=== PATIENT | female | born 1975 ===

== ENCOUNTER 2021-08-14 12:42 | Outpatient (REF) | payer MEDICAID, SELFPAY ==
--- NOTE | ~2021-08-14 | MM_ITS ---
EXAMINATION: MM SCREENING DIGITAL BREAST TOMOSYNTHESIS, BILATERAL CLINICAL INFORMATION: Screening. Asymptomatic. Age 46. No prior breast imaging. No known family history breast cancer. The lifetime risk of breast cancer based on the Tyrer-Cuzick Model is 7%. COMPARISON: None (current study represents initial baseline exam). TECHNIQUE: Digital breast tomosynthesis is performed in both the craniocaudal and mediolateral oblique views along with computer-aided detection (CAD). Synthesized 2D images are generated from the tomosynthesis. FINDINGS: There are scattered areas of fibroglandular density (ACR BI-RADS breast composition Category b). There are no significant masses, abnormal calcifications, or other abnormalities. The axilla and skin contours are unremarkable. MM/MM tomosynthesis screening BI IMPRESSION: No mammographic evidence of malignancy. ASSESSMENT: BI-RADS 1: Negative RECOMMENDATION: Routine annual mammography screening. This patient's information was entered into a reminder system with a target due date for their next mammogram.
== END 2021-08-14 12:43 | disposition home or self-care (01) ==
LOC: HO.MAMMO 12:42
PROVIDERS: PCP Internal Medicine; Visit Provider Advanced Practice Midwife
DX: Z12.31 Encounter for screening mammogram for malignant neoplasm of breast (principal)
CPT/HCPCS: 77063; 77067

== ENCOUNTER → 2022-04-25 15:41 | Outpatient (BNVA) | payer MEDICAID, SELFPAY | PROVIDERS: PCP Internal Medicine; Visit Provider Nurse Practitioner Family | DX: Z12.11 Encounter for screening for malignant neoplasm of colon (principal); E11.9 Type 2 diabetes mellitus without complications; Z79.4 Long term (current) use of insulin | CPT/HCPCS: 99202 ==

== ENCOUNTER → 2022-07-10 13:44 | Outpatient (BNVA) | payer MEDICAID, SELFPAY | PROVIDERS: PCP Internal Medicine; Visit Provider Internal Medicine Endocrinology, Diabetes & Metabolism | DX: E11.65 Type 2 diabetes mellitus with hyperglycemia (principal); E78.5 Hyperlipidemia, unspecified; Z79.4 Long term (current) use of insulin | CPT/HCPCS: 82947; 99212 ==

== ENCOUNTER → 2022-11-13 13:54 | Outpatient (BNVA) | payer MEDICAID, SELFPAY | PROVIDERS: PCP Internal Medicine; Visit Provider Dietitian, Registered | DX: E11.65 Type 2 diabetes mellitus with hyperglycemia (principal) | CPT/HCPCS: 97802 ==

== ENCOUNTER 2022-12-18 15:11 | Outpatient (REF) | payer MEDICAID, SELFPAY ==
[2022-12-18 18:17] LABS: MANUAL DIFF FLAG NO
[2022-12-18 18:27] LABS: Basophils Percent Auto 0.5 % (0-2); Eosinophils Absolute Auto 0.2 X10*3/uL (0.0-0.4); Hematocrit 44.3 % (37.0-47.0); Hemoglobin 15.1 g/dl (12.0-16.0); Imm Gran Abs Auto 0.02 X10*3/uL (0.00-0.03); Imm Gran Pct Auto 0.2 % (0.0-0.4); Lymphocytes Absolute Auto 3.1 X10*3/uL (1.2-4.9); Lymphocytes Percent Auto 37.7 % (20-40); Mean Corpuscular HGB Conc 34.1 g/dl (31.0-35.0); Mean Corpuscular Hemoglobin 29.1 pg (27.0-33.0); Mean Corpuscular Volume 85.4 fL (80.0-98.0); Mean Platelet Volume 9.6 fL (9.4-12.3); Monocytes Absolute Auto 0.5 X10*3/uL (0.1-1.2); Monocytes Percent Auto 6.3 % (2-11); Neutrophils Absolute Auto 4.4 x10*3/uL (2.0-8.3); Neutrophils Percent Auto 53.3 % (45-73); Platelet Count 320 X10*3/uL (160-400); Red Blood Count 5.19 X10*6/uL (4.20-5.50); Red Cell Distribution Width 14.4 % (11.0-16.0); White Blood Count 8.3 X10*3/uL (4.8-10.8)
[2022-12-18 19:11] LABS: Alanine Aminotransferase 35 U/L (0-31); Albumin Level 4.1 g/dL (3.5-5.0); Alkaline Phosphatase 112 U/L (39-117); Anion Gap 10 (12-20); Aspartate Amino Transferase 25 U/L (5-31); Bilirubin Total 0.5 mg/dL (0.0-1.0); Blood Urea Nitrogen 5 mg/dL (9-16); Calcium 9.5 mg/dL (8.4-10.2); Carbon Dioxide 23 mmol/L (22-29); Chloride 109 mmol/L (96-108); Estimated Glomerular Filt Rate > 60; Glucose Random 177 mg/dL (60-115); Magnesium 2.1 mg/dL (1.6-2.6); Potassium 3.9 mmol/L (3.3-5.1); Sodium 138 mmol/L (135-145); Total Protein 7.1 g/dL (6.5-8.0)
[2022-12-18 19:26] LABS: Vitamin D 25-OH Total 14.4 ng/mL (>30)
[2022-12-18 19:33] LABS: Vitamin B12 316 pg/mL (200-900)
== END 2022-12-18 15:12 | disposition home or self-care (01) ==
LOC: HO.CHCLDS 15:11
PROVIDERS: Visit Provider Internal Medicine
DX: R53.83 Other fatigue (principal)
CPT/HCPCS: 36415; 80053; 82306; 82607; 83735; 85025

== ENCOUNTER → 2023-01-07 14:44 | Outpatient (BNVA) | payer MEDICAID, SELFPAY | PROVIDERS: PCP Internal Medicine; Visit Provider Dietitian, Registered | DX: E11.65 Type 2 diabetes mellitus with hyperglycemia (principal) | CPT/HCPCS: 97803 ==

== ENCOUNTER 2023-01-07 14:51 | Outpatient (AMB) | payer MEDICAID, SELFPAY ==
[2023-01-07 14:45] VITALS: BMI 28.1
--- NOTE | 2023-01-07 14:45 | A.OFFVIS_ITS ---
Intake VS Expanded 01/07/23 14:45 Height 5 ft 5 in Weight 168 lb 10.458 oz BMI 28.1 Intake Visit Reasons: DM Allergies acetaminophen [From TYLENOL-CODEINE] Allergy (Intermediate, Verified 07/10/22 13:52) VOMITING, ITCHING From TYLENOL-CODEINE Allergy (Intermediate, Uncoded 07/10/22 13:52) VOMITING, ITCHING Codeine Phosphate Allergy (Unknown, Uncoded 07/10/22 13:52) hives, itchy HPI Nutrition Presentation Details Pt presents for MNT follow up for T2DM. Pt reports working on reducing sugars (soda/chocolates) Reports having 3 meals per day and taking her meds as rx by the doctor but not counting carbohydrates. Pt reports her blood glucose range from 123 to 200s Reports not understanding relationship of high fat and BG level (Pt presented 45 min late to this appt today) Most Recent Diabetes Results: Microalb/Creat Ratio 33.6 ug/mg cr 05/19/19 Cholesterol 248 MG/DL 05/19/19 HDL Cholesterol 36 MG/DL 05/19/19 Triglycerides 321 MG/DL 05/19/19 Creatinine 0.66 mg/dL (0.5-1.4) 12/18/22 Blood Urea Nitrogen 5 mg/dL (9-16) L 12/18/22 Sodium 138 mmol/L (135-145) 12/18/22 Potassium 3.9 mmol/L (3.3-5.1) 12/18/22 Chloride 109 mmol/L (96-108) H 12/18/22 Carbon Dioxide 23 mmol/L (22-29) 12/18/22 Calcium 9.5 mg/dL (8.4-10.2) 12/18/22 AST 25 U/L (5-31) 12/18/22 ALT 35 U/L (0-31) H 12/18/22 Total Protein 7.1 g/dL (6.5-8.0) 12/18/22 Albumin 4.1 g/dL (3.5-5.0) 12/18/22 [facility] Medical History (Updated 07/10/22 @ 14:06 by Tomas Lewis MD) Uncontrolled type 2 diabetes mellitus with hyperglycemia Surgical History (Updated 07/10/22 @ 13:55 by ANÍBAL Cohen) Hx of section Hx of cholecystectomy Hx of elbow surgery Hx of hand surgery Family History Mother Diabetes Maternal Uncle Diabetes Maternal Aunt Diabetes Social History (Updated 07/10/22 @ 13:55 by ANÍBAL Cohen) Household Members: Other Alcohol intake: current Alcohol intake frequency: does not drink Patient Tobacco Use Status: Current everyday Tobacco user Cigarettes Per Day: 4 Assessment & Plan Assessment & Plan (1) Uncontrolled type 2 diabetes mellitus with hyperglycemia: Code(s): E11.65 - Type 2 diabetes mellitus with hyperglycemia Plan: Wt: 75 kg Est kcal needs as per MSJ: 1913 (40% carb, 30% protein/fat) Est fluid needs as per 25-30 ml/d: 1875- 2250 Est prot per day as per 1 g/kg bw: 75 Recommend fiber intake : 8-10 g per day and gradually increase to 25-28 g per day for women or as tolerated Recommend sodium intake per day : less than 2000 mg Educated patient on: ( R = reviewed V = verbalizes understanding N/R = needs review N/A = not applicable * Food sources of carbohydrate, adequate serving sizes and its role in various health conditions: R * Differences between complex carbohydrates a simple carbohydrates, role of fiber in diet: R * Differences between types of fats and role in diet (mono on saturated fat fatty acids, saturated fatty acids, trans fats): R (relationship of high fat and BG levels discussed 01/07/23) * Food sources of sodium in salt and healthy modifications for heart health in kidney health: NR * Vitamins and minerals: NR * Healthy plate method concept: R * Physical activity: Benefits a precaution: NR * Hypoglycemia protocol (rule of 15): R * Dietary prevention of Hyperglycemia: NR Patient Instructions: Wokr on counting grams of carbohydrate at breakfast. Become familiar with portion and total grams of carbohydrates- goal 30-45-g of carbs at breakfast. Include food sources of vitamin D (milk, yogurt , vit d supplement ) Reduce on frequency of high fat foods (fries/breaded fried foods ) Coding Level of Care Code Nutr Indiv Subseq (47551) Diagnoses Uncontrolled type 2 diabetes mellitus with hyperglycemia E11.65 Time Spent (min) 16
== END 2023-01-07 15:03 | disposition home or self-care (01) ==
PROVIDERS: PCP Internal Medicine; Visit Provider Dietitian, Registered
DX: E11.65 Type 2 diabetes mellitus with hyperglycemia (principal)

== ENCOUNTER 2023-02-05 14:57 | Outpatient (AMB) | payer MEDICAID, SELFPAY ==
--- NOTE | 2023-02-05 14:59 | MHC.OFFVIS ---
Intake Vital Signs 02/05/23 15:00 Height 5 ft 5 in Weight 154 lb 15.759 oz BMI 25.8 BP 118/76 Blood Pressure Location Rt brachial Position Sitting Pulse 90 Pulse Source Pulse Oximeter Intake Visit Reasons: dm Intake Note: Patient presents today to follow up on Type 2 Diabetes Mellitus. Patient receives DME supplies through: Last Diabetic Eye exam: Over 1 year ago Last Podiatry Visit: 11/2022 Random Glucose: 243mg/dl HgA1C:9.0% Containers Sales Representative Required: No Accompanied by: Self / Same As Patient Allergies acetaminophen [From TYLENOL-CODEINE] Allergy (Intermediate, Verified 02/05/23 15:04) VOMITING, ITCHING From TYLENOL-CODEINE Allergy (Intermediate, Uncoded 07/10/22 13:52) VOMITING, ITCHING Codeine Phosphate Allergy (Unknown, Uncoded 07/10/22 13:52) hives, itchy Medication List - Last Reconciled 02/05/23 by Tomas Lewis MD dulaglutide (Trulicity) 1.5 mg (0.5 mL) subcut QWEEK insulin glargine (Lantus Solostar U-100 Insulin) 70 units subcut QPM insulin lispro (Humalog Clark KwikPen (U-100)) 1 sliding scale dose subcut USEASDIRECTD HPI HPI Comments History of Present Illness Details 47 YO F who is seen in consultation for T2DM at the request of PCP. Initially diagnosed with T2DM in 2013 . Saw June Wright NP in 2018 Was initially started on treatment with insulin and metformin Presented on blood testing . Current regimen Lantus 70 units . Humalog 26 units with meals Trulicity 1.5 mg Qwkly Per the CGM Parris CGMS is active 43 % of time . Avg glucose is 212 . Variability of 24.0 The patient's blood sugars were in target 24% of the time, above target 76% of the time, and below target 0% of the time Reports low sugars infrequently .1-2 X/wk Treats lows with glucose tabs . Checks sugar after to ensure it is rising. Checks 2 hr after correction Family history of T2DM in mother Type 2 DM and aunts and uncle . Has eyes checked yearly, last eye exam 1 yr ago needs to make appt , denies retinopathy. Denies neuropathy, , sees podiatry 2 wks ago . Denies nephropathy, Not on ALEX/ARB. Has HLD,Not on statin. Denies CAD. Had diabetes education when first diagnosed . [facility] Medical History (Updated 07/10/22 @ 14:06 by Tomas Lewis MD) Uncontrolled type 2 diabetes mellitus with hyperglycemia Surgical History (Updated 07/10/22 @ 13:55 by ANÍBAL Cohen) Hx of section Hx of cholecystectomy Hx of elbow surgery Hx of hand surgery Family History Mother Diabetes Maternal Uncle Diabetes Maternal Aunt Diabetes Social History (Updated 07/10/22 @ 13:55 by ANÍBAL Cohen) Household Members: Other Alcohol intake: current Alcohol intake frequency: does not drink Patient Tobacco Use Status: Current everyday Tobacco user Cigarettes Per Day: 4 Physical Exam Vital Signs: Last Vital Signs Pulse 90 02/05/23 15:00 BP 118/76 02/05/23 15:00 BMI result Body Mass Index 25.8 Absence of Cushingoid features. Absence of acromegalic features. Neck exam reveals nl size thyroid about 15 gms. No thyroid nodules palpable. No carotid bruits present. Lungs CTA. Heart S1 S2, Reg R/R. No M/R/ G. Skin exam reveals absence of vitiligo or acanthosis nigricans. Abdominal exam reveals Soft NT/ND with NA BS. No organomegaly present. Neck Other: . Extrem Other: Visual exam of foot performed. No ulcerations or open lesions. No onchomycosis, no callouses.Pulses 2 + distally Sensation intact to monofilament exam. Vibratory sensation sensed is intact with 128 Hz tuning fork Results AMB Hemoglobin A1c AMB Hemoglobin A1c 9.0 % Last Edit by Carmela Knott on 02/05/23 15:19 Assessment & Plan Assessment & Plan (1) Uncontrolled type 2 diabetes mellitus with hyperglycemia: Code(s): E11.65 - Type 2 diabetes mellitus with hyperglycemia Plan: This is a 47-year-old female with history of diabetes being treated with basal-bolus insulin with poor glycemic control and no known microvascular or macrovascular complications Plan is to have the patient scan more frequently with the Parris. Will increase Trulicity to 3 mg Q weekly and add Jardiance 10 mg q.d.. Went over side effects Jardiance including but not limited to dehydration, DKA and Chad's gangrene . Will check basic metabolic panel 10 days after starting Jardiance . Will have patient see consumer educator. Could consider switching Trulicity to Mounjaro if do not achieve glycemic goals in the future future Will talk to patient about starting a statin namely atorvastatin 10 mg q.d. and recheck lipid profile in 8 weeks Orders: Orders Basic Metabolic Panel 2 Weeks E11.65 - Type 2 diabetes mellitus with hyperglycemia Lipid Panel 8 Weeks E11.65 - Type 2 diabetes mellitus with hyperglycemia AMB Hemoglobin A1c Today E11.65 - Type 2 diabetes mellitus with hyperglycemia Medications: New dulaglutide (Trulicity) 3 mg (0.5 mL) subcut QWEEK 2 mL 5RF empagliflozin (Jardiance) 10 mg PO DAILY 30 tabs 5RF glucagon 3 mg/actuation (Baqsimi) 3 mg intranasal ONCE 2 ea 4RF atorvastatin 10 mg PO DAILY 30 tabs 4RF Discontinued dulaglutide (Trulicity) Discontinued Reason: Doctor's Order 1.5 mg (0.5 mL) subcut QWEEK 2 mL 5RF Coding Level of Care Code Est Pt Level 4 (26166) Diagnoses Uncontrolled type 2 diabetes mellitus with hyperglycemia E11.65
[2023-02-05 15:00] VITALS: BP 118/76; PULSE 90; BMI 25.8
[2023-02-05 15:15] LABS: Glucose, Whole Blood 243 mg/dL (60-115)
== END 2023-02-05 15:36 | disposition home or self-care (01) ==
PROVIDERS: PCP Internal Medicine; Visit Provider Internal Medicine Endocrinology, Diabetes & Metabolism
DX: E11.65 Type 2 diabetes mellitus with hyperglycemia (principal)
CPT/HCPCS: 99214

== ENCOUNTER → 2023-02-05 14:57 | Outpatient (BNVA) | payer MEDICAID, SELFPAY | PROVIDERS: PCP Internal Medicine; Visit Provider Internal Medicine Endocrinology, Diabetes & Metabolism | DX: E11.65 Type 2 diabetes mellitus with hyperglycemia (principal); Z79.4 Long term (current) use of insulin | CPT/HCPCS: 82947; 83036; 99212 ==

== ENCOUNTER 2023-02-20 14:00 | Outpatient (AMB) | payer MEDICAID, SELFPAY ==
--- NOTE | 2023-02-20 14:46 | A.OFFVIS_ITS ---
Intake Intake Visit Reasons: DM Catalyst Impregnator Required: No Accompanied by: Self / Same As Patient Allergies acetaminophen [From TYLENOL-CODEINE] Allergy (Intermediate, Verified 02/05/23 15:04) VOMITING, ITCHING From TYLENOL-CODEINE Allergy (Intermediate, Uncoded 07/10/22 13:52) VOMITING, ITCHING Codeine Phosphate Allergy (Unknown, Uncoded 07/10/22 13:52) hives, itchy HPI Comprehensive Diabetes Asmnt Most Recent Diabetes Results: Creatinine 0.66 mg/dL (0.5-1.4) 12/18/22 Blood Urea Nitrogen 5 mg/dL (9-16) L 12/18/22 Sodium 138 mmol/L (135-145) 12/18/22 Potassium 3.9 mmol/L (3.3-5.1) 12/18/22 Chloride 109 mmol/L (96-108) H 12/18/22 Carbon Dioxide 23 mmol/L (22-29) 12/18/22 Calcium 9.5 mg/dL (8.4-10.2) 12/18/22 AST 25 U/L (5-31) 12/18/22 ALT 35 U/L (0-31) H 12/18/22 Total Protein 7.1 g/dL (6.5-8.0) 12/18/22 Albumin 4.1 g/dL (3.5-5.0) 12/18/22 [facility] Medical History (Updated 07/10/22 @ 14:06 by Tomas Lewis MD) Uncontrolled type 2 diabetes mellitus with hyperglycemia Surgical History Hx of section Hx of cholecystectomy Hx of elbow surgery Hx of hand surgery Family History Mother Diabetes Maternal Uncle Diabetes Maternal Aunt Diabetes Social History Household Members: Other Alcohol intake: current Alcohol intake frequency: does not drink Patient Tobacco Use Status: Current everyday Tobacco user Cigarettes Per Day: 4 Assessment & Plan Assessment & Plan (1) Uncontrolled type 2 diabetes mellitus with hyperglycemia: Code(s): E11.65 - Type 2 diabetes mellitus with hyperglycemia Plan: Pump Assessment: Type of DM: Type 2 Dx at age: 38 Previous DKA: No Current Insulin Rx: MDI Patient takes insulin as prescribed: Yes Patient? checks BG freestyle Parris 2 sensor Downloaded meter today? Yes Patient? reports glycemic control as: Poor Most recent Hgb A1C: 9%, January 2023 Frequency of low BG: Rarely Low BG treatment: Candy Frequency of high BG: Daily Does patient check Ketones? Not at this time Has pt been on a pump in the past? No Reviewed insulin pump basics today with Patient. Explained pros and cons of insulin pumps. Showed pt various pumps, infusion sets, and cgms currently available. Reviewed need to wear pump 24/ and need to change infusion set every 3 days. Also stressed importance of frequent BG checks, 4x daily minimum or use pump that is integrated with CGM.? Explained to patient she will need to transition from Parris 2 sensors to Dexcom G6 in order to use integrated insulin pump device Patient reports she has limited dexterity in both of her hands due to nerve damage, and neuropathy. She finds it difficult to administer insulin through insulin pens. Requested prescription for Toujeo to replace Lantus Patient demonstrated motivation for continued insulin pump education and understands the need to complete education prior to starting insulin pump for best outcome. Is interested in the iLet insulin pump, explained to patient that it may only be approved for people with type 1 diabetes. Patient asked if we could submit order regardless Coding Level of Care Code Est Pt Level 1 (90646) Diagnoses Uncontrolled type 2 diabetes mellitus with hyperglycemia E11.65
== END 2023-02-20 14:51 | disposition home or self-care (01) ==
PROVIDERS: PCP Internal Medicine; Visit Provider Registered Nurse Diabetes Educator
DX: E11.65 Type 2 diabetes mellitus with hyperglycemia (principal)

== ENCOUNTER → 2023-02-20 14:00 | Outpatient (BNVA) | payer MEDICAID, SELFPAY | PROVIDERS: PCP Internal Medicine; Visit Provider Registered Nurse Diabetes Educator | DX: E11.65 Type 2 diabetes mellitus with hyperglycemia (principal) | CPT/HCPCS: 99211 ==

== ENCOUNTER 2023-04-02 14:48 | Outpatient (REF) | payer MEDICAID, SELFPAY ==
--- NOTE | ~2023-04-02 | XR_ITS ---
EXAMINATION: XR WRIST, RIGHT XR WRIST, LEFT CLINICAL INFORMATION: Bilateral wrist and hand pain. COMPARISON: None available. TECHNIQUE: Navicular, lateral, oblique and PA views were obtained of the bilateral wrists. RIGHT WRIST: Moderate degenerative changes 1st carpometacarpal joint with joint space narrowing and hypertrophic change. Mild degenerative changes 1st metatarsophalangeal joint with hypertrophic change. No displaced fracture. LEFT WRIST: Moderate degenerative changes 1st carpometacarpal joint with joint space narrowing and hypertrophic change. Mild degenerative changes 1st metatarsophalangeal joint with hypertrophic change. No displaced fracture. Mild degenerative changes 1st metatarsophalangeal joint. XR/XR wrist LT min 3V IMPRESSION: 1. [id number] degenerative changes as detailed above. 2. No displaced fracture. Recommend followup imaging in 10-14 days if fracture is suspected.
--- NOTE | ~2023-04-02 | XR_ITS ---
EXAMINATION: XR WRIST, RIGHT XR WRIST, LEFT CLINICAL INFORMATION: Bilateral wrist and hand pain. COMPARISON: None available. TECHNIQUE: Navicular, lateral, oblique and PA views were obtained of the bilateral wrists. RIGHT WRIST: Moderate degenerative changes 1st carpometacarpal joint with joint space narrowing and hypertrophic change. Mild degenerative changes 1st metatarsophalangeal joint with hypertrophic change. No displaced fracture. LEFT WRIST: Moderate degenerative changes 1st carpometacarpal joint with joint space narrowing and hypertrophic change. Mild degenerative changes 1st metatarsophalangeal joint with hypertrophic change. No displaced fracture. Mild degenerative changes 1st metatarsophalangeal joint. XR/XR wrist RT min 3V IMPRESSION: 1. [id number]-[id number] degenerative changes as detailed above. 2. No displaced fracture. Recommend followup imaging in 10-14 days if fracture is suspected.
[2023-04-02 15:04] LABS: MANUAL DIFF FLAG NO
[2023-04-02 15:28] LABS: Basophils Absolute Auto 0.1 X10*3/uL (0.0-0.2); Basophils Percent Auto 0.6 % (0-2); Eosinophils Absolute Auto 0.2 X10*3/uL (0.0-0.4); Eosinophils Percent Auto 2.2 % (0-4); Hematocrit 42.4 % (37.0-47.0); Hemoglobin 14.5 g/dl (12.0-16.0); Imm Gran Abs Auto 0.03 X10*3/uL (0.00-0.03); Imm Gran Pct Auto 0.3 % (0.0-0.4); Lymphocytes Absolute Auto 3.5 X10*3/uL (1.2-4.9); Lymphocytes Percent Auto 38.1 % (20-40); Mean Corpuscular HGB Conc 34.2 g/dl (31.0-35.0); Mean Corpuscular Hemoglobin 29.4 pg (27.0-33.0); Mean Corpuscular Volume 85.8 fL (80.0-98.0); Monocytes Absolute Auto 0.7 X10*3/uL (0.1-1.2); Monocytes Percent Auto 7.3 % (2-11); Neutrophils Absolute Auto 4.8 x10*3/uL (2.0-8.3); Neutrophils Percent Auto 51.5 % (45-73); Platelet Count 311 X10*3/uL (160-400); Red Blood Count 4.94 X10*6/uL (4.20-5.50); Red Cell Distribution Width 13.7 % (11.0-16.0); White Blood Count 9.3 X10*3/uL (4.8-10.8)
[2023-04-02 15:51] LABS: C Reactive Protein 0.57 mg/dL (< or = 0.50)
[2023-04-03 15:04] LABS: Cyclic Citrullinated Peptide <16 UNITS
== END 2023-04-02 14:49 | disposition home or self-care (01) ==
LOC: HO.LAB 14:48
PROVIDERS: Absent Provider Internal Medicine; PCP Internal Medicine; Visit Provider Internal Medicine Endocrinology, Diabetes & Metabolism
DX: G56.03 Carpal tunnel syndrome, bilateral upper limbs (principal); M25.531 Pain in right wrist; M25.532 Pain in left wrist
CPT/HCPCS: 36415; 73110; 85025; 86140; 86200

== ENCOUNTER 2023-04-29 13:09 | Outpatient (AMB) | payer MEDICAID, SELFPAY ==
--- NOTE | 2023-04-29 14:49 | A.OFFVIS_ITS ---
Intake Intake Visit Reasons: Pump set up-LVM Manager Simulation Required: No Accompanied by: Self / Same As Patient Allergies acetaminophen [From TYLENOL-CODEINE] Allergy (Intermediate, Verified 02/05/23 15:04) VOMITING, ITCHING From TYLENOL-CODEINE Allergy (Intermediate, Uncoded 07/10/22 13:52) VOMITING, ITCHING Codeine Phosphate Allergy (Unknown, Uncoded 07/10/22 13:52) hives, itchy HPI Comprehensive Diabetes Asmnt Most Recent Diabetes Results: Creatinine 0.66 mg/dL (0.5-1.4) 12/18/22 Blood Urea Nitrogen 5 mg/dL (9-16) L 12/18/22 Sodium 138 mmol/L (135-145) 12/18/22 Potassium 3.9 mmol/L (3.3-5.1) 12/18/22 Chloride 109 mmol/L (96-108) H 12/18/22 Carbon Dioxide 23 mmol/L (22-29) 12/18/22 Calcium 9.5 mg/dL (8.4-10.2) 12/18/22 AST 25 U/L (5-31) 12/18/22 ALT 35 U/L (0-31) H 12/18/22 Total Protein 7.1 g/dL (6.5-8.0) 12/18/22 Albumin 4.1 g/dL (3.5-5.0) 12/18/22 [facility] Medical History (Updated 07/10/22 @ 14:06 by Tomas Lewis MD) Uncontrolled type 2 diabetes mellitus with hyperglycemia Surgical History Hx of section Hx of cholecystectomy Hx of elbow surgery Hx of hand surgery Family History Mother Diabetes Maternal Uncle Diabetes Maternal Aunt Diabetes Household Members: Other Alcohol intake: current Alcohol intake frequency: does not drink Patient Tobacco Use Status: Current everyday Tobacco user Cigarettes Per Day: 4 Assessment & Plan Assessment & Plan (1) Uncontrolled type 2 diabetes mellitus with hyperglycemia: Code(s): E11.65 - Type 2 diabetes mellitus with hyperglycemia Plan: Patient presents for pump training for iLet pump and CGM training today. The following topics were reviewed today: -Pump therapy basic concepts: Basal/bolus -Device settings: Bluetooth/mobile connection (if applicable), correct date and time, sound volume -CGM settings(if integrated system): CGM graft views and trend arrows, alerts and alarms, Start new sensor Insulin delivery settings Instructed patient to only use room temperature insulin, how to load cartridge or fill pod, with insulin. Fill tubing and cannula (if applicable) Inserting infusion set or starting pod Troubleshooting after starting new pod or inserting new insulin set: Occlusion, adhesive tape sensitivity, redness Check BG 2 hours after site change Safety information: Importance of a backup plan, for manual injections, proper prescriptions and emergency supplies ketone strips, and rules for testing for ketones Patient was able to insert insulin set today without difficulty. Patient understands the basic concepts of pump therapy, how to give insulin for meals and snacks, how to troubleshoot for hyper and hypoglycemia. Patient will follow up with CDE as instructed Patient will contact CDE with questions or concerns, patient given IT number to support in any technical issues related to insulin pump Patient Instructions: Pt will follow up with diabetes education nurse in 1 week Coding Level of Care Code Est Pt Level 1 (69417) Diagnoses Uncontrolled type 2 diabetes mellitus with hyperglycemia E11.65
== END 2023-04-29 14:58 | disposition home or self-care (01) ==
PROVIDERS: PCP Internal Medicine; Visit Provider Registered Nurse Diabetes Educator
DX: E11.65 Type 2 diabetes mellitus with hyperglycemia (principal)

== ENCOUNTER → 2023-04-29 13:09 | Outpatient (BNVA) | payer MEDICAID, SELFPAY | PROVIDERS: PCP Internal Medicine; Visit Provider Registered Nurse Diabetes Educator | DX: E11.65 Type 2 diabetes mellitus with hyperglycemia (principal); Z96.41 Presence of insulin pump (external) (internal); Z46.81 Encounter for fitting and adjustment of insulin pump | CPT/HCPCS: 99211 ==

== ENCOUNTER 2023-05-20 14:01 | Outpatient (AMB) | payer MEDICAID, SELFPAY ==
--- NOTE | 2023-05-20 14:02 | A.OFFVIS_ITS ---
Intake Vital Signs 05/20/23 14:03 Height 5 ft 5 in Weight 158 lb 1.143 oz BMI 26.3 BP 128/80 Blood Pressure Location Lt brachial Position Sitting Pulse 91 Pulse Source Pulse Oximeter Intake Visit Reasons: f/u Type 2 DM-LVM Intake Note: Patient presents today to follow up on DMT2. Last Diabetic Eye exam: 2021 Last Podiatry Visit: 03/2023 Random Glucose: 107 mg/dl HgA1C:8.2% Upscale Security Officer Required: No Accompanied by: Self / Same As Patient Allergies acetaminophen [From TYLENOL-CODEINE] Allergy (Intermediate, Verified 05/20/23 14:08) VOMITING, ITCHING From TYLENOL-CODEINE Allergy (Intermediate, Uncoded 07/10/22 13:52) VOMITING, ITCHING Codeine Phosphate Allergy (Unknown, Uncoded 07/10/22 13:52) hives, itchy HPI HPI Comments History of Present Illness Details 48 YO F who is seen in consultation for T2DM at the request of PCP. Initially diagnosed with T2DM in 2013 . Was initially started on treatment with insulin and metformin Presented on blood testing . Current regimen Jardiance 10 mg Trulicity 1.5 mg Qwkly Currently on and ilet pump Total daily dose of insulin 76.5 units. Glucose summary shows average glucose to be 190.2 with standard deviation of 44.7 and coefficient of variation 23.5 total daily basal dose of insulin is 33.6 with total daily dose 76.5. Per the CGM Dexcom shows 46.1% range with 43.4% high 10% very high and no hypoglycemia Reports low sugars infrequently .1-2 X/wk Treats lows with glucose tabs . Checks sugar after to ensure it is rising. Checks 2 hr after correction Family history of T2DM in mother Type 2 DM and aunts and uncle . Has eyes checked yearly, last eye exam. Needs to make an appt , denies retinopathy. Denies neuropathy, , sees podiatry 2 wks ago . Denies nephropathy, Not on ALEX/ARB. Has HLD,Not on statin. Denies CAD. Had diabetes education when first diagnosed . [facility] Medical History (Updated 07/10/22 @ 14:06 by Tomas Lewis MD) Uncontrolled type 2 diabetes mellitus with hyperglycemia Surgical History Hx of cholecystectomy Hx of section Hx of hand surgery Hx of elbow surgery Family History Mother Diabetes Maternal Uncle Diabetes Maternal Aunt Diabetes Social History Household Members: Other Alcohol intake: current Alcohol intake frequency: does not drink Patient Tobacco Use Status: Current everyday Tobacco user Cigarettes Per Day: 4 Physical Exam Vital Signs: Last Vital Signs Pulse 91 05/20/23 14:03 BP 128/80 05/20/23 14:03 BMI result Body Mass Index 26.3 Absence of Cushingoid features. Absence of acromegalic features. Neck exam reveals nl size thyroid about 15 gms. No thyroid nodules palpable. No carotid bruits present. Lungs CTA. Heart S1 S2, Reg R/R. No M/R/ G. Skin exam reveals absence of vitiligo or acanthosis nigricans. Abdominal exam reveals Soft NT/ND with NA BS. No organomegaly present. Neck Other: . Extrem Other: Visual exam of foot performed. No ulcerations or open lesions. No onchomycosis, no callouses.Pulses 2 + distally Sensation intact to monofilament exam. Vibratory sensation sensed is intact with 128 Hz tuning fork Results Reviewed Results Reviewed: Laboratory Last Values Glucose (Clinic) 107 mg/dL (60-115) 05/20/23 14:11 Assessment & Plan Assessment & Plan (1) Uncontrolled type 2 diabetes mellitus with hyperglycemia: Code(s): E11.65 - Type 2 diabetes mellitus with hyperglycemia Plan: This is a 48-year-old female with history of diabetes being treated with iLet insulin pump and Trulicity and Jardiance with poor glycemic control and no known microvascular or macrovascular complications Plan is to change the Trulicity to Ozempic 0.25 mg q. weekly and titrate as tolerated. If patient cannot tolerate Ozempic, with then try Mounjaro . Went over side effects of Ozempic and Mounjaro including but not limited to nausea, vomiting rare risk pancreatitis . If we do not obtain optimal glycemic control, the target on the pump can be lowered this can be reviewed at the diabetic Education appointment Mounjaro 2.5 mg samples given the patient lot number [id number] C expiration date 10/12 24 Medications: New semaglutide (Ozempic) for 4 weeks 0.25 mg (0.368 mL) subcut QWEEK 3 mL 3RF Discontinued dulaglutide (Trulicity) Discontinued Reason: Doctor's Order 3 mg (0.5 mL) subcut QWEEK 2 mL 5RF Coding Level of Care Code Est Pt Level 4 (01734) Diagnoses Uncontrolled type 2 diabetes mellitus with hyperglycemia E11.65
[2023-05-20 14:03] VITALS: BP 128/80; PULSE 91; BMI 26.3
[2023-05-20 14:15] LABS: Glucose, Whole Blood 107 mg/dL (60-115)
== END 2023-05-20 14:41 | disposition home or self-care (01) ==
PROVIDERS: PCP Internal Medicine; Visit Provider Internal Medicine Endocrinology, Diabetes & Metabolism
DX: E11.65 Type 2 diabetes mellitus with hyperglycemia (principal)
CPT/HCPCS: 99214

== ENCOUNTER → 2023-05-20 14:01 | Outpatient (BNVA) | payer MEDICAID, SELFPAY | PROVIDERS: PCP Internal Medicine; Visit Provider Internal Medicine Endocrinology, Diabetes & Metabolism | DX: E11.65 Type 2 diabetes mellitus with hyperglycemia (principal) | CPT/HCPCS: 82947; 83036; 99212 ==

== ENCOUNTER 2023-08-12 09:12 | Emergency (ER) | payer MEDICAID, SELFPAY ==
[2023-08-12 09:18] VITALS: BP 144/72; PULSE 109; RESP 24; TEMP 37.1; O2SAT 96; BMI 27.1
--- NOTE | 2023-08-12 09:42 | PC.NURSE ---
PT OUTSIDE SMOKING
--- NOTE | 2023-08-12 10:13 | PC.NURSE ---
PT SEEN BY SECURITY GETTING INTO A CAR AND LEAVING
--- NOTE | 2023-08-12 10:28 | MHC.EDTECH ---
this pct calls for patient in the waiting room. no answer. per security patient is outside of ed waiting room smoking. this pct finds patient there and patient is agreeable to come in for ekg and labs. when this pct began process for ekg, patient stated she alread had one done by [facility] , and then [facility] refused the ekg, and then refused all lab work, and then respectfully stated that she wants to leave. patient brought to registration to sign out of ed.
== END 2023-08-12 10:40 | disposition left against medical advice (07) ==
PROVIDERS: Emergency Provider Emergency Medicine
DX: R06.02 Shortness of breath (principal)
CPT/HCPCS: 99281

== ENCOUNTER 2023-10-05 14:50 | Outpatient (AMB) | payer MEDICAID, SELFPAY ==
[2023-10-05 14:52] VITALS: BP 130/74; PULSE 87; BMI 27.1
--- NOTE | 2023-10-05 14:52 | MHC.OFFVIS ---
Vital Signs 10/05/23 14:52 Height 5 ft 4 in Weight 157 lb 10.088 oz BMI 27.1 BP 130/74 Blood Pressure Location Lt brachial Position Sitting Pulse 87 Pulse Source Pulse Oximeter Intake Visit Reasons: DM Intake Note: Patient present today to follow up on Type 2 Diabetes Mellitus. Patient receives DME supplies through: [employer] Last Diabetic Eye exam: 09/2022 Last Podiatry Visit: 06/2023 Random Glucose: 164 mg/dl HgA1C: 8.6% Helpdesk Administrator Required: No Accompanied by: Self / Same As Patient Allergies acetaminophen [From TYLENOL-CODEINE] Allergy (Intermediate, Verified 10/05/23 14:58) VOMITING, ITCHING From TYLENOL-CODEINE Allergy (Intermediate, Uncoded 10/05/23 14:58) VOMITING, ITCHING Codeine Phosphate Allergy (Unknown, Uncoded 10/05/23 14:58) hives, itchy Medication List - Last Reconciled 10/05/23 by Tomas Lewis MD atorvastatin 10 mg PO DAILY empagliflozin (Jardiance) 10 mg PO DAILY glucagon 3 mg/actuation (Baqsimi) 3 mg intranasal ONCE insulin glargine U-300 conc (Toujeo Max U-300 SoloStar) 70 units (0.2333 mL) subcut DAILY insulin lispro (Humalog Clark KwikPen (U-100)) 1 sliding scale dose subcut USEASDIRECTD insulin lispro (Humalog U-100 Insulin) Up to 100 units via insulin pump subcutaneously 3 times a day; tirzepatide (Mounjaro) 5 mg (0.5 mL) subcut QWEEK HPI Comments Details: 48 YO F who is seen in consultation for T2DM at the request of PCP. Initially diagnosed with T2DM in 2013 . Was initially started on treatment with insulin and metformin Presented on blood testing . Current regimen Jardiance 10 mg not taking Mounjaro 5 mg Qwkly not taking Currently on and ilet pump. Unfortunately, could not download the pump for sensor at today's appointment Reports low sugars none Treats lows with glucose tabs . Checks sugar after to ensure it is rising. Checks 2 hr after correction Family history of T2DM in mother Type 2 DM and aunts and uncle . Has eyes checked yearly, last eye exam. Needs to make an appt , denies retinopathy. Denies neuropathy, , sees podiatry 2 wks ago . Denies nephropathy, Not on ALEX/ARB. Has HLD,Not on statin. Denies CAD. Had diabetes education when first diagnosed . [facility] Medical History (Updated 08/13/23 @ 00:01 by Tawanna Rodriguez) Uncontrolled type 2 diabetes mellitus with hyperglycemia Surgical History Hx of cholecystectomy Hx of section Hx of hand surgery Hx of elbow surgery Family History Mother Diabetes Maternal Uncle Diabetes Maternal Aunt Diabetes Social History Household Members: Other Alcohol intake: current Alcohol intake frequency: does not drink Patient Tobacco Use Status: Current everyday Tobacco user Cigarettes Per Day: 4 Physical Exam Absence of Cushingoid features. Absence of acromegalic features. Neck exam reveals nl size thyroid about 15 gms. No thyroid nodules palpable. No carotid bruits present. Lungs CTA. Heart S1 S2, Reg R/R. No M/R/ G. Skin exam reveals absence of vitiligo or acanthosis nigricans. Abdominal exam reveals Soft NT/ND with NA BS. No organomegaly present. Neck Other: . Extrem Other: Visual exam of foot performed. No ulcerations or open lesions. No onchomycosis, no callouses.Pulses 2 + distally Sensation intact to monofilament exam. Vibratory sensation sensed is intact with 128 Hz tuning fork Results AMB Hemoglobin A1c AMB Hemoglobin A1c 8.6 % Last Edit by ANÍBAL Swanson on 10/05/23 15:12 Assessment & Plan Assessment & Plan (1) Uncontrolled type 2 diabetes mellitus with hyperglycemia: Code(s): E11.65 - Type 2 diabetes mellitus with hyperglycemia Category: Medical Plan: This is a 48-year-old female with history of diabetes being treated with iLet insulin pump and Mounjaro and Jardiance with poor glycemic control and no known microvascular or macrovascular complications Plan is to have the patient follow up with the manager ethics to view iLet download . Can not adjust insulin pump settings due to lack of data today. We will stop Mounjaro at patient's request Orders: Orders AMB Hemoglobin A1c Today E11.65 - Type 2 diabetes mellitus with hyperglycemia, Z13.9 - Encounter for screening, unspecified Medications: Discontinued tirzepatide (Mounjaro) Discontinued Reason: Doctor's Order 5 mg (0.5 mL) subcut QWEEK 2 mL 4RF Coding Level of Care Code Est Pt Level 4 (32268) Diagnoses Uncontrolled type 2 diabetes mellitus with hyperglycemia E11.65
[2023-10-05 15:07] LABS: Glucose, Whole Blood 164 mg/dL (60-115)
== END 2023-10-05 15:41 | disposition home or self-care (01) ==
PROVIDERS: PCP Internal Medicine; Referring Provider Internal Medicine; Visit Provider Internal Medicine Endocrinology, Diabetes & Metabolism
DX: Z13.9 Encounter for screening, unspecified (principal); E11.65 Type 2 diabetes mellitus with hyperglycemia
CPT/HCPCS: 99214

== ENCOUNTER → 2023-10-05 14:50 | Outpatient (BNVA) | payer MEDICAID, SELFPAY | PROVIDERS: PCP Internal Medicine; Visit Provider Internal Medicine Endocrinology, Diabetes & Metabolism | DX: E11.65 Type 2 diabetes mellitus with hyperglycemia (principal) | CPT/HCPCS: 82947; 83036; 99212 ==

== ENCOUNTER 2023-11-03 16:19 | Outpatient (AMB) | payer MEDICAID, SELFPAY ==
--- NOTE | 2023-11-03 16:43 | MHC.AMDMED ---
Intake Intake Visit Reasons: DM Insurance Attorney Required: No Accompanied by: Self / Same As Patient Allergies acetaminophen [From TYLENOL-CODEINE] Allergy (Intermediate, Verified 10/05/23 14:58) VOMITING, ITCHING From TYLENOL-CODEINE Allergy (Intermediate, Uncoded 10/05/23 14:58) VOMITING, ITCHING Codeine Phosphate Allergy (Unknown, Uncoded 10/05/23 14:58) hives, itchy HPI Comprehensive Diabetes Asmnt Most Recent Diabetes Results: No Data to Display [facility] Medical History (Updated 08/13/23 @ 00:01 by Tawanna Rodriguez) Uncontrolled type 2 diabetes mellitus with hyperglycemia Surgical History Hx of cholecystectomy Hx of section Hx of hand surgery Hx of elbow surgery Family History Mother Diabetes Maternal Uncle Diabetes Maternal Aunt Diabetes Social History Household Members: Other Alcohol intake: current Alcohol intake frequency: does not drink Patient Tobacco Use Status: Current everyday Tobacco user Cigarettes Per Day: 4 Assessment & Plan Assessment & Plan (1) Uncontrolled type 2 diabetes mellitus with hyperglycemia: Code(s): E11.65 - Type 2 diabetes mellitus with hyperglycemia Plan: Patient presents for pump training for iLet pump and CGM training today. The following topics were reviewed today: -Pump therapy basic concepts: Basal/bolus -Always dose 15 minutes prior to meals - Off pump backup insulin plan ??? High Alert: off ??? Low Alert: 70 mg/dl CGM Patient above target 69.7% At target 29.8% Below target 0.3% Average glucose for the past 14 days 222 mg/dL TDD: 104.3 units Basal: 38 units Patient has approximately 5 days, where she was experiencing hyperglycemia all day. Patient reports she is had recurring yeast infection. Discussed with patient how hyperglycemia can cause yeast infections, and how yeast infection and stress can cause glucose levels to be above target. Patient reports she will contact PCP for prescription for treatment for yeast infection Instructed patient to only use room temperature insulin, how to load cartridge or fill pod, with insulin. Fill tubing and cannula (if applicable) Troubleshooting after starting new pod or inserting new insulin set: Occlusion, adhesive tape sensitivity, redness Check BG 2 hours after site change Reviewed Safety information: Importance of a backup plan, for manual injections, proper prescriptions and emergency supplies ketone strips, and rules for testing for ketones Patient understands the basic concepts of pump therapy, how to give insulin for meals and snacks, how to troubleshoot for hyper and hypoglycemia. Patient will follow up with [facility] as instructed Patient will contact [facility] with questions or concerns, patient given IT number to support in any technical issues related to insulin pump Portions of this note were created using voice recognition software, please excuse any words or phrases that may have been misinterpreted. Coding Level of Care Code Est Pt Level 1 (96685) Diagnoses Uncontrolled type 2 diabetes mellitus with hyperglycemia E11.65
== END 2023-11-03 16:44 | disposition home or self-care (01) ==
PROVIDERS: PCP Internal Medicine; Visit Provider Registered Nurse Diabetes Educator
DX: E11.65 Type 2 diabetes mellitus with hyperglycemia (principal)

== ENCOUNTER → 2023-11-03 16:19 | Outpatient (BNVA) | payer MEDICAID, SELFPAY | PROVIDERS: PCP Internal Medicine; Visit Provider Registered Nurse Diabetes Educator | DX: E11.65 Type 2 diabetes mellitus with hyperglycemia (principal); Z96.41 Presence of insulin pump (external) (internal); Z46.81 Encounter for fitting and adjustment of insulin pump; Z79.4 Long term (current) use of insulin | CPT/HCPCS: 99211 ==

== ENCOUNTER → 2024-02-09 14:52 | Outpatient (BNVA) | payer MEDICAID, SELFPAY | PROVIDERS: PCP Internal Medicine; Visit Provider Nurse Practitioner Adult Health ==

== ENCOUNTER 2024-02-16 11:56 | Outpatient (AMB) | payer MEDICAID, SELFPAY ==
--- NOTE | 2024-02-16 12:18 | MHC.OFFVIS ---
Vital Signs 02/16/24 12:19 Height 5 ft 4 in Weight 153 lb 10.595 oz BMI 26.4 BP 130/90 H Blood Pressure Location Lt brachial Position Sitting Pulse 86 Pulse Source Pulse Oximeter Intake Visit Reasons: Type 2 dm/LVM Intake Note: Patient presents today for a follow-up on Type 2 Diabetes Mellitus. Last Diabetic eye exam was over one year ago. Last Podiatry exam was on: Does not see a Manager Country Most recent HbA1c: 8.6% Random Glucose- 460 mg/dL @ 12:29 pm, 450mg/dL @ 1:10pm 394mg/dL @ 2:00pm Toy Mechanic Required: No Accompanied by: Self / Same As Patient Allergies acetaminophen [From TYLENOL-CODEINE] Allergy (Intermediate, Verified 02/16/24 12:26) VOMITING, ITCHING From TYLENOL-CODEINE Allergy (Intermediate, Uncoded 02/16/24 12:26) VOMITING, ITCHING Codeine Phosphate Allergy (Unknown, Uncoded 02/16/24 12:26) hives, itchy HPI Comments Details: 48 YO F who is seen in f/u for T2DM. She is on an islet insulin pump. She was last seen by Dr. Lewis 10/29 and by Keysha MARSH 10/29. She presents today with a glucose of 460, ketone negative urine having last announced a meal through her pump at breakfast time. On presentation to the clinic we are unable to download her pump. She was treated wit 12 units of Humalog insulin sc which lowered her glucose to 323 Initially diagnosed with T2DM in 2013 . Was initially started on treatment with insulin and metformin Has been under alot of stress since stroke 12/18/23 Has PT at home, OT at the clinic Current regimen Jardiance 10 mg Mounjaro 5 mg Qwkly Currently on and ilet pump Dexcom average glucose: [202] 14 day continuous glucose monitor report reviewed TIme in ranges: 23.5 33 % very high (above 250) 33.1 % high ?(181-250) 43 % in range ?(70-180] 0.3 % low (69-55) [ 0] % ?very low (below 54) Glucose overall is running 40-50 points above target. Target glucose range was set to the lower feature Reports low sugars occasional Had one 48 Treats lows with 3 glucose tabs, Checks sugar after to ensure it is rising Used nasal spray once Family history of T2DM in mother Type 2 DM and aunts and uncle . Has eyes checked yearly, last eye exam. Needs to make an appt denies retinopathy. Denies neuropathy, needs to find a new podiatry provider. Denies nephropathy, Not on ALEX/ARB Due for urine microalbumin Has HLD,On low dose statin Due for lipid profile Denies CAD. Had diabetes education when first diagnosed and was last seen by CDE 11/03/23 and today in the office. [facility] Medical History (Updated 08/13/23 @ 00:01 by Tawanna Rodriguez) Uncontrolled type 2 diabetes mellitus with hyperglycemia Surgical History Hx of cholecystectomy Hx of section Hx of hand surgery Hx of elbow surgery Family History Mother Diabetes Maternal Uncle Diabetes Maternal Aunt Diabetes Social History Household Members: Other Alcohol intake: current Alcohol intake frequency: does not drink Patient Tobacco Use Status: Current everyday Tobacco user Cigarettes Per Day: 4 Physical Exam Vital Signs: Last Vital Signs Pulse 86 02/16/24 12:19 BP 130/90 H 02/16/24 12:19 BMI result Body Mass Index 26.4 Const Other: Absence of Cushingoid features. Absence of acromegalic features. Neck exam reveals nl size thyroid about 15 gms. No thyroid nodules palpable. No carotid bruits present. Lungs CTA. Heart S1 S2, Reg R/R. No M/R G. Skin exam reveals absence of vitiligo or acanthosis nigricans. Extrem Other: Visual exam of foot performed. No ulcerations or open lesions. No inter digit maceration or fissuring. No onychomycosis, + callouses. No redness or purulence expressed from great toe which was trimmed several weeks ago. Sensation intact to monofilament exam. Vibratory sensation is normal with 128 Hz tuning fork. Office Meds Humalog U-100 Insulin 100 unit/mL subcutaneous solution Performing Provider: Vilma Matos NP Performing Location: [facility] [place] Administered by: Sona De La Torre RN on 02/16/24 12:56 Dose Route Admin Location Dispensed Lot Number Expiration Date [facility] [place]NOTE 2] Aerial Photographer 12 unit subcut right upper arm 0.12 mL [id number] 06/01/25 3226-8582-77 [employer] Comments: Verified dose with Vilma Matos prior to administration Results AMB Hemoglobin A1c AMB Hemoglobin A1c 8.6 % Last Edit by ANÍBAL Swanson on 02/16/24 12:40 UR Ketone Dip UR Ketone Dip Negative Last Edit by ANÍBAL Swanson on 02/16/24 13:13 Results Reviewed Results Reviewed: Laboratory Last Values Glucose (Clinic) 450 mg/dL (60-115) H* 02/16/24 13:09 Hgb A1c (Clinic) 8.6 % (4.0-6.0) H 02/16/24 12:39 Ur Ketones (Stick) Negative 02/16/24 13:12 Laboratory Tests 12/18/22 04/02/23 05/20/23 15:15 15:03 14:27 Plt Count 311 Estimated GFR > 60 Hgb A1c (Clinic) 8.2 H 25-OH Vitamin D Total 14.4 10/05/23 02/16/24 15:12 12:39 Plt Count Estimated GFR Hgb A1c (Clinic) 8.6 H 8.6 H 25-OH Vitamin D Total Assessment & Plan Assessment & Plan (1) Uncontrolled type 2 diabetes mellitus with hyperglycemia: Code(s): E11.65 - Type 2 diabetes mellitus with hyperglycemia Category: Medical Plan: 49 year old type 2 diabetic presents with hyperglycemia and was treated with 12 units of humalog insulin. Her islet pump settings were changed today for lower glucose target. She is going home now and change her set to ensure that is working. She will return to clinic in 2 weeks with the simulation educator in 4 weeks with myself. She is to continue Jardiance and Mounjaro. VINNIE ordered and patient given a list of chief steward/stewardess to call. She is high-risk for ulcerative duration due to large calluses 1st toe bilaterally. She was given a prescription for Calmoseptine to apply to the great toe and advised to check her feet daily should this area become reddened or develop drainage she should be seen in the emergency room. Orders: Orders AMB Hemoglobin A1c Today E11.65 - Type 2 diabetes mellitus with hyperglycemia, Z13.9 - Encounter for screening, unspecified AMB Ketone Urine Dipstick Today E11.65 - Type 2 diabetes mellitus with hyperglycemia, Z13.9 - Encounter for screening, unspecified AMB Insulin Lispro Injection Practice Supplied Today E11.65 - Type 2 diabetes mellitus with hyperglycemia US VINNIE complete Today E11.65 - Type 2 diabetes mellitus with hyperglycemia Medications: New menthol-zinc oxide 0.44-20.6 % (Calmoseptine) 1 appl topical DAILY 113 grams 0RF 28 days Mounjaro (tirzepatide) 5 mg (0.5 mL) subcut QWEEK 2 mL 11RF 28 days NS E11.65 - Type 2 diabetes mellitus with hyperglycemia Refilled glucagon 3 mg/actuation (Baqsimi) 3 mg intranasal ONCE 2 ea 4RF Discontinued tirzepatide (Mounjaro) Discontinued Reason: Doctor's Order 2.5 mg (0.5 mL) subcut QWEEK 4 weeks 2 mL 3RF Coding Level of Care Code Est Pt Level 5 (07343) Complex EM visit Add On G2211 Diagnoses Uncontrolled type 2 diabetes mellitus with hyperglycemia E11.65 Time Spent (min) 45 Comment Reviewing labs/provider notes, glucose sensor/pump reports, face to face, chart doc
[2024-02-16 12:19] VITALS: BP 130/90; PULSE 86; BMI 26.4
[2024-02-16 12:33] LABS: Glucose, Whole Blood 460 mg/dL (60-115)
[2024-02-16 13:13] LABS: Glucose, Whole Blood 450 mg/dL (60-115)
[2024-02-16 14:19] LABS: Glucose, Whole Blood 394 mg/dL (60-115)
== END 2024-02-16 14:03 | disposition home or self-care (01) ==
PROVIDERS: PCP Internal Medicine; Visit Provider Nurse Practitioner Adult Health
DX: Z13.9 Encounter for screening, unspecified (principal); E11.65 Type 2 diabetes mellitus with hyperglycemia
CPT/HCPCS: 99215

== ENCOUNTER → 2024-02-16 11:56 | Outpatient (BNVA) | payer MEDICAID, SELFPAY | PROVIDERS: PCP Internal Medicine; Visit Provider Nurse Practitioner Adult Health | DX: E11.65 Type 2 diabetes mellitus with hyperglycemia (principal); Z46.81 Encounter for fitting and adjustment of insulin pump; Z96.41 Presence of insulin pump (external) (internal) | CPT/HCPCS: 81002; 82947; 83036; 96372; 99211; 99212; J1815 ==

== ENCOUNTER 2024-02-16 14:13 | Outpatient (AMB) | payer MEDICAID, SELFPAY ==
--- NOTE | 2024-02-16 14:15 | A.OFFVIS_ITS ---
Intake Intake Visit Reasons: 30 Min-lvm Glove Boarder Required: No Accompanied by: Self / Same As Patient Allergies acetaminophen [From TYLENOL-CODEINE] Allergy (Intermediate, Verified 02/16/24 12:26) VOMITING, ITCHING From TYLENOL-CODEINE Allergy (Intermediate, Uncoded 02/16/24 12:26) VOMITING, ITCHING Codeine Phosphate Allergy (Unknown, Uncoded 02/16/24 12:26) hives, itchy HPI Comprehensive Diabetes Asmnt Most Recent Diabetes Results: Microalb/Creat Ratio 33.6 ug/mg cr 05/19/19 Cholesterol 248 MG/DL 05/19/19 HDL Cholesterol 36 MG/DL 05/19/19 Triglycerides 321 MG/DL 05/19/19 Creatinine 0.66 mg/dL (0.5-1.4) 12/18/22 Blood Urea Nitrogen 5 mg/dL (9-16) L 12/18/22 Sodium 138 mmol/L (135-145) 12/18/22 Potassium 3.9 mmol/L (3.3-5.1) 12/18/22 Chloride 109 mmol/L (96-108) H 12/18/22 Carbon Dioxide 23 mmol/L (22-29) 12/18/22 Calcium 9.5 mg/dL (8.4-10.2) 12/18/22 AST 25 U/L (5-31) 12/18/22 ALT 35 U/L (0-31) H 12/18/22 Total Protein 7.1 g/dL (6.5-8.0) 12/18/22 Albumin 4.1 g/dL (3.5-5.0) 12/18/22 [facility] Medical History (Updated 08/13/23 @ 00:01 by Tawanna Rodriguez) Uncontrolled type 2 diabetes mellitus with hyperglycemia Surgical History Hx of cholecystectomy Hx of section Hx of hand surgery Hx of elbow surgery Family History Mother Diabetes Maternal Uncle Diabetes Maternal Aunt Diabetes Social History Household Members: Other Alcohol intake: current Alcohol intake frequency: does not drink Patient Tobacco Use Status: Current everyday Tobacco user Cigarettes Per Day: 4 Assessment & Plan Assessment & Plan (1) Uncontrolled type 2 diabetes mellitus with hyperglycemia: Code(s): E11.65 - Type 2 diabetes mellitus with hyperglycemia Plan: Patient presents for pump training for iLet pump and CGM training today. The following topics were reviewed today: -Pump therapy basic concepts: Basal/bolus -Always dose 15 minutes prior to meals - Off pump backup insulin plan iLet Alerts: ??? High Alert: 300 mg/dl ??? Low Alert: 75 mg/dl Patient pump became on paired with [employer] phone jena. it has been over 2 weeks since we received any pump data. We reconnected at today's visit, but it appears that no data has been uploading to the cloud due to phone losing connection with jena. Patient saw LINECASTING MACHINE KEYBOARD OPERATOR today, patient's A1c. 8.6 % on 02/16/2024. Patient reports she had CVA in December 2023. At today's visit we had a discussion regarding insulin pump therapy. Patient reported that she does not want to go back to [facility]. That she prefers to stay on insulin pump. Discussed with patient the importance of adhering to best practice in order for optimal glucose control with insulin pump. Unable to discuss pump info at today's visit, due to lack of data. At LINECASTING MACHINE KEYBOARD OPERATOR visit patient's glucose 460 mg/dL, patient urine negative for ketones patient was given Humalog 12 units Glucose retested proximally in 1 hour later glucose was 394 mg/dL TDD: Basal:45.6 units Patient agreed to follow-up with gold frame assembler in 2 weeks, to discuss how to improve glucose levels if she is going to continue using insulin pump Patient will follow up with [facility] as instructed Patient will contact [facility] with questions or concerns, patient given IT number to support in any technical issues related to insulin pump Portions of this note were created using voice recognition software, please excuse any words or phrases that may have been misinterpreted. Coding Level of Care Code Est Pt Level 1 (53019) Diagnoses Uncontrolled type 2 diabetes mellitus with hyperglycemia E11.65 Results AMB Hemoglobin A1c AMB Hemoglobin A1c 8.6 % Last Edit by ANÍBAL Swanson on 02/16/24 12:40 UR Ketone Dip UR Ketone Dip Negative Last Edit by ANÍBAL Swanson on 02/16/24 13:13
== END 2024-02-16 14:15 | disposition home or self-care (01) ==
PROVIDERS: PCP Internal Medicine; Visit Provider Registered Nurse Diabetes Educator
DX: E11.65 Type 2 diabetes mellitus with hyperglycemia (principal)

== ENCOUNTER 2024-03-10 12:56 | Outpatient (AMB) | payer MEDICAID, SELFPAY ==
--- NOTE | 2024-03-10 13:12 | A.OFFVIS_ITS ---
Intake Intake Visit Reasons: [id number] Broommaker Required: No Accompanied by: Self / Same As Patient Allergies acetaminophen [From TYLENOL-CODEINE] Allergy (Intermediate, Verified 02/16/24 12:26) VOMITING, ITCHING From TYLENOL-CODEINE Allergy (Intermediate, Uncoded 02/16/24 12:26) VOMITING, ITCHING Codeine Phosphate Allergy (Unknown, Uncoded 02/16/24 12:26) hives, itchy HPI Comprehensive Diabetes Asmnt Most Recent Diabetes Results: Microalb/Creat Ratio 33.6 ug/mg cr 05/19/19 Cholesterol 248 MG/DL 05/19/19 HDL Cholesterol 36 MG/DL 05/19/19 Triglycerides 321 MG/DL 05/19/19 Creatinine 0.66 mg/dL (0.5-1.4) 12/18/22 Blood Urea Nitrogen 5 mg/dL (9-16) L 12/18/22 Sodium 138 mmol/L (135-145) 12/18/22 Potassium 3.9 mmol/L (3.3-5.1) 12/18/22 Chloride 109 mmol/L (96-108) H 12/18/22 Carbon Dioxide 23 mmol/L (22-29) 12/18/22 Calcium 9.5 mg/dL (8.4-10.2) 12/18/22 AST 25 U/L (5-31) 12/18/22 ALT 35 U/L (0-31) H 12/18/22 Total Protein 7.1 g/dL (6.5-8.0) 12/18/22 Albumin 4.1 g/dL (3.5-5.0) 12/18/22 [facility] Medical History (Updated 08/13/23 @ 00:01 by Tawanna Rodriguez) Uncontrolled type 2 diabetes mellitus with hyperglycemia Surgical History Hx of cholecystectomy Hx of section Hx of hand surgery Hx of elbow surgery Family History Mother Diabetes Maternal Uncle Diabetes Maternal Aunt Diabetes Social History Household Members: Other Alcohol intake: current Alcohol intake frequency: does not drink Patient Tobacco Use Status: Current everyday Tobacco user Cigarettes Per Day: 4 Assessment & Plan Assessment & Plan (1) Uncontrolled type 2 diabetes mellitus with hyperglycemia: Code(s): E11.65 - Type 2 diabetes mellitus with hyperglycemia Plan: Patient presents for pump training for iLet pump and CGM training today. The following topics were reviewed today: -Pump therapy basic concepts: Basal/bolus -Always dose 15 minutes prior to meals iLet Alerts: ??? High Alert: 300 mg/dl ??? Low Alert: 75 mg/dl CGM: Above target:44% At target:56% Below target:0.1% Patient's average glucose for the past 14 days 184 mg/dL TDD:103.5 units Basal:39.6 units On 03/02/2024 through 03/03/2024 patient's blood glucose were significantly elevated. Patient reports in that 24 hour period time she changed infusion set 3 times. Finally after 3rd set change glucose levels stabilized and returned to normal levels Encourage patient to always bolus for meals, after review of patient's CGM info it appears that patient is missing some meal time announcements. Reviewed with patient when to use usual meals, less than usual meal, more than usual meals. And if snacks are above 15-20 g of carbohydrate patient should be using meal announcements Never use meal announcements if not eating to correct hyperglycemia, this can lead to less effective mealtime announcements in the future Instructed patient to only use room temperature insulin, how to load cartridge or fill pod, with insulin. Fill tubing and cannula (if applicable) Troubleshooting after starting new pod or inserting new insulin set: Occlusion, adhesive tape sensitivity, redness Check BG 2 hours after site change Reviewed Safety information: Importance of a backup plan, for manual injections, proper prescriptions and emergency supplies ketone strips, and rules for testing for ketones Patient understands the basic concepts of pump therapy, how to give insulin for meals and snacks, how to troubleshoot for hyper and hypoglycemia. Patient will follow up with [facility] as instructed Patient will contact [facility] with questions or concerns, patient given IT number to support in any technical issues related to insulin pump Portions of this note were created using voice recognition software, please excuse any words or phrases that may have been misinterpreted. Patient Instructions: Patient has follow-up appointment with nurse practitioner on 03/16/2024 Patient will follow-up with breastfeeding educator in 4 months Coding Level of Care Code Est Pt Level 1 (02630) Diagnoses Uncontrolled type 2 diabetes mellitus with hyperglycemia E11.65
== END 2024-03-10 13:15 | disposition home or self-care (01) ==
PROVIDERS: PCP Internal Medicine; Visit Provider Registered Nurse Diabetes Educator
DX: E11.65 Type 2 diabetes mellitus with hyperglycemia (principal)

== ENCOUNTER → 2024-03-10 12:56 | Outpatient (BNVA) | payer MEDICAID, SELFPAY | PROVIDERS: PCP Internal Medicine; Visit Provider Registered Nurse Diabetes Educator | DX: E11.65 Type 2 diabetes mellitus with hyperglycemia (principal) | CPT/HCPCS: 99211 ==

== ENCOUNTER 2024-03-23 12:29 | Outpatient (REF) | payer MEDICAID, SELFPAY ==
--- NOTE | ~2024-03-23 | US_ITS ---
EXAMINATION: NONINVASIVE ASSESSMENT OF THE ARTERIES OF BOTH LOWER EXTREMITIES INCLUDING PVR EXAM CLINICAL INFORMATION: Screening to rule out peripheral vascular disease. Previous 1 pack per day smoker. Now 6 segments per day. COMPARISON: None TECHNIQUE: Ankle pulse volume recordings, ankle pressure measurements and ankle brachial indices were obtained of the lower extremity arterial system bilaterally. The study was performed only at rest. FINDINGS: RIGHT LEG 1. Right Ankle-Brachial Index: 0.92 (higher of the DP/PT) >0.97-1.25 = normal - no significant arterial disease 0.75-0.96 = mild peripheral arterial disease 0.5-0.74 = moderate peripheral arterial disease <0.50 = severe peripheral arterial disease <0.30 = critical arterial disease 2. Segmental Pressures (mmHg): Brachial: 143 Ankle: PT 131, DP 124 3. PVR Waveforms: Ankle: Unremarkable LEFT LE. Left Ankle-Brachial Index: 1.1 (higher of the DP/PT) >0.97-1.25 = normal - no significant arterial disease 0.75-0.96 = mild peripheral arterial disease 0.5-0.74 = moderate peripheral arterial disease <0.50 = severe peripheral arterial disease <0.30 = critical arterial disease 2. Segmental Pressures: Brachial: 140 Ankle: PT 158, DP 138 3. PVR Waveforms: Ankle: Irregular, not grossly abnormal. US/US VINNIE complete IMPRESSION: The VINNIE 0.92 on the right and 1.1 on the left. No gross abnormality is seen on pulse volume recordings. Electronically signed by: Gerald Craig MD 03/31/2024 02:45 PM EDT
== END 2024-03-23 12:30 | disposition home or self-care (01) ==
LOC: HO.US 12:29
PROVIDERS: PCP Internal Medicine; Visit Provider Nurse Practitioner Adult Health
DX: E11.65 Type 2 diabetes mellitus with hyperglycemia (principal)
CPT/HCPCS: 93923

== ENCOUNTER 2024-04-05 15:32 | Outpatient (AMB) | payer MEDICAID, SELFPAY ==
--- NOTE | 2024-04-05 09:08 | MHC.OFFVIS ---
Vital Signs 04/05/24 15:34 Height 5 ft 4 in Weight 159 lb 13.362 oz BMI 27.4 BP 110/70 Blood Pressure Location Lt brachial Position Sitting Intake Visit Reasons: DM/CONFIRMED Intake Note: Patient presents today for D2MT follow up visit. Last Diabetic Eye exam: Has upcoming appt next week. Last Podiatry Visit: 02/2024 Random Glucose: 345 mg/dl HgA1c: 8.3% Landscape Photographer Required: No Accompanied by: Self / Same As Patient Allergies acetaminophen [From TYLENOL-CODEINE] Allergy (Intermediate, Verified 04/05/24 15:41) VOMITING, ITCHING From TYLENOL-CODEINE Allergy (Intermediate, Uncoded 04/05/24 15:41) VOMITING, ITCHING Codeine Phosphate Allergy (Unknown, Uncoded 04/05/24 15:41) hives, itchy Medication List - Last Reconciled 04/08/24 by Vilma Matos NP acetone (urine) test (Ketone Urine Test strips) prn tid glucose over 250, illness, nausea or vomiting atorvastatin 10 mg PO DAILY blood sugar diagnostic (FreeStyle Lite Strips) every 4 hours prn sensor failure, or to confirm glucose blood-glucose meter (FreeStyle Pound Lite kit) As directed dispense as Freestyle lite meter empagliflozin (Jardiance) 10 mg PO DAILY glucagon 3 mg/actuation (Baqsimi) 3 mg intranasal ONCE insulin glargine U-300 conc (Toujeo Max U-300 SoloStar) 50 units subcut DAILY PRN insulin lispro (Humalog U-100 Insulin) 1 sliding scale dose subcut USEASDIRECTD 30 days insulin lispro-[facility] Inject Up to 32 units per day subcutaneously daily; insulin syringe-needle U-100 (BD Insulin Syringe Ultra-Fine) tid prn insulin pump failure lancets (FreeStyle Lancets) every 4hours prn sensor failure or to confirm glucose dispense as 31 gauge if avail menthol-zinc oxide 0.44-20.6 % (Calmoseptine) 1 appl topical DAILY 28 days Mounjaro (tirzepatide) 5 mg (0.5 mL) subcut QWEEK 28 days NS HPI Comments Details: 49 YO F who is seen in f/u for T2DM. She is on an islet insulin pump. She was last seen by myself earlier this month at which time her blood sugar was 460 without ketones and by Keysha Mcrae CDE 03/10/24. Initially diagnosed with T2DM in 2013 . Was initially started on treatment with insulin and metformin Has been under alot of stress since stroke 12/18/23 Has PT at home, OT at the clinic Current regimene Jardiance 10 mg Mounjaro 5 mg Qwkly ilet pump Dexcom average glucose: 187 14 day continuous glucose monitor report reviewed Time in ranges: 9.9 % very high (above 250) 39.7 % high ?(181-250) 50.3 % in range ?(70-180] 0 % low (69-55) 0 % ?very low (below 54) 30% Standard Deviation Total daily dose of insulin Interpretation [patient is only announcing meals half of the time leading to some hyperglycemia] Total daily dose of insulin 89.8 Basal 41.4 Bolus 48.4 Usual breakfast 14 usual lunch 12 usual supper 10 Backup insulin plan Toujeo 50 units Short-acting mealtime 14 units breakfast 12 units lunch 10 units supper Treats lows with 3 glucose tabs, Checks sugar after to ensure it is rising Used nasal spray once in the past Family history of T2DM in mother Type 2 DM and aunts and uncle . Has eyes checked yearly, last eye exam. Has appt at [facility] 05/01 denies retinopathy. Denies neuropathy, needs to find a new podiatry provider. Denies nephropathy, Not on ALEX/ARB Due for urine microalbumin Has HLD,On low dose statin Due for lipid profile Denies CAD. Had diabetes education when first diagnosed and has recently [facility]DE [facility] Medical History (Updated 08/13/23 @ 00:01 by Tawanna Rodriguez) Uncontrolled type 2 diabetes mellitus with hyperglycemia Surgical History Hx of cholecystectomy Hx of section Hx of hand surgery Hx of elbow surgery Family History Mother Diabetes Maternal Uncle Diabetes Maternal Aunt Diabetes Social History Household Members: Other Alcohol intake: current Alcohol intake frequency: does not drink Patient Tobacco Use Status: Current everyday Tobacco user Cigarettes Per Day: 4 Physical Exam Vital Signs: Last Vital Signs BP 110/70 04/05/24 15:34 BMI result Body Mass Index 27.4 Const Other: Absence of Cushingoid features. Absence of acromegalic features. Neck exam reveals nl size thyroid about 15 gms. No thyroid nodules palpable. No carotid bruits present. Lungs CTA. Heart S1 S2, Reg R/R. No M/R G. Skin exam reveals absence of vitiligo or acanthosis nigricans. No edema Visual exam of foot performed. No ulcerations or open lesions. No inter digit maceration or fissuring. Large callous first toe Sensation intact to monofilament exam. Vibratory sensation is normal with 128 Hz tuning fork. Office Procedures Glucose Monitoring Details Details: See [facility] [address] - Glucose monitoring, continuous-physician I&R Procedure code (CPT) selection complete Results AMB Hemoglobin A1c AMB Hemoglobin A1c 8.3 % Last Edit by ANÍBAL Swanson on 04/05/24 15:58 Results Reviewed Results Reviewed: Laboratory Last Values Glucose (Clinic) 345 mg/dL (60-115) H 04/05/24 15:43 Hgb A1c (Clinic) 8.3 % (4.0-6.0) H 04/05/24 15:48 Assessment & Plan Assessment & Plan (1) Uncontrolled type 2 diabetes mellitus with hyperglycemia: Code(s): E11.65 - Type 2 diabetes mellitus with hyperglycemia Category: Medical Plan: 49-year-old type 2 diabetic with A1c of 8.3% which is a slight improvement for this patient. She is on an islet insulin pump, Mounjaro and Jardiance. She is only announcing about half of her meals. She was asked to be consistent with this and this should lower her A1c. She has a large callus on her great toe in his at risk for ulceration. She will be referred to Podiatry. She has an upcoming appointment scheduled with Ophthalmology. She is aware that if her pump is not pair to her sensor that an order for the pump to continue to give insulin she must do a fingerstick glucose every 4 hours. Test strips lancets and glucometer were sent to pharmacy The patient had an opportunity to ask questions regarding treatment plan. The patient expressed understanding and agreement with the above treatment plan. The patient is aware they should contact our office by phone for worsening glucose readings or for any low blood sugars which may warrant a change in diabetes medication. Compliance is encouraged with medications and any followup testing/consults which may have been ordered. Orders: Orders Electrolytes Today E11.65 - Type 2 diabetes mellitus with hyperglycemia AMB Glucose Monitoring Today E11.65 - Type 2 diabetes mellitus with hyperglycemia AMB Hemoglobin A1c 04/05/24 E11.65 - Type 2 diabetes mellitus with hyperglycemia, Z13.9 - Encounter for screening, unspecified Microalbumin, Random (w Creat) 04/05/24 E11.65 - Type 2 diabetes mellitus with hyperglycemia Lipid Panel 04/05/24 E11.65 - Type 2 diabetes mellitus with hyperglycemia Creatinine Urine 04/05/24 E11.65 - Type 2 diabetes mellitus with hyperglycemia Creatinine Today E11.65 - Type 2 diabetes mellitus with hyperglycemia Referrals Podiatry Referral E11.65 - Type 2 diabetes mellitus with hyperglycemia Medications: New blood sugar diagnostic (FreeStyle Lite Strips) every 4 hours prn sensor failure, or to confirm glucose 100 ea 1RF lancets (FreeStyle Lancets) every 4hours prn sensor failure or to confirm glucose dispense as 31 gauge if avail 100 ea 1RF blood-glucose meter (FreeStyle Pound Lite kit) As directed dispense as Freestyle lite meter 1 ea 1RF insulin syringe-needle U-100 (BD Insulin Syringe Ultra-Fine) tid prn insulin pump failure 100 ea 2RF acetone (urine) test (Ketone Urine Test strips) prn tid glucose over 250, illness, nausea or vomiting 25 ea 1RF Changed From insulin glargine U-300 conc (Toujeo Max U-300 SoloStar) 70 units (0.2333 mL) subcut DAILY 6 mL 4RF To insulin glargine U-300 conc (Toujeo Max U-300 SoloStar) 50 units subcut DAILY PRN Patient Instructions: Symptoms of DKA (diabetic ketoacidosis): early: frequent urination, dry mouth, fatigue, feeling ill, severe symptoms: ketones in the urine, abdominal pain, nausea, vomiting and weakness. It is important to hydrate with sugar free liquids every 15-30 minutes and bring the sugars down to normal levels. If you are moderate or severe with ketones or unable to bring glucose to less than 200, go to the emergency room. Troubleshooting after starting new pod or inserting new insulin set: Occlusion, adhesive tape sensitivity, redness Check BG 2 hours after site change Safety information: Importance of a backup plan, for manual injections, proper prescriptions and emergency supplies ketone strips, and rules for testing for ketones Wear closed toe shoes, never walk barefooted and inspect the feet daily. For any signs of infection or open wound patient you should notify your PCP or go to urgent care/ER. The patient was counseled to achieve a target A1C of 7% (154 avg). Fasting blood sugars should be 90-130 in the morning and less than 180 two hours after meals. Reviewed the relationship between poor diabetic control and the development of complications. Coding Level of Care Code Est Pt Level 4 (06234) Diagnoses Uncontrolled type 2 diabetes mellitus with hyperglycemia E11.65 CPT Codes Details - CPT: 95731 - Glucose monitoring, continuous-physician I&R ([id number]) Time Spent (min) 45 Comment Reviewing labs/provider notes, glucose sensor/pump reports, face to face, chart doc
[2024-04-05 15:34] VITALS: BP 110/70; BMI 27.4
[2024-04-05 15:48] LABS: Glucose, Whole Blood 345 mg/dL (60-115)
== END 2024-04-05 16:10 | disposition home or self-care (01) ==
LOC: HO.ENCR 15:32
PROVIDERS: PCP Internal Medicine; Visit Provider Nurse Practitioner Adult Health
DX: E11.65 Type 2 diabetes mellitus with hyperglycemia (principal)
CPT/HCPCS: 95251; 99214

== ENCOUNTER → 2024-04-05 15:32 | Outpatient (BNVA) | payer MEDICAID, SELFPAY | PROVIDERS: PCP Internal Medicine; Visit Provider Nurse Practitioner Adult Health | DX: E11.65 Type 2 diabetes mellitus with hyperglycemia (principal); Z79.4 Long term (current) use of insulin; Z96.41 Presence of insulin pump (external) (internal) | CPT/HCPCS: 82947; 83036; 99212 ==

== ENCOUNTER 2024-07-04 15:55 | Outpatient (REF) | payer MEDICAID, SELFPAY ==
[2024-07-04 18:12] LABS: Cholesterol 142 mg/dL (<200); HDL Cholesterol 36 mg/dL (>40); LDL Cholesterol Calculated 68 mg/dL (<100); Triglycerides 191 mg/dL (<150)
--- OUTSIDE RECORDS SUMMARY | 2024-07-04 19:41 | XMS_ITS | Clinical Summary ---
Author Organization [address] [facility] Address [address] [place] [address] Phone Care Team Providers Care Speaker Mounter Name Role Phone West Gallegos MD Primary Care Provider [phone] Allergies No known active allergies Medications Medication Sig Dispensed Refills Start Date End Date Status CONCENTRATED insulin regular (HumuLIN R) 500 UNIT/ML patient supplied pump 1 EA by continuous sub-Q infusn (via wearable injector) route continuously. Active Encounters Date Type Department Care Team Description 06/23/2024 12:27 PM EST Anesthesia Event [facility] Main OR [address] [place] [phone] Cl Dickson MD 06/23/2024 10:00 AM EST - 06/23/2024 11:15 AM EST Surgery [facility] OR [address] [place] [phone] Mel Bennett MD LEFT INDEX FINGER TRIGGER FINGER RELEASE [38620 (CPT??)] 06/23/2024 8:05 AM EST - 06/23/2024 2:13 PM EST Hospital Encounter [facility] OR [address] [place] [phone] Mel Bennett MD Discharge Disposition: Home or Self Care 06/15/2024 3:00 PM EST Office Visit Orthopedic Surgery [facility] [address] [phone] Gabino Ritchie DPM 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); Arthritis of both feet; Pain in toes of both feet; Hammertoes of both feet; Dermatophytosis, nail from Last 3 Months Surgical History Surgery Date Site/Laterality Comments [facility] Medical History Medical History Date Comments Diabetes mellitus ([facility] Stroke ([facility]) 2023 Social History Tobacco Use Types Packs/Day Years Used Date Smoking Tobacco: Every Day Cigarettes Smokeless Tobacco: Never Tobacco Cessation:Ready to Q uit: Not Asked; Counseling Given: Not Answered Sex and Gender Information Value Date Recorded Sex Assigned at Female 06/23/2024 8:01 AM EST Gender Identity Female 06/23/2024 8:01 AM EST Sexual Orientation Straight 06/23/2024 8: 01 AM EST Job Start Date Occupation Industry Not on file Not on file Not on file Obstetrics History Last Filed Vital Signs Vital Sign Reading Time Taken Comments Blood Pressure 145/83 06/23/2024 1:36 PM EST Pulse 76 06/23/2024 1:36 PM EST Temperature 36.5 ??C (97.7 ??F) 06/23/2024 1:18 PM ES T Respiratory Rate 16 06/23/2024 1:18 PM EST Oxygen Saturation 99% 06/23/2024 1:36 PM EST Inhaled Oxygen Concentration - - Weight 73.9 kg (163 lb) 06/15/2024 3:00 PM EST Height 162.6 cm (5' 4 ) 06/15/2024 3:00 PM EST Body Mass Index 27.98 06/15/2024 3:00 PM EST Plan of Treatment Upcoming Encounters Date Type Department Care Team (Late st Contact Info) Description 08/18/2024 3:00 PM EDT Office Visit Orthopedic Surgery - [place] [phone] [phone] Gabino Ritchie DPM [address] [address] Health Maintenance Due Date Last Done Comments Breast Cancer Screening 1976 Diabetes: Annual GFR (Glomerular Filtration Rate) 1976 Diabetes: Annual Foot Exam 02/12/1986 Diabetes: Annual Retina Eye Exam 02/12/1986 Hepatitis B Vaccines (1 of 3 - 19+ 3-dose series) 02/12/1995 Cervical Cancer Screening: Pap Smear 02/12/1997 Hepatitis C Screening 05/11/2022 Social Influencers of Health Screening 05/11/2022 COVID-19 Vaccine ( season) 2024 06/26/2021, 10/17/2020, 09/19/2020 Influenza Vaccine (#1) 2024 , 04/01/2022, 03/19/2021, Additional history exists DTaP,Tdap,and Td Vaccines (2 - Td or Tdap) 04/28/2024 04/28/2014 Diabetes: Annual Urine Albumin-Creatinine Ratio (uACR) 06/15/2024 Hypertension/CHF/CAD Annual BMP Blood Test 06/16/2024 Diabetes: Blood Sugar Control Test (HGBA1C) 12/15/2024 06/17/2024, 11/04/2023 Depression Screening 02/09/2025 02/10/2024 Colorectal Cancer Screening: FIT-DNA (Cologuard) 04/15/2027 04/15/2024 Cholesterol Screening (Lipid Panel) 05/07/2027 05/07/2022 HIV Screening Completed 06/03/2021 Pneumococcal Vaccine: Pediatrics (0 to 5 Years) and At-Risk Patients (6 to 64 Years) Completed 02/10/2024, 01/22/2015 HIB Vaccines Aged Out No longer eligi ble based on patient's age to complete this topic HPV Vaccines Aged Out No longer eligi ble based on patient's age to complete this topic Hepatitis A Vaccines Aged Out No long er eligible based on patient's age to complete this topic IPV Vaccines Aged Out No longer eligi ble based on patient's age to complete this topic MMR Vaccines Aged Out No longer eligi ble based on patient's age to complete this topic Meningococcal ACWY Vaccine Aged Out N o longer eligible based on patient's age to complete this topic RSV Immunization Patients Under 20 months Aged Out No longer eligible based on patient's age to complete this topic Varicella Vaccines Aged Out No longer eligible based on patient's age to complete this topic Procedures Procedure Name Priority Date/Time Associated Diagnosis Comments DC INCISION TENDON SHEATH 06/23/2024 12:27 PM EST Trigger finger, right index finger POC , URINE DIAGNOSTIC STAT 06/23/2024 9:23 AM EST POCT GLUCOSE BLOOD Routine 06/23/2024 8: 20 AM EST from Last 3 Months Results * POC , urine manually resulted (06/23/2024 9:23 AM EST) HCG, Ur POC Negative Negative POC hCG Int QC Pass? Yes Yes Urine Urine specimen obtained by clean catch procedure / Unknown 06/23/2024 9:23 AM EST Mel Bennett MD POINT OF CARE TEST E NTER/EDIT ORDERABLES * (ABNORMAL) POCT Glucose, blood (06/23/2024 8:20 AM EST) Glucose POCT 112(H) 70 - 100 mg/dL 06/23/2024 8:21 AM EST [facility] Blood Capillary blood specimen / Unknown 06/23/2024 8:20 AM EST 06/23/2024 8:22 AM EST Mel Bennett MD LAB POINT OF CARE TE ST DOCKED DEVICE UNSOLICITED RESULTS [facility] [address] [place] [address], from Last 3 Months Advance Directives Documents on File Type Date Recorded Patient Supervisor Travel Trailer Expl anation Health Care Decision (hx) 12/28/2023 HE [facility]TH CARE PROXY Care Teams Speaker Mounter Relationship Specialty Start Date End Date West Gallegos MD [address] [place] [address] PCP - General 04/01/23
--- OUTSIDE RECORDS SUMMARY | 2024-07-04 19:41 | XMS_ITS | Encounter Summary ---
Author Organization [facility] Address [address] [place] [address] Care Team Providers Care Addiction Counselor Name Role Phone West Gallegos MD Primary Care Provider [phone] Reason for Visit * Reason Comments DM Foot Care * Orthopedic (Routine) - Closed Specialty Diagnoses / Procedures Referred By Daniel nascimento Referred To Contact Podiatry / Orthopaedic Surgery Diagnoses Diabetic foot (CMS/HCC) Procedures AMB Referral to Podiatry West Gallegos MD [address] [place] [address] Gabino Ritchie DPM [address] [address] Referral ID Status Reason Start Date Expiration Date V isits Requested Visits Authorized [id number] Closed Consult and Treat 06/16/2024 05/18/2025 6 6 Encounter Details Date Type Department Care Team (Late st Contact Info) Description 06/15/2024 3:00 PM EST Office Visit Orthopedic Surgery - [place] [phone] [phone] Gabino Ritchie DPM [address] [address] 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); Arthritis of both feet; Pain in toes of both feet; Hammertoes of both feet; Dermatophytosis, nail Social History Tobacco Use Types Packs/Day Years Used Date Smoking Tobacco: Never Assessed Sex and Gender Information Value Date Recorded Sex Assigned at Female 06/23/2024 8:01 AM EST Gender Identity Female 06/23/2024 8:01 AM EST Sexual Orientation Straight 06/23/2024 8: 01 AM EST Job Start Date Occupation Industry Not on file Not on file Not on file documented as of this encounter Last Filed Vital Signs Vital Sign Reading Time Taken Comments Blood Pressure - - Pulse - - Temperature - - Respiratory Rate - - Oxygen Saturation - - Inhaled Oxygen Concentration - - Weight 73.9 kg (163 lb) 06/15/2024 3:00 PM EST Height 162.6 cm (5' 4 ) 06/15/2024 3:00 PM EST Body Mass Index 27.98 06/15/2024 3:00 PM EST documented in this encounter Progress Notes * Gabino Ritchie DPM - 06/15/2024 3:00 PM EST Referring MD: West Gallegos MD Last PCP visit: [phone] IDENTIFIER: @TITLE@ Acosta is a 49 y.o. year old female who presents for consultation. CC: HPI: Patient returns office for multiple forefoot deformities Patient states that they have been diabetic for the past few years and tingling and numbness to thefeet bilaterally Patient notes that she has not had any open wounds to the bottoms of the feet. Patient notes her nails continue be thickened misshapened to the feet bilaterally Patient is wearing good supportive shoes at this time. Patient reports mild calluses that are becoming bothersome. Patient with minimal other pedal complaints at this time. Patient's FBS this AM was 120 Recent A1C is %. 6.8 ROS: GENERAL: Pt denies nausea, fever, vomiting, chills, or shortness of breath. Pt in NAD. CARDIOLOGY: pt denies chest pain, palpitations LUNGS: pt denies shortness of breath MUSCULOSKELETAL: See HPI, otherwise no joint pain or swelling, back pain, or muscle pain. SKIN: see HPI, otherwise no lesions, rash or itching NEURO: No persistent headache, weakness or numbness The remainder of the review of systems is noncontributory PAST MEDICAL HISTORY: There is no problem list on file for this patient. SOCIAL HISTORY: Social History Tobacco Use Smoking status: Not on file Smokeless tobacco: Not on file Substance Use Topics Alcohol use: Not on file ACTIVE MEDICATIONS: No outpatient medications have been marked as taking for the 06/15/24 encounter (Office Visit) with Gabino Ritchie DPM. ALLERGIES: @ALL@ PHYSICAL EXAM: Height 1.626 m (64 ), weight 73.9 kg (163 lb). PODIATRIC EXAMINATION: GENERAL: Patient appears well nourished, with NAD. VASCULAR: Dorsalis pedis pulses are 2/4 bilaterally and Posterior tibial pulses are 2/4 bilaterally. Capillary filling time within normal limits the digits. No pallor on elevation or rubor on dependency. Positive hair growth. No varicosities. Denies rest pain or claudication pain. NEUROLOGICAL: Sharp/dull sensation intact, protective sensation diminished on [place]. Multiple peripheral neuropathies bilaterally ORTHOPEDIC: Good muscle strength 5/5 of all flexors and extensors. Dorsi flexion of ankle ,10 degrees, plantar flexion WNL. No muscle atrophy. Arthritic changes to the midfoot. Reducibly contracted digits 2 through 5. Flexible flatfoot deformity bilaterally with greater than 5 degrees eversion of the hindfoot her last calcaneal stance position. DERMATOLOGICAL: Normal skin temperature, normal skin turgor. Nails are elongated dystrophic discolored x 10 with subungual debris BIOMECHANICS: STJ ROM wnl, MTJ ROM wnl, 1st MPJ ROM wnl. IMPRESSION: 1. Controlled type 2 diabetes with neuropathy (CMS/HCC) 2. Arthritis of both feet 3. Pain in toes of both feet 4. Hammertoes of both feet 5. Dermatophytosis, nail PLAN: Pt was seen and examined, history reviewed. Patient commended on decreasing sugar level. Patient encouraged to continue with tight glucose control in order to limit infection and or amputation in the future Patient continues today with arthritic changes to the midfoot bilaterally. Patient encouraged to use a supportive shoe as often as possible to limit breakdown of midtarsal joint Patient dealing with contracted digits to bilateral feet. Patient encouraged to use offloading padsin order to limit pressure points to the distal jessee which can cause hematomas and ulceration Nail debridement performed to nails 1-5 bilateral as nails were described to be causing pain and difficulty for walking while in shoegear at their previous length. They were debrided in thickness andlength, with no incident. Clinical evidence of mycosis is documented which required active treatment. Patient expressed immediate relief. Patient is to RTC in 9 weeks Gabino Ritchie DPM documented in this encounter Plan of Treatment Upcoming Encounters Date Type Department Care Team (Late st Contact Info) Description 08/18/2024 3:00 PM EDT Office Visit Orthopedic Surgery - [place] [phone] [phone] Gabino Ritchie DPM [address] [address] documented as of this encounter Visit Diagnoses Diagnosis Controlled type 2 diabetes with neuropathy (CMS/HCC)- Primary Type II or unspecified type diabetes mellitus with neurological manifestations, not stated as uncontrolled Arthritis of both feet Pain in toes of both feet Hammertoes of both feet Dermatophytosis, nail Dermatophytosis of nail documented in this encounter Care Teams Addiction Counselor Relationship Specialty Start Date End Date West Gallegos MD [address] [place] [address] PCP - General 04/01/23 documented as of this encounter
--- OUTSIDE RECORDS SUMMARY | 2024-07-04 19:41 | XMS_ITS | Encounter Summary ---
Author Organization [facility] Address [address] [place] [address] Care Team Providers Care Associate Software Engineer Name Role Phone West Gallegos MD Primary Care Provider [phone] Reason for Visit * Auth/Cert (Routine) Specialty Diagnoses / Procedures Referred By Contac t Referred To Contact Diagnoses Trigger finger, left index finger ACQUIRED TRIGGER FINGER LEFT INDEX Procedures ID INCISION TENDON SHEATH LEFT INDEX FINGER TRIGGER FINGER RELEASE Mel Bennett MD [address] [place] [address] [facility] Main Or [address] [place] [phone] Referral ID Status Reason Start Date Expiration Date Visits Re quested Visits Authorized [id number] 1 1 Encounter Details Date Type Department Care Team (Latest Contact Info) Description 06/23/2024 8:05 AM EST - 06/23/2024 2:13 PM EST Hospital Encounter [facility] Main OR [address] [place] [phone] Mle Bennett MD [address] [place] [address] Discharge Disposition: Home or Self Care Social History Tobacco Use Types Packs/Day Years [...] EST Inhaled Oxygen Concentration - - Weight - - Height - - Body Mass Index - - documented in this encounter Discharge Instructions * Discharge Instructions* Mel Bennett MD - 06/23/2024 12:22 PM EST Mel Bennett MD Orthopedic Hand and Upper Extremity Surgery [phone] ext. [phone] (Shawna) Trigger Finger Release Discharge Instructions Thank you for allowing me to participate in your care. Should you have any questions about your post-operative care feel free to call my office at [phone] ext. [phone] to reach Shawna or myself. General Post op Instructions Please allow your body time to heal. No sports, heavy lifting, or vigorous physical activity until you return for follow-up. Return to your normal diet as soon as you are able. It is normal to have some swelling and bruising of the hand and fingers post operatively. This can be uncomfortable. Prevent excessive swelling by performing the following: Elevate your hand above the level of your heart as much as possible during the first 24-48 hours post op. Move your fingers as much as possible, curling them gently into making a fist and extending them all the way out. Do this as often as you are able (this will not be possible while your nerve block isin effect). You can apply ice packs over your dressings. You may resume all your home medications. Driving: You may not return to driving while you are taking narcotic pain medication. We strongly advise against returning to driving if your procedure was performed on your right side and your car has a manual transmission (???stick shift?? ). Incision Care and Bathing You may remove outer dressing in [address] a bandaid over the incision. Your incision may get wet in the shower or when washing your hands. Pat the incision dry and use a band-aid or light wrap as desired to cover this area. Do not submerge in water (i.e. bath tub, hot tub or pool) for 2 weeks from the date of surgery. Exercise your hand by making a complete fist 10 times an hour. This is important to prevent stiffness and scar tissue around your tendons. Elevate your hand and wrist for comfort. You should be trying to use your hand for normal activities and gentle range of motion within 1-2 days after surgery. Pain Control You may be given a prescription for pain medications. If so, this will be sent to your pharmacy upon discharge. Take them as directed. Pain medication (narcotics) can make you constipated. Take an over the counter stool softener whileyou are taking narcotic pain medication. In addition to or instead of narcotic medication you may take over the counter medications, such asacetaminophen (Tylenol) and/or Ibuprofen (Advil, Motrin) or other anti-inflammatory medications (Aleve, Aspirin, Naprosyn). Do not take more than 4000 mg acetaminophen (Tylenol) within 24 hours Do not take more than 2400 mg Ibuprofen (Advil, Motrin) within 24 hours Be sure to take all medication with food. You may have had a nerve block performed. This will last 8-24 hours. As the sensation in your hand returns you will begin to experience pain. Please take your pain medication prior to the return of full sensation to help control the pain in your arm. Please wean the amount of pain medication you take daily. Ideally by 7-10 days post-op you will notrequire anything stronger than Advil or Tylenol. Follow-up A follow-up appointment has been made for you for 10-14 days post op. If you are unable to be seen at this time, please call [phone] to reschedule. Emergencies/When to Call Please call the office if you have any questions or concerns regarding your post-operative care. Please make sure you call the office immediately if you are having any of the following problems: Fever greater than 101.5 Increasing pain or numbness not controlled on pain medications Increasing bloody staining on the dressing Chest pain, difficulty breathing, nausea or vomiting Cold fingers that are not normal color (pink) * Attachments The following attachments cannot be sent through Care Everywhere. * General Anesthesia (Canadian) documented in this encounter Medications at Time of Discharge Medication Sig Dispensed Refills Start Date End Date CONCENTRATED insulin regular (HumuLIN R) 500 UNIT/ML patient supplied pump 1 EA by continuous sub-Q infusn (via wearable injector) route continuously. documented as of this encounter Discharge Disposition Disposition Code Departure Means Destination Comment s Home or Self Care Wheelchair Home documented in this encounter H&P Notes * Mel Bennett MD - 06/23/2024 12:20 PM EST I have seen and examined the patient today. I agree with the written history and physical exam which was performed within 30 days of the this procedure. There are no changes to the written H&P. I agree to proceed with procedure as scheduled. Mel Bennett MD documented in this encounter Procedure Notes * Angela Brock RN - 06/23/2024 1:24 PM EST Right hand elevated on pillow ice applied fingers pink warm and dry +cmst * Angela Brock RN - 06/23/2024 1:21 PM EST at bedside speaking with patient Discharge instructions reviewed with stated understanding * Mel Bennett MD - 06/23/2024 12:50 PM EST Trigger Finger Release PREOPERATIVE DIAGNOSIS: right index finger trigger finger POSTOPERATIVE DIAGNOSIS: Same PROCEDURE: right index finger A1 luis miguel release CPT: 00642 SURGEON: Mel Bennett MD MODE OF ANESTHESIA: Local and MAC ESTIMATED BLOOD LOSS: Minimal. TOURNIQUET TIME: 10 minutes SPECIMENS: None. DRAINS: None. CULTURES: None. COMPLICATIONS: None. DISPOSITION: Stable. OPERATIVE REPORT: The patient was seen and marked in the preoperative holding area and brought intothe operating room on the stretcher. Bony prominences were padded. The hand table was brought to the operative side. The arm was sterilely prepped and draped in standard fashion. A WHO timeout was performed correctly identifying the patient, side, operative finger and procedure. A field block was performed at the level of the volar A1 luis miguel using a mixture of 1% plain lidocaine and 0.25% plain marcaine. An esmarch tourniquet was used to exsanguinate the arm and the tourniquet was inflated to 250 mmhg. A longitudinal incision over the volar A1 luis miguel was made. The soft tissue was then bluntly dividedto the level of the A1 luis miguel. The luis miguel was identified and the neurovascular bundles were protected with ragnell retractors. The A1 luis miguel was divided longitudinally with a 15 blade and Littler scissors. The incision was closed with interrupted 4-0 nylon sutures. It was covered with a sterile dressing ensuring the patient can fully flex and extend their finger. The tourniquet was released at this point. The patient was transferred in stable condition to the PACU. All counts were correct at the end of the case. There were no intra-operative complications. Post operative plan: Maintain surgical dressing until POD3, then they can remove dressing at home and cover with a bandaid It is ok to shower on POD3 but they should not submerge the hand OK for finger ROM and re-incorporation of the hand into activities of daily living Follow up in 10-14 days for wound check * Little Montes RN - 06/23/2024 9:01 AM EST Conchita cespedes [phone], contact/ride home documented in this encounter Plan of Treatment Upcoming Encounters Date Type Department Care Team (Late st Contact Info) Description 08/18/2024 3:00 PM EDT Office Visit Orthopedic Surgery - [address] [address] Gabino Ritchie, DPM 175 [facility] [address] [place] [address] documented as of this encounter Procedures Procedure Name Priority Date/Time Associated Diagnosis Comments ID INCISION TENDON SHEATH 06/23/2024 12:27 PM EST Trigger finger, right index finger POC , URINE DIAGNOSTIC STAT 06/23/2024 9:23 AM EST POCT GLUCOSE BLOOD Routine 06/23/2024 8: 20 AM EST documented in this encounter Results * POC , urine manually resulted [...] - 100 mg/dL 06/23/2024 8:21 AM EST [facility] Blood Capillary blood specimen / Unknown 06/23/2024 8:20 AM EST 06/23/2024 8:22 AM EST Mel Bennett MD LAB POINT OF CARE TE ST DOCKED DEVICE UNSOLICITED RESULTS [facility] [address] [place] [address], documented in this encounter Visit Diagnoses Not on filedocumented in this encounter Administered Medications Inactive Administered Medications - up to 3 most recent administrations Medication Order MAR Action Action Date Dose Rate Site acetaminophen (TYLENOL) tablet 1,000 mg 1,000 mg, oral, Once as needed, mild pain, Starting on Deidre 06/23/24 at 1405, For 1 dose, Phase II/On Unit Given 06/23/2024 2:11 PM EST 1,000 mg diphenhydrAMINE (BENADRYL) injection 12.5 mg 12.5 mg, intravenous, Once as needed, nausea and vomitting, Starting on Deidre 06/23/24 at 1405, For 1 dose, Phase II/On Unit, Give as THIRD antiemetic in order set haloperidol lactate (HALDOL) injection 1 mg 1 mg, intravenous, Once as needed, nausea and vomitting, Starting on Deidre 06/23/24 at 1405, For 1 dose, Phase II/On Unit, Give as SECOND antiemetic in order set May be ordered via either intramuscular or intravenous route. If ordered IV, maximum of 5 mg/minute. lactated Ringer's infusion 100 mL/hr, intravenous, Continuous, Starting on Deidre 06/23/24 at 0915, Preprocedure Continued by Anesthesia 06/23/2024 12:27 PM EST 100 mL/hr New Bag 06/23/2024 8:58 AM EST 100 mL/hr 100 mL/hr ondansetron (PF) (ZOFRAN) injection 4 mg 4 mg, intravenous, Once as needed, nausea, vomiting, Starting on Deidre 06/23/24 at 1405, For 1 dose, Phase II/On Unit, Give as FIRST antiemetic in order set Infuse over 2 minutes. oxyCODONE (ROXICODONE) immediate release tablet 5 mg 5 mg, oral, Once as needed, moderate pain, Starting on Deidre 06/23/24 at 1405, For 1 dose, Phase II/On Unit Given 06/23/2024 2:11 PM EST 5 mg documented in this encounter Historical Medications * This list may reflect changes made after this encounter. Medication Sig Dispensed Refills Start Date End Date CONCENTRATED insulin regular (HumuLIN R) 500 UNIT/ML patient supplied pump 1 EA by continuous sub-Q infusn (via wearable injector) route continuously. added in this encounter Active and Recently Administered Medications Times are shown in EST. Scheduled Medication Order 06/21/2024 06/22/2024 06/23/2024 ceFAZolin (ANCEF) 2 g in sterile water 20 mL IV syringe 2 g, intravenous, Administer over 3 Minutes, Once, On Deidre 06/23/24 at 0915, For 1 dose, Preprocedure, To be administered in the OR <60 minutes before incision Weight based dosin gram Ancef: less than 70kg 2 gram Ancef: 70-120kg 3 gram Ancef: greater than 120kg, Indication: Prophylaxis-Surgical 0915 (Canceled Entry - Provider: Automatic Discharge Provider - Comment: Automatically canceled at discontinue of medication order) Continuous Medication Order 06/21/2024 06/22/2024 06/23/2024 lactated Ringer's infusion 100 mL/hr, intravenous, Continuous, Starting on Deidre 06/23/24 at 0915, Preprocedure 0858 (New Bag - Prov ider: Little Montes RN)1227 (Continued by Anesthesia - Provider: Mariela Ruiz CRNA)1304 (Stopped - Provider: Mariela Ruiz CRNA) PRN Medication Order 06/21/2024 06/22/2024 06/23/2024 acetaminophen (TYLENOL) tablet 1,000 mg (COMPLETED) 1,000 mg, oral, Once as needed, mild pain, Starting on Deidre 06/23/24 at 1405, For 1 dose, Phase II/On Unit 1411 (Given - Provid er: Angela Brock RN) bupivacaine (PF) (MARCAINE) 0.25 % injection (CANCELED) As needed, Starting on Deidre 06/23/24 at 1250, Intraprocedure 1250 (Given - Provid er: Mel Bennett MD) diphenhydrAMINE (BENADRYL) injection 12.5 mg 12.5 mg, intravenous, Once as needed, nausea and vomitting, Starting on Deidre 06/23/24 at 1405, For 1 dose, Phase II/On Unit, Give as THIRD antiemetic in order set haloperidol lactate (HALDOL) injection 1 mg 1 mg, intravenous, Once as needed, nausea and vomitting, Starting on Deidre 06/23/24 at 1405, For 1 dose, Phase II/On Unit, Give as SECOND antiemetic in order set May be ordered via either intramuscular or intravenous route. If ordered IV, maximum of 5 mg/minute. lidocaine (XYLOCAINE) 1 % injection (CANCELED) As needed, Starting on Deidre 06/23/24 at 1250, Intraprocedure 1250 (Given - Provid er: Mel Bennett MD) ondansetron (PF) (ZOFRAN) injection 4 mg 4 mg, intravenous, Once as needed, nausea, vomiting, Starting on Deidre 06/23/24 at 1405, For 1 dose, Phase II/On Unit, Give as FIRST antiemetic in order set Infuse over 2 minutes. oxyCODONE (ROXICODONE) immediate release tablet 5 mg (COMPLETED) 5 mg, oral, Once as needed, moderate pain, Starting on Deidre 06/23/24 at 1405, For 1 dose, Phase II/On Unit 1411 (Given - Provid er: Angela Brock RN) documented in this encounter Orders Medications Ordered That Amor ht Not Have Been Administered Count Last Ordered Date First Ordered Date bupivacaine (PF) (MARCAINE) 0.25 % injection 1 06/23/2024 ceFAZolin (ANCEF) 2 g in marivel rile water 20 mL IV syringe 1 06/23/2024 diphenhydrAMINE (BENADRYL) i njection 12.5 mg 1 06/23/2024 haloperidol lactate (HALDOL) injection 1 mg 1 06/23/2024 lidocaine (XYLOCAINE) 1 % injection 1 06/23 ondansetron (PF) (ZOFRAN) injection 4 mg 1 06/23/2024 Nursing Count Last Ordered Date First Orde red Date PLACE IN OUTPATIENT/HOSPITAL AMBULATORY SURGERY 1 06/23/2024 Discharge Count Last Ordered Date First Orde red Date DISCHARGE PATIENT 1 06/23/2024 documented in this encounter Care Teams Associate Software Engineer Relationship Specialty Start Date End Date West Gallegos MD [address] [place] [address] PCP - General 04/01/23 documented as of this encounter
--- OUTSIDE RECORDS SUMMARY | 2024-07-04 19:41 | XMS_ITS | Encounter Summary ---
Author Organization [facility] Address [address] [place] [address] Care Team Providers Care Senior Engineering Specialist Name Role Phone West Gallegos MD Primary Care Provider [phone] Reason for Visit * Auth/Cert (Routine) Specialty Diagnoses / Procedures Referred By Contac t Referred To Contact Diagnoses Trigger finger, left index finger ACQUIRED TRIGGER FINGER LEFT INDEX Procedures MD INCISION TENDON SHEATH LEFT INDEX FINGER TRIGGER FINGER RELEASE [place] [address] [facility] Main Or [address] [place] [address] Referral ID Status Reason Start Date Expiration Date Visits Re quested Visits Authorized [id number] 1 1 Encounter Details Date Type Department Care Team (Late st Contact Info) Description 06/23/2024 12:27 PM EST Anesthesia Event [facility] Main OR [address] [place] [address] Cl Dickson MD [address] [place] [address] Anesthesia Record Procedure Summary Procedure Name Responsible Anesthesiologist Anesthesia Start Time Anesthesia Stop Time LEFT INDEX FINGER TRIGGER FINGER RELEASE (Right: Fingers) Cl Dickson MD 06/23/24 1227 06/23/24 1318 Events Date Time Event Comment 06/23/2024 1227 An Start 1227 In Room 1239 An Start Data The patient wa s reevaluated immediately before moderate or deep sedation use and before anesthesia induction. 1245 Anesthesia Ready 1250 Proc Start 1309 Proc Fin 1311 an stop data 1312 Out of Room 1317 Handoff to RN I completed my handoff to the receiving nurse during which we: 1. Identified the patient 2. Identified the responsible provider 3. Reviewed the pertinent medical history 4. Discussed the surgical course 5. Reviewed intra-op anesthesia management and issues during anesthesia 6. Set expectations for post-procedure period 7. Allowed opportunity for questions and acknowledgement of understanding. 1318 An Stop Meds Name Total propofol (DIPRIVAN) injection 10 mg/mL 5 0 mg propofol (DIPRIVAN) infusion 10 mg/mL 12 7.5 mg lidocaine PF (XYLOCAINE-MPF) local injec tion 2% 80 mg ceFAZolin (ANCEF) IV syringe 2 g/20 mL 2 g ceFAZolin (ANCEF) 2 g in sterile water 2 0 mL IV syringe 0 g lactated Ringer's infusion 410 mL * Agents Name O2 N2O Air Sevoflurane Inspired Sevoflurane * Blood No blood administrations on file. Lines, Drains, and Airways Type Details Placement Removal Wound Incision; 06/23/24; Finger D2, Index; Posterior, Right 06/23/24 0000 by Makenna Dumont RN Peripheral IV Placement Date: 06/08 11/30; Placement Time: 0858; Catheter Size: 20 G; Orientation: Left, Posterior; Location: Hand; Site Prep: Chlorhexidine; Insertion Attempts: 1; Removal Date: 06/23/24; Removal Time: 1341 06/23/24 0858 by Little Montes RN 06/23/24 1341 by Angela Brock RN documented in this encounter Social History Tobacco Use Types Packs/Day Years Used Date Smoking Tobacco: Every Day Cigarettes Smokeless Tobacco: Never Sex and Gender Information Value Date Recorded Sex Assigned at Female 06/23/2024 8:01 AM EST Gender Identity Female 06/23/2024 8:01 AM EST Sexual Orientation Straight 06/23/2024 8: 01 AM EST Job Start Date Occupation Industry Not on file Not on file Not on file documented as of this encounter Progress Notes * Mariela Ruiz CRNA - 06/23/2024 1:18 PM EST Patient: Aliza Shane Procedure Summary Date: 06/23/24 Room / Location: [facility] OR Anesthesia Start: 1227 Anesthesia Stop: 1318 Procedure: LEFT INDEX FINGER TRIGGER FINGER RELEASE (Right: Fingers) Diagnosis: Trigger finger, right index finger (ACQUIRED TRIGGER FINGER LEFT INDEX) Surgeons: Mel Bennett MD Responsible Provider: Cl Dickson MD Anesthesia Type: general ASA Status: 2 Anesthesia Plan: general Last Vitals: Vitals Value Taken Time BP 131/80 06/23/24 1318 Temp 97.7 06/23/24 1318 Pulse 76 06/23/24 1318 Resp 18 06/23/24 1318 SpO2 99 06/23/24 1318 No data recorded Anesthesia Post Evaluation Patient location during evaluation: PACU Patient participation: complete - patient participated Level of consciousness: awake Pain score: 3 Pain management: adequate Airway patency: patent Anesthetic complications: no Cardiovascular status: hemodynamically stable and acceptable Respiratory status: acceptable, nonlabored ventilation and room air Hydration status: acceptable Nausea: No Vomiting: No There were no known notable events for this encounter. * Cl Dickson MD - 06/23/2024 8:47 AM EST 49 y.o. female scheduled for Trigger finger, left index finger [LEFT INDEX FINGER TRIGGER FINGER RELEASE (Left: Fingers)] Ht Readings from Last 1 Encounters: 06/15/24 1.626 m (64 ) Wt Readings from Last 1 Encounters: 06/15/24 73.9 kg (163 lb) There is no height or weight on file to calculate BMI. Past Medical History: Diagnosis Date Diabetes mellitus ([facility]) Stroke ([facility]) 2023 Past Surgical History: Procedure Laterality Date [facility] Anesthesia complications Denies No Known Allergies Prior to Admission medications Medication Sig Start Date End Date Taking? Authorizing Provider CONCENTRATED insulin regular (HumuLIN R) 500 UNIT/ML patient supplied pump 1 EA by continuous sub-Qinfusn (via wearable injector) route continuously. Yes Historical Provider, I have personally reviewed all the patient's medications with them prior to anesthesia. Current In-hospital Medications ceFAZolin, 2 g, intravenous, Once lactated Ringer's, 100 mL/hr Is the patient a current smoker (e.g. cigarette, cigar, pip, e-cigarette, or mariajuana)? Yes [] No[] Patient previously instructed to abstain from smoking on the day of procedure? Yes [] No[] Patient smoked on the day of procedure? Yes [] No[] ASPIRE smoking VBR: [] Not interested in quitting [] Interested in quitting- referred to treatment [] Interested in quitting - treatment provided Visit Vitals BP 133/75 Pulse 87 Temp 36.5 ??C (97.7 ??F) Resp 16 SpO2 100% LABS: No results found for: WBC , HGB , HCT , MCV , PLT Lab Results Component Value Date GLUCOSE 112 (H) 06/23/2024 No results found for: INR , PROTIME No results found for: PTT Relevant Problems No relevant active problems Clinical information reviewed: Allergies Meds Anesthesia Plan ASA 2 Anesthesia Plan: general General Anesthesia Considerations: LMA Anesthesia Considerations general ETT Anesthesia Risks Discussed dental injury, nausea, pain, sore throat, corneal abrasion, allergic reaction and serious complications Induction method: intravenous Postoperative administration of opioids is intended. Anesthetic plan and risks discussed with patient. Use of blood products discussed with patient who. Anesthesia Plan discussed with ACCESS LIAISON. Anesthesia Evaluation Airway Mallampati: II Thyromental distance: >3 FB Neck ROM: fullnot intubatedno noted risk Dental Pulmonary breath sounds clear to auscultation Cardiovascular Rhythm: regular Rate: normal Neuro/Psych Mental Status: alert and oriented GI/Hepatic/Renal Endo/Other (+) diabetes mellitus Abdominal Abdomen: soft. Bowel sounds: normal. PONV RISK SCORE: 1 Vitals: 06/23/24 0818 BP: 133/75 Pulse: 87 Resp: 16 Temp: 36.5 ??C (97.7 ??F) SpO2: 100% SpO2 Readings from Last 1 Encounters: 06/23/24 100% No results found for: WBC , RBC , HGB , HCT , PLT , MCV No Known Allergies STOP BANG: No data recorded NPO Status: Time of Last Solid: 0010 documented in this encounter Plan of Treatment Upcoming Encounters Date Type Department Care Team (Late st Contact Info) Description 08/18/2024 3:00 PM EDT Office Visit Orthopedic Surgery - [address] [address] Gabino Ritchie, DPM [address] [address] documented as of this encounter Visit Diagnoses Not on filedocumented in this encounter Administered Medications Inactive Administered Medications - up to 3 most recent administrations Medication Order MAR Action Action Date Dose Rate Site ceFAZolin (ANCEF) 2 gram/20 mL IV syringe intravenous, Administer over 3 Minutes, As needed, Starting on Deidre 06/23/24 at 1252, Anesthesia Intraprocedure Given 06/23/2024 12:41 PM EST 2 g lactated Ringer's infusion 100 mL/hr, intravenous, Continuous, Starting on Deidre 06/23/24 at 0915, Preprocedure Continued by Anesthesia 06/23/2024 12:27 PM EST 100 mL/hr New Bag 06/23/2024 8:58 AM EST 100 mL/hr 100 mL/hr lidocaine (PF) (XYLOCAINE-MPF) 2 % injection injection, As needed, Starting on Deidre 06/23/24 at 1244, Anesthesia Intraprocedure Given 06/23/2024 12:44 PM EST 80 mg propofoL (DIPRIVAN) infusion 10 mg/mL intravenous, Continuous PRN, Starting on Deidre 06/23/24 at 1245, Anesthesia Intraprocedure New Bag 06/23/2024 12:45 PM EST 100 mcg/kg/min 45 mL/hr propofoL (DIPRIVAN) injection intravenous, As needed, Starting on Deidre 06/23/24 at 1244, Anesthesia Intraprocedure Given 06/23/2024 12:44 PM EST 50 mg documented in this encounter Care Teams Senior Engineering Specialist Relationship Specialty Start Date End Date West Gallegos MD [address] [place], [place] PCP - General 04/01/23 documented as of this encounter
--- OUTSIDE RECORDS SUMMARY | 2024-07-04 19:41 | XMS_ITS | Data Portability ---
Author Organization [place] [facility] Maria R Morales AONE Ryan Address [address] [place] [id number] Assessment Encounter Date Assessment Date Assessment LastModified by Organization Details LastModified Time 04/23/2023 04/23/2023 The above findin gs were discussed in detail today with the patient. She does have evidence of a right index finger trigger finger as well as bilateral, right worse than left median nerve irritation. Her electrodiagnostic studies do not support a recurrent carpal tunnel syndrome with compression at the carpal tunnel. She does have a positive Tinel over the carpal tunnel and symptoms that point to median neuropathy. Treatment options were discussed today for the trigger finger include a steroid injection and sometimes this requires surgical trigger finger release. She like to proceed with an injection today. For the median neuritis, I would suggest a carpal tunnel injection on her more symptomatic side, this will help us to elucidate if her symptoms get better with an injection then she may possibly get better with a revision carpal tunnel release. I did discuss with her revision carpal tunnel release is associated with a higher risk to injury to the median nerve than primary carpal tunnel release and I would not like to do this if I do not think that she has a chance of improving her symptoms. I also let her know that she could still have a radiculopathy which is causing some of her symptoms and which is why she did not complete release from her carpal tunnel release. She should be evaluated by a spine surgeon. I will place a referral for her today. We will do a carpal tunnel injection on the right side, she will monitor her symptoms and see if she gets improvement with the steroid injection. She does get significant improvement then we may consider revision carpal tunnel release, she does not get significant improvement and I would not recommend a carpal tunnel release at this time. I will see her back for follow-up in 6 weeks time. All of her questions were answered, she is in agreement with the plan. Not available 04/23/2023 18:41:14 06/10/2023 06/10/2023 She is doing vladimir y well status post right index finger trigger finger injection and right carpal tunnel injection, her symptoms have completely resolved at this point. She does have evidence of early trigger fingers of the left index and middle fingers. I did offer her a steroid injection for either or both of these but she would like to wait on this as it is not very symptomatic for her. She will continue to watch it. I did let her know that the trigger finger on the right side may not return however her carpal tunnel symptoms she was having previously injection may return as typically carpal tunnel injections are temporary. I did let her know that this resolution of her symptoms does help us with diagnosis as it tells us she would have a good result from revision carpal tunnel release if her symptoms do return. For now we can continue to monitor and if she does have return of her symptoms we can discuss a revision carpal tunnel release for the right side. I did let her know that this would have to be 3 months after her injection to reduce the risk for infection. She understands this. She will call to make an appointment to come in if her symptoms return or if her left hand trigger fingers are bothering her more. All of her questions were answered, she is agree with plan. Not available 06/10/2023 16:51:29 06/09/2024 06/09/2024 The above findin gs were discussed in detail today with the patient. She has evidence of right trigger finger with recurrent symptoms after cortisone injection over a year ago. Pathology and expected prognosis were discussed. Treatment options at this point include a second cortisone injection or consideration for trigger finger release. She would like to proceed with trigger finger release. Risks of surgery were discussed with the patient which include but are not limited to bleeding, infection, injury to nerves, tendons, vessels, pain, stiffness, non-relief of symptoms, recurrence, needing more surgery in the future as well as risks of anesthesia. All questions were answered to the patient's satisfaction. They understood these risks and agreed to proceed, consent was obtained today. I let her know the importance of glycemic control and cutting back on smoking for wound healing after surgery, this could lead to wound healing issues or infection. She will need to obtain clearance from her primary care physician prior to surgery as she is at increased risk for complications given her medical comorbidities. If her A1c is above 8, we will need to postpone surgery until she has better glycemic control, she understands this. At that point we can give her cortisone injection if she prefers. I did discuss anesthesia with her, we can do this under local only anesthesia versus sedation with local anesthesia, she would like to undergo sedation with local anesthesia. We will schedule surgery at her convenience after she obtains medical clearance. All of her questions were answered, she is in agreement the plan. The previous note was written as a follow-up for a left index finger trigger finger, upon review, I realized this was a mistake, the visit was for a right index finger trigger finger and right index finger trigger finger release surgery was performed. Not available 06/24/2024 13:37:39 Plan of Treatment Reminders Order Date Submit Date Provider Last Modified By Organization Details Last Modified Time Details Appointments POST-OP 2024 03:30P M Mel lao MD Not available Not available Not available Lab None recorde d. Referral orthope dic spine surgeon referra l - evaluat e for bilater al cervica l radicul opathy, s/p carpal tunnel release with return of symptom s 2022 023 [email or web address] Not available 05/22/2023 09:05:50 Procedures None recorde d. Surgeries trigger finger release (SURG) 2024 025 RENATO Not available 06/24/2024 10:24:37 Imaging None recorde d. Medication Orders lidocai ne (PF) 10 mg/mL (1 %) injecti on solutio n 2022 023 [facility]-2 0180, [address] [facility], [facility], [place], [place], [phone], 04/23/2023 20:50:01 Kenalog 10 mg/mL suspens ion for injecti on 2022 023 [place] [address], [address], [address], [place], [place], [phone], 04/23/2023 20:50:01 lidocai ne (PF) 10 mg/mL (1 %) injecti on solutio n 2022 023 [place] [address], [address], [address], [place], [place], [phone], 04/23/2023 20:50:01 Kenalog 10 mg/mL suspens ion for injecti on 2022 023 [place] [address], [address], [address], [place], [place], [phone], 04/23/2023 20:50:01 Patient TargetsNo targets recorded. Patient Instructions Encounter Date Encounter Id Patient Instructions Last Modified By Organization Details Last Modified Time 04/23/2023 [id number] An electrodiagno stic study from 07/16/2021 done at [facility] was available for review, this demonstrates a right median distal motor latency of 5.5 to and a left distal motor latency of 5.73. There was slowing of the right ulnar nerve across the elbow from 58.9-37.5 and at the left 57.3-40.8. The sensory latencies for the right median nerve was 2.92 and for the left was non-recordable, for the ulnar nerve it was 1.2 over the right and to the left was 1.46. 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 Mild bilateral ulnar neuropathy across the elbow. And chronic bilateral mid cervical radiculopathy. An electrodiagnostic study from 02/23/2023 done at [facility] was available for review, this demonstrates right median distal motor latency of 3.44 and left median distal latency of 3.39. The right ulnar latency was 1.93 and the left ulnar latency was 2.24. The sensory studies demonstrated a right median latency of 1.72 and a left median latency of 1.88 and ulnar was right 1.30 and the left 1.56. They EMG did not show any muscle changes in the tested right side. The impression was normal motor and sensory nerve conduction study of the upper extremities that is significantly improved compared to the study of 07/16/2021. Normal EMG of the right C5-T1 innervated muscles. Not available 04/23/2023 18:37:47 Reason for Referral Orthopedic Spine Surgeon Ref erral for Carpal tunnel syndrome of left wrist evaluate for bilateral cervical radiculopathy, s/p carpal tunnel release with return of symptoms Referring Physician: Mel Bennett, Orthopedic Surgery, Encounter Date: 04/23/2023 Problems Name Problem SNOMED Code Status Onset Date Resolution Date Notes Provider Name and Address Organization Details Recorded Time Carpal tunnel syndrome of right wrist 9789833747375 08 Active 2022 Mel lao MD [address], [place], [address], [place] [facility] 3 18:41:21 Carpal tunnel syndrome of left wrist 7856163721663 02 Active 2022 Mel lao MD [address], [place], [address], [place] [facility] [place] [facility] 3 18:41:24 Acquired trigger finger of left index finger 6321504969076 04 Active 2023 Mel lao MD [address], [place], [address], [place] [facility] 4 16:51:27 Triggering of digit 398620916 Active 2024 Mel lao MD [address], [place], [address], [place] [facility] [place] [facility] 5 12:25:26 Problem Notes None recorded. Procedures Surgical History Date Name Laterality Status Provider Name and Address Organization Details Recorded Time 5 TRIGGER FINGER RELEASE (SURG) completed Adriane Arias [facility] [place] 06/24/2024 10:24:43 3 LES carpal tunnel injection completed Mel Bennett MD [address] [facility] [address], [place], [address], [place] [facility] [place] [facility] 04/23/2023 18:34:11 3 LES trigger finger/De Quervain's injection completed Mel Bennett MD [address] [facility] [address], [place], [address], [place] [facility] 04/23/2023 18:33:58 Imaging Results None recorded. Procedure Notes None recorded. Medical Equipment None Reported. Allergies No known drug allergies Medications Name Sig Start Date Stop Date Status Note LastModified by Organization Details LastModified Time trazodone 50 mg tablet TAKE TWO TABLETS AT BEDTIME WITH FOOD 04/23 completed Not Available Not Available Not Available azithromyci n 250 mg tablet TAKE 2 TABLETS BY MOUTH ON DAY 1, THEN TAKE 1 TABLET DAILY ON DAYS 2-5 04/23 completed Not Available Not Available Not Available ibuprofen 800 mg tablet TAKE 1 TABLET BY MOUTH THREE TIMES A DAY NEEDED 04/23 completed Not Available Not Available Not Available fluconazole 150 mg tablet TAKE ONE TABLET ONCE A WEEK active Not Available Not Available No t Available ketotifen 0.025 % (0.035 %) eye drops USE ONE DROP TO EYES TWICE A DAY NEEDED FOR ALLERGIES active Not Available Not Available No t Available famotidine 40 mg tablet TAKE ONE TABLET TWICE DAILY 04/23 completed Not Available Not Available Not Available hydroxyzine pamoate 50 mg capsule TAKE ONE CAPSULE EVERY 6 HOURS NEEDED FOR ITCHING active Not Available Not Available No t Available penicillin V potassium 500 mg tablet TAKE TWO TABLETS BY MOUTH FIRST TIME ONLY THEN TAKE 1 TABLET EVERY SIX HOURS TILL GONE active Not Available Not Available No t Available dextrometho rphan-guaif enesin 10 mg-100 mg/5 mL oral syrup TAKE FIVE ML BY MOUTH EVERY FOUR HOURS NEEDED FOR COUGH 04/23 completed Not Available Not Available Not Available amlodipine 5 mg tablet TAKE ONE TABLET ONCE DAILY active Not Available Not Available No t Available tramadol 50 mg tablet TAKE ONE TABLET EVERY 6 HOURS NEEDED FOR SEVERE PAIN 04/23 completed Not Available Not Available Not Available acetaminoph en 500 mg tablet TAKE 1 TABLET BY MOUTH EVERY 6-8 HOURS NEEDED FOR PAIN 04/23 completed Not Available Not Available Not Available Kenalog 10 mg/mL suspension for injection Take 1 mL by injection route. 2022 active Not Available Not Available Not Lucas labbrandan amitriptyli ne 10 mg tablet TAKE 1 TO 2 TABLETS AT BEDTIME 04/23 completed Not Available Not Available Not Available Betasept Surgical Scrub 4 % topical liquid Apply topically if needed each day for wound care. 04/23 completed Not Available Not Available Not Available mirtazapine 15 mg tablet TAKE ONE TABLET BY MOUTH AT BEDTIME 04/23 completed Not Available Not Available Not Available fluticasone propionate 50 mcg/actuati on nasal spray,suspe nsion ADMINISTE R 1-2 SPRAYS INTO EACH NOSTRIL IN THE MORNING. EVERY DAY NEEDED active Not Available Not Available No t Available medroxyprog esterone 150 mg/mL intramuscul ar suspension inject 1 millilite r by intramusc ular route every 3 months. Bring to office for injection active Not Available Not Available No t Available dicyclomine 10 mg capsule TAKE ONE CAPSULE FOUR TIMES DAILY 04/23 completed Not Available Not Available Not Available amoxicillin 875 mg-potassiu m clavulanate 125 mg tablet TAKE 1 TABLET BY MOUTH TWICE A DAY FOR 5 DAYS active Not Available Not Available No t Available oxycodone 5 mg tablet Take 1 tablet every 4-6 hours by oral route. 2024 active Not Available Not Available Not Lucas tomlin GlucaGen HypoKit 1 mg Injection Inject 1 mL (1 mg) under the skin 1 (one) time if needed for low blood sugar for up to 1 dose. Once in thigh, upper arm or buttocks active Not Available Not Available No t Available lidocaine (PF) 10 mg/mL (1 %) injection solution Take 1 mL by injection route. 2022 active Not Available Not Available Not Lucas tomlin Paxlovid 300 mg (150 mg x 2)-100 mg tablets in a dose pack TAKE 3 TABLETS BY MOUTH TWICE A DAY FOR 5 DAYS 04/23 completed Not Available Not Available Not Available Vitals Date Recorded Body height Body mass index (BMI) Body weight Provider Name and Address Organization Details Last Updated DateTime 04/23/2023 165.1 cm 25.5 kg/m2 [address]8911.[address] [place] [facility] 04/23/2023 13:55:27 Social History Question Answer Notes LastModified by Organizat ion Details LastModified Time Tobacco Smoking Status Current Every Day Smoker Shawna Quijano null, [place] [facility] 04/23/2023 14:16:08 What Is Your Level Of Alcohol Consumption? None Information not available 04/23/2023 How Much Tobacco Do You Smoke? 1 PPW 5-6 Cigs/ Day Information not available 04/23/2023 Do You Use Any Illicit Or Recreational Drugs? No Information not available 04/23/2023 Do You Or Have You Ever Used Any Other Forms Of Tobacco Or Nicotine? No Information not available 04/23/2023 Sex: Unknown Functional Status None recorded. Mental Status None recorded. Family History Relationship Description Onset Age of this Age Resolved Age Notes LastModified by Organization Details LastModified Time Mother Diabetes mellitus Not available 04/08 14:01:10 Medical History Condition Response Coronary Artery Disease N Gout N Hyperthyroidism N MRSA N Blood Transfusion N Emphysema N Hypothyroidism N Depression N COPD N Pacemaker N Vascular Disease N Gastrointestinal Disease N Anxiety Disorder N Autoimmune disease N Arthritis N Cancer N Stroke N High Cholesterol N Neurologic Disorder N Liver Disease N Organ Transplant N Rheumatoid Arthritis N Arrhythmia N Fibromyalgia N Kidney Disease N Allergies/Hayfever N Adverse Reaction to Anesthesia N Thyroid Problems N Anemia N Brain Injury N Heart Attack ([place]) N Osteopenia N Diabetes Y Bleeding Disorder N Seizures/Epilepsy N AIDS/HIV N Congestive Heart Failure (CHF) N Asthma N Amputation N Reflux/GERD N Sleep Apnea N Hepatitis N Aneurysm N Heart Disease N Pulmonary Embolism N Hypertension N Osteoporosis N Gynecological HistoryNo gynecological history recorded. Obstetrics History GPAL:G 0 P 0 0 0 0 Past Encounters Encounter ID Performer Location Encounter Start Date Encounter Closed Date Diagnosis/Indication Diagnosis SNOMED-CT Code Diagnosis ICD10 Code Diagnosis Note [id number] MD SANJEEV Knapp [address] [facility] [address] [place] [address] 04/23/2023 13:45:40 04/23/2023 15:06:40 Acquired trigger finger of right index finger 6139181797 36476 M65.321 Pain of right wrist 3169 185456 37115 M25.531 Carpal wilberto rebecca syndrome of right wrist 2721498551 85892 G56.01 Carpal wilberto rebecca syndrome of left wrist 2830107358 72338 G56.02 [id number] [facility] [address] [facility] [address] [place] [address] 06/10/2023 15:23:26 06/10/2023 16:43:05 Carpal tunnel syndrome of left wrist 0638122057 10163 G56.02 Carpal wilberto rebecca syndrome of right wrist 1821861578 79146 G56.01 Acquired t manager of corporate communications finger of left index finger 8785772938 01292 M65.322 [id number] MD SANJEEV Knapp [facility] [address] [facility] [address] [place] [address] 06/09/2024 15:05:04 06/09/2024 15:39:01 Acquired trigger finger of left index finger 0112099144 20851 M65.322 Carpal wilberto rebecca syndrome of right wrist 1474006075 58816 G56.01 Carpal wilberto rebecca syndrome of left wrist 9431328553 91554 G56.02 Health Concerns Section Related Observation LastModified by Organization Detai ls LastModified Time None Recorded Concern Status LastModified by Organization Details LastModified Time None Recorded Advance Directives Directive None Recorded Payers Encounter Date Sequence Insurance Name Policy Number Policy Jiménez Covered Member ID Jiménez Member ID Guarantor Name 04/23/2023 1 [place] [facility] Miladys Shane [id number] Aliza Shane 06/10/2023 1 [place] [facility] Miladys Shane [id number] Aliza Shane 06/09/2024 1 [place] [facility] Milayds Shane [id number] Aliza Shane Notes Date Note Type Note Provider Name and Address Organization Details Recorded Time 04/23/2023 text/html This is a 48-yea r-old fcjgi-fzxo-rproolhy female who is presenting with bilateral, right worse than left hand pain, and numbness and tingling. She does have a prior history of having bilateral carpal and cubital tunnel releases on the left side in September 2021 and on the right side in January 2022 with an outside provider. She said that her symptoms improved however 3 to 4 months after she started experiencing pain and numbness in her hands that was mainly located at her thumb and index fingers. She does have symptoms that wake her up at night. She had an electrodiagnostic study prior to her carpal and cubital tunnel releases and then one more recently in 2022 which was ordered by the outside provider, this did show improvement in her electromyographic studies for the median and ulnar nerve. Of note the electrodiagnostic study that she had prior to her surgeries did show possibility of a chronic bilateral mid cervical radiculopathy. She has not seen a spine surgeon for this issue. Today she complains mostly of right index finger pain over the A1 luis miguel as well as intermittent triggering of the index finger, she also describes numbness and tingling in the thumb index and long finger. Mel Bennett MD [address] [address], [place], [address], [place] [facility] 04/23/2023 18:45:28 06/10/2023 text/html She returns to [facility] for right hand numbness and tingling status post carpal tunnel injection and right index finger trigger finger status post trigger finger injection about 6 weeks ago. Today she feels much improved. Her right index finger trigger finger has completely resolved, she has not had any pain or triggering in the finger. Her numbness and tingling as well as pain in the right hand has also completely resolved. She feels that the injection helped to 100% of her symptoms and she still feeling relief from it now 6 weeks later. She said it helped starting on about day 3 after the injection. She is starting to have some symptoms of early trigger finger in the left index and middle fingers, she does have some intermittent triggering especially of the index finger however this is not consistent or very painful and does not bother her much. Mel Bennett MD [address] [facility] [address], [place], [address], [place] [facility] [place] [facility] 06/10/2023 16:51:39 06/09/2024 text/html She presents for follow-up of her right index finger trigger finger status post a cortisone injection on 04/23/2023. She said this lasted for about a year and then symptoms have started to return. She notes pain over the index finger A1 luis miguel and triggering with finger flexion extension especially in the morning. This has been getting worse. She also had a cortisone injection into the right carpal tunnel on 04/23/2023, she has not noticed recurrence of symptoms at this time.She has medical history significant for type 2 diabetes, she thinks her last A1c was in the eights. She does see an educational technology coordinator for this. She also tells me she had a stroke in December of this year which affected the left side which she is undergoing therapy and recovering. She said this was diabetes and high blood pressure. She does not use a walker. She currently smokes cigarettes daily however has been cutting back. She denies marijuana use or illicit drug use, does not drink alcohol. Mel Bennett MD [address] [place] [address], [address], [place] [facility] 06/24/2024 13:37:41 OBGyn Episode No OBEpisode recorded.
--- OUTSIDE RECORDS SUMMARY | 2024-07-04 19:41 | XMS_ITS | Continuity of Care Document ---
Author Organization [place] [facility] Maria R Morales [place] Address [address] [facility] [address] [place] [address] Care Team Providers Care Manager Chinese Name Role Phone IVETTE LIRIANO Referring Provider Assessment Encounter Date Assessment Date Assessment LastModified by Organization Details LastModified Time 06/09/2024 06/09/2024 The above findings were discussed in detail today with the [...] available Not available Not available Lab None recorded . Referral None recorded . Procedures None recorded . Surgeries trigger finger release (SURG) 2024 025 RENATO Not available 06/24/2024 10:24:37 Imaging None recorded . Medication Orders None recorded . Patient TargetsNo targets recorded. Patient InstructionsNo instructions recorded. Reason for Referral None Reported. Problems Name Problem SNOMED Code Status Onset Date Resolution Date Notes Provider Name and Address Organization Details Recorded Time Carpal tunnel syndrome of right wrist [id number] 08 Active 2022 Mel lao MD [address], [place], [address], [place] [facility] 18:41:21 Carpal tunnel syndrome of left wrist 3892950966867 02 Active 2022 Mel lao MD [address], [place], [address], [place] [facility] 18:41:24 Acquired trigger finger of left index finger 4442710907167 04 Active 2023 Mel lao MD [address], [place], [address], [place] [facility] 4 16:51:27 Triggering of digit 699712095 Active 2024 Mel lao MD [address], [place], [address], [place] [facility] 5 12:25:26 Problem Notes None recorded. Procedures Surgical History Date Name Laterality Status Provider Name and Address Organization Details Recorded Time 5 TRIGGER FINGER RELEASE (SURG) completed Adriane Arias [facility] 06/24/2024 10:24:43 3 LES carpal tunnel injection completed Mel Bennett MD [address] [facility],[address], [place], [address], [place] [facility] 04/23/2023 18:34:11 3 LES trigger finger/De Quervain's injection completed Mel Bennett MD [address] [facility],[address], [place], [address], [place] [facility] 04/23/2023 18:33:58 Imaging Results None recorded. [...] Available Not Available No t Available dextrometho ronan-adán enesin 10 mg-100 mg/5 mL oral syrup [...] Not Available Not Available Not Lucas tomlin amitriptyli ne 10 mg tablet TAKE 1 [...] Not Available Not Available Not Available Vitals None Recorded Social History Question Answer Notes LastModified by Organizat ion Details LastModified Time Tobacco Smoking Status Current Every Day Smoker Shawna tripp, [place] [facility] 04/23/2023 14:16:08 What Is Your Level [...] Artery Disease N Gout N Hyperthyroidism N Blood Transfusion N MRSA N Emphysema N Depression N COPD N Hypothyroidism N Pacemaker N Vascular Disease N Gastrointestinal Disease N Anxiety Disorder N Autoimmune disease N Arthritis N Cancer N Stroke N High Cholesterol N Neurologic Disorder N Liver Disease N Organ Transplant N Rheumatoid Arthritis N Arrhythmia N Fibromyalgia N Kidney Disease N Allergies/Hayfever N Adverse Reaction to Anesthesia N Thyroid Problems N Anemia N Brain Injury N Heart Attack (NC) N Osteopenia N Diabetes Y Bleeding Disorder [...] SNOMED-CT Code Diagnosis ICD10 Code Diagnosis Note [id number] MD SANJEEV [facility] [address] [facility] [address] [place] [phone] 06/09/2024 15:05:04 06/09/2024 15:39:01 Acquired trigger finger of left index finger [id number] 44216 M65.322 Carpal wilberto rebecca syndrome of right wrist [id number] 23561 G56.01 Carpal wilberto rebecca syndrome of left wrist [id number] 25166 G56.02 Health Concerns Section Related Observation LastModified by Organization Detai ls LastModified Time None Recorded Concern Status LastModified by Organization Details LastModified Time None Recorded Payers Encounter Date Sequence Insurance Name Policy Number Policy Jiménez Covered Member ID Jiménez Member ID Guarantor Name 06/09/2024 1 MEDICAID-[place]: [facility] Miladys Shane [id number] Aliza Shane Notes Date Note Type Note Provider Name and Address Organization Details Recorded Time 06/09/2024 text/html She presents for follow-up of [...] in the eights. She does see an international controller for this. She also tells me she [...] does not drink alcohol. Mel Bennett MD [address] [place] [address], [phone], [place] [facility] 06/24/2024 13:37:41 OBGyn Episode No OBEpisode recorded.
--- OUTSIDE RECORDS SUMMARY | 2024-07-04 19:41 | XMS_ITS ---
Author Name [facility] Organization Unknown History of Medication Use Medication Directions Dispensed Refills Start Date End Date Stat ketotifen 0.025 % (0.035 %) eye drops USE ONE DROP TO EYES TWICE A DAY NEEDED FOR ALLERGIES active hydroxyzine pamoate 50 mg capsule TAKE ONE CAPSULE EVERY 6 HOURS NEEDED FOR ITCHING active dextromethorphan-g uaifenesin 10 mg-100 mg/5 mL oral syrup TAKE FIVE ML BY MOUTH EVERY FOUR HOURS NEEDED FOR COUGH 04/23/2023 completed Betasept Surgical Scrub 4 % topical liquid Apply topically if needed each day for wound care. 04/23/2023 completed mirtazapine 15 mg tablet TAKE ONE TABLET BY MOUTH AT BEDTIME 04/23/2023 completed fluticasone propionate 50 mcg/actuation nasal spray,suspension ADMINISTER 1-2 SPRAYS INTO EACH NOSTRIL IN THE MORNING. EVERY DAY NEEDED active fluconazole 150 mg tablet TAKE ONE TABLET ONCE A WEEK active Kenalog 10 mg/mL suspension for injection Take 1 mL by injection route. 04/23/2023 active ibuprofen 800 mg tablet TAKE 1 TABLET BY MOUTH THREE TIMES A DAY NEEDED 04/23/2023 completed oxycodone 5 mg tablet Take 1 tablet every 4-6 hours by oral route. 06/24/2024 active tramadol 50 mg tablet TAKE ONE TABLET EVERY 6 HOURS NEEDED FOR SEVERE PAIN 04/23/2023 completed Problems Problem Status Onset Date Problem Type Date of Resoluti on Source Carpal tunnel syndrome of left wrist active 2023-04-23 ProblemAct [facility] Triggering of digit active 2024-06-24 ProblemAct [facility] Carpal tunnel syndrome of right wrist active 2023-04-23 ProblemAct [facility] Acquired trigger finger of left index finger active 2023-06-10 ProblemAct [facility] ECT
--- OUTSIDE RECORDS SUMMARY | 2024-07-04 19:41 | XMS_ITS | Encounter Summary ---
Author Organization [facility] Address [address] [place] [address] Care Team Providers Care Superintendent Transmission Name Role Phone West Gallegos MD Primary Care Provider [phone] Reason for Visit * Auth/Cert (Routine) Specialty Diagnoses / Procedures Referred By Contac t Referred To Contact Diagnoses Trigger finger, left index finger ACQUIRED TRIGGER FINGER LEFT INDEX Procedures [place] INCISION TENDON SHEATH LEFT INDEX FINGER TRIGGER FINGER RELEASE Mel Bennett MD [address] [place] [address] [facility] Or [address] [place] [phone] Referral ID Status Reason Start Date Expiration Date Visits Re quested Visits Authorized [id number] 1 1 Encounter Details Date Type Department Care Team (Late st Contact Info) Description 06/23/2024 10:00 AM EST - 06/23/2024 11:15 AM EST Surgery [facility] Main OR [address] [place] [phone] Mel Bennett MD [address] [place] [address] LEFT INDEX FINGER TRIGGER FINGER RELEASE [17314 (CPT??)] Surgery Details Date/Time Status Location OR Service Patient Class Case Cl ass Case Type Trauma Case? 06/23/2024 10:00 AM Posted [facility] OR OR Orthopedics [facility] Outpatient Surgery F - Elective Panel 1 Procedure LRB Anes Op Region Wound Class Comments LEFT INDEX FINGER TRIGGER FINGER RELEASE Right Moderate Sedation Fingers Class I/ Clean Surgeon Surgeon Role Service Panel Mel Bennett MD Primary Orthopedics 1 documented in this encounter Social History Tobacco [...] Sign Reading Time Taken Comments Blood Pressure 133/75 06/23/2024 8:18 AM EST Pulse 87 06/23/2024 8:18 AM EST Temperature 36.5 ??C (97.7 ??F) 06/23/2024 8:18 AM ES T Respiratory Rate 16 06/23/2024 8:18 AM EST Oxygen Saturation 100% 06/23/2024 8:18 AM EST Inhaled Oxygen Concentration - - Weight - - Height - - Body Mass Index - - documented in this encounter Discharge Instructions * Discharge Instructions* Mel Bennett MD - 06/23/2024 12:22 PM EST Mel Bennett MD Orthopedic Hand and Upper Extremity Surgery [phone] ext. [phone] (Shawna) Trigger Finger Release Discharge Instructions Thank you for allowing me to participate in your care. Should you have any questions about your post-operative care feel free to call my office at [phone] ext. [phone] to reach Shawna or myself. [...] be seen at this time, please call [phone] to reschedule. Emergencies/When to Call Please call [...] sent through Care Everywhere. * General Anesthesia (Barbadian) documented in this encounter Medications at Time [...] Brock RN - 06/23/2024 1:21 PM EST Md at bedside speaking with patient Discharge instructions reviewed with stated understanding * Mel Bennett MD - 06/23/2024 12:50 PM EST Trigger Finger Release PREOPERATIVE DIAGNOSIS: right index finger trigger finger POSTOPERATIVE DIAGNOSIS: Same PROCEDURE: right index finger A1 luis miguel release CPT: 68962 SURGEON: Mel Bennett MD MODE OF ANESTHESIA: [...] RN - 06/23/2024 9:01 AM EST Conchita friend [phone], contact/ride home documented in this encounter Plan of Treatment Upcoming Encounters Date Type Department Care Team (Late st Contact Info) Description 08/18/2024 3:00 PM EDT Office Visit Orthopedic Surgery - [place] [address] [place] [address] Gabion Ritchie, ROBYN [address] [place] [address] documented as of this encounter Procedures Procedure Name Priority Date/Time Associated Diagnosis Comments [place] INCISION TENDON SHEATH 06/23/2024 12:27 PM EST [...] - 100 mg/dL 06/23/2024 8:21 AM EST [facility] Blood Capillary blood specimen / Unknown 06/23/2024 8:20 AM EST 06/23/2024 8:22 AM EST Mel Bennett MD LAB POINT OF CARE TE ST DOCKED DEVICE UNSOLICITED RESULTS [facility] [address] [place] [address], documented in this encounter Visit Diagnoses Diagnosis Trigger finger, right index finger documented in this encounter Administered Medications Inactive Administered Medications - up to 3 most recent administrations Medication Order MAR Action Action Date Dose Rate Site acetaminophen (TYLENOL) tablet 1,000 mg 1,000 mg, oral, Once as needed, mild pain, Starting on Deidre 06/23/24 at 1405, For 1 dose, Phase II/On Unit Given 06/23/2024 2:11 PM EST 1,000 mg bupivacaine (PF) (MARCAINE) 0.25 % injection As needed, Starting on Deidre 06/23/24 at 1250, Intraprocedure Given 06/23/2024 12:50 PM EST 5 mL Right Hand diphenhydrAMINE (BENADRYL) injection 12.5 mg 12.5 mg, [...] AM EST 100 mL/hr 100 mL/hr lidocaine (XYLOCAINE) 1 % injection As needed, Starting on Deidre 06/23/24 at 1250, Intraprocedure Given 06/23/2024 12:50 PM EST 5 mL Right Hand ondansetron (PF) (ZOFRAN) injection 4 mg 4 [...] Count Last Ordered Date First Ordered Date ceFAZolin (ANCEF) 2 g in marivel rile water 20 mL IV syringe 06/23/2024 diphenhydrAMINE (BENADRYL) i njection 12.5 mg 1 06/23/2024 haloperidol lactate (HALDOL) injection 1 mg 1 06/23/2024 ondansetron (PF) (ZOFRAN) injection 4 mg 1 06/23/2024 Nursing Count Last Ordered Date First Orde red Date PLACE IN OUTPATIENT/HOSPITAL AMBULATORY SURGERY 1 06/23/2024 Discharge Count Last Ordered Date First Orde red Date DISCHARGE PATIENT 1 06/23/2024 documented in this encounter Care Teams Superintendent Transmission Relationship Specialty Start Date End Date West Gallegos MD [address] [place] [address] PCP - General 04/01/23 documented as of this encounter
[2024-07-05 08:18] LABS: HIV AB/AG Nonreactive (Nonreactive); HIV Num 1 0.05 S/CO (0.00-0.99); ~HepC Num1 0.28 S/CO (0.00-0.79); ~Hepatitis C Antibody Nonreactive (Nonreactive)
[2024-07-05 08:19] LABS: Syphilis Screen Nonreactive (Nonreactive)
[2024-07-05 12:21] LABS: CT PCR NOT DETECTED (Not Detect.); NG PCR NOT DETECTED (Not Detect.)
== END 2024-07-04 15:56 | disposition home or self-care (01) ==
LOC: HO.CHCLDS 15:55
PROVIDERS: Visit Provider Internal Medicine
DX: Z11.3 Encounter for screening for infections with a predominantly sexual mode of transmission (principal); E78.5 Hyperlipidemia, unspecified
CPT/HCPCS: 36415; 80061; 86780; 86803; 87389; 87491; 87591

== ENCOUNTER 2024-07-28 15:15 | Outpatient (AMB) | payer MEDICAID, SELFPAY ==
--- NOTE | 2024-07-28 15:31 | MHC.AMDMED ---
Intake Intake Visit Reasons: 30 min Surgical Supervisor Required: No Accompanied by: Self / Same As Patient Allergies acetaminophen [From TYLENOL-CODEINE] Allergy (Intermediate, Verified 07/28/24 15:42) VOMITING, ITCHING From TYLENOL-CODEINE Allergy (Intermediate, Uncoded 07/28/24 15:42) VOMITING, ITCHING Codeine Phosphate Allergy (Unknown, Uncoded 07/28/24 15:42) hives, itchy HPI Comprehensive Diabetes Asmnt Most Recent Diabetes Results: Microalb/Creat Ratio 33.6 ug/mg cr 05/19/19 Cholesterol 142 mg/dL (<200) 07/04/24 HDL Cholesterol 36 mg/dL (>40) L 07/04/24 Triglycerides 191 mg/dL (<150) H 07/04/24 Creatinine 0.66 mg/dL (0.5-1.4) 12/18/22 Blood Urea Nitrogen 5 mg/dL (9-16) L 12/18/22 Sodium 138 mmol/L (135-145) 12/18/22 Potassium 3.9 mmol/L (3.3-5.1) 12/18/22 Chloride 109 mmol/L (96-108) H 12/18/22 Carbon Dioxide 23 mmol/L (22-29) 12/18/22 Calcium 9.5 mg/dL (8.4-10.2) 12/18/22 AST 25 U/L (5-31) 12/18/22 ALT 35 U/L (0-31) H 12/18/22 Total Protein 7.1 g/dL (6.5-8.0) 12/18/22 Albumin 4.1 g/dL (3.5-5.0) 12/18/22 [facility] Medical History (Updated 08/13/23 @ 00:01 by Tawanna Rodriguez) Uncontrolled type 2 diabetes mellitus with hyperglycemia Surgical History Hx of cholecystectomy Hx of section Hx of hand surgery Hx of elbow surgery Family History Mother Diabetes Maternal Uncle Diabetes Maternal Aunt Diabetes Social History Household Members: Other Alcohol intake: current Alcohol intake frequency: does not drink Patient Tobacco Use Status: Current everyday Tobacco user Cigarettes Per Day: 4 Assessment & Plan Assessment & Plan (1) Uncontrolled type 2 diabetes mellitus with hyperglycemia: Code(s): E11.65 - Type 2 diabetes mellitus with hyperglycemia Plan: Patient presents for pump training for iLet pump and CGM training today. The following topics were reviewed today: -Announce meals only when eating -For most effective glucose control bolus prior to meals iLet Alerts: ??? High Alert: 300 mg/dl ??? Low Alert: 75 mg/dl CGM: Above target: 44.6% At target: 38.8% Below target: 0.3% Patient's average glucose for the past 14 days 196 mg/dL TDD:118 units Basal:41 Units Patient reports she recently had hand surgery which has caused an increase in her pain, she believes this is why her glucose levels have been above target. She believes she had an A1c done approximately a month ago which was 8.2% There is a crack in her pump by where the cartridge sits in the pump, this has caused her insulin cartridge not to lock in correctly. This has led to some overnight hyperglycemia because the cartridge has slipped out of the pump interrupting insulin infusion. Instructed patient to call [employer] for replacement pump Patient has also been announcing meals when glucose levels are high, but she is not eating. Explained to patient that this is counterproductive. This can lead to hypoglycemic events, then the next time she announces that meal the pump will give her less insulin leading to hyperglycemia. Patient agreed to stop announcing when she is not eating. 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 Fill tubing and cannula (if applicable) Troubleshooting after starting new pod or inserting new insulin set: Occlusion, adhesive tape sensitivity, redness Check BG 2 hours after site change Patient understands the basic concepts of pump therapy, how to give insulin for meals and snacks, how to troubleshoot for hyper and hypoglycemia. Patient will follow up with [facility] as instructed Patient will contact [facility] with questions or concerns, patient given IT number to support in any technical issues related to insulin pump Portions of this note were created using voice recognition software, please excuse any words or phrases that may have been misinterpreted. Patient Instructions: Call [facility] [employer] for replacement pump When you receive replacement pump contact clinic to set up Education appointment with new pump Coding Level of Care Code Est Pt Level 1 (71281) Diagnoses Uncontrolled type 2 diabetes mellitus with hyperglycemia E11.65
== END 2024-07-28 15:44 | disposition home or self-care (01) ==
PROVIDERS: PCP Internal Medicine; Visit Provider Registered Nurse Diabetes Educator
DX: E11.65 Type 2 diabetes mellitus with hyperglycemia (principal)

== ENCOUNTER → 2024-07-28 15:15 | Outpatient (BNVA) | payer MEDICAID, SELFPAY | PROVIDERS: PCP Internal Medicine; Visit Provider Nurse Practitioner Adult Health | DX: Z46.81 Encounter for fitting and adjustment of insulin pump (principal); E11.65 Type 2 diabetes mellitus with hyperglycemia; Z79.4 Long term (current) use of insulin | CPT/HCPCS: 82947; 83036; 99211; 99212 ==

== ENCOUNTER → 2024-07-28 15:15 | Outpatient (AMB) | payer MEDICAID, SELFPAY ==
--- NOTE | 2024-07-28 08:49 | A.OFFVIS_ITS ---
Vital Signs 07/28/24 15:41 Height 5 ft 4 in Weight 160 lb 14.999 oz BMI 27.6 BP 120/70 Blood Pressure Location Rt brachial Position Sitting Pulse 97 Pulse Source Pulse Oximeter Pulse Oximetry (%) 97 Oxygen Delivery Method Room Air Intake Visit Reasons: DM Intake Note: Patient presents today for a follow-up on Type 2 Diabetes Mellitus: Last Diabetic eye exam was on: 03/2024 Last Podiatry exam was on: Patient does not see a Ticketing Agent Most recent HbA1c: 8.0%, 07/28/2024 Random Glucose- 176 mg/dL, Today Retail Furniture Sales Required: No Accompanied by: Self / Same As Patient Allergies acetaminophen [From TYLENOL-CODEINE] Allergy (Intermediate, Verified 07/28/24 15:42) VOMITING, ITCHING From TYLENOL-CODEINE Allergy (Intermediate, Uncoded 07/28/24 15:42) VOMITING, ITCHING Codeine Phosphate Allergy (Unknown, Uncoded 07/28/24 15:42) hives, itchy HPI Comments Details: 49 YO F who is seen in f/u for T2DM. She is on an islet insulin pump. Her last visit was in March. She was last seen by myself earlier this month at which time her blood sugar was 460 without ketones and by Keysha Mcrae CDE 03/10/24. Initially diagnosed with T2DM in 2013 . Was initially started on treatment with insulin and metformin Has been under alot of stress since stroke 12/18/23 Has PT at home, OT at the clinic Current regimene Jardiance 10 mg Mounjaro 5 mg Qwkly ilet pump Dexcom average glucose: 172 14 day continuous glucose monitor report reviewed Time in ranges: 7.5 % very high (above 250) 28.8 % high ?(181-250) 63 % in range ?(70-180] 0.1 % low (69-55) 0 % ?very low (below 54) 30% Standard Deviation Total daily dose of insulin Interpretation [patient is only announcing meals half of the time leading to some hyperglycemia] Total daily dose of insulin 103 Basal 38.4 Usual breakfast 9 usual lunch 15 usual supper 10 Backup insulin plan Gato 41 units Short-acting mealtime 14 units breakfast 12 units lunch 10 units supper Dexcom average glucose: 196 14 day continuous glucose monitor report reviewed Glucose Managment indicator 8 % Days with CGM data 95 % TIme in ranges: 16 % very high (above 250) 44 % high ?(181-250) 33.8 % in range ?(70-180] 0.4 % low (69-55) 0.3 % ?very low (below 54) 54 Standard Deviation Interpretation patient is having postprandial glucose particularly after garret akfast and lunch due to not announcing her meals Treats lows with 3 glucose tabs, Checks sugar after to ensure it is rising Used nasal spray once in the past Family history of T2DM in mother Type 2 DM and aunts and uncle . Has eyes checked yearly, last eye exam. Has appt at [facility] 05/01 denies retinopathy. Denies neuropathy, [facility] Denies nephropathy, Not on ALEX/ARB Due for urine microalbumin Has HLD,On low dose statin Due for lipid profile Denies CAD. Had diabetes education when first diagnosed and has recently CDE [facility] Medical History Uncontrolled type 2 diabetes mellitus with hyperglycemia Surgical History Hx of cholecystectomy Hx of section Hx of hand surgery Hx of elbow surgery Family History Mother Diabetes Maternal Uncle Diabetes Maternal Aunt Diabetes Social History Household Members: Other Alcohol intake: current Alcohol intake frequency: does not drink Patient Tobacco Use Status: Current everyday Tobacco user Cigarettes Per Day: 4 Physical Exam Vital Signs: Last Vital Signs Pulse 97 07/28/24 15:41 BP 120/70 07/28/24 15:41 Pulse Ox 97 07/28/24 15:41 Oxygen Delivery Method Room Air 07/28/24 15:41 BMI result Body Mass Index 27.6 Const Other: Absence of Cushingoid features. Absence of acromegalic features. Neck exam reveals nl size thyroid about 15 gms. No thyroid nodules palpable. Heart S1 S2, Reg R/R. No M/R G. Skin exam reveals absence of vitiligo or acanthosis nigricans. Foot exam deferred Office Procedures Glucose Monitoring Details Details: see hpi 73954 - Glucose monitoring, continuous-physician I&R Procedure code (CPT) selection complete Results AMB Hemoglobin A1c AMB Hemoglobin A1c 8.0 % Last Edit by ANÍBAL Moore on 07/28/24 16:36 Results Reviewed Results Reviewed: Laboratory Last Values Glucose (Clinic) 176 mg/dL (60-115) H 07/28/24 15:47 Hgb A1c (Clinic) 8.0 % (4.0-6.0) H 07/28/24 16:35 Assessment & Plan Assessment & Plan (1) Uncontrolled type 2 diabetes mellitus with hyperglycemia: Code(s): E11.65 - Type 2 diabetes mellitus with hyperglycemia Category: Medical Plan: 49-year-old type 2 diabetic, on an islet insulin pump, Mounjaro and Jardiance. A1c 8%. She was advised that she needs to make sure she announces all her meals so that she gets pre meal insulin and that she should do so 15 minutes before the meal whenever possible. The patient had an opportunity to ask questions regarding treatment plan. The patient expressed understanding and agreement with the above treatment plan. The patient is aware they should contact our office by phone for worsening glucose readings or for any low blood sugars which may warrant a change in diabetes medication. Compliance is encouraged with medications and any followup testing/consults which may have been ordered. Orders: Orders AMB Hemoglobin A1c 07/28/24 E11.65 - Type 2 diabetes mellitus with hyperglycemia AMB Glucose Monitoring 07/28/24 E11.65 - Type 2 diabetes mellitus with hyperglycemia Medications: Refilled Mounjaro (tirzepatide) 5 mg (0.5 mL) subcut QWEEK 28 days 2 mL 11RF NS E11.65 - Type 2 diabetes mellitus with hyperglycemia Patient Instructions: Check your feet daily looking for any signs of infection, drainage, redness, ulceration and seek medical attention if this occurs. Break in shoes gradually and do not wear open-toed shoes or walk stocking footed or barefooted. Take 15 carb carbohydrate grams to treat a low sugar (3-4 glucose tablets, half a glass of juice or 15 carbohydrate grams of soft candy such as gummie snacks). Recheck your sugar in 15 minutes and re-treat again with 15 carbohydrate grams if low or still with symptoms. Do not drive a car or operate machinery if you do not know what your blood sugar is, if it is low or in excess of 300. Symptoms of DKA (diabetic ketoacidosis): early: frequent urination, dry mouth, fatigue, feeling ill, severe symptoms: ketones in the urine, abdominal pain, nausea, vomiting and weakness. It is important to hydrate with sugar free liquids every 15-30 minutes and bring the sugars down to normal levels. If you are moderate or severe with ketones or unable to bring glucose to less than 200, go to the emergency room. Written DKA sheet given Troubleshooting after starting new pod or inserting new insulin set: Occlusion, adhesive tape sensitivity, redness Check BG 2 hours after site change Safety information: Importance of a backup plan, for manual injections, proper prescriptions and emergency supplies ketone strips, and rules for testing for ketones Sick day management Coding Level of Care Code Est Pt Level 5 (13568) Complex EM visit Add On G2211 Diagnoses Uncontrolled type 2 diabetes mellitus with hyperglycemia E11.65 CPT Codes Details - CPT: 33443 - Glucose monitoring, continuous-physician I&R ([id number]) Time Spent (min) 45 Comment Reviewing labs/provider notes, glucose sensor/pump reports, face to face, chart doc
[2024-07-28 15:41] VITALS: BP 120/70; PULSE 97; O2SAT 97; BMI 27.6
[2024-07-28 15:52] LABS: Glucose, Whole Blood 176 mg/dL (60-115)
--- OUTSIDE RECORDS SUMMARY | 2024-07-28 16:16 | XMS_ITS | Encounter Summary ---
Author Organization [employer] Address [address] [place] [address] 7t [place] [address] Care Team Providers Care Demurrage Man Name Role Phone West Gallegos MD Primary Care Provider [phone] Encounter Details Date Type Department Care Team ([facility] st Contact Info) Description 09/25/2022 Orders Only [facility] CHC MED & PEDS [address] [place], [place] [phone] West Gallegos MD [address] [place] [address] Bilateral carpal tunnel syndrome (Primary Dx) Social History Tobacco Use Types Packs/Day Years Used Date Smoking Tobacco: Every Day Cigarettes Smokeless Tobacco: Never Alcohol Answer Date Recorded How often do you have a drink containing alcohol ? 1 05/23/2022 How many drinks containing a lcohol do you have on a typical day when you are drinking? 1 05/23/2022 How often do you have six or more drinks on one occasion? 1 05/23/2022 Depression Answer Date Recorded Patient Health Questionnaire-9 Score 3 05/23/2022 Depression Answer Date Recorded Patient Health Questionnaire-2 Score 0 05/23/2022 Comments No Sex and Gender Information Value Date Recorded Sex Assigned at Female 04/07/2022 10:15 AM EDT Legal Sex Female 10:15 AM EDT Gender Identity Female 04/07/2022 10:15 AM EDT Sexual Orientation Straight 04/07/2022 10 :15 AM EDT COVID-19 Exposure Response Date Recorded In the last 10 days, have yo u been in contact with someone who was confirmed or suspected to have Coronavirus/COVID-19? No / Unsure 09/16/2022 1:42 PM EDT documented as of this encounter Plan of Treatment Upcoming Encounters Date Type Department Care Team (Late st Contact Info) Description 09/16/2024 2:30 PM EDT Office Visit [facility] MED & PEDS [address] [place] [address] West Gallegos MD [address] [place] [address] documented as of this encounter Visit Diagnoses Diagnosis Bilateral carpal tunnel syndrome- Primary Carpal tunnel syndrome documented in this encounter Additional Health Concerns Assessment Noted Time PHQ-9 Depression Total Score: 3 05/23/20 22 1:43 PM EST documented as of this encounter Care Teams Demurrage Man Relationship Specialty Start Date End Date West Gallegos MD [address] [place] [address] PCP - General Internal Medicine 01/26/18 documented as of this encounter
--- OUTSIDE RECORDS SUMMARY | 2024-07-28 16:16 | XMS_ITS | Clinical Summary ---
Author Organization [facility] Address [address] [place] [address] Phone Care Team Providers Care Fund Manager Name Role Phone West Gallegos MD Primary Care Provider [phone] Allergies No known active allergies Medications CONCENTRATED insulin regular (HumuLIN R) 500 UNIT/ML patient supplied pump 1 EA by continuous sub-Q infusn (via wearable injector) route continuously. Active Encounters Date Type Department Care Team Description 06/23/2024 12:27 PM EST Anesthesia Event [facility] Main OR [address] [place] [phone] Cl Dickson MD 06/23/2024 10:00 AM EST - 06/23/2024 11:15 AM EST Surgery [facility] OR [address] [place] [phone] Mel Bennett MD LEFT INDEX FINGER TRIGGER FINGER RELEASE [[id number] (CPT??)] 06/23/2024 8:05 AM EST - 06/23/2024 2:13 PM EST Hospital Encounter [facility] OR [address] [place] [phone] Mel Bennett MD Discharge Disposition: Home or Self Care 06/15/2024 3:00 PM EST Office Visit Orthopedic [facility] [address] [phone] Gabino Ritchie DPM 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); Arthritis of both feet; Pain in toes of both feet; Hammertoes of both feet; Dermatophytosis, nail from Last 3 Months Surgical History Surgery Date Site/Laterality Comments [facility] Medical History Medical History Date Comments Diabetes mellitus ([facility] Stroke ([facility]) 2023 Social History Tobacco Use Types Packs/Day Years Used Date Smoking Tobacco: Every Day Cigarettes Smokeless Tobacco: Never Tobacco Cessation:Ready to Q uit: Not Asked; Counseling Given: Not Answered Comments No Sex and Gender Information Value Date Recorded Sex Assigned at Female 06/23/2024 8:01 AM EST Legal Sex Female 11:35 PM EST Gender Identity Female 06/23/2024 8:01 AM EST Sexual Orientation Straight 06/23/2024 8: 01 AM EST Obstetrics History Last Filed Vital Signs Vital [...] PM EDT Office Visit Orthopedic Surgery - [facility] [address] [phone] Gabino Ritchie, ROBYN [address] [address] Health Maintenance Due Date Last Done Comments [...] patient's age to complete this topic Meningococcal B Vacine Aged Out No lo nger eligible based on patient's age to complete this topic RSV Immunization Patients Under 20 months Aged Out No longer eligible based on patient's age to complete this topic Varicella Vaccines Aged Out No longer eligible based on patient's age to complete this topic Procedures Procedure Name Priority Date/Time Associated Diagnosis Comments WI INCISION TENDON SHEATH 06/23/2024 12:27 PM EST [...] Mel Bennett MD POINT OF CARE TEST ENTER/EDIT ORDERABLES Final Result * (ABNORMAL) POCT Glucose, blood (06/23/2024 8:20 AM EST) Glucose POCT 112(H) 70 - 100 mg/dL 06/23/2024 8:21 AM EST [facility] Blood Capillary blood specimen / Unknown 06/23/2024 8:20 AM EST 06/23/2024 8:22 AM EST Mel Bennett MD LAB POINT OF CARE TE ST DOCKED DEVICE UNSOLICITED RESULTS Final Result [facility] [address] [place] [address], from Last 3 Months Insurance [place]ICA[place] - [place] Advance Directives Documents on File Type Date Recorded Patient Plan Examiner Expl anation Health Care Decision (hx) 12/28/2023 HE ALTH CARE PROXY Care Teams Fund Manager Relationship Specialty Start Date End Date West Gallegos MD [address] [place] [address] PCP - General 04/01/23
--- OUTSIDE RECORDS SUMMARY | 2024-07-28 16:16 | XMS_ITS | Encounter Summary ---
Author Organization [employer] Address [address] [place] [address] 7 [place] [address] Care Team Providers Care Manager Strategy Name Role Phone West Gallegos MD Primary Care Provider [phone] Encounter Details Date Type Department Care Team ([facility] Contact Info) Description 04/03/2023 Orders Only [facility] CHC MED & PEDS [address] [place], [place] [phone] West Gallegos MD [address] [place] [address] Type 2 diabetes mellitus with other neurologic complication, with long-term current use of insulin ([facility]) (Primary Dx) Social History Tobacco Use Types [...] Orientation Straight 04/07/2022 10 :15 AM EDT documented as of this encounter Plan of Treatment Upcoming Encounters Date Type Department Care Team ([facility] Contact Info) Description 09/16/2024 2:30 PM EDT Office Visit [facility] CHC MED & PEDS 505 [facility] [place] [address] West Gallegos MD 505 [facility] [place] [address] documented as of this encounter Procedures Procedure Name Priority Date/Time Associated Diagnosis Comments XR WRIST 3+ VIEWS RIGHT Routine 04/02/2023 3:20 PM EDT XR WRIST 3+ VIEWS LEFT Routine 04/02/2023 3:20 PM EDT documented in this encounter Results * XR Wrist 3+ Views Left (04/02/2023 3:20 PM EDT) Anatomical Region Laterality Modality Upper Extremities, Wrist Left Radiogr aphic Imaging 04/02/2023 3:20 PM EDT Narrative 04/07/2023 7:11 AM EDT ? [facility] ?[address] ?[place] [address] ?XRay Report ? Signed ? Patient: Aliza Shane ?MR#: [id number] ?? [id number] ? : 1975 ?Acct:[id number] ? Age/Sex: 48 / F ?ADM Date: 04/02/23 ? Loc: HO.LAB ? Attending Dr: Tomas Lewis MD ? Ordering Physician: Tomas Lewis MD ?? Date of Service: 04/02/23 ?? Procedure(s): XR wrist LT min 3V ?? Accession Number(s): [id number] ? cc: West Gallegos MD; Tomas Lewis MD ? EXAMINATION: ?? XR WRIST, RIGHT ?? XR WRIST, LEFT ? CLINICAL INFORMATION: ?? Bilateral wrist and hand pain. ? COMPARISON: ?? None available. ? TECHNIQUE: ?? Navicular, lateral, oblique and PA views were obtained of the bilateral ?? wrists. ? RIGHT WRIST: Moderate degenerative changes 1st carpometacarpal joint ?? with joint space narrowing and hypertrophic change. Mild degenerative ?? changes 1st metatarsophalangeal joint with hypertrophic change. No ?? displaced fracture. ? LEFT WRIST: Moderate degenerative changes 1st carpometacarpal joint ?? with joint space narrowing and hypertrophic change. Mild degenerative ?? changes 1st metatarsophalangeal joint with hypertrophic change. No ?? displaced fracture. Mild degenerative changes 1st metatarsophalangeal ?? joint. ? XR/XR wrist LT min 3V ?? IMPRESSION: ?? 1. Qaif-io-ergkakbc degenerative changes as detailed above. ? 2. No displaced fracture. ? Recommend followup imaging in 10-14 days if fracture is suspected. ? Dictated By: ?Leticia Bo MD ? Signed By: ?<Electronically signed by Leticia Bo MD in OV> ? 10/31/23 0708 ? DD/ 1520 ? TD/TT: ? Data Security Analyst: ? Procedure Note Nathan, Image - 04/07/2023 [place] [address] XRay Report Signed Patient: Lakeshia Shane#: [id number] : 1975Acct:[id number] Age/Sex: 48 / FADM Date: 04/02/23 Loc: HO.LAB Attending Dr: Tomas Lewis MD Ordering Physician: Tomas Lewis MD Date of Service: 04/02/23 Procedure(s): XR wrist LT min 3V Accession Number(s): [id number] cc: West Gallegos MD; Tomas Lewis MD EXAMINATION: XR WRIST, RIGHT XR WRIST, LEFT CLINICAL INFORMATION: Bilateral wrist and hand pain. COMPARISON: None available. TECHNIQUE: Navicular, lateral, oblique and PA views were obtained of the bilateral wrists. RIGHT WRIST: Moderate degenerative changes 1st carpometacarpal joint with joint space narrowing and hypertrophic change. Mild degenerative changes 1st metatarsophalangeal joint with hypertrophic change. No displaced fracture. LEFT WRIST: Moderate degenerative changes 1st carpometacarpal joint with joint space narrowing and hypertrophic change. Mild degenerative changes 1st metatarsophalangeal joint with hypertrophic change. No displaced fracture. Mild degenerative changes 1st metatarsophalangeal joint. XR/XR wrist LT min 3V IMPRESSION: 1. Uknb-ri-vkvldjhu degenerative changes as detailed above. 2. No displaced fracture. Recommend followup imaging in 10-14 days if fracture is suspected. Dictated By: Leticia Bo MD Signed By: <Electronically signed by Leticia Bo MD in OV> 04/07/23 0708 DD/ 1520 TD/TT: Data Security Analyst: us [facility] External Provider IMG XR PROCEDURES Final Result * XR Wrist 3+ Views Right (04/02/2023 3:20 PM EDT) Anatomical Region Laterality Modality Upper Extremities, Wrist Right Radiogr aphic Imaging 04/02/2023 3:20 PM EDT Narrative 04/07/2023 7:11 AM EDT ? [facility] ?[address] ?[place] [address] ?XRay Report ? Signed ? Patient: Aliza Shane ?MR#: [id number] ?? [id number] ? : 1975 ?Acct:[id number] ? Age/Sex: 48 / F ?ADM Date: 04/02/23 ? Loc: HO.LAB ? Attending Dr: Tomas Lewis MD ? Ordering Physician: Tomas Lewis MD ?? Date of Service: 04/02/23 ?? Procedure(s): XR wrist RT min 3V ?? Accession Number(s): [id number] ? cc: West Gallegos MD; Tomas Lewis MD ? EXAMINATION: ?? XR WRIST, RIGHT ?? XR WRIST, LEFT ? CLINICAL INFORMATION: ?? Bilateral wrist and hand pain. ? COMPARISON: ?? None available. ? TECHNIQUE: ?? Navicular, lateral, oblique and PA views were obtained of the bilateral ?? wrists. ? RIGHT WRIST: Moderate degenerative changes 1st carpometacarpal joint ?? with joint space narrowing and hypertrophic change. Mild degenerative ?? changes 1st metatarsophalangeal joint with hypertrophic change. No ?? displaced fracture. ? LEFT WRIST: Moderate degenerative changes 1st carpometacarpal joint ?? with joint space narrowing and hypertrophic change. Mild degenerative ?? changes 1st metatarsophalangeal joint with hypertrophic change. No ?? displaced fracture. Mild degenerative changes 1st metatarsophalangeal ?? joint. ? XR/XR wrist RT min 3V ?? IMPRESSION: ?? 1. Hysn-xz-pkgqkppf degenerative changes as detailed above. ? 2. No displaced fracture. ? Recommend followup imaging in 10-14 days if fracture is suspected. ? Dictated By: ?Leticia Bo MD ? Signed By: ?<Electronically signed by Leticia Bo MD in OV> ? 04/07/23 0708 ? DD/ 1520 ? TD/TT: ? Data Security Analyst: ? Procedure Note Nathan, Image - 04/07/[address] [address] XRay Report Signed Patient: Lakeshia Shane#: [id number] : 1975Acct:[id number] Age/Sex: 48 / FADM Date: 04/02/23 Loc: HO.LAB Attending Dr: Tomas Lewis MD Ordering Physician: Tomas Lewis MD Date of Service: 04/02/23 Procedure(s): XR wrist RT min 3V Accession Number(s): [id number] cc: West Gallegos MD; Tomas Lewis MD EXAMINATION: XR WRIST, RIGHT XR WRIST, LEFT CLINICAL INFORMATION: Bilateral wrist and hand pain. COMPARISON: None available. TECHNIQUE: Navicular, lateral, oblique and PA views were obtained of the bilateral wrists. RIGHT WRIST: Moderate degenerative changes 1st carpometacarpal joint with joint space narrowing and hypertrophic change. Mild degenerative changes 1st metatarsophalangeal joint with hypertrophic change. No displaced fracture. LEFT WRIST: Moderate degenerative changes 1st carpometacarpal joint with joint space narrowing and hypertrophic change. Mild degenerative changes 1st metatarsophalangeal joint with hypertrophic change. No displaced fracture. Mild degenerative changes 1st metatarsophalangeal joint. XR/XR wrist RT min 3V IMPRESSION: 1. Eotd-fk-wgbfbjvr degenerative changes as detailed above. 2. No displaced fracture. Recommend followup imaging in 10-14 days if fracture is suspected. Dictated By: Leticia Bo MD Signed By: <Electronically signed by Leticia Bo MD in OV> 04/07/23 0708 DD/ 1520 TD/TT: Data Security Analyst: [facility] External Provider IMG XR PROCEDURES Final Result documented in this encounter Visit Diagnoses Diagnosis Type 2 diabetes mellitus with other neurologic complication, with long-term current use of insulin ([facility])- Primary documented in this encounter Additional Health Concerns Assessment Noted Time PHQ-9 Depression Total Score: 3 05/23/20 22 1:43 PM EST documented as of this encounter Care Teams Manager Strategy Relationship Specialty Start Date End Date West Gallegos MD [address] [place] [address] PCP - General Internal Medicine 01/26/18 documented as of this encounter
--- OUTSIDE RECORDS SUMMARY | 2024-07-28 16:16 | XMS_ITS | Encounter Summary ---
Author Organization [employer] Address [address] [place] [address] 7 [place] [address] Care Team Providers Care Portfolio Specialist Name Role Phone West Gallegos MD Primary Care Provider [phone] Reason for Visit * Reason Onset Date Comments PA 11/20/2022 Encounter Details Date Type Department Care Team ([facility] Contact Info) Description 11/20/2022 Telephone [facility] CHC MED & PEDS [address] [place], [place] [phone] West Gallegos MD [address] [place] [address] PA Social History Tobacco Use Types Packs/Day Years [...] suspected to have Coronavirus/COVID-19? No / Unsure 11/18/2022 10:45 AM EDT documented as of this encounter Miscellaneous Notes * Telephone Encounter - Galo Buitrago - 11/20/2022 1:28 PM EDT Tc from pt stating that medication Salicylic Acid 10 % cream is requiring a PA from Providing and more information for Insurance. Please contact pt at [phone] documented in this encounter Plan of Treatment Upcoming Encounters Date Type Department Care Team (Late st Contact Info) Description 09/16/2024 2:30 PM EDT Office Visit [facility] CHC MED & PEDS [address] [place] [address] West Gallegos MD [address] [place] [address] documented as of this encounter Visit Diagnoses Not on filedocumented in this encounter Additional Health Concerns Assessment Noted Time PHQ-9 Depression Total Score: 3 05/23/20 22 1:43 PM EST documented as of this encounter Care Teams Portfolio Specialist Relationship Specialty Start Date End Date West Gallegos MD [address] [place] [address] PCP - General Internal Medicine 01/26/18 documented as of this encounter
--- OUTSIDE RECORDS SUMMARY | 2024-07-28 16:16 | XMS_ITS | Encounter Summary ---
Author Organization [employer] Address [address] [facility] 7t [place] [address] Care Team Providers Care Lard Mixer Name Role Phone West Gallegos MD Primary Care Provider [phone] Encounter Details Date Type Department Care Team (Latest Contact Info) Description 07/04/2024 Travel Social History Tobacco Use Types Packs/Day Years Used Date Smoking Tobacco: Every Day Cigarettes Passive Smoke Exposure: Current Smokeless Tobacco: Never Alcohol Use Standard Drinks/Week Comments Never 0 (1 standard drink = 0.6 oz pur e alcohol) Alcohol Answer Date Recorded How often do you have a drink containing alcohol ? 1 05/23/2022 How many drinks containing a lcohol do you have on a typical day when you are drinking? 1 05/23/2022 How often do you have six or more drinks on one occasion? 1 05/23/2022 Depression Answer Date Recorded Patient Health Questionnaire-9 Score 21 02/10/2024 Patient Health Questionnaire-9 Score 21 02/10/2024 Last PHQ-9: Questionnaire Data Not on file 0 02/10/2024 Housing Stability Answer Date Recorded What is your housing situation today? I have robin altamirano 12/22/[address] you li ve. Do you have problems with any of the following? None of the above 12/22/2023 Food Insecurity Answer Date Recorded Within the past 12 months, y ou worried that your food would run out before you got money to buy more: Never True 12/22/2023 Within the past 12 months,th e food you bought just didn't last and you didn't have enough money to get more: Never True Transportation Answer Date Recorded In the past 12 months, has l ack of transportation kept you from medical appts, meetings, work or from getting things needed for daily living? No 12/22/2023 Utilities Answer Date Recorded In the past 12 months, has t he electric, gas, oil or water company threatened to shut off services in your home? No 12/22/2023 Depression Answer Date Recorded Patient Health Questionnaire-2 Score 3 02/10/2024 Internet Access Answer Date Recorded Internet Access Q1 Yes 02/08/2024 Internet Access Q2 Not on file 02/08/2024 Comments No Sex and Gender Information Value [...] Description 09/16/2024 2:30 PM EDT Office Visit [facility] MED & PEDS [address] [place] [address] West Gallegos MD [address] [place] [address] documented as of this encounter Visit Diagnoses Not on filedocumented in this encounter Additional Health Concerns Assessment Noted Time PHQ-9 Depression Total Score: 21 024 10:02 AM EDT documented as of this encounter Care Teams Lard Mixer Relationship Specialty Start Date End Date West Gallegos MD [address] [place] [address] PCP - General Internal Medicine 01/26/18 documented as of this encounter
--- OUTSIDE RECORDS SUMMARY | 2024-07-28 16:16 | XMS_ITS | Encounter Summary ---
Author Organization [facility] Address [address] [facility] 7 [place] [address] Care Team Providers Care Research Electrician Name Role Phone West Gallegos MD Primary Care Provider [phone] Reason for Visit * Reason Comments Diabetes Encounter Details Date Type Department Care Team (Latest Contact Info) Description 07/04/2024 3:15 PM EST Office Visit [facility] [address] [place], [place] [phone] West Gallegos MD [address] [place] [address] Type 2 diabetes mellitus with other neurologic complication, with long-term current use of insulin (CMS/HCC) (Primary Dx); Dyslipidemia; Hemiparesis of left dominant side as late effect of other cerebrovascular disease (CMS/HCC); Screen for STD (sexually transmitted disease); Dry skin Social History Tobacco Use Types Packs/Day Years [...] AM EDT documented as of this encounter Last Filed Vital Signs Vital Sign Reading Time Taken Comments Blood Pressure 132/84 07/04/2024 3:45 PM EST Pulse 82 07/04/2024 3:45 PM EST Temperature 36.7 ??C (98.1 ??F) 07/04/2024 3:29 PM ES T Respiratory Rate 18 07/04/2024 3:29 PM EST Oxygen Saturation 97% 07/04/2024 3:29 PM EST Inhaled Oxygen Concentration - - Weight 73.5 kg (162 lb) 07/04/2024 3:29 PM EST Height 165.1 cm (5' 5 ) 07/04/2024 3:29 PM EST Body Mass Index 26.96 07/04/2024 3:29 PM EST documented in this encounter Progress Notes * West Gallegos MD - 07/04/2024 3:15 PM EST Subjective Patient ID: Aliza Shane is a 49 y.o. female who presents for Diabetes. Diabetes Pertinent negatives for hypoglycemia include no confusion, dizziness, pallor, seizures or speech difficulty. Pertinent negatives for diabetes include no chest pain. No h/o hypoglycemia since the last visit. Pt is compliant to her diet and medication. S/p Hand surgery 2 weeks ago. Hand is doing better ( for a left index finger trigger release) . Able to flex and extend the index finger. Has a scheduled follow up w/ her surgeon on jul 08. Pt is back to work since March. Has recovered almost completely from the stroke. The left knee still buckle. Still feels her balance is back to complete recovery. H/o HTN. BP is not always at goal at home. Patient Active Problem List Diagnosis Dyslipidemia Flank pain Mateo hematuria Type 2 diabetes mellitus (CMS/HCC) Diabetes mellitus (CMS/HCC) Muscle cramps Depression, unspecified Anxiety disorder, unspecified Preop examination Primary hypertension Current Outpatient Medications on File Prior to Visit Medication Sig Dispense Refill Alcohol Swabs (Alcohol Prep) pads Use as directed 200 each 11 amitriptyline (Elavil) 10 MG tablet TAKE 1 TO 2 TABLETS BY MOUTH AT BEDTIME 60 tablet 0 amLODIPine (Norvasc) 5 MG tablet Take 1 tablet (5 mg) by mouth Once per day. 90 tablet 3 aspirin 81 MG EC tablet Take 1 tablet (81 mg) by mouth Once per day. 90 tablet 3 atorvastatin (Lipitor) 80 MG tablet Take 1 tablet (80 mg) by mouth Once per day. 30 tablet 11 baclofen (Lioresal) 10 MG tablet TAKE 1 TABLET BY MOUTH THREE TIMES DAILY 90 tablet 2 Baqsimi Two Pack 3 MG/DOSE nasal powder INSERT ONE SPRAY IN NOSE NEEDED FOR LOW BLOOD SUGAR 2 each 1 betamethasone, augmented, (Diprolene) 0.05 % gel Apply topically 2 times daily. 15 g 0 Blood Glucose Monitoring Suppl (FreeStyle Lite) w/Device kit 1 Units 4 times daily. Use daily 1 kit11 busPIRone (Buspar) 5 MG tablet Take 1 tablet (5 mg) by mouth 2 times daily. 60 tablet 11 cetirizine (ZyrTEC) 10 MG tablet Take 1 tablet by mouth. Every day cholecalciferol (Vitamin D-3) 25 MCG (1000 UT) capsule take 1 Capsule by Oral route once a day Continuous Blood Gluc Electrical And Radio Mechanic (FreeStyle Parris 2 [place]) device Use daily Continuous Blood Gluc Sensor (FreeStyle Parris 2 Sensor) misc Use daily 2 each 11 famotidine (Pepcid) 40 MG tablet TAKE ONE TABLET TWICE DAILY 180 tablet 0 fluticasone (Flonase) 50 MCG/ACT nasal spray ADMINISTER 1-2 SPRAYS INTO EACH NOSTRIL IN THE MORNING. EVERY DAY NEEDED 16 mL 3 FreeStyle lancets 1 each by Other route 4 times daily. Use daily 100 each 11 glucose 4 g chewable tablet Chew 4 tablets (16 g) if needed for low blood sugar. 50 tablet 12 glucose blood (FREESTYLE LITE) test strip 1 each by Other route 4 times daily. 100 each 11 hydrOXYzine pamoate (Vistaril) 50 MG capsule Take 1 capsule (50 mg) by mouth every 6 (six) hours ifneeded for itching for up to 10 days. 30 capsule 0 insulin glargine (Lantus SoloStar) 100 UNIT/ML pen inject 65 Unit by Subcutaneous route every bedtime 3 mL 11 Insulin Lispro (HumaLOG) 100 UNIT/ML solution Inject 26 Units as directed 3 times daily. 26 units 15 minutes before meals. 10 mL 11 Insulin Pen Needle (pen needle 08/21 ) 31G x 5 mm misc Inject 1 each under the skin 4 times daily. Use 4 times daily 120 each 11 ketotifen (Zaditor) 0.025 % ophthalmic solution One drop to eyes bid prn allergies 5 mL 1 medroxyPROGESTERone (Depo-Provera) 150 MG/ML injection inject 1 milliliter by intramuscular route every 3 months. Bring to office for injection 1 mL 11 mirtazapine (Remeron) 15 MG tablet Take 1 tablet by mouth at bed time. mirtazapine (Remeron) 15 MG tablet Take 1 tablet (15 mg) by mouth at bedtime. 30 tablet 5 Misc. Devices (Wrist Brace) misc Wear daily at bedtime moisturizing mouth (Biotene Oral Dry Mouth) solution Take 1 spray by mouth if needed (for dry mouth). 44.3 mL 1 nicotine polacrilex (Nicorette) 4 MG gum Chew 1 each (4 mg) if needed for smoking cessation. 100 each 0 Nirmatrelvir&Ritonavir 300/100 (Paxlovid, 300/100,) 20 x 150 MG & 10 x 100MG tablet therapypack Take 300 mg by mouth 2 times daily. 30 each 0 Salicylic Acid 10 % cream 2 times a day after shower. 227 g 2 traMADol (Ultram) 50 MG tablet Take 1 tablet (50 mg) by mouth every 6 (six) hours if needed for severe pain. 15 tablet 0 traZODone (Desyrel) 50 MG tablet Take 2 tablets (100 mg) by mouth at bedtime. 30 tablet 5 No current facility-administered medications on file prior to visit. No Known Allergies Review of Systems Constitutional: Negative for activity change, appetite change, chills and diaphoresis. HENT: Negative for dental problem, drooling, ear discharge, ear pain and hearing loss. Eyes: Negative for pain, discharge and itching. Respiratory: Negative for cough, choking and chest tightness. Cardiovascular: Negative for chest pain and leg swelling. Gastrointestinal: Negative for blood in stool and diarrhea. Genitourinary: Negative for difficulty urinating, dyspareunia, dysuria, enuresis, flank pain, frequency and genital sores. Musculoskeletal: Negative for arthralgias, gait problem and joint swelling. Skin: Negative for pallor. Neurological: Negative for dizziness, seizures, speech difficulty, light- headedness and numbness. Psychiatric/Behavioral: Negative for behavioral problems, confusion and decreased concentration. Objective BP (!) 142/81 (BP Location: Left arm, Patient Position: Sitting, BP Cuff Size: Adult) Pulse 83 Temp 98.1 ??F (36.7 ??C) (Oral) Resp 18 Ht 5' 5 (1.651 m) Wt 162 lb (73.5 kg) SpO2 97% BMI 26.96 kg/m?? Physical Exam Constitutional: General: She is not in acute distress. Appearance: Normal appearance. She is not ill-appearing, toxic-appearing or diaphoretic. HENT: Head: Normocephalic. Right Ear: Tympanic membrane normal. There is no impacted cerumen. Left Ear: Tympanic membrane normal. There is no impacted cerumen. Nose: Nose normal. No congestion or rhinorrhea. Mouth/Throat: Mouth: Mucous membranes are moist. Eyes: General: No scleral icterus. Right eye: No discharge. Left eye: No discharge. Pupils: Pupils are equal, round, and reactive to light. Cardiovascular: Rate and Rhythm: Normal rate and regular rhythm. Heart sounds: No murmur heard. No friction rub. No gallop. Pulmonary: Effort: Pulmonary effort is normal. No respiratory distress. Breath sounds: No stridor. No wheezing, rhonchi or rales. Chest: Chest wall: No tenderness. Abdominal: General: There is no distension. Palpations: Abdomen is soft. There is no mass. Tenderness: There is no abdominal tenderness. There is no right CVA tenderness or left CVA tenderness. Musculoskeletal: General: Normal range of motion. Cervical back: Normal range of motion. Skin: Comments: Dry skin Neurological: General: No focal deficit present. Mental Status: She is alert and oriented to person, place, and time. Psychiatric: Mood and Affect: Mood normal. Assessment/Plan Diagnoses and all orders for this visit: Type 2 diabetes mellitus with other neurologic complication, with long-term current use of insulin ([facility]) Comments: Follow up w/ endo Has her next scheduled appointment in a week Low carb diet no change in meds. Orders: - POCT Glucose - ammonium lactate (Lac-Hydrin) 12 % lotion; Apply topically if needed for dry skin. Dyslipidemia Comments: Dose of atorvastatin increased to 80 mg once a day Low-cholesterol diet recommended Lipid panel ordered. Patient will be contacted with the results. Orders: - Lipid Panel, Standard; Future Hemiparesis of left dominant side as late effect of other cerebrovascular disease (CMS/HCC) Comments: Improved but still feels that the left knee buckle. Would like to get a handicap placard. Screen for STD (sexually transmitted disease) Comments: As per patient's request. Declines having a new partner She wants to get tested because she just broke up with her previous partner Orders: - Hepatitis C Antibody with Reflex to HCV, RNA, Quantitative, Real-Time PCR; Future - HIV-1/2 Antigen and Antibodies, Fourth Generation, with Reflexes; Future - Syphilis Screen; Future - Chlamydia/N. Gonorrhoeae RNA, TMA, Urogenitial Dry skin - ammonium lactate (Lac-Hydrin) 12 % lotion; Apply topically if needed for dry skin. documented in this encounter Plan of Treatment Upcoming Encounters Date Type Department Care Team (Late st Contact Info) Description 09/16/2024 2:30 PM EDT Office Visit [facility] [address] [place] [address] West Gallegos MD [address] [place] [address] documented as of this encounter Procedures Procedure Name Priority Date/Time Associated Diagnosis Comments CHLAMYDIA/N. GONORRHOEAE RNA, TMA, UROGENITAL Routine 07/04/2024 4:09 PM EST Screen for STD (sexually transmitted disease) POCT GLUCOSE Routine 07/04/2024 4:06 PM EST Type 2 diabetes mellitus with other neurologic complication, with long-term current use of insulin ([facility]) SYPHILIS SCREEN Routine 07/04/2024 3:57 PM EST Screen for STD (sexually transmitted disease) HEPATITIS C AB W/REFL TO HCV RNA, QN, PCR Routine 07/04/2024 3:57 PM EST Screen for STD (sexually transmitted disease) HIV 1/2 ANTIGEN/ANTIBODY, FOURTH GENERATION W/RFL Routine 07/04/2024 3:57 PM EST Screen for STD (sexually transmitted disease) LIPID PANEL, STANDARD Routine 07/04/2024 3:57 PM EST Dyslipidemia documented in this encounter Results * Chlamydia/N. Gonorrhoeae RNA, TMA, Urogenitial (07/04/2024 4:09 PM EST) [facility] CT PCR NOT DETECTED Not Detect. [facility] Comment:A not detected test result does not exclude the possibilityof infection because test results can be affected byimproper specimen collection, concurrent antibiotic therapy,or the number of organisms in the specimen which may bebelow the sensitivity of the test. As with many diagnostictests, results from the Xpert CT/NG assay should beinterpreted in conjunction with other laboratory andclinical data available to the clinician.Xpert CT/NG performance has not been evaluated in patientsless than 14 years of age. The assay should not be used forthe evaluationof suspected sexual abuse or for other medico-legalindications. Additional testing is recommended in anycircumstance when false positive or false negative resultscould lead to adverse medical, social or psychologicalconsequences. NG PCR NOT DETECTED Not Detect. [facility] Comment:A not detected test result does not exclude the possibilityof infection because test results can be affected byimproper specimen collection, concurrent antibiotic therapy,or the number of organisms in the specimen which may bebelow the sensitivity of the test. As with many diagnostictests, results from the Xpert CT/NG assay should beinterpreted in conjunction with other laboratory andclinical data available to the clinician.Xpert CT/NG performance has not been evaluated in patientsless than 14 years of age. The assay should not be used forthe evaluationof suspected sexual abuse or for other medico-legalindications. Additional testing is recommended in anycircumstance when false positive or false negative resultscould lead to adverse medical, social or psychologicalconsequences. Urine, Random 07/04/2024 4:0 9 PM EST 07/04/2024 5:52 PM EST Narrative [facility] - 07/05/2024 12:21 PM EST Urine us West Gallegos MD LAB MICROBIOLOGY - GENERAL ORDERABLES Final Result [facility] [address] [place] [phone] * (ABNORMAL) POCT Glucose (07/04/2024 4:06 PM EST) Glucose Blood, POC 286(A) 60 - 200 mg/dL QC Media Lot # [id number] Lot# Expiration Date [id number] Comment:random Blood Capillary blood specimen / Unknown 07/04/2024 4:06 PM EST us West Gallegos MD POINT OF CARE TEST ENTER/ED IT ORDERABLES Final Result * Syphilis Screen (07/04/2024 3:57 PM EST) Syphilis Screen Nonreactive Nonreactive [facility] Blood 07/04/2024 3:57 PM EST 07/04/2024 5:46 PM EST us West Gallegos MD LAB BLOOD ORDERABLES Final Result Performing Organization Address [facility]/ZIP Co de Phone Number [facility] [address] [place] [phone] * HIV-1/2 Antigen and Antibodies, Fourth Generation, with Reflexes (07/04/2024 3:57 PM EST) [facility] HIV AB/AG Nonreactive Nonreactive [facility] Comment:HIV-1 p24 Ag and/or HIV-1/HIV-2 Ab not detected.A test result that is nonreactive does not exclude thepossibility of exposure to or infection with HIV-1 and/orHIV-2. Nonreactive results in this assay for individualswith prior exposure to HIV-1 and/or HIV-2 may be due toantigen and antibody levels that are below the limit ofdetection of this assay.The [employer] Alinity HIV Ag/Ab Combo assay result andsupplemental assay results should be interpreted inconjunction with the patient's clinical presentation,history and other laboratory results. If the results areinconsistent with clinical evidence, additional testing issuggested to confirm the result. Blood Venous blood specimen / Unknown 07/04/2024 3:57 PM EST 07/04/2024 5:46 PM EST us West Gallegos MD LAB BLOOD ORDERABLES Final Result Performing Organization Address [facility]/ZIP Co de Phone Number [facility] [address] [place] [address] [phone] * Hepatitis C Antibody with Reflex to HCV, RNA, Quantitative, Real-Time PCR (07/04/2024 3:57 PM EST) Hepatitis C Antibody Nonreactive Nonreactive [facility] Comment:Antibodies to HCV no t detected; does not exclude early acuteHCV infection. Blood Venous blood specimen / Unknown 07/04/2024 3:57 PM EST 07/04/2024 5:46 PM EST us West Gallegos MD LAB BLOOD ORDERABLES Final Result Performing Organization Address [facility]/RUST Co de Phone Number [facility] [address] [place] [phone] * (ABNORMAL) Lipid Panel, Standard (07/04/2024 3:57 PM EST) Triglycerides 191(H) <150 mg/dL [facility] Comment:Desirable Triglyceri de: less than 150 mg/dLBorderline High Triglyceride 150-199 mg/dLHigh Triglyceride: 200-499 mg/dLVery High Triglyceride: greater than or equal to 5OO mg/dL Cholesterol 142 <200 mg/dL [facility] Comment:Desirable Cholestero l: less than 200 mg/dLBorderline High Cholesterol: 200-239 mg/dLHigh Cholesterol: greater than 239 mg/dL LDL Cholesterol Calculated 68 <100 mg/dL [facility] Comment:Desirable LDL: less than 100 mg/dLNear Optimal/Above Optimal LDL: 110- 129 mg/dLBorderline High LDL: 130-159 mg/dLHigh LDL: 160-189 mg/dLVery High LDL: greater than or equal to 190 mg/dL HDL Cholesterol 36(L) >40 mg/dL [facility] Comment:Desirable HDL: great er than 40 mg/dL Note: This HDL assay may give artificially low results in patients with liver disease. Blood Venous blood specimen / Unknown 07/04/2024 3:57 PM EST 07/04/2024 5:46 PM EST us West Gallegos MD LAB BLOOD ORDERABLES Final Result [facility] [address] [place] [phone] documented in this encounter Visit Diagnoses Diagnosis Type 2 diabetes mellitus with other neurologic complication, with long-term current use of insulin ([facility])- Primary Dyslipidemia Other and unspecified hyperlipidemia Hemiparesis of left dominant side as late effect of other cerebrovascular disease ([facility]) Screen for STD (sexually transmitted disease) Screening examination for venereal disease Dry skin Other symptoms involving skin and integumentary tissues documented in this encounter Additional Health Concerns Assessment Noted Time PHQ-9 Depression Total Score: 21 024 10:02 AM EDT documented as of this encounter Care Teams Research Electrician Relationship Specialty Start Date End Date West Gallegos MD [address] [place] [phone] PCP - General Internal Medicine 01/26/18 documented as of this encounter
--- OUTSIDE RECORDS SUMMARY | 2024-07-28 16:16 | XMS_ITS | Encounter Summary ---
Author Organization [employer] [facility] [employer] [facility] Address [address] [facility] [address] [place] [address] Care Team Providers Care Diesel Engine Assembler Name Role Phone West Gallegos MD Primary Care Provider [phone] Encounter Details Date Type Department Care Team ([facility] Contact Info) Description 07/28/2024 Orders Only GENERIC EXTERNAL DATA DEPARTMENT Provider, Generic External Data Social History Tobacco Use Types Packs/Day Years [...] Upcoming Encounters Date Type Department Care Team ([facility] st Contact Info) Description 09/16/2024 2:30 PM EDT Office Visit [facility] [address] [place] [address] West Gallegos MD [address] [place] [address] documented as of this encounter Procedures Procedure Name Priority Date/Time Associated Diagnosis Comments GLUCOSE, WHOLE BLOOD Routine 07/28/2024 3:47 PM EST documented in this encounter Results * (ABNORMAL) Glucose, Whole Blood (07/28/2024 3:47 PM EST) Glucose, Whole Blood 176(H) 60 - 115 mg/dL [facility] Comment:METER #: [id number] Testing performed in the Endocrinology Department [address] , [address], [place]. 07/28/2024 3:47 PM EST 07/28/2024 3:51 PM EST us Generic External Data Provider LAB BLOOD ORDERAB LES Final Result [facility] [address] [place] [address] [phone] documented in this encounter Visit Diagnoses Not on filedocumented in this encounter Additional Health Concerns Assessment Noted Time PHQ-9 Depression Total Score: 21 024 10:02 AM EDT documented as of this encounter Care Teams Diesel Engine Assembler Relationship Specialty Start Date End Date West Gallegos MD [address] [place] [phone] PCP - General Internal Medicine 01/26/18 documented as of this encounter
--- OUTSIDE RECORDS SUMMARY | 2024-07-28 16:16 | XMS_ITS | Encounter Summary ---
Author Organization [employer] [facility] Address [address] [facility] 7 [place] [address] Care Team Providers Care Furrier Shop Supervisor Name Role Phone West Gallegos MD Primary Care Provider [phone] Reason for Visit * Reason Onset Date Comments Referral 08/06/2023 Encounter Details Date Type Department Care Team ([facility] st Contact Info) Description 08/06/2023 Telephone [facility] [address] [place] [address] West Gallegos MD [address] [place] [phone] Referral Social History Tobacco Use Types Packs/Day Years [...] encounter Miscellaneous Notes * Telephone Encounter - Samanta Boles - 08/07/2023 9:52 AM EST New referral faxed * Telephone Encounter - J Carlos Sanchez - 08/06/2023 10:23 AM EST TC from pt requesting renewal of referral : DATE: N/A TIME: N/A Address: [address] [place] [phone] Visits: Every 2 months Facility Name: Dr. Martínez Mitchell II Type of Specialist: Quality Eng Phone #: [phone] Pt requested call back with referral number if possible. Please contact pt at [phone]. documented in this encounter Plan of Treatment Upcoming Encounters Date Type Department Care Team ([facility] st Contact Info) Description 09/16/2024 2:30 PM EDT Office Visit [facility] [address] [place] [address] West Gallegos MD [address] [place] [address] documented as of this encounter Visit Diagnoses Not on filedocumented in this encounter Additional Health Concerns Assessment Noted Time PHQ-9 Depression Total Score: 3 05/23/20 22 1:43 PM EST documented as of this encounter Care Teams Furrier Shop Supervisor Relationship Specialty Start Date End Date West Gallegos MD [address] [place] [address] PCP - General Internal Medicine 01/26/18 documented as of this encounter
--- OUTSIDE RECORDS SUMMARY | 2024-07-28 16:16 | XMS_ITS | Continuity of Care Document ---
Author Organization [facility] Maria R Morales [place]ONE [place] Address [address] [address] Care Team Providers Care Hadoop Developer Name Role Phone IVETTE LIRIANO Referring Provider Assessment Encounter Date Assessment Date Assessment LastModified by Organization Details LastModified Time 07/08/2024 07/08/2024 The above findings are discussed in detail today with the patient. They are presenting for first post op visit status post trigger finger release, doing well. They can start scar massage over their incision. They should not use oils or lotions for another week. No soaking incision until next week. They will continue with range of motion exercises and progressing activities as tolerated. They will hold off on heavy lifting until 6 weeks post op. Exercises for passive and active finger range of motion were demonstrated today. All of their questions were answered, they are in agreement with the plan. They will return in 4 weeks for repeat evaluation. [email or web address] Not available 07/10/2024 10:44:30 Plan of Treatment Reminders Order Date Submit Date Provider Last Modified By Organization Details Last Modified Time Details Appointments None record ed. Lab None record ed. Referral None record ed. Procedures None record ed. Surgeries None record ed. Imaging None record ed. Medication Orders None record ed. Patient TargetsNo targets recorded. Patient InstructionsNo instructions recorded. Reason for Referral None Reported. Problems Name Problem SNOMED Code Status Onset Date Resolution Date Notes Provider Name and Address Organization Details Recorded Time Carpal tunnel syndrome of right wrist 1495552642119 08 Active 2022 Mel lao MD [address] [facility] [address], [place], [address], [facility] Maria R Morales 3 18:41:21 Carpal tunnel syndrome of left wrist 3200451419714 02 Active 2022 Mel lao MD [address] [facility],[address], [place], [address], [place] [facility] [place], P 3 18:41:24 Acquired trigger finger of left index finger 1928039151706 04 Active 2023 Mel lao MD [address] [facility],[address], [place], [place], [address], [facility] [place] 4 16:51:27 Triggering of digit 119728245 Active 2024 Mel lao MD [address] [facility],[address], [place], [address], [facility] [place], [facility] 5 12:25:26 Problem Notes None recorded. Procedures Surgical History Date Name Laterality Status Provider Name and Address Organization Details Recorded Time 5 TRIGGER FINGER RELEASE (SURG) completed Adriane Arias [facility] [place], [facility] 06/24/2024 10:24:43 3 LES carpal tunnel injection completed Mel Bennett MD [address] [facility],[place] [address], [place], [address], [facility] [place] 04/23/2023 18:34:11 3 LES trigger finger/De Quervain's injection completed Mel Bennett MD [address] [facility],[place] [address], [place], [address], [facility] [place] 04/23/2023 18:33:58 Imaging Results None recorded. [...] tablet TAKE ONE TABLET ONCE A WEEK 07/08 completed Not Available Not Available Not Available ketotifen 0.025 % (0.035 %) eye drops USE ONE DROP TO EYES TWICE A DAY NEEDED FOR ALLERGIES 07/08 completed Not Available Not Available Not Available famotidine 40 mg tablet TAKE ONE TABLET TWICE DAILY 04/23 completed Not Available Not Available Not Available hydroxyzine pamoate 50 mg capsule TAKE ONE CAPSULE EVERY 6 HOURS NEEDED FOR ITCHING 07/08 completed Not Available Not Available Not Available penicillin V potassium 500 mg tablet TAKE TWO TABLETS BY MOUTH FIRST TIME ONLY THEN TAKE 1 TABLET EVERY SIX HOURS TILL GONE 07/08 completed Not Available Not Available Not Available dextrometho rphan-guaif enesin 10 mg-100 mg/5 [...] injection Take 1 mL by injection route. 07/08 completed Not Available Not Available Not Available amitriptyli ne 10 mg tablet TAKE 1 [...] NOSTRIL IN THE MORNING. EVERY DAY NEEDED 07/08 completed Not Available Not Available Not Available medroxyprog esterone 150 mg/mL intramuscul ar suspension inject 1 millilite r by intramusc ular route every 3 months. Bring to office for injection 07/08 completed Not Available Not Available Not Available dicyclomine 10 mg capsule TAKE ONE CAPSULE FOUR TIMES DAILY 04/23 completed Not Available Not Available Not Available amoxicillin 875 mg-potassiu m clavulanate 125 mg tablet TAKE 1 TABLET BY MOUTH TWICE A DAY FOR 5 DAYS 07/08 completed Not Available Not Available Not Available oxycodone 5 mg tablet Take 1 tablet every 4-6 hours by oral route. 07/08 completed Not Available Not Available Not Available GlucaGen HypoKit 1 mg Injection Inject 1 mL (1 mg) under the skin 1 (one) time if needed for low blood sugar for up to 1 dose. Once in thigh, upper arm or buttocks active Not Available Not Available No t Available lidocaine (PF) 10 mg/mL (1 %) injection solution Take 1 mL by injection route. 07/08 completed Not Available Not Available Not Available Paxlovid 300 mg (150 mg x 2)-100 mg tablets in a dose pack TAKE 3 TABLETS BY MOUTH TWICE A DAY FOR 5 DAYS 04/23 completed Not Available Not Available Not Available Vitals Date Recorded Body height Body mass index (BMI) Body weight Provider Name and Address Organization Details Last Updated DateTime 07/08/2024 165.1 cm 25.5 kg/m2 500[address] [facility] [place] 07/08/2024 14:53:17 Social History Question Answer Notes LastModified by Organizat ion Details LastModified Time Tobacco Smoking Status Current Every Day Smoker Shawna tripp, [place] [facility] [place], [facility] 04/23/2023 14:16:08 What Is Your Level [...] MRSA N Blood Transfusion N Emphysema N Depression N COPD N [...] Anemia N Brain Injury N Heart Attack ([place]) N Osteopenia N Diabetes Y Bleeding Disorder [...] SNOMED-CT Code Diagnosis ICD10 Code Diagnosis Note [id number] MD SANJEEV Knapp [facility] [address] [facility] [address] [place] [address] 06/09/2024 15:05:04 06/09/2024 15:39:01 Acquired trigger finger of left index finger [id number] 79453 M65.322 Carpal wilberto rebecca syndrome of right wrist [id number] 93586 G56.01 Carpal wilberto rebecca syndrome of left wrist 9140007227 86766 G56.02 [id number] MD SANJEEV [place] [address] [facility] [address] [place] [address] 07/08/2024 14:44:47 07/08/2024 15:15:11 Acquired trigger finger of left index finger [id number] 88749 M65.322 Health Concerns Section Related Observation LastModified by Organization Detai ls LastModified Time None Recorded Concern Status LastModified by Organization Details LastModified Time None Recorded Payers Encounter Date Sequence Insurance Name Policy Number Policy Jiménez Covered Member ID Jiménez Member ID Guarantor Name 07/08/2024 1 [id number] Miladys Shane [id number] Aliza Shane Notes Date Note Type Note Provider Name and Address Organization Details Recorded Time 07/08/2024 text/html She presents for postop follow-up status post right index finger trigger finger release, date of surgery 06/23/2024, she is 2 weeks postop. She is in doing well. She notes stiffness in her finger which has continued to improve. She is no longer taking pain medication. She is been working on range of motion of the digit. She denies any residual locking or clicking. Denies numbness or tingling. Mel Bennett MD [address], [place], [address], [place] [facility] [place] 07/10/2024 10:44:40 OBGyn Episode No OBEpisode recorded.
--- OUTSIDE RECORDS SUMMARY | 2024-07-28 16:16 | XMS_ITS | Encounter Summary ---
Author Organization [facility] Address [address] [place] [address] 7 [place] [address] Care Team Providers Care Manager Regional Sales Name Role Phone West Gallegos MD Primary Care Provider [phone] Encounter Details Date Type Department Care Team ([facility] Contact Info) Description 08/03/2023 Orders Only [facility]C MED & PEDS [address] [place], [place] [phone] West Gallegos MD [address] [place] [address] Bilateral carpal tunnel syndrome (Primary Dx) Social [...] Upcoming Encounters Date Type Department Care Team ([facility] Contact Info) Description 09/16/2024 2:30 PM EDT Office Visit [facility] MED & PEDS [address] [place] [address] West Gallegos MD [address] [place] [address] documented as of this encounter Visit Diagnoses Diagnosis Bilateral carpal tunnel syndrome- Primary Carpal tunnel syndrome documented in this encounter Additional Health Concerns Assessment Noted Time PHQ-9 Depression Total Score: 3 05/23/20 22 1:43 PM EST documented as of this encounter Care Teams Manager Regional Sales Relationship Specialty Start Date End Date West Gallegos MD [address] [place] [address] PCP - General Internal Medicine 01/26/18 documented as of this encounter
--- OUTSIDE RECORDS SUMMARY | 2024-07-28 16:16 | XMS_ITS | Encounter Summary ---
Author Organization [facility] Address [address] [place] [address] [place] [address] Care Team Providers Care Roll Contour Grinder Name Role Phone West Gallegos MD Primary Care Provider [phone] Reason for Visit * Reason Onset Date Comments Other 10/01/2022 Encounter Details Date Type Department Care Team ([facility] Contact Info) Description 10/01/2022 Telephone [facility] CHC MED & PEDS [address] [place], [place] [phone] West Gallegos MD [address] [place] [address] Other Social History Tobacco Use Types Packs/Day Years [...] suspected to have Coronavirus/COVID-19? No / Unsure 10/02/2022 2:43 PM EDT documented as of this encounter Miscellaneous Notes * Telephone Encounter - Blanca Izquierdo - 10/01/2022 10:26 AM EDT Tc from Laura re calling stating she is all set the order does have EMG. * Telephone Encounter - Blanca Timbo - 10/01/2022 10:16 AM EDT Tc from Laura at [facility] calling in regards to nerve conduction order for 12/22/22. Laura would like to know if PCP would like to include EMG. Patient did get the EMG last year on 07/16/21. Any further questions please call [phone] fax number [phone]. Field Recruiter was unable to see order. documented in this encounter Plan of Treatment Upcoming Encounters Date Type Department Care Team (Late st Contact Info) Description 09/16/2024 2:30 PM EDT Office Visit [facility] MED & PEDS [address] [place] [address] West Gallegos MD [address] [place] [address] documented as of this encounter Visit Diagnoses Not on filedocumented in this encounter Additional Health Concerns Assessment Noted Time PHQ-9 Depression Total Score: 3 05/23/20 22 1:43 PM EST documented as of this encounter Care Teams Roll Contour Grinder Relationship Specialty Start Date End Date West Gallegos MD [address] [place] [address] PCP - General Internal Medicine 01/26/18 documented as of this encounter
--- OUTSIDE RECORDS SUMMARY | 2024-07-28 16:16 | XMS_ITS | Encounter Summary ---
Author Organization [facility] Address [address] [facility] 7 [place] [address] Care Team Providers Care Coding And Reimbursement Specialist Name Role Phone West Gallegos MD Primary Care Provider [phone] Reason for Visit * Reason Onset Date Comments request 07/10/2023 Encounter Details Date Type Department Care Team ([facility] st Contact Info) Description 07/10/2023 Telephone [facility] MEDICINE [address] [place] [address] West Gallegos MD [address] [place] [address] request Social History Tobacco Use Types Packs/Day Years [...] encounter Miscellaneous Notes * Telephone Encounter - Otilia Hedrick - 07/10/2023 9:20 AM EST Tc from pt requesting authorization to see orthopedic, insurance writer ask pt if need a referral and pt stated again authorization, please contact pt for clarifications. documented in this encounter Plan of Treatment Upcoming Encounters Date Type Department Care Team ([facility] st Contact Info) Description 09/16/2024 2:30 PM EDT Office Visit [facility] MED & PEDS [address] [place] [address] West Gallegos MD [address] [place] [address] documented as of this encounter Visit Diagnoses Not on filedocumented in this encounter Additional Health Concerns Assessment Noted Time PHQ-9 Depression Total Score: 3 05/23/20 22 1:43 PM EST documented as of this encounter Care Teams Coding And Reimbursement Specialist Relationship Specialty Start Date End Date West Gallegos MD [address] [place] [address] PCP - General Internal Medicine 01/26/18 documented as of this encounter
--- OUTSIDE RECORDS SUMMARY | 2024-07-28 16:16 | XMS_ITS | Encounter Summary ---
Author Organization [facility] Address [address] [facility] 7 [place] [address] Care Team Providers Care Packaging Manager Name Role Phone West Gallegos MD Primary Care Provider [phone] Reason for Visit * Reason Comments Med Refill Encounter Details Date Type Department Care Team (Late Contact Info) Description 04/17/2023 Refill [facility] CHC MED & PEDS [address] [place] [address] West Gallegos MD [address] [place] [address] Cervical radiculopathy; Bilateral carpal tunnel syndrome Social History Tobacco Use Types Packs/Day Years [...] Encounters Date Type Department Care Team (Late Contact Info) Description 09/16/2024 2:30 PM EDT Office Visit [facility] MED & PEDS [address] [place] [address] West Gallegos MD [address] [place] [address] documented as of this encounter Visit Diagnoses Diagnosis Cervical radiculopathy Brachial neuritis or radiculitis nos Bilateral carpal tunnel syndrome Carpal tunnel syndrome documented in this encounter Additional Health Concerns Assessment Noted Time PHQ-9 Depression Total Score: 3 05/23/20 22 1:43 PM EST documented as of this encounter Care Teams Packaging Manager Relationship Specialty Start Date End Date West Gallegos MD [address] [place] [address] PCP - General Internal Medicine 01/26/18 documented as of this encounter
--- OUTSIDE RECORDS SUMMARY | 2024-07-28 16:16 | XMS_ITS | Encounter Summary ---
Author Organization [facility] Address [address] [facility] 7 [place] [address] Care Team Providers Care Loading And Unloading Supervisor Name Role Phone West Gallegos MD Primary Care Provider [phone] Reason for Visit * Reason Onset Date Comments r/s derm 10/23/2022 Encounter Details Date Type Department Care Team ([facility] st Contact Info) Description 10/23/2022 Telephone [facility] MEDICINE [address] [place] [address] West Gallegos MD [address] [place] [address] r/s derm Social History Tobacco Use Types Packs/Day Years [...] suspected to have Coronavirus/COVID-19? No / Unsure 11/27/2022 1:04 PM EDT documented as of this encounter Miscellaneous Notes * Telephone Encounter - Tejal Morrissey - 10/23/2022 9:55 AM EDT Tc from pt requesting to r/s derm appt scheduled for 10/28/22 @ 12pm with PCP, appt has been cancelled. Please contact at [phone] documented in this encounter Plan of Treatment Upcoming Encounters Date Type Department Care Team ([facility] st Contact Info) Description 09/16/2024 2:30 PM EDT Office Visit [facility] MED & PEDS [address] [place], [place] [phone] West Gallegos MD [address] [place], [place] [phone] documented as of this encounter Visit Diagnoses Not on filedocumented in this encounter Additional Health Concerns Assessment Noted Time PHQ-9 Depression Total Score: 3 05/23/20 22 1:43 PM EST documented as of this encounter Care Teams Loading And Unloading Supervisor Relationship Specialty Start Date End Date West Gallegos MD [address] [place] [address] PCP - General Internal Medicine 01/26/18 documented as of this encounter
--- OUTSIDE RECORDS SUMMARY | 2024-07-28 16:16 | XMS_ITS | Encounter Summary ---
Author Organization [facility] Address [address] [place] [address] 7 [place] [address] Care Team Providers Care Fermenting Cellar Dropper Name Role Phone West Gallegos MD Primary Care Provider [phone] Encounter Details Date Type Department Care Team ([facility] Contact Info) Description 10/28/2023 Orders Only [facility] CHC MED & PEDS [address] [place], [place] [phone] West Gallegos MD [address] [place] [address] Type 2 diabetes mellitus with other neurologic complication, with long-term current use of insulin ([facility]) (Primary Dx) Social History Tobacco Use [...] Upcoming Encounters Date Type Department Care Team ([facility] Contact Info) Description 09/16/2024 2:30 PM EDT Office Visit [facility] CHC MED & PEDS [address] [place] [address] West Gallegos MD [address] [place] [address] documented as of this encounter Visit Diagnoses Diagnosis Type 2 diabetes mellitus with other neurologic complication, with long-term current use of insulin ([facility])- Primary documented in this encounter Additional Health Concerns Assessment Noted Time PHQ-9 Depression Total Score: 3 05/23/20 22 1:43 PM EST documented as of this encounter Care Teams Fermenting Cellar Dropper Relationship Specialty Start Date End Date West Gallegos MD [address] [place] [address] PCP - General Internal Medicine 01/26/18 documented as of this encounter
--- OUTSIDE RECORDS SUMMARY | 2024-07-28 16:16 | XMS_ITS | Encounter Summary ---
Author Organization [facility] Address [address] [place] [address] 7 [place] [address] Care Team Providers Care Engineering Agent Name Role Phone West Gallegos MD Primary Care Provider [phone] Reason for Visit * Reason Comments Med Refill Encounter Details Date Type Department Care Team (Late Contact Info) Description 05/20/2023 Refill [facility] CHC MED & PEDS [address] [place] [address] West Gallegos MD [address] [place] [address] Cervical radiculopathy; Bilateral carpal tunnel syndrome Social [...] [facility] MED & PEDS [address] [place] [address] West Gallegos MD [address] [place] [address] documented as of this encounter Visit Diagnoses Diagnosis Cervical radiculopathy Brachial neuritis or radiculitis nos Bilateral carpal tunnel syndrome Carpal tunnel syndrome documented in this encounter Additional Health Concerns Assessment Noted Time PHQ-9 Depression Total Score: 3 05/23/20 22 1:43 PM EST documented as of this encounter Care Teams Engineering Agent Relationship Specialty Start Date End Date West Gallegos MD [address] [place] [address] PCP - General Internal Medicine 01/26/18 documented as of this encounter
--- OUTSIDE RECORDS SUMMARY | 2024-07-28 16:16 | XMS_ITS | Clinical Summary ---
Author Organization [employer] Address [address] [place] [address] Care Team Providers Care Welder Apprentice Arc Name Role Phone West Gallegos MD Primary Care Provider [phone] Allergies No known active allergies Medications * This document contains information received from the source organization and may not represent a complete record from that organization. cetirizine (ZyrTEC) 10 MG tablet Take 1 tablet by mouth. Every day 01/31/20 21 Active cholecalciferol (Vitamin D-3) 25 MCG (1000 UT) capsule take 1 Capsule by Oral route once a day 10/09/19 21 Active mirtazapine (Remeron) 15 MG tablet Take 1 tablet by mouth at bed time. 08/28/19 22 Active Continuous Blood Gluc Manager Psychology (FreeStyle [place] 2 [place]) device Use daily Act jessica Misc. Devices (Wrist Brace) misc Wear daily at bedtime Active Nirmatrelvir&Adalid navir 300/100 (Paxlovid, 300/100,) 20 x 150 MG & 10 x 100MG tablet therapy packIndications:C OVID-19 Take 300 mg by mouth 2 times daily. 30 each 06/06/20 22 Active mirtazapine (Remeron) 15 MG tabletIndications :Mood disorder (CMS/HCC) Take 1 tablet (15 mg) by mouth at bedtime. 30 tablet 5 06/06/20 22 Active medroxyPROGESTERo ne (Depo-Provera) 150 MG/ML injectionIndicati ons:Encounter for other contraceptive management inject 1 milliliter by intramuscular route every 3 months. Bring to office for injection 1 mL 11 07/15/19 23 Active insulin glargine (Lantus SoloStar) 100 UNIT/ML pen inject 65 Unit by Subcutaneous route every bedtime 3 mL 09/17/19 Active glucose 4 g chewable tablet Chew 4 tablets (16 g) if needed for low blood sugar. 50 tablet 12 09/17/19 Active Salicylic Acid 10 % creamIndications: Keratosis pilaris 2 times a day after shower. 227 g 2 11/19/19 Active traZODone (Desyrel) 50 MG tabletIndications :Primary insomnia Take 2 tablets (100 mg) by mouth at bedtime. 30 tablet 5 01/15/20 Active amitriptyline (Elavil) 10 MG tabletIndications :Other insomnia TAKE 1 TO 2 TABLETS BY MOUTH AT BEDTIME 60 tablet 01/17/20 Active famotidine (Pepcid) 40 MG tablet TAKE ONE TABLET TWICE DAILY 180 tablet 02/21/20 Active Continuous Blood Gluc Sensor (FreeStyle Parris 2 Sensor) misc Use daily 2 each 03/04/20 Active Alcohol Swabs (Alcohol Prep) padsIndications:T ype 2 diabetes mellitus with other neurologic complication, with long-term current use of insulin (CMS/HCC) Use as directed 200 each 04/03/20 Active Blood Glucose Monitoring Suppl (FreeStyle Lite) w/Device kit 1 Units 4 times daily. Use daily 1 kit 04/07/20 Active FreeStyle lancetsIndication s:Type 2 diabetes mellitus with other neurologic complication, with long-term current use of insulin (CMS/HCC) 1 each by Other route 4 times daily. Use daily 100 each 04/07/20 Active glucose blood (FREESTYLE LITE) test stripIndications: Type 2 diabetes mellitus with other neurologic complication, with long-term current use of insulin (CMS/HCC) 1 each by Other route 4 times daily. 100 each 04/07/20 Active Insulin Pen Needle (pen needle 08/21 ) 31G x 5 mm misc Inject 1 each under the skin 4 times daily. Use 4 times daily 120 each 04/07/20 Active traMADol (Ultram) 50 MG tabletIndications :Cervical radiculopathy,Owen ateral carpal tunnel syndrome Take 1 tablet (50 mg) by mouth every 6 (six) hours if needed for severe pain. 15 tablet 05/20/20 23 Active moisturizing mouth (Biotene Oral Dry Mouth) solutionIndicatio ns:Canker sores oral Take 1 spray by mouth if needed (for dry mouth). 44.3 mL 1 06/04/20 23 Active Baqsimi Two Pack 3 MG/DOSE nasal powder INSERT ONE SPRAY IN NOSE NEEDED FOR LOW BLOOD SUGAR 2 each 1 06/30/19 24 Active ketotifen (Zaditor) 0.025 % ophthalmic solution One drop to eyes bid prn allergies 5 mL 1 07/17/19 24 Active fluticasone (Flonase) 50 MCG/ACT nasal spray ADMINISTER 1-2 SPRAYS INTO EACH NOSTRIL IN THE MORNING. EVERY DAY NEEDED 16 mL 3 08/12/19 24 Active Insulin Lispro (HumaLOG) 100 UNIT/ML solutionIndicatio ns:Type 2 diabetes mellitus with other neurologic complication, with long-term current use of insulin ([facility]) Inject 26 Units as directed 3 times daily. 26 units 15 minutes before meals. 10 mL 10/28/19 24 Active amLODIPine (Norvasc) 5 MG tabletIndications :Primary hypertension Take 1 tablet (5 mg) by mouth Once per day. 90 tablet 11/04/19 24 025 Active betamethasone, augmented, (Diprolene) 0.05 % gelIndications:Ca nker sores oral Apply topically 2 times daily. 15 g 12/08/19 24 Active atorvastatin (Lipitor) 80 MG tabletIndications :Type 2 diabetes mellitus with other neurologic complication, with long-term current use of insulin ([facility]),Dyslipi demia Take 1 tablet (80 mg) by mouth Once per day. 30 tablet 12/23/19 24 025 Active aspirin 81 MG EC tabletIndications :Dyslipidemia,Cer ebrovascular accident (CVA) due to other mechanism (CMS/HCC) Take 1 tablet (81 mg) by mouth Once per day. 90 tablet 3 12/23/19 24 025 Active nicotine polacrilex (Nicorette) 4 MG gumIndications:Sm oking Chew 1 each (4 mg) if needed for smoking cessation. 100 each 12/23/19 24 Active busPIRone (Buspar) 5 MG tabletIndications :Anxiety Take 1 tablet (5 mg) by mouth 2 times daily. 60 tablet 11 12/23/19 24 025 Active hydrOXYzine pamoate (Vistaril) 50 MG capsuleIndication s:Anxiety Take 1 capsule (50 mg) by mouth every 6 (six) hours if needed for itching for up to 10 days. 30 capsule 12/23/19 24 Active baclofen (Lioresal) 10 MG tabletIndications :Muscle cramps TAKE 1 TABLET BY MOUTH THREE TIMES DAILY 90 tablet 2 06/03/20 24 Active ammonium lactate (Lac-Hydrin) 12 % lotionIndications :Type 2 diabetes mellitus with other neurologic complication, with long-term current use of insulin ([facility]),Dry skin Apply topically if needed for dry skin. 400 g 3 07/04/19 25 026 Active Active Problems Problem Noted Date Diagnosed Date Preop examination 06/17/2024 Assessment & Plan (06/17/2024 3:20 PM EST): RCRI score is 2 which means a 10.1% risk Surgery should proceed as schedule NPO after midnight for the procedure I advise to take her blood pressure medication with small sip of water the day of the surgery Insulin/diabetes preop instructions to be provide by endocrinology Primary hypertension 06/17/2024 Assessment & Plan (06/17/2024 3:16 PM EST): Patient today forgot to take her blood pressure medication I advise to take her medications every day I advise low Na diet and weight reduction I advise to f/u with PCP Depression, unspecified 02/22/2024 Anxiety disorder, unspecified 02/22/2024 Muscle cramps 12/23/2023 Diabetes mellitus 06/06/2022 Assessment & Plan (06/17/2024 3:16 PM EST): F/u with endocrinology patient is on insulin pump Flank pain 04/28/2022 Mateo hematuria 04/28/2022 Dyslipidemia 04/05/2015 Type 2 diabetes mellitus 04/05/2015 Encounters Date Type Department Care Team Description 07/28/2024 Orders Only GENERIC EXTERNAL DATA DEPARTMENT Provider, Generic External Data 07/04/2024 3:15 PM EST Office Visit [facility] [address] [place] [address] West Gallegos MD Type 2 diabetes mellitus with other neurologic complication, with long-term current use of insulin (CMS/HCC) (Primary Dx); Dyslipidemia; Hemiparesis of left dominant side as late effect of other cerebrovascular disease (CMS/HCC); Screen for STD (sexually transmitted disease); Dry skin 07/04/2024 Travel 06/17/2024 2:45 PM EST Office Visit [facility] [address] [place] [phone] Magaly Penny MD Preop examination (Primary Dx); Type 2 diabetes mellitus with other neurologic complication, with long-term current use of insulin (CMS/HCC); Primary hypertension 06/17/2024 Travel 06/10/[address] [address] West Gallegos MD pre-op 06/03/2024 Refill [facility] [address] [place] [address] West Gallegos MD Muscle cramps from Last 3 Months Immunizations Name Administration Dates Next Due Influenza injectable quadriv alent IIV4 with preservative 05/19/2019 Influenza injectable quadriv alent preservative free 03/26/2023,04/01/2022,03/19/2021 Influenza, IIV3, injectable 04/15/2016, 4 Moderna Covid-19 Vaccine 12+ 06/26/2021,10/18/19,09/19/2020 Pneumococcal Conjugate PCV 20 02/10/2024 Pneumococcal Polysaccharide PPSV23 01/22/2015 Tdap 04/28/2014 Social History Tobacco Use Types Packs/Day Years Used Date Smoking Tobacco: Every Day Cigarettes Passive Smoke Exposure: Current Smokeless Tobacco: Never Tobacco Cessation:Ready to Q uit: Not Asked; Counseling Given: Not Answered Alcohol Use Standard Drinks/Week Comments Never 0 [...] Orientation Straight 04/07/2022 10 :15 AM EDT Last Filed Vital Signs Vital Sign Reading [...] Mass Index 26.96 07/04/2024 3:29 PM EST Plan of Treatment Upcoming Encounters Date Type Department Care Team (Late st Contact Info) Description 09/16/2024 2:30 PM EDT Office Visit [facility] [address] [place] [address] West Gallegos MD [address] [place] [address] Health Maintenance Due Date Last Done Comments CT Colonography 1976 Colonoscopy 1976 FIT 1976 FOBT 1976 Sigmoidoscopy 1976 Eye Exam 02/12/1986 Alcohol/Substance Use Screening 1988 Family Planning (PISQ) 02/12/1991 Hepatitis B Vaccines (1 of 3 - 19+ 3-dose series) 02/12/1995 Diabetes: Urine Protein Screening 08/16/2021 08/16/2020, 05/19/2019 Mammogram 08/15/2023 08/14/2021 COVID-19 Vaccine ( season) 2024 06/26/2021, 10/17/2020, 09/19/2020 Influenza Vaccine (#1) 2024 3, 04/01/2022, 03/19/2021, Additional history exists DTaP/Tdap/Td Vaccines (2 - Td or Tdap) 04/28/2024 04/28/2014 Pap Smear 05/28/2024 05/28/2021, 05/28/2021 Depression Monitoring (PHQ-9) 08/09/2024 02/10/2024, 02/10/2024 Diabetes: Hemoglobin A1C 09/15/2024 025, 11/04/2023, 03/26/2023, Additional history exists SDOH Screening 12/21/2024 12/22/2023 Depression Screening 02/09/2025 02/10/2024, 02/10/20 24 Diabetes: Foot Exam 07/04/2025 07/04/2024 Lipid Panel 07/04/2025 07/04/2024, 04/10, 08/16/2020 Tobacco Screening 07/04/2025 07/04/2024 Zoster Vaccines (1 of 2) 02/12/2026 Cervical Cancer Screening 05/28/2026 HPV/Cotest 05/28/2026 05/28/2021 Colorectal Cancer Screening 04/15/2027 FIT DNA/Cologuard 04/15/2027 04/15/2024 RSV Patients and Patients Aged 60 years or older (1 - 1-dose 75+ series) 02/12/2051 Pneumococcal Vaccine: Pediatrics (0 to 5 Years) and At-Risk Patients (6 to 49) Years) Completed 02/10/2024, 01/22/2015 HIV Screening Completed 07/04/2024, 06/03/2021 Hepatitis C Screening Completed 07/04/2024, 021 HIB Vaccines Aged Out No longer eligi [...] patient's age to complete this topic Meningococcal Vaccine Aged Out No kristy abdirizak eligible based on patient's age to complete this topic RSV under 20 months Aged Out No longe r eligible based on patient's age to complete this topic Rotavirus Vaccines Aged Out No longer eligible based on patient's age to complete this topic Procedures Procedure Name Priority Date/Time Associated Diagnosis Comments GLUCOSE, WHOLE BLOOD Routine 07/28/2024 3:47 PM EST CHLAMYDIA/N. GONORRHOEAE RNA, TMA, UROGENITAL Routine 07/04/2024 4:09 PM EST Screen for STD (sexually transmitted disease) POCT GLUCOSE Routine 07/04/2024 4:06 PM EST Type 2 diabetes mellitus with other neurologic complication, with long-term current use of insulin ([facility]) SYPHILIS SCREEN Routine 07/04/2024 3:57 PM EST Screen for STD (sexually transmitted disease) HIV 1/2 ANTIGEN/ANTIBODY, FOURTH GENERATION W/RFL Routine 07/04/2024 3:57 PM EST Screen for STD (sexually transmitted disease) HEPATITIS C AB W/REFL TO HCV RNA, QN, PCR Routine 07/04/2024 3:57 PM EST Screen for STD (sexually transmitted disease) LIPID PANEL, STANDARD Routine 07/04/2024 3:57 PM EST Dyslipidemia POCT GLYCATED HEMOGLOBIN, TOTAL Routine 06/17/2024 2:24 PM EST Type 2 diabetes mellitus with other neurologic complication, with long-term current use of insulin (CMS/HCC) POCT GLUCOSE Routine 06/17/2024 2:23 PM EST Type 2 diabetes mellitus with other neurologic complication, with long-term current use of insulin (CMS/HCC) LAB COLOGUARD?? COLON CANCER SCREEN Routine 04/15/2024 10:00 AM EST Screening for colon cancer HM MAMMOGRAPHY Routine 08/14/2021 THINPREP IMAGING PAP AND HPV MRNA E6/E7, WITH CT/NG, TRICHOMONAS Routine 05/28/2021 2:52 PM EST HM PAP/HPV Routine 05/28/2021 ALBUMIN, RANDOM URINE W/CREATININE Routine 08/16/2020 2:08 PM EST from Last 3 Months or Most Recently Relevant to Health Maintenance Results * (ABNORMAL) Glucose, Whole Blood (07/28/2024 3:47 PM EST) Glucose, Whole Blood 176(H) 60 - 115 mg/dL [facility] Comment:METER #: [id number] Testing performed in the Endocrinology Department [address] , [address], [facility]. 07/28/2024 3:47 PM EST 07/28/2024 3:51 PM EST us Generic External Data Provider LAB BLOOD ORDERAB LES Final Result [facility] [address] [place] [address] [phone] * Chlamydia/N. Gonorrhoeae RNA, TMA, Urogenitial (07/04/2024 4:09 PM EST) CT PCR NOT DETECTED Not Detect. [facility] Comment:A not detected test result [...] psychologicalconsequences. NG PCR NOT DETECTED Not Detect. [facility] Comment:A not detected test result [...] PM EST 07/04/2024 5:52 PM EST Narrative [facility] - 07/05/2024 12:21 PM EST Urine West Gallegos MD LAB MICROBIOLOGY - GENERAL ORDERABLES Final Result Performing Organization Address [facility] Co de Phone Number [facility] [address] [place] [phone] * (ABNORMAL) POCT Glucose (07/04/2024 4:06 PM EST) Only the most recent of2 resultswithin the time period is included. Pathologist [facility] Glucose Blood, POC 286(A) 60 - 200 mg/dL QC Media Lot # [id number] Lot# Expiration Date [id number] Comment:random Blood Capillary blood specimen / Unknown 07/04/2024 4:06 PM EST West Gallegos MD POINT OF CARE TEST ENTER/ED IT ORDERABLES Final Result * Syphilis Screen (07/04/2024 3:57 PM EST) Pathologist [facility] Syphilis Screen Nonreactive Nonreactive [facility] Blood 07/04/2024 3:57 PM EST 07/04/2024 5:46 PM EST West Gallegos MD LAB BLOOD ORDERABLES Final Result Performing Organization Address [facility] Co de Phone Number [facility] [address] [place] [address] [phone] * Hepatitis C Antibody with Reflex to HCV, RNA, Quantitative, Real-Time PCR (07/04/2024 3:57 PM EST) Pathologist [facility] Hepatitis C Antibody Nonreactive Nonreactive [facility] Comment:Antibodies to HCV no t detected; does not exclude early acuteHCV infection. Blood Venous blood specimen / Unknown 07/04/2024 3:57 PM EST 07/04/2024 5:46 PM EST us West Gallegos MD LAB BLOOD ORDERABLES Final Result Performing Organization Address [facility] Co de Phone Number [facility] [address] [place] [phone] * HIV-1/2 Antigen and Antibodies, Fourth Generation, with Reflexes (07/04/2024 3:57 PM EST) HIV AB/AG Nonreactive Nonreactive [facility] Comment:HIV-1 p24 Ag and/or HIV-1/HIV-2 Ab not detected.A test result that is nonreactive does not exclude thepossibility of exposure to or infection with HIV-1 and/orHIV-2. Nonreactive results in this assay for individualswith prior exposure to HIV-1 and/or HIV-2 may be due toantigen and antibody levels that are below the limit ofdetection of this assay.The Tr[employer]own[employer]IC HIV Ag/Ab Combo assay result andsupplemental assay results should be interpreted inconjunction with the patient's clinical presentation,history and other laboratory results. If the results areinconsistent with clinical evidence, additional testing issuggested to confirm the result. Blood Venous blood specimen / Unknown 07/04/2024 3:57 PM EST 07/04/2024 5:46 PM EST us West Gallegos MD LAB BLOOD ORDERABLES Final Result Performing Organization Address [facility]/ZIP Co de Phone Number [facility] [address] [place] [phone] * (ABNORMAL) Lipid Panel, Standard (07/04/2024 3:57 PM EST) Triglycerides 191(H) <150 mg/dL [facility] Comment:Desirable Triglyceri de: less than 150 mg/dLBorderline High Triglyceride 150-199 mg/dLHigh Triglyceride: 200-499 mg/dLVery High Triglyceride: greater than or equal to 5OO mg/dL Cholesterol 142 <200 mg/dL [facility] Comment:Desirable Cholestero l: less than 200 mg/dLBorderline High Cholesterol: 200-239 mg/dLHigh Cholesterol: greater than 239 mg/dL LDL Cholesterol Calculated 68 <100 mg/dL [facility] Comment:Desirable LDL: less than 100 mg/dLNear Optimal/Above Optimal LDL: 110- 129 mg/dLBorderline High LDL: 130-159 mg/dLHigh LDL: 160-189 mg/dLVery High LDL: greater than or equal to 190 mg/dL HDL Cholesterol 36(L) >40 mg/dL [facility] Comment:Desirable HDL: great er than 40 mg/dL Note: This HDL assay may give artificially low results in patients with liver disease. Blood Venous blood specimen / Unknown 07/04/2024 3:57 PM EST 07/04/2024 5:46 PM EST us West Gallegos MD LAB BLOOD ORDERABLES Final Result Performing Organization Address City/State/[facility] Co de Phone Number [facility] [address] [place] [phone] * (ABNORMAL) POCT HGB A1C (06/17/2024 2:24 PM EST) [facility] Hemoglobin A1C 8.2(A) 4.0 - 6.0 % QC Media Lot # [id number] Lot# Expiration Date Blood 06/17/2024 2:24 PM EST us Magaly Roberts MD POINT OF CARE TEST EN TER/EDIT ORDERABLES Final Result * (ABNORMAL) Cologuard?? colon cancer screening (04/15/2024 10:00 AM EST) Pathologist [facility] Cologuard Result Positive( A) Negative 04/22/2024 11:16 AM EST [facility] (CLIA #:[id number]) Comment: POSITIVE TEST RESULT. A positive Cologuard result should be followed with a colonoscopy or visual examination of the colon. The normal value (reference range) for this assay is negative. TEST DESCRIPTION: Composite algorithmic analysis of stool DNA-biomarkers with hemoglobin immunoassay. ?? Quantitative values of individual biomarkers are not reportable and are not associated with individual biomarker result reference ranges. Cologuard is intended for colorectal cancer screening of adults of either sex, 45 years or older, who are at average-risk for colorectal cancer (CRC). Cologuard has been approved for use by the U.S. FDA. The performance of Cologuard was established in a cross sectional study of average-risk adults aged 50-84. Cologuard performance in patients ages 45 to 49 years was estimated by sub-group analysis of near-age groups. Colonoscopies performed for a positive result may find as the most clinically significant lesion: colorectal cancer [4.0%], advanced adenoma (including sessile serrated polyps greater than or equal to 1cm diameter) [20%] or non- advanced adenoma [31%]; or no colorectal neoplasia [45%]. These estimates are derived from a prospective cross-sectional screening study of 10,000 individuals at average risk for colorectal cancer who were screened with both Cologuard and colonoscopy. (Zeyad Pierre al, N Engl J Med 2014;370(14):8363-2604.) Cologuard may produce a false negative or false positive result (no colorectal cancer or precancerous polyp present at colonoscopy follow up). A negative Cologuard test result does not guarantee the absence of CRC or advanced adenoma (pre-cancer). The current Cologuard screening interval is every 3 years. ([employer] and U.S. Multi-Society Task Force). Cologuard performance data in a 10,000 patient pivotal study using colonoscopy as the reference method can be accessed at the following location: [email or web address]. Additional description of the Cologuard test process, warnings and precautions can be found at [email or web address]. Stool specimen (specimen) 04/15/2024 10:00 AM EST 04/16/2024 7:27 AM EST us West Gallegos MD LAB MOLECULAR DIAGNOSTICS O RDERABLES Final Result [facility] (CLIA #:[id number]) [place] [address], * Mammography (08/14/2021) Mammogram Performed Anatomical Region Laterality Modality Other Historical Provider HEALTH MAINTENANCE Final Result * THINPREP TIS PAP AND HPV mRNA E6/E7, CT/NG, TRICH (05/28/2021 2:52 PM EST) Chlamydia trachomatis RNA, TMA, Urogenital NOT DETECTED NOT DETECTED [facility] Clinical Information: None given [facility] COMMENT SEE COMMENT [facility] Comment: The analytical performance characteristics of this assay, when used to test SurePath(TM) specimens have been determined by [employer]. The modifications have not been cleared or approved by the FDA. This assay has been validated pursuant to the CLIA regulations and is used for clinical purposes. ?? For additional information, please refer to https://education.FLENS/faq/ADX496 (This link is being provided for information/ educational purposes only.) ?? COMMENT SEE COMMENT [facility] Comment: EXPLANATORY NOTE: ? The Pap is a screening test for cervical cancer. It is ?? not a diagnostic test and is subject to false negative ?? and false positive results. It is most reliable when a ?? satisfactory sample, regularly obtained, is submitted ?? with relevant clinical findings and history, and when ?? the Pap result is evaluated along with historic and ?? current clinical information. ?? COMMENT: This Pap test has been evaluated with computer assisted technology. [facility] Air Battle Manager: SEE COMMENT [facility] Comment: WAC, CT(ASCP) CT screening location: [address] ??[phone] HPV nRNA E6/E7 Not Detected Not Detected [facility] Comment: Methodology: Post Acute Care Nurse-Mediated Amplification This assay detects E6/E7 viral messenger RNA (mRNA) from 14 high-risk HPV types (16,18,31,33,35,39,45,51,52,56,58,59,66,68). ? The analytical performance characteristics of this assay have been determined by [employer]. The modifications have not been cleared or approved by the FDA. This assay has been validated pursuant to the CLIA regulations and is used for clinical purposes. ?? For additional information, please refer to http://Enplug.FLENS/faq/OPJ578q5 (This link if provided for information/ educational purposes only.) Infection Shift in vaginal nubia suggestive of bacterial vaginosis. [facility] Interpretation/Re sult: Negative for intraepithelial lesion or malignancy. [facility] LMP: NONE GIVEN [facility] Neisseria gonorrhoeae RNA, TMA, Urogenital NOT DETECTED NOT DETECTED [facility] Prev. BX: NONE GIVEN [facility] Prev. PAP: NONE GIVEN [facility] SOURCE: None given [facility] Statement Of Adequacy: SEE COMMENT [facility] Comment: Satisfactory for evaluation. Endocervical/transformation zone component absent. Age and/or menstrual status not provided Trichomonas vaginalis, QL, TMA, PAP Vial NOT DETECTED NOT DETECTED [facility] Comment: The analytical performance characteristics of this assay have been determined by [employer]. The modifications have not been cleared or approved by the FDA. This assay has been validated pursuant to the CLIA regulations and is used for clinical purposes. ?? For additional information, please refer to [email or web address].FLENS/ [email or web address]/[email or web address] (This link is being provided for information/ educational purposes only.) ?? 05/28/2021 2:52 PM EST Berta Simpson CNM LAB PATHOLOGY ORDERABLES Final Result [facility] [address] Anywhere [address] * Hm Pap Smear (05/28/2021) HM Pap smear Performed Historical Provider HEALTH MAINTENANCE Final Result * ALBUMIN, RANDOM URINE W/CREATININE (08/16/2020 2:08 PM EST) Microalbumin Urine 0.7 See Note: mg/dL [facility] Comment: Reference Range: ?? Reference Range Not established Microalb/Creat Ratio 7 <30 mcg/mg creat [facility] Comment: ?? The ADA defines abnormalities in albumin excretion as follows: ?? Category ? Result (mcg/mg creatinine) ?? Normal ?<30 Microalbuminuria ? 30-299 ?? Clinical albuminuria ?? > OR = 300 ?? The ADA recommends that at least two of three specimens collected within a 3-6 month period be abnormal before considering a patient to be within a diagnostic category. Creatinine, Urine 104 20 - 275 mg/dL [facility] 08/16/2020 2:08 PM EST us West Gallegos MD LAB URINE ORDERABLES Final Result Performing Organization Address City/State/[facility] Co de Phone Number [facility] [address] from Last 3 Months or Most Recently Relevant to Health Maintenance Insurance [employer] Care Teams Welder Apprentice Arc Relationship Specialty Start Date End Date West Gallegos MD [address] [place] [address] PCP - General Internal Medicine 01/26/18
--- OUTSIDE RECORDS SUMMARY | 2024-07-28 16:17 | XMS_ITS | Encounter Summary ---
Author Organization [employer] [facility] Address [address] 7[address] [place] [address] Care Team Providers Care Trim Mounter Name Role Phone West Gallegos MD Primary Care Provider [phone] Reason for Referral * Consultation (Routine) - Authorized Specialty Diagnoses / Procedures Referred By Daniel nascimento Referred To Contact Gastroenterology Diagnoses Positive colorectal cancer screening using Cologuard test West Gallegos MD [address] [place] [address] Phone: tel: fax: [facility] Gastroenterology [address] [place], [place] Phone: tel: fax: Referral ID Status Reason Start Date Expiration Date Visits Requested Visits Authorized [id number] Authorized Specialty Services Required 4 04/22/2025 1 1 Encounter Details Date Type Department Care Team (Late st Contact Info) Description 04/22/2024 Orders Only [facility] MED & PEDS [address] [place] [address] West Gallegos MD [address] [place] [address] Positive colorectal cancer screening using Cologuard test (Primary Dx) Social History Tobacco Use Types Packs/Day Years Used Date Smoking Tobacco: Every Day Cigarettes Passive Smoke Exposure: Current Smokeless Tobacco: Never Alcohol Answer Date Recorded [...] Upcoming Encounters Date Type Department Care Team ([facility] st Contact Info) Description 09/16/2024 2:30 PM EDT Office Visit [facility] MED & PEDS [address] [place] [address] West Gallegos MD [address] [place] [address] Scheduled Referrals Name Type Priority Associated Diagnoses Order Schedule Referral to Gastroenterology Outpatient Referral Routine Positive colorectal cancer screening using Cologuard test Expected: 04/22/2024 (Approximate), Expires: 04/22/2025 documented as of this encounter Visit Diagnoses Diagnosis Positive colorectal cancer screening using Cologuard test- Primary documented in this encounter Additional Health Concerns Assessment Noted Time PHQ-9 Depression Total Score: 21 024 10:02 AM EDT documented as of this encounter Care Teams Trim Mounter Relationship Specialty Start Date End Date West Gallegos MD [address] [place] [address] PCP - General Internal Medicine 01/26/18 documented as of this encounter
--- OUTSIDE RECORDS SUMMARY | 2024-07-28 16:17 | XMS_ITS | Data Portability ---
Author Organization [place] - Asa Matt Miazam [facility], [facility] Address [address] [place] [address] Care Team Providers Care Presentation Team Member Name Role Phone [facility] Primary Care Provider Assessment No assessment recorded. Plan of Treatment Reminders Order Date Submit Date Provider Last Modified By Organization Details Last Modified Time Details Appointments None recorded. Lab None recorded. Referral physical therapist referral - L knee instability eval & txstrengthe nick program 2024 025 [email or web address] Not available 5 16:20:47 Procedures None recorded. Surgeries None recorded. Imaging XR, knee, 4 or more view - 4v L knee. room 218 2024 025 [address] zuniga [facility] Office, [address] [place] [address] [address], [place], [address], 5 15:55:28 Medication Orders None recorded. Patient TargetsNo targets recorded. Patient InstructionsNo instructions recorded. Reason for Referral Physical Therapist Referral for Instability of joint of left knee L knee instabilityeval & txstrengthening program Referring Physician: Sourav Vazquez, Orthopedic Surgery, Encounter Date: 07/06/2024 Results Created Date Observation Date Name Description Value Unit Range Abnormal Flag Note LastModifiedBy Organization Detail LastModifiedTime 07/06/1907/06/2024 XR, knee, 4 or more view [email or web address] ?Encry pted=s hAaTro YD8dLq bEUv6g %2BXZw aYqtaq 0bqfl% 2Fg9IQ a4ajBk vP9nXo QUaueC m3YtLR FvZlgJ JJ8mAn HZtai3 [id number] AC0Kqb HyBWKa hKiQtr MwF INTERFACE [email or web address] [facility] Office [address], [place], [address], 07/06/2024 15:16:36 07/06/19 25 07/06/2024 XR, knee, 4 or more view [email or web address] ?Encry pted=s hAaTro YD8dLq bEUv6g %2BXZw aYqtaq 0bqfl% 2Fg9IQ a4ajBk vP9nXo QUaueC m3YtLR FvZlgJ JJ8mAn HZtai3 [id number] AC0Kqb HyBWKa hKiQtr MwF INTERFACE [employer] [facility] [address] [facility] [address], [address], 07/06/2024 15:16:38 Result Notes None recorded. Problems Name Problem SNOMED Code Status Onset Date Resolution Date Notes Provider Name and Address Organization Details Recorded Time No complaints 073388102 Active Status : 'A'; Not Available [facility] 09:11[facility]58 Problem Notes None recorded. Procedures Surgical History None recorded. Imaging Results Imaging Date Name Status LastModified by Organiz ation Details LastModified Time 07/06/2024 XR, knee, 4 or more view completed [employer] [address], [address], 07/06/2024 15:16:36 07/06/2024 XR, knee, 4 or more view completed [employer]FACE [employer] [address], [place], [address], 07/06/2024 15:16:38 Procedure Notes None recorded. Medical Equipment None Reported. Allergies No known drug allergies Medications Name Sig Start Date Stop Date Status Note LastModified by Organization Details LastModified Time fluconazole 150 mg tablet TAKE ONE TABLET ONCE A WEEK active Not Available Not Available No t Available ketotifen 0.025 % (0.035 %) eye drops USE ONE DROP TO EYES TWICE A DAY NEEDED FOR ALLERGIES active Not Available Not Available No t Available hydroxyzine pamoate 50 mg capsule TAKE ONE CAPSULE EVERY 6 HOURS NEEDED FOR ITCHING active Not Available Not Available No t Available amlodipine 5 mg tablet TAKE ONE TABLET ONCE DAILY active Not Available Not Available No t Available fluticasone propionate 50 mcg/actuati on nasal spray,suspe nsion ADMINISTE R 1-2 SPRAYS INTO EACH NOSTRIL IN THE MORNING. EVERY DAY NEEDED active Not Available Not Available No t Available amoxicillin 875 mg-potassiu m clavulanate 125 mg tablet TAKE 1 TABLET BY MOUTH TWICE A DAY FOR 5 DAYS 07/06 completed Not Available Not Available Not Available Humalog KwikPen Insulin active Not Available Not Available Not Available oxycodone HCl-oxycodo ne-ASA 1 every 4 - 6 hours as needed 07/06 completed Statu s: 'Curr ent'; Not Available Not Available Not Available Vitals Date Recorded Body weight Body mass index (BMI) Body height Provider Name and Address Organization Details Last Updated DateTime 07/06/2024 11227.96 g 30.1 kg/m2 156.21 cm Monserrat Chaudhari [place] - [facility] 07/06/2024 15:06:25 Social History None recorded. Functional Status None recorded. Mental Status None recorded. Family History Nothing Reported. Medical History Condition Response Allergies/Hayfever N Coronary Artery Disease N Breathing or lung disorders N Anxiety/Depression N Emphysema N Nerve Disorders N Thyroid Problems N COPD N Pacemaker N Anemia N Kidney/Bladder Problems N Vascular Disease N Heart Trouble N Heart Attack ([place]) N Gastrointestinal Disease N Cholesterol N Diabetes Y Autoimmune disease N Bleeding Disorder N Inflammatory Joint disease N Orthotics N Arthritis N Seizures/Epilepsy N Blood Clot N AIDS/HIV N Congestive Heart Failure (CHF) N Acid Reflux (GERD) N Cancer N Stroke Y Asthma N Circulation Problems N Peripheral Vascular Disease N Sleep Apnea N Hepatitis N Heart Disease N Rheumatoid Arthritis N Arrhythmia N Pulmonary Embolism N Headaches N Fibromyalgia N Hypertension Y Osteoporosis N Gynecological HistoryNo gynecological history recorded. Obstetrics History GPAL:G 0 P 0 0 0 0 Past Encounters Encounter ID Performer Location Encounter Start Date Encounter Closed Date Diagnosis/Indication Diagnosis SNOMED-CT Code Diagnosis ICD10 Code Diagnosis Note [id number] JEN[address]LE M[facility]dez [address] [place] [address] 07/06/2024 14:36:51 07/15/2024 15:37:39 Pain of left knee joint 6904336616 36368 M25.562 Instabilit y of joint of left knee 0248572892 566860 M25.362 Health Concerns Section Related Observation LastModified by Organization Detai ls LastModified Time None Recorded Concern Status LastModified by Organization Details LastModified Time None Recorded Advance Directives Directive None Recorded Payers None recorded. Notes Date Note Type Note Provider Name and Address Organization Details Recorded Time 07/06/2024 text/html I am seeing the patient today under the supervision of {{Kenneth Jacobo}} who was available but who did not see the patient. Ms. 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 Since then, she reyes reported feelings of weakness and instability to the left knee with occasional discomfort with walking. They have been complaining of knee pain now for several months. Symptoms began {{tramatically atra matically*}}. They describe {{sharp achey*}} pain that is primarily related to the knee. They have attempted activity modification, taking NSAIDS, ice, Braces without significant improvement. {{Yes No*}} mechanical symptoms reported. Past medical, social, surgical history reviewed the patient and updated on the intake form that is scanned into the medical record Physical exam: Today on presentation awake, alert, oriented, X 3. {{Non-anatalgic* an talgic}} gait to the {{Right left*}} knee. {{+* -}} assistive devices. {{RIght left*}} knee: ROM is full, stability intact both anterior, posterior, and varus/valgus stress at both 0 and 30 degrees of flexion. No meniscal tenderness. Negative Sherif's maneuver. No crepitus,no effusion, 5/5 strength. {{Right* left}} knee: ROM is full, stability intact both anterior, posterior, and varus/valgus stress at both 0 and 30 degrees of flexion. No meniscal tenderness. Negative Sherif's maneuver. No crepitus,no effusion, 5/5 strength. X-rays were obtained today at [facility] and independently reviewed with the patient. 4 views left knee demonstrate mild medial joint space narrowing but no significant arthritis, fracture dislocation or pathology noted. Assessement and plan. reviewed and discussed at length or feelings of instability or most likely secondary to overall weakness of the musculature following her stroke. Recommended physical therapy for strengthening of the left lower extremity. Also discussed the use of a knee brace. She will follow up with us as needed. The patient is ambulatory, but has weakness and/or instability of their extremity which requires stabilization from this semi-rigid/rigid orthosis to improve their function.Verbal and written instructions for the use and application of this item were given. Patient was instructed that should the brace result in increased pain, decreased sensation, increased swelling or an overall worsening of their medical condition, to pelase contact our office immediately. Sourav Vazquez PA-C [address] [facility] [address], [place], [address], [facility] - [facility] 07/06/2024 15:54:43 OBGyn Episode No OBEpisode recorded.
--- OUTSIDE RECORDS SUMMARY | 2024-07-28 16:17 | XMS_ITS | Encounter Summary ---
Author Organization [employer] Address [address] [place] [address] 7 [place] [address] Care Team Providers Care Pole Lift Operator Name Role Phone West Gallegos MD Primary Care Provider [phone] Encounter Details Date Type Department Care Team ([facility] st Contact Info) Description 05/13/2022 Telephone [facility] MED & PEDS [address] [place], [place] [id number] West Gallegos MD [address] [place] [address] Social History Tobacco Use Types Packs/Day Years Used Date Smoking Tobacco: Never Assessed Comments Unknown Sex and Gender Information Value Date Recorded Sex Assigned at Female 04/07/2022 10:15 AM EDT Legal Sex Female 10:15 AM EDT Gender Identity Female 04/07/2022 10:15 AM EDT Sexual Orientation Straight 04/07/2022 10 :15 AM EDT documented as of this encounter Miscellaneous Notes * Telephone Encounter - Miah Persaud - 05/15/2022 9:34 AM EST Referral Authorization # [id number] given to Rehan from [facility]. * Telephone Encounter - Kimberli Evans - 05/13/2022 2:05 PM EST TC from [facility] with [facility] requesting a updated referral for : [address] [facility] [address] Tel: [phone] Fax: [phone] Referral was done on 08/27/21 but endocrinology office stated they never received referral. Pcp dr. Gallegos documented in this encounter Plan of Treatment Upcoming Encounters Date Type Department Care Team ([facility] st Contact Info) Description 09/16/2024 2:30 PM EDT Office Visit [facility] MED & PEDS [address] [place] [address] West Gallegos MD [address] [place] [address] documented as of this encounter Visit Diagnoses Not on filedocumented in this encounter Care Teams Pole Lift Operator Relationship Specialty Start Date End Date West Gallegos MD [address] [place] [address] PCP - General Internal Medicine 01/26/18 documented as of this encounter
--- OUTSIDE RECORDS SUMMARY | 2024-07-28 16:17 | XMS_ITS | Continuity of Care Document ---
Author Organization [place] - [facility] Surgeons [facility], [facility] 2[address] floor Address [address] [place] [address] Care Team Providers Care Car Parker Name Role Phone [facility] Primary Care Provider Assessment No assessment recorded. Plan of Treatment Reminders Order Date Submit Date Provider Last Modified By Organization Details Last Modified Time Details Appointments None recorded. Lab None recorded. Referral physical therapist referral - L knee instability eval & txstrengthe nick program 2024 025 [email or web address] Not available 5 16:20:47 Procedures None recorded. Surgeries None recorded. Imaging XR, knee, 4 or more view - 4v L knee. room 218 2024 025 [address] [facility] Office, [address], [facility] [address], [place], [address], 5 15:55:28 Medication Orders None recorded. Patient TargetsNo targets recorded. Patient InstructionsNo instructions recorded. Reason for Referral Physical Therapist Referral for Instability of joint of left knee L knee instabilityeval & txstrengthening program Referring Physician: Sourav Vazquez, Orthopedic Surgery, Encounter Date: 07/06/2024 Results Created Date Observation Date Name Description Value Unit Range Abnormal Flag Note LastModifiedBy Organization Detail LastModifiedTime 07/06/19 25 07/06/2024 XR, knee, 4 or more view [email or web address] ?Encry pted=s hAaTro YD8dLq bEUv6g %2BXZw aYqtaq 0bqfl% 2Fg9IQ a4ajBk vP9nXo QUaueC m3YtLR FvZlgJ JJ8mAn HZtai3 [id number] AC0Kqb HyBWKa hKiQtr MwF INTERFACE [facility] Office [address] [facility] [address], [place], [address], 07/06/2024 15:16:36 07/06/1907/06/2024 XR, knee, 4 or more view [email or web address] ?Encry pted=s hAaTro YD8dLq bEUv6g %2BXZw aYqtaq 0bqfl% 2Fg9IQ a4ajBk vP9nXo QUaueC m3YtLR FvZlgJ JJ8mAn HZtai3 [id number] AC0Kqb HyBWKa hKiQtr MwF INTERFACE [facility] Office [address] [facility] [address], [place], [address], 07/06/2024 15:16:38 Result Notes None recorded. Problems Name Problem SNOMED Code Status Onset Date Resolution Date Notes Provider Name and Address Organization Details Recorded Time No complaints 488441516 Active Status : 'A'; Not Available [facility] 4 09:11:58 Problem Notes None recorded. Medical Equipment None Reported. [...] Address Organization Details Last Updated DateTime 07/06/2024 26360.96 g 30.1 kg/m2 156.21 cm Monserrat Chaudhari [place] - [facility] 07/06/2024 15:06:25 Social History None recorded. Functional Status None recorded. Mental Status None recorded. Family History Nothing Reported. Medical History Condition Response Allergies/Hayfever N Coronary Artery Disease N Breathing or lung disorders N Anxiety/Depression N Emphysema N Nerve Disorders N Thyroid Problems N COPD N Pacemaker N Anemia N Kidney/Bladder Problems N Vascular Disease N Heart Trouble N Heart Attack ([place]) N Gastrointestinal Disease N Cholesterol N Diabetes [...] SNOMED-CT Code Diagnosis ICD10 Code Diagnosis Note [id number] JENELLE Méndez [address] floor [address] [place] [address] 07/06/2024 14:36:51 07/15/2024 15:37:39 Pain of left knee joint 3656139617 42745 M25.562 Instabilit y of joint of left knee 7877122441 153975 M25.362 Health Concerns Section Related Observation LastModified by Organization Detai ls LastModified Time None Recorded Concern Status LastModified by Organization Details LastModified Time None Recorded Payers None recorded. Notes Date Note Type Note Provider Name and Address Organization Details Recorded Time 07/06/2024 text/html I am seeing the patient today under the supervision of {{Kenneth ingram* Donnell}} who was available but who did not [...] 5/5 strength. X-rays were obtained today at [facility] and independently reviewed with the patient. [...] our office immediately. Sourav Vazquez PA-C [address] [facility] [address], [place], [address], [facility] - [facility] 07/06/2024 15:54:43 OBGyn Episode No OBEpisode recorded.
--- OUTSIDE RECORDS SUMMARY | 2024-07-28 16:17 | XMS_ITS | Data Portability ---
Author Organization [place] [facility] Maria R Morales [facility] [place] Address [address] [place] [address] Care Team Providers Care Accounts Payable Representative Name Role Phone IVETTE LIRIANO Referring Provider [...] surgery was performed. Not available 06/24/2024 13:37:39 07/08/2024 07/08/2024 The above findin gs are discussed in detail today with the [...] Appointments None recorded. Lab None recorded. Referral orthopedic spine surgeon referral - evaluate for bilateral cervical radiculopat hy, s/p carpal tunnel release with return of symptoms 2022 023 [email or web address] Not available 09:05:50 Procedures None recorded. Surgeries trigger finger release (SURG) 2024 025 RENATO Not available 10:24:37 Imaging None recorded. Medication Orders lidocaine (PF) 10 mg/mL (1 %) injection solution 2022 023 [address] [address], [address], [address], [place], [place], [id number], 14:53:42 Kenalog 10 mg/mL suspension for injection 2022 023 [email or web address] [address], [address], [address], [place], [place], [id number], 14:53:39 lidocaine (PF) 10 mg/mL (1 %) injection solution 2022 023 [address] [place] [address], [address], [address], [place], [place], [id number], 14:53:42 Kenalog 10 mg/mL suspension for injection 2022 023 [address] [address], [address], [address], [place], [place], [id number], 14:53:39 Patient TargetsNo targets recorded. Patient Instructions Encounter Date Encounter Id Patient Instructions Last Modified By Organization Details Last Modified Time 04/23/2023 [id number] An electrodiagno stic study from 07/16/2021 done at [facility] was available for review, this demonstrates [...] An electrodiagnostic study from 02/23/2023 done at [facility] was available for review, this demonstrates [...] Time Carpal tunnel syndrome of right wrist 3035338641925 08 Active 2022 Mel lao MD [address], [place], [address], [facility] 3 18:41:21 Carpal tunnel syndrome of left wrist 4575346453664 02 Active 2022 Mel lao MD [address], [place], [address], [place] [facility] 3 18:41:24 Acquired trigger finger of left index finger 1842897009294 04 Active 2023 Mel lao MD [address], [place], [address], [place] [facility] 4 16:51:27 Triggering of digit 786361521 Active 2024 Mel lao MD [address], [place], [address], [place] [facility] 5 12:25:26 Problem Notes None recorded. Procedures Surgical History Date Name Laterality Status Provider Name and Address Organization Details Recorded Time 5 TRIGGER FINGER RELEASE (SURG) completed Adriane Arias [facility] 06/24/2024 10:24:43 3 LES carpal tunnel injection completed Mel Bennett MD [address], [place], [address], [place] [facility] 04/23/2023 18:34:11 3 LES trigger finger/De Quervain's injection completed Mel Bennett MD [address] [facility],[address], [place], [address], [place] [facility] 04/23/2023 18:33:58 Imaging Results None recorded. [...] Not Available Not Available Not Available dextrometho ronan-adán enesin 10 mg-100 mg/5 [...] Updated DateTime 04/23/2023 165.1 cm 25.5 kg/m2 53839.63 g Shawna Quijano [facility] 04/23/2023 13:55:27 Date Recorded Body height Body mass index (BMI) Body weight Provider Name and Address Organization Details Last Updated DateTime 07/08/2024 165.1 cm 25.5 kg/m2 32186.63 g Shawna Quijnao [facility], [facility] 07/08/2024 14:53:17 Social History Question Answer Notes LastModified by Organizat ion Details LastModified Time Tobacco Smoking Status Current Every Day Smoker Shawna Quijano [facility], [facility], [facility] 04/23/2023 14:16:08 What Is Your Level [...] Blood Transfusion N Emphysema N Hypothyroidism N COPD N Depression N Pacemaker N Vascular Disease N Gastrointestinal Disease N Anxiety Disorder N Autoimmune disease N Arthritis N Cancer N Stroke N High Cholesterol N Neurologic Disorder N Liver Disease N Organ Transplant N Arrhythmia N Rheumatoid Arthritis N Fibromyalgia N Kidney Disease N Allergies/Hayfever N Adverse Reaction to Anesthesia N Thyroid Problems N Anemia N Brain Injury N Heart Attack ([place]) N Osteopenia N Diabetes Y Bleeding Disorder [...] SNOMED-CT Code Diagnosis ICD10 Code Diagnosis Note [id number] MD SANJEEV [facility] [address] [address] 04/23/2023 13:45:40 04/23/2023 15:06:40 Acquired trigger finger of right index finger 0164823272 72602 M65.321 Pain of right wrist 3169 743449 04205 M25.531 Carpal wilberto rebecca syndrome of right wrist 0245030541 76655 G56.01 Carpal wilberto rebecca syndrome of left wrist 9241631207 95468 G56.02 [id number] MD SANJEEV [facility] [address] [address] 06/10/2023 15:23:26 06/10/2023 16:43:05 Carpal tunnel syndrome of left wrist 0445160978 44229 G56.02 Carpal wilberto rebecca syndrome of right wrist 4631310104 94301 G56.01 Acquired t gum sprayer finger of left index finger 6478027270 44503 M65.322 [id number] MD SANJEEV [facility] [address] [address] 06/09/2024 15:05:04 06/09/2024 15:39:01 Acquired trigger finger of left index finger 2207860877 83736 M65.322 Carpal wilberto rebecca syndrome of right wrist 6773342527 96561 G56.01 Carpal iwlberto rebecca syndrome of left wrist 0915424417 55330 G56.02 [id number] Mel Bennett MD [address] [place] [address] 07/08/2024 14:44:47 07/08/2024 15:15:11 Acquired trigger finger of left index finger 4963111453 11274 M65.322 Health Concerns Section Related Observation LastModified by Organization Detai ls LastModified Time None Recorded Concern Status LastModified by Organization Details LastModified Time None Recorded Advance Directives Directive None Recorded Payers Encounter Date Sequence Insurance Name Policy Number Policy Jiménez Covered Member ID Jiménez Member ID Guarantor Name 04/23/2023 1 [place] Miladys Shane [id number] Aliza Shane 06/10/2023 1 [place] Miladys Shane [id number] Aliza Shane 06/09/2024 1 [place] Miladys Shane [id number] Aliza Shane 07/08/2024 1 [place] Miladys Acosta [id number] Aliza Shane Notes Date Note Type Note Provider Name and Address Organization Details Recorded Time 04/23/2023 text/html This is a 48-yea r-old uqjeg-knvu-jduoupho female who is presenting with bilateral, right [...] and long finger. Mel Bennett MD [address] [address], [place], [address], [facility] 04/23/2023 18:45:28 06/10/2023 text/html She returns to [facility] for right hand numbness and tingling status [...] bother her much. Mel Bennett MD [address] [address], [place], [address], [facility] 06/10/2023 16:51:39 06/09/2024 text/html She presents [...] in the eights. She does see an pattern puncher for this. She also tells me she [...] does not drink alcohol. Mel Bennett MD [address] [facility],[address], [place], [address], [place] [facility] 06/24/2024 13:37:41 07/08/2024 text/html She presents for postop follow-up [...] Mel Bennett MD [address], [place], [address], [place] [facility] 07/10/2024 10:44:40 OBGyn Episode No OBEpisode recorded.
--- OUTSIDE RECORDS SUMMARY | 2024-07-28 16:17 | XMS_ITS | Encounter Summary ---
Author Organization [facility] Address [address] [place] [address] 7 [place] [address] Care Team Providers Care Harness Preparer Name Role Phone West Gallegos MD Primary Care Provider [phone] Reason for Visit * Reason Comments Med Refill Encounter Details Date Type Department Care Team ([facility] Contact Info) Description 07/10/2022 Refill [facility] MED & PEDS [address] [place], [place] [phone] West Gallegos MD [address] [place] [address] Subacute cough Social History Tobacco Use Types Packs/Day Years [...] Patient Health Questionnaire-2 Score 0 05/23/2022 Comments Unknown Sex and Gender Information Value [...] suspected to have Coronavirus/COVID-19? No / Unsure 07/03/2022 3:13 PM EST documented as of this encounter Plan of Treatment Upcoming Encounters Date Type Department Care Team (Late st Contact Info) Description 09/16/2024 2:30 PM EDT Office Visit [facility] MED & PEDS [address] [place] [address] West Gallegos MD [address] [place] [address] documented as of this encounter Visit Diagnoses Diagnosis Subacute cough documented in this encounter Additional Health Concerns Assessment Noted Time PHQ-9 Depression Total Score: 3 05/23/20 22 1:43 PM EST documented as of this encounter Care Teams Harness Preparer Relationship Specialty Start Date End Date West Gallegos MD [address] [place] [address] PCP - General Internal Medicine 01/26/18 documented as of this encounter
--- OUTSIDE RECORDS SUMMARY | 2024-07-28 16:17 | XMS_ITS | Encounter Summary ---
Author Organization [employer] Address [address] [facility] 7 [place] [address] Care Team Providers Care Veterinary Attendant Name Role Phone West Gallegos MD Primary Care Provider [phone] Reason for Visit * Reason Onset Date Comments Appointment Request 03/25/2024 Encounter Details Date Type Department Care Team ([facility] st Contact Info) Description 03/25/[address] [facility] MEDICINE [address] [place] [address] West Gallegos MD [address] [place] [address] Appointment Request Social History Tobacco Use Types Packs/Day Years [...] encounter Miscellaneous Notes * Telephone Encounter - Jer Soto - 03/25/2024 9:16 AM EDT TC from pt missed 03/[address] Gallegos due to an emergency that happened . Pt called in to rescheduled . Was provided with a future visit for April . Pt states would like to see pcp prior due to work. States goes back into work a of 04/04 documented in this encounter Plan of Treatment Upcoming Encounters Date Type Department Care Team (Late st Contact Info) Description 09/16/2024 2:30 PM EDT Office Visit [facility] CHC MED & PEDS [address] [place] [address] West Gallegos MD [address] [place] [address] documented as of this encounter Visit Diagnoses Not on filedocumented in this encounter Additional Health Concerns Assessment Noted Time PHQ-9 Depression Total Score: 21 024 10:02 AM EDT documented as of this encounter Care Teams Veterinary Attendant Relationship Specialty Start Date End Date West Gallegos MD [address] [place] [address] PCP - General Internal Medicine 01/26/18 documented as of this encounter
--- OUTSIDE RECORDS SUMMARY | 2024-07-28 16:17 | XMS_ITS | Encounter Summary ---
Author Organization [employer] Address [address] [place] [address] [place] [address] Care Team Providers Care Chief Clerk Name Role Phone West Gallegos MD Primary Care Provider [phone] Reason for Visit * Reason Onset Date Comments Med Refill 01/15/2023 Encounter Details Date Type Department Care Team ([facility] st Contact Info) Description 01/15/2023 Telephone [facility] CHC MED & PEDS [address] [place], [place] [phone] West Gallegos MD [address] [place] [address] Med Refill Social History Tobacco Use Types Packs/Day Years [...] encounter Miscellaneous Notes * Telephone Encounter - Dorinda Boothe LPN - 01/15/2023 9:08 AM EDT Please review request last office visit on 12/18/22 states no change in medication. * Telephone Encounter - Stacy Hung - 01/15/2023 9:00 AM EDT Tc from pt requesting refill on insulin lispro (HumaLOG) 100 UNIT/ML injection to be sent to [facility] [place] - [place], [place] - [address] [place] [address]. States instructions have to be change from 18 units to 26 units due to PCP ordering her to take more. documented in this encounter Plan of Treatment Upcoming Encounters Date Type Department Care Team (Late st Contact Info) Description 09/16/2024 2:30 PM EDT Office Visit [facility] CHC MED & PEDS [address] [place] [address] West Glalegos MD [address] [place] [address] documented as of this encounter Visit Diagnoses Diagnosis Type 2 diabetes mellitus with other neurologic complication, with long-term current use of insulin ([facility])- Primary documented in this encounter Additional Health Concerns Assessment Noted Time PHQ-9 Depression Total Score: 3 05/23/20 22 1:43 PM EST documented as of this encounter Care Teams Chief Clerk Relationship Specialty Start Date End Date West Gallegos MD [address] [place] [address] PCP - General Internal Medicine 01/26/18 documented as of this encounter
== END ==
PROVIDERS: PCP Internal Medicine; Visit Provider Nurse Practitioner Adult Health
DX: E11.65 Type 2 diabetes mellitus with hyperglycemia (principal)
CPT/HCPCS: 95251

== ENCOUNTER 2024-10-03 15:42 | Outpatient (REF) | payer MEDICAID, SELFPAY ==
[2024-10-03 17:43] LABS: Anion Gap 12 (12-20); Blood Urea Nitrogen 10 mg/dL (9-16); Calcium 9.4 mg/dL (8.4-10.2); Carbon Dioxide 24 mmol/L (22-29); Chloride 107 mmol/L (96-108); Estimated Glomerular Filt Rate > 60; Glucose Random 111 mg/dL (60-115); Magnesium 1.8 mg/dL (1.6-2.6); Potassium 3.5 mmol/L (3.3-5.1); Sodium 139 mmol/L (135-145)
--- OUTSIDE RECORDS SUMMARY | 2024-10-03 18:29 | XMS_ITS | Encounter Summary ---
Author Organization [facility] Address [address] [facility] 7 [place] [address] Care Team Providers Care Outside Food Server Name Role Phone West Gallegos MD Primary Care Provider [phone] Reason for Visit * Reason Onset Date Comments Referral 08/06/2023 Encounter Details Date Type Department Care Team ([facility] st Contact Info) Description 08/06/2023 Telephone [facility] MEDICINE [address] [place] [address] West Gallegos MD [address] [place] [address] Referral Social History Tobacco Use Types Packs/Day [...] referral : DATE: N/A TIME: N/A Address: [address] [place] [address] Visits: Every 2 months Facility Name: Dr. Martínez Mitchell II Type of Specialist: [employer] Specialist Phone #: [phone] Pt requested call back with referral number if possible. Please contact pt at [phone]. documented in this encounter Plan of Treatment Upcoming Encounters Date Type Department Care Team ([facility] st Contact Info) Description 12/30/2024 2:30 PM EDT Office Visit [facility] MED & PEDS [address] [place] [address] West Gallegos MD [address] [place] [address] documented as of this encounter Visit Diagnoses Not on filedocumented in this encounter Additional Health Concerns Assessment Noted Time PHQ-9 Depression Total Score: 3 05/23/20 22 1:43 PM EST documented as of this encounter Care Teams Outside Food Server Relationship Specialty Start Date End Date West Gallegos MD [address] [place] [address] PCP - General Internal Medicine 01/26/18 documented as of this encounter
--- OUTSIDE RECORDS SUMMARY | 2024-10-03 18:29 | XMS_ITS | Encounter Summary ---
Author Organization [employer] [facility] Address [address] [place] [address] [place] [address] Care Team Providers Care Bi Lead Name Role Phone West Gallegos MD Primary Care Provider [phone] Reason for Visit * Reason Onset Date Comments Other 10/01/2022 Encounter Details Date Type Department Care Team ([facility] Contact Info) Description 10/01/2022 Telephone [facility] CHC MED & PEDS [address] [place], [place] [phone] West Gallegos MD [address] [place] [address] Other Social History Tobacco Use Types Packs/Day [...] 10:16 AM EDT Tc from Laura at [facility] calling in regards to nerve conduction order for 12/22/22. Laura would like to know if PCP would like to include EMG. Patient did get the EMG last year on 07/16/21. Any further questions please call [phone] fax number [phone]. Billing Analyst was unable to see order. documented in this encounter Plan of Treatment Upcoming Encounters Date Type Department Care Team (Late st Contact Info) Description 12/30/2024 2:30 PM EDT Office Visit [facility] MED & PEDS [address] [place] [address] West Gallegos MD [address] [place] [address] documented as of this encounter Visit Diagnoses Not on filedocumented in this encounter Additional Health Concerns Assessment Noted Time PHQ-9 Depression Total Score: 3 05/23/20 22 1:43 PM EST documented as of this encounter Care Teams Bi Lead Relationship Specialty Start Date End Date West Gallegos MD [address] [place] [address] PCP - General Internal Medicine 01/26/18 documented as of this encounter
--- OUTSIDE RECORDS SUMMARY | 2024-10-03 18:29 | XMS_ITS | Encounter Summary ---
Author Organization [employer] Address [address] [place] [address] 7t [place] [address] Care Team Providers Care Handy Man Name Role Phone West Gallegos MD Primary Care Provider [phone] Encounter Details Date Type Department Care Team ([facility] st Contact Info) Description 09/25/2022 Orders Only [facility] CHC MED & PEDS [address] [place], [place] [phone] West Gallegos MD [address] [place] [address] Bilateral carpal tunnel syndrome (Primary Dx) Social [...] Description 12/30/2024 2:30 PM EDT Office Visit [facility] MED & PEDS [address] [place] [address] West Gallegos MD [address] [place] [address] documented as of this encounter Visit Diagnoses Diagnosis Bilateral carpal tunnel syndrome- Primary Carpal tunnel syndrome documented in this encounter Additional Health Concerns Assessment Noted Time PHQ-9 Depression Total Score: 3 05/23/20 22 1:43 PM EST documented as of this encounter Care Teams Handy Man Relationship Specialty Start Date End Date West Gallegos MD [address] [place] [address] PCP - General Internal Medicine 01/26/18 documented as of this encounter
--- OUTSIDE RECORDS SUMMARY | 2024-10-03 18:29 | XMS_ITS | Encounter Summary ---
Author Organization [employer] Address [address] [facility] 7t [place] [address] Care Team Providers Care Healthcare Network Consultant Name Role Phone West Gallegos MD Primary Care Provider [phone] Encounter Details Date Type Department Care Team ([facility] st Contact Info) Description 09/08/2024 Orders Only [facility] CHC MED & PEDS [address] [place], [place] [phone] West Gallegos MD [address] [place] [address] Muscle cramps (Primary Dx) Social History Tobacco Use Types [...] Description 12/30/2024 2:30 PM EDT Office Visit [facility] MED & PEDS [address] [place] [address] West Gallegos MD [address] [place] [address] documented as of this encounter Visit Diagnoses Diagnosis Muscle cramps- Primary documented in this encounter Additional Health Concerns Assessment Noted Time PHQ-9 Depression Total Score: 21 024 10:02 AM EDT documented as of this encounter Care Teams Healthcare Network Consultant Relationship Specialty Start Date End Date West Gallegos MD [address] [place] [address] PCP - General Internal Medicine 01/26/18 documented as of this encounter
--- OUTSIDE RECORDS SUMMARY | 2024-10-03 18:29 | XMS_ITS | Encounter Summary ---
Author Organization [employer] Address [address] [place] [address] 7 [place] [address] Care Team Providers Care Mop Handle Assembler Name Role Phone West Gallegos MD Primary Care Provider [phone] Encounter Details Date Type Department Care Team ([facility] Contact Info) Description 08/03/2023 Orders Only [facility] CHC MED & PEDS [address] [place], [place] [phone] West Gallegos MD [address] [place] [address] Bilateral carpal tunnel syndrome (Primary Dx) Social [...] Upcoming Encounters Date Type Department Care Team ([facility] Contact Info) Description 12/30/2024 2:30 PM EDT Office Visit [facility] CHC MED & PEDS [address] [place] [address] West Gallegos MD [address] [place] [address] documented as of this encounter Visit Diagnoses Diagnosis Bilateral carpal tunnel syndrome- Primary Carpal tunnel syndrome documented in this encounter Additional Health Concerns Assessment Noted Time PHQ-9 Depression Total Score: 3 05/23/20 22 1:43 PM EST documented as of this encounter Care Teams Mop Handle Assembler Relationship Specialty Start Date End Date West Gallegos MD [address] [place] [address] PCP - General Internal Medicine 01/26/18 documented as of this encounter
--- OUTSIDE RECORDS SUMMARY | 2024-10-03 18:29 | XMS_ITS | Encounter Summary ---
Author Organization [employer] Address [address] [place] [address] 7 [place] [address] Care Team Providers Care Buffing Wheel Former Machine Name Role Phone West Gallegos MD Primary Care Provider [phone] Encounter Details Date Type Department Care Team ([facility] Contact Info) Description 10/28/2023 Orders Only [facility] CHC MED & PEDS [address] [place], [place] [phone] West Gallegos MD [address] [place] [address] Type 2 diabetes mellitus with other neurologic complication, with long-term current use of insulin ([facility]) (Primary Dx) Social History Tobacco Use Types [...] Upcoming Encounters Date Type Department Care Team ([facility] Contact Info) Description 12/30/2024 2:30 PM EDT Office Visit [facility] CHC MED & PEDS [address] [place] [address] West Gallegos MD [address] [place] [address] documented as of this encounter Visit Diagnoses Diagnosis Type 2 diabetes mellitus with other neurologic complication, with long-term current use of insulin ([facility])- Primary documented in this encounter Additional Health Concerns Assessment Noted Time PHQ-9 Depression Total Score: 3 05/23/20 22 1:43 PM EST documented as of this encounter Care Teams Buffing Wheel Former Machine Relationship Specialty Start Date End Date West Gallegos MD [address] [place] [address] PCP - General Internal Medicine 01/26/18 documented as of this encounter
--- OUTSIDE RECORDS SUMMARY | 2024-10-03 18:29 | XMS_ITS | Encounter Summary ---
Author Organization [employer] Address [address] [facility] 7 [place] [address] Care Team Providers Care Valet Service Attendant Name Role Phone West Gallegos MD Primary Care Provider [phone] Reason for Visit * Reason Onset Date Comments Nurse Triage 10/03/2024 Encounter Details Date Type Department Care Team ([facility] st Contact Info) Description 10/03/2024 Telephone [facility] CHC MED & PEDS [address] [place] [address] West Gallegos MD [address] [place] [address] Nurse Triage Social History Tobacco Use Types Packs/Day Years [...] encounter Miscellaneous Notes * Telephone Encounter - Angela Byers RN - 10/03/2024 10:03 AM EDT Triage call Pt reports left leg became swollen from knee to foot yesterday. Pt reports that has never happened before. Pt has hx of left hemiparesis. Pt reports the swelling caused pain and discomfort making ambulation difficult. Pt reports swelling is gone this morning. BP is 131/83 this am. Pt isat work during this call. Pt reports a pain occurs, left outer aspect of left calf every time Pt bends at the waist. This pain is a sensation of pins and needles . Pt denies redness, swelling along vein. ASK apt [facility] CHC 10/03/24. Insurance is verified as active prior to booking. Protocol Used: Leg Swelling and Edema (Adult) Protocol-Based Disposition: See in Office or Video Visit Today Video visit not offered Positive Triage Question: * Patient wants to be seen * All higher-acuity triage questions were negative Care Advice Discussed: * Reasons To Call Back - Swelling becomes worse - Swelling becomes red or painful to the touch - Calf pain occurs and becomes constant - You become worse * Telephone Encounter - Amy Roldan - 10/03/2024 9:13 AM EDT Symptom: Leg Swelling - Not From Injury Outcome: Schedule an urgent appointment (within 1 hour) or talk to a nurse or provider soon Reason: Leg swelling on one side only The caller accepted this outcome. 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
--- OUTSIDE RECORDS SUMMARY | 2024-10-03 18:29 | XMS_ITS | Encounter Summary ---
Author Organization [employer] Address 75 [facility] 7t [place] [address] Care Team Providers Care Marble Installer Name Role Phone West Gallegos MD Primary Care Provider [phone] Encounter Details Date Type Department Care Team ([facility] st Contact Info) Description 09/15/2024 Orders Only [facility] CHC MED & PEDS [address] [place], [place] [id number] ProviderLala MD Social History Tobacco Use Types Packs/Day Years [...] Description 12/30/2024 2:30 PM EDT Office Visit [facility] MED & PEDS [address] [place] [address] West Gallegos MD [address] [place] [address] documented as of this encounter Procedures Procedure Name Priority Date/Time Associated Diagnosis Comments DIABETES EYE EXAM Routine 09/14/2024 12:07 PM EDT documented in this encounter Results * Diabetes Eye Exam (09/14/2024 12:07 PM EDT) us Historical Provider HEALTH MAINTENANCE Final Result documented in this encounter Visit Diagnoses Not on filedocumented in this encounter Additional Health Concerns Assessment Noted Time PHQ-9 Depression Total Score: 21 024 10:02 AM EDT documented as of this encounter Care Teams Marble Installer Relationship Specialty Start Date End Date West Gallegos MD [address] [place] [address] PCP - General Internal Medicine 8/21/18 documented as of this encounter
--- OUTSIDE RECORDS SUMMARY | 2024-10-03 18:29 | XMS_ITS | Clinical Summary ---
Author Organization [facility] Address [address] [place] [address] Phone Care Team Providers Care Carpenter Mine Name Role Phone West Gallegos MD Primary Care Provider [phone] Allergies No known active allergies Medications CONCENTRATED insulin regular (HumuLIN R) 500 UNIT/ML patient supplied pump 1 EA by continuous sub-Q infusn (via wearable injector) route continuously. Active Surgical History Surgery Date Site/Laterality Comments [facility] Medical History Medical History Date Comments Diabetes mellitus (CMS/HCC V24, [facility] V28) Stroke (CMS/[facility] V24, [facility] V28) 2023 Social History Tobacco Use Types Packs/Day [...] Care Team (Late st Contact Info) Description 10/25/2024 3:00 PM EDT Office Visit Orthopedic Surgery - [place] [address] [facility] [address] [place] [phone] Gabino Ritchie DPM [address] [address] Health Maintenance Due Date Last Done Comments [...] Vaccine ( season) 2024 06/26/2021, 10/17/2020, 09/19/2020 DTaP,Tdap,and Td Vaccines (2 - Td or Tdap) 04/28/2024 04/28/2014 Diabetes: Annual Urine Albumin-Creatinine Ratio (uACR) 06/15/2024 Hypertension/CHF/CAD Annual BMP Blood Test 06/16/2024 Diabetes: Blood Sugar Control Test (HGBA1C) 12/15/2024 06/17/2024, 11/04/2023 Influenza Vaccine (Season Ended) 2025 03/26/2023, 04/01/2022, 03/19/2021, Additional history exists Depression Screening 02/09/2025 02/10/2024 Colorectal Cancer Screening: [...] age to complete this topic Meningococcal B Vaccine Aged Out No l onger eligible based on patient's age to complete this topic RSV Immunization Patients Under 20 months Aged Out No longer eligible based on patient's age to complete this topic Varicella Vaccines Aged Out No longer eligible based on patient's age to complete this topic Insurance [place]ICA[place] - [place] Advance Directives Documents on File Type Date Recorded Patient Opal Miner Expl anation Health Care Decision (hx) 12/28/2023 HE ALTH CARE PROXY Care Teams Carpenter Mine Relationship Specialty Start Date End Date West Gallegos MD [address] [place] [address] PCP - General 04/01/23
--- OUTSIDE RECORDS SUMMARY | 2024-10-03 18:29 | XMS_ITS | Encounter Summary ---
Author Organization [employer] Address [address] [place] [address] 7 [place] [address] Care Team Providers Care Induction Brazer Name Role Phone West Gallegos MD Primary Care Provider [phone] Encounter Details Date Type Department Care Team ([facility] Contact Info) Description 04/03/2023 Orders Only [facility] CHC MED & PEDS [address] [place], [place] [phone] West Gallegos MD [address] [place] [address] Type 2 diabetes mellitus with other neurologic complication, with long-term current use of insulin ([facility]) (Primary Dx) Social History Tobacco Use [...] Upcoming Encounters Date Type Department Care Team ([facility] Contact Info) Description 12/30/2024 2:30 PM EDT Office Visit C CHC MED & PEDS 505 [facility] [place] [address] West Gallegos MD [address] [facility] [address] documented as of this encounter Procedures Procedure [...] EDT Narrative 04/07/2023 7:11 AM EDT ? [facility] ?[address] ?[place] [address] ?XRay Report ? Signed ? Patient: Aliza Shane ?MR#: [id number] ?? [id number] ? : 1975 ?Acct:[id number] ? Age/Sex: 48 / F ?ADM Date: 04/02/23 ? Loc: HO.LAB ? Attending Dr: Tomas Lewis MD ? Ordering Physician: Tomas Lewis MD ?? Date of Service: 04/02/23 ?? Procedure(s): XR wrist LT min 3V ?? Accession Number(s): [id number] ? cc: West Gallegos MD; Tomas Lewis [...] LT min 3V ?? IMPRESSION: ?? 1. Aggh-jr-xwfvwczo degenerative changes as detailed above. ? 2. No displaced fracture. ? Recommend followup imaging in 10-14 days if fracture is suspected. ? Dictated By: ?Leticia Bo MD ? Signed By: ?<Electronically signed by Leticia Bo MD in OV> ? 10/31/23 0708 ? DD/ 1520 ? TD/TT: ? Medical Delivery Driver: ? Procedure Note Nathan, Image - 04/07/2023 [place] [address] XRay Report Signed Patient: Lakeshia Shane#: [id number] : 1975Acct:[id number] Age/Sex: 48 / FADM Date: 04/02/23 Loc: HO.LAB Attending Dr: Tomas Lewis MD Ordering Physician: Tomas Lewis MD Date of Service: 04/02/23 Procedure(s): XR wrist LT min 3V Accession Number(s): [id number] cc: West Gallegos MD; Tomas Lewis MD [...] XR/XR wrist LT min 3V IMPRESSION: 1. Tjed-xb-yegsrwya degenerative changes as detailed above. 2. No displaced fracture. Recommend followup imaging in 10-14 days if fracture is suspected. Dictated By: Leticia Bo MD Signed By: <Electronically signed by Leticia Bo MD in OV> 04/07/23 0708 DD/ 1520 TD/TT: Medical Delivery Driver: us [facility] External Provider IMG XR PROCEDURES Final Result * XR Wrist 3+ Views Right (04/02/2023 3:20 PM EDT) Anatomical Region Laterality Modality Upper Extremities, Wrist Right Radiogr aphic Imaging 04/02/2023 3:20 PM EDT Narrative 04/07/2023 7:11 AM EDT ? [facility] ?[address] ?[place] [address] ?XRay Report ? Signed ? Patient: Aliza Shane ?MR#: [id number] ?? [id number] ? : 1975 ?Acct:[id number] ? Age/Sex: 48 / F ?ADM Date: 04/02/23 ? Loc: HO.LAB ? Attending Dr: Tomas Lewis MD ? Ordering Physician: Tomas Lewis MD ?? Date of Service: 04/02/23 ?? Procedure(s): XR wrist RT min 3V ?? Accession Number(s): [id number] ? cc: West Gallegos MD; Tomas Lewis [...] RT min 3V ?? IMPRESSION: ?? 1. Rxax-aw-joxxiqon degenerative changes as detailed above. ? 2. No displaced fracture. ? Recommend followup imaging in 10-14 days if fracture is suspected. ? Dictated By: ?Leticia Bo MD ? Signed By: ?<Electronically signed by Leticia Bo MD in OV> ? 04/07/23 0708 ? DD/ 1520 ? TD/TT: ? Medical Delivery Driver: ? Procedure Note Nathan, Image - 04/07/[address] [address] XRay Report Signed Patient: Lakeshia Shane#: [id number] : 1975Acct:[id number] Age/Sex: 48 / FADM Date: 04/02/23 Loc: HO.LAB Attending Dr: Tomas Lewis MD Ordering Physician: Tomas Lewis MD Date of Service: 04/02/23 Procedure(s): XR wrist RT min 3V Accession Number(s): [id number] cc: West Gallegos MD; Tomas Lewis MD [...] XR/XR wrist RT min 3V IMPRESSION: 1. Jjml-gf-fpsuahqv degenerative changes as detailed above. 2. No displaced fracture. Recommend followup imaging in 10-14 days if fracture is suspected. Dictated By: Leticia Bo MD Signed By: <Electronically signed by Leticia Bo MD in OV> 04/07/23 0708 DD/ 1520 TD/TT: Medical Delivery Driver: [facility] External Provider IMG XR PROCEDURES Final Result documented in this encounter Visit Diagnoses Diagnosis Type 2 diabetes mellitus with other neurologic complication, with long-term current use of insulin ([facility])- Primary documented in this encounter Additional Health Concerns Assessment Noted Time PHQ-9 Depression Total Score: 3 05/23/20 22 1:43 PM EST documented as of this encounter Care Teams Induction Brazer Relationship Specialty Start Date End Date West Gallegos MD [address] [place] [phone] PCP - General Internal Medicine 01/26/18 documented as of this encounter
--- OUTSIDE RECORDS SUMMARY | 2024-10-03 18:29 | XMS_ITS | Encounter Summary ---
Author Organization [employer] Address [address] [place] [address] 7 [place] [address] Care Team Providers Care Manager Leasing Name Role Phone West Gallegos MD Primary Care Provider [phone] Reason for Visit * Reason Comments Left calf pain Encounter Details Date Type Department Care Team ([facility] Contact Info) Description 10/03/2024 3:20 PM EDT Office Visit [facility] CHC MED & PEDS [address] [place] [address] West Gallegos MD [address] [place] [address] Muscle cramp (Primary Dx); Primary hypertension; Angular cheilitis; Type 2 diabetes mellitus with other neurologic complication, with long-term current use of insulin ([facility]) Social History Tobacco Use Types Packs/Day Years [...] Sign Reading Time Taken Comments Blood Pressure 128/79 10/03/2024 3:12 PM EDT Pulse 92 10/03/2024 3:12 PM EDT Temperature 36.7 ??C (98 ??F) 10/03/2024 3:12 PM EDT Respiratory Rate 20 10/03/2024 3:12 PM EDT Oxygen Saturation 97% 10/03/2024 3:12 PM EDT Inhaled Oxygen Concentration - - Weight 75.8 kg (167 lb) 10/03/2024 3:12 PM EDT Height 165.1 cm (5' 5 ) 10/03/2024 3:12 PM EDT Body Mass Index 27.79 10/03/2024 3:12 PM EDT documented in this encounter Progress Notes * West Gallegos MD - 10/03/2024 3:20 PM EDT SUBJECTIVE Aliza Shane is a 49 y.o. female who presents for Left calf pain. HPI 3 days history of left lower limb pain and swelling. The swelling has resolved as per patient. Recently started on Norvasc 10 mg once a day which was increased from 5 mg once a day. The swelling was located on the left lower limb only. And is described as a crampy sensation. No reported fever or other constitutional symptoms. 1 week recurrence of erythema with erosion of the labial commissures. Patient started an avzn-owo-wavdvbc antifungal agent without improvement. Patient Active Problem List Diagnosis Dyslipidemia Flank pain Mateo hematuria Type 2 diabetes mellitus (CMS/HCC) Diabetes mellitus (CMS/HCC) Muscle cramps Depression, unspecified Anxiety disorder, unspecified Preop examination Primary hypertension No Known Allergies Current Outpatient Medications on File Prior to Visit Medication Sig Dispense Refill Alcohol Swabs (Alcohol Prep) pads Use as directed 200 each 11 amitriptyline (Elavil) 10 MG tablet TAKE 1 TO 2 TABLETS BY MOUTH AT BEDTIME 60 tablet 0 amLODIPine (Norvasc) 10 MG tablet Take 1 tablet (10 mg) by mouth Once per day. 30 tablet 11 ammonium lactate (Lac-Hydrin) 12 % lotion Apply topically if needed for dry skin. 400 g 3 aspirin 81 MG EC tablet Take 1 tablet (81 mg) by mouth Once per day. 90 tablet 3 atorvastatin (Lipitor) 80 MG tablet Take 1 tablet (80 mg) by mouth Once per day. 30 tablet 11 Baqsimi Two Pack 3 MG/DOSE nasal powder INSERT ONE SPRAY IN NOSE NEEDED FOR LOW BLOOD SUGAR 2 each 1 betamethasone, augmented, (Diprolene) 0.05 % gel Apply topically 2 times daily. 15 g 0 Blood Glucose Monitoring Suppl (DemoHireStyle Lite) w/Device kit 1 Units 4 times daily. Use daily 1 kit11 busPIRone (Buspar) 5 MG tablet Take 1 tablet (5 mg) by mouth 2 times daily. 60 tablet 11 cetirizine (ZyrTEC) 10 MG tablet Take 1 tablet by mouth. Every day cholecalciferol (Vitamin D-3) 25 MCG (1000 UT) capsule take 1 Capsule by Oral route once a day Continuous Blood Gluc Deliverer Food (DemoHireStyle Parris 2 Basco) device Use daily Continuous Blood Gluc Sensor (FreeStyle Parris 2 Sensor) misc Use daily 2 each 11 famotidine (Pepcid) 40 MG tablet TAKE ONE TABLET TWICE DAILY 180 tablet 0 fluticasone (Flonase) 50 MCG/ACT nasal spray Administer 1-2 sprays into each nostril Once per day. Every day as needed 16 mL 3 FreeStyle lancets 1 each [...] up to 10 days. 30 capsule 0 ibuprofen 800 MG tablet Take 1 tablet (800 mg) by mouth Once per day. 30 tablet 0 insulin glargine (Lantus SoloStar) 100 UNIT/ML [...] by mouth at bedtime. 30 tablet 5 mirtazapine (Remeron) 15 MG tablet Take 1 tablet (15 mg) by mouth at bedtime. 30 tablet 3 Misc. Devices (Wrist Brace) misc Wear daily [...] by mouth at bedtime. 30 tablet 5 [DISCONTINUED] baclofen (Lioresal) 10 MG tablet TAKE 1 TABLET BY MOUTH THREE TIMES DAILY 90 tablet 2 No current facility-administered medications on file prior to visit. Review of Systems Constitutional: Negative for appetite change, chills, diaphoresis and fatigue. Eyes: Negative for photophobia, pain and redness. Respiratory: Negative for cough and choking. Cardiovascular: Negative for leg swelling. Gastrointestinal: Negative for anal bleeding and blood in stool. Genitourinary: Negative for flank pain and frequency. OBJECTIVE Vitals: 10/03/24 1512 BP: 128/79 BP Location: Left arm Patient Position: Sitting BP Cuff Size: Adult Pulse: 92 Resp: 20 Temp: 98 ??F (36.7 ??C) TempSrc: Oral SpO2: 97% Weight: 167 lb (75.8 kg) Height: 5' 5 (1.651 m) Physical Exam Constitutional: General: She is not in acute distress. Appearance: Normal appearance. She is not ill-appearing, toxic-appearing or diaphoretic. Cardiovascular: Rate and Rhythm: Normal rate. Pulmonary: Effort: Pulmonary effort is normal. Musculoskeletal: Comments: Homans' sign is negative No swelling redness tenderness of the left lower limb. Skin: Comments: Erythema with fissures of the labial commissures bilaterally Neurological: Mental Status: She is alert. Assessment/Plan Assessment/Plan Diagnoses and all orders for this visit: Muscle cramp Comments: Most likely. The symptoms are not suggestive of a clot. Patient has stopped her baclofen due to headache. Possible dehydration. Patient advised to increase fluid intake with electrolytes. Labs ordered. Patient will be contacted with results. Advised to start magnesium supplementation in the meantime. Orders: - POCT Glucose - tiZANidine (Zanaflex) 4 MG tablet; Take 1 tablet (4 mg) by mouth every 6 (six) hours if needed for muscle spasms for up to 10 days. - Basic Metabolic Panel; Future - Magnesium; Future - magnesium 30 MG tablet; Take 1 tablet (30 mg) by mouth Once per day. Primary hypertension Comments: Controlled Resume Norvasc 5 mg. Reports if the swelling persist after 1 to 2 weeks.. Orders: - amLODIPine (Norvasc) 5 MG tablet; Take 1 tablet (5 mg) by mouth Once per day. Pt is to remain on 5 mg once a day. Please cancel the prescription for 10 mg daily. Angular cheilitis - econazole nitrate 1 % cream; Apply topically Once per day. Type 2 diabetes mellitus with other neurologic complication, with long-term current use of insulin (CMS/HCC) - POCT Glucose - Basic Metabolic Panel; Future - Magnesium; Future No change in management made today. documented in this encounter Plan of Treatment Upcoming Encounters Date Type Department Care Team (Late st Contact Info) Description 12/30/2024 2:30 PM EDT Office Visit [facility] MED & PEDS [address] [place] [address] West Gallegos MD [address] [place] [address] documented as of this encounter Procedures Procedure Name Priority Date/Time Associated Diagnosis Comments MAGNESIUM Routine 10/03/2024 3:43 PM EDT Muscle cramp Type 2 diabetes mellitus with other neurologic complication, with long-term current use of insulin (CMS/HCC) BASIC METABOLIC PANEL Routine 10/03/2024 3:43 PM EDT Muscle cramp Type 2 diabetes mellitus with other neurologic complication, with long-term current use of insulin (CMS/HCC) POCT GLUCOSE Routine 10/03/2024 3:40 PM EDT Muscle cramp Type 2 diabetes mellitus with other neurologic complication, with long-term current use of insulin (CMS/HCC) documented in this encounter Results * Magnesium (10/03/2024 3:43 PM EDT) Magnesium 1.8 1.6 - 2.6 mg/dL [facility] Blood Venous blood specimen / Unknown 10/03/2024 3:43 PM EDT 10/03/2024 5:23 PM EDT us West Gallegos MD LAB BLOOD ORDERABLES Final Result [facility] [address] [place] [phone] * Basic Metabolic Panel (10/03/2024 3:43 PM EDT) Pathologist [facility] Sodium 139 135 - 145 mmol/L [facility] Potassium 3.5 3.3 - 5.1 mmol/L [facility] Chloride 107 96 - 108 mmol/L [facility] Carbon Dioxide 24 22 - 29 mmol/L [facility] Anion Gap 12 12 - 20 [facility] Urea Nitrogen (BUN) 10 9 - 16 mg/dL [facility] Creatinine, Serum 0.66 0.5 - 1.4 mg/dL [facility] Estimated Glomerular Filt Rate >60 [facility] Comment:Chronic Kidney Disea se: Estimated GFR < 60 mL/min/1.80b8Upfpxr Kidney Disease: Estimated GFR < 15 mL/min/1.73m2 Glucose 111 60 - 115 mg/dL [facility] Calcium 9.4 8.4 - 10.2 mg/dL [facility] Blood Venous blood specimen / Unknown 10/03/2024 3:43 PM EDT 10/03/2024 5:23 PM EDT us West Gallegos MD LAB BLOOD ORDERABLES Final Result [facility] [address] [place] [phone] * POCT Glucose (10/03/2024 3:40 PM EDT) Pathologist [facility] Glucose Blood, POC 125 60 - 200 mg/dL QC Media Lot # [id number] Lot# Expiration Date [id number] Comment:random Blood Capillary blood specimen / Unknown 10/03/2024 3:40 PM EDT West Gallegos MD POINT OF CARE TEST ENTER/ED IT ORDERABLES Final Result documented in this encounter Visit Diagnoses Diagnosis Muscle cramp- Primary Cramp of limb Primary hypertension Unspecified essential hypertension Angular cheilitis Diseases of lips Type 2 diabetes mellitus with other neurologic complication, with long-term current use of insulin ([facility]) documented in this encounter Additional Health Concerns Assessment Noted Time PHQ-9 Depression Total Score: 21 024 10:02 AM EDT documented as of this encounter Care Teams Manager Leasing Relationship Specialty Start Date End Date West Gallegos MD [address] [place] [phone] PCP - General Internal Medicine 01/26/18 documented as of this encounter
--- OUTSIDE RECORDS SUMMARY | 2024-10-03 18:29 | XMS_ITS | Encounter Summary ---
Author Organization [employer] [facility] Address [address] [place] [address] 7 [place] [address] Care Team Providers Care Larry Car Operator Name Role Phone West Gallegos MD Primary Care Provider [phone] Reason for Visit * Reason Onset Date Comments PA 11/20/2022 Encounter Details Date Type Department Care Team ([facility] Contact Info) Description 11/20/2022 Telephone [facility] CHC MED & PEDS [address] [place], [place] [phone] West Gallegos MD [address] [place] [address] [place] Social History Tobacco Use Types Packs/Day [...] information for Insurance. Please contact pt at [phone] documented in this encounter Plan of Treatment Upcoming Encounters Date Type Department Care Team (Late st Contact Info) Description 12/30/2024 2:30 PM EDT Office Visit [facility] CHC MED & PEDS [address] [place] [address] West Gallegos MD [address] [place] [address] documented as of this encounter Visit Diagnoses Not on filedocumented in this encounter Additional Health Concerns Assessment Noted Time PHQ-9 Depression Total Score: 3 05/23/20 22 1:43 PM EST documented as of this encounter Care Teams Larry Car Operator Relationship Specialty Start Date End Date West Gallegos MD [address] [place] [address] PCP - General Internal Medicine 01/26/18 documented as of this encounter
--- OUTSIDE RECORDS SUMMARY | 2024-10-03 18:29 | XMS_ITS | Encounter Summary ---
Author Organization [employer] [facility] Address [address] [place] [address] 7 [place] [address] Care Team Providers Care Mandarin Teacher Name Role Phone West Gallegos MD Primary Care Provider [phone] Reason for Visit * Reason Comments Med Refill Encounter Details Date Type Department Care Team (Late Contact Info) Description 05/20/2023 Refill [facility]EDS [address] [place] [address] West Gallegos MD [address] [place] [address] Cervical radiculopathy; Bilateral carpal tunnel syndrome Social [...] Department Care Team (Late Contact Info) Description 12/30/2024 2:30 PM EDT Office Visit [facility] MED & PEDS [address] [place] [address] West Gallegos MD [address] [place] [address] documented as of this encounter Visit Diagnoses Diagnosis Cervical radiculopathy Brachial neuritis or radiculitis nos Bilateral carpal tunnel syndrome Carpal tunnel syndrome documented in this encounter Additional Health Concerns Assessment Noted Time PHQ-9 Depression Total Score: 3 05/23/20 22 1:43 PM EST documented as of this encounter Care Teams Mandarin Teacher Relationship Specialty Start Date End Date West Gallegos MD [address] [place] [address] PCP - General Internal Medicine 01/26/18 documented as of this encounter
--- OUTSIDE RECORDS SUMMARY | 2024-10-03 18:29 | XMS_ITS | Encounter Summary ---
Author Organization [employer] Address [address] [place] [address] Care Team Providers Care Loftsman/Woman Name Role Phone West Gallegos MD Primary Care Provider [phone] Encounter Details Date Type Department Care Team (Latest Contact Info) Description 10/03/2024 Travel Social History Tobacco Use Types Packs/Day [...] Description 12/30/2024 2:30 PM EDT Office Visit [facility] MED & PEDS [address] [place] [address] West Gallegos MD [address] [place] [address] documented as of this encounter Visit Diagnoses Not on filedocumented in this encounter Additional Health Concerns Assessment Noted Time PHQ-9 Depression Total Score: 21 024 10:02 AM EDT documented as of this encounter Care Teams Loftsman/Woman Relationship Specialty Start Date End Date West Gallegos MD [address] [place] [address] PCP - General Internal Medicine 01/26/18 documented as of this encounter
--- OUTSIDE RECORDS SUMMARY | 2024-10-03 18:29 | XMS_ITS | Encounter Summary ---
Author Organization [employer] [facility] Address [address] [facility] 7 [place] [address] Care Team Providers Care Wedding Cake Designer Name Role Phone West Gallegos MD Primary Care Provider [phone] Reason for Visit * Reason Comments Med Refill Encounter Details Date Type Department Care Team (Late Contact Info) Description 04/17/2023 Refill [facility] MED & PEDS [address] [place] [address] West Gallegos MD [address] [place] [address] Cervical radiculopathy; Bilateral carpal tunnel syndrome Social [...] Description 12/30/2024 2:30 PM EDT Office Visit [facility] MED & PEDS [address] [place] [address] West Gallegos MD [address] [place] [address] documented as of this encounter Visit Diagnoses Diagnosis Cervical radiculopathy Brachial neuritis or radiculitis nos Bilateral carpal tunnel syndrome Carpal tunnel syndrome documented in this encounter Additional Health Concerns Assessment Noted Time PHQ-9 Depression Total Score: 3 05/23/20 22 1:43 PM EST documented as of this encounter Care Teams Wedding Cake Designer Relationship Specialty Start Date End Date West Gallegos MD [address] [place] [address] PCP - General Internal Medicine 01/26/18 documented as of this encounter
--- OUTSIDE RECORDS SUMMARY | 2024-10-03 18:29 | XMS_ITS | Encounter Summary ---
Author Organization [employer] Address [address] [facility] 7 [place] [address] Care Team Providers Care Hand I Tube Bender Name Role Phone West Gallegos MD Primary Care Provider [phone] Reason for Visit * Reason Onset Date Comments Med Refill 09/07/2024 Encounter Details Date Type Department Care Team ([facility] st Contact Info) Description 09/07/2024 Telephone [facility] MEDICINE [address] [place] [address] West Gallegos MD [address] [place] [address] Med Refill Social History Tobacco Use Types [...] encounter Miscellaneous Notes * Telephone Encounter - Christnie Levin - 09/07/2024 1:32 PM EDT TC from pt requesting medication refill. Medications needing refill : ibuprofen 800 MG tablet To be sent to: [facility] [place], [place] - [address] [place] [address] documented in this encounter Plan of Treatment Upcoming Encounters Date Type Department Care Team (Late st Contact Info) Description 12/30/2024 2:30 PM EDT Office Visit [facility] MED & PEDS [address] [place], [place] [phone] West Gallegos MD [address] [place], [place] [phone] documented as of this encounter Visit Diagnoses Not on filedocumented in this encounter Additional Health Concerns Assessment Noted Time PHQ-9 Depression Total Score: 21 024 10:02 AM EDT documented as of this encounter Care Teams Hand I Tube Bender Relationship Specialty Start Date End Date West Gallegos MD [address] [place] [address] PCP - General Internal Medicine 01/26/18 documented as of this encounter
--- OUTSIDE RECORDS SUMMARY | 2024-10-03 18:29 | XMS_ITS | Encounter Summary ---
Author Organization [employer] [facility] Address [address] [facility] 7 [place] [address] Care Team Providers Care Software Development Specialist Name Role Phone West Gallegos MD Primary Care Provider [phone] Reason for Visit * Reason Onset Date Comments request 07/10/2023 Encounter Details Date Type Department Care Team ([facility] st Contact Info) Description 07/10/2023 Telephone [facility] MEDICINE [address] [place] [address] West Gallegos MD [address] [place] [phone] request Social History Tobacco Use Types Packs/Day [...] from pt requesting authorization to see orthopedic, customs entry writer ask pt if need a referral and pt stated again authorization, please contact pt for clarifications. documented in this encounter Plan of Treatment Upcoming Encounters Date Type Department Care Team ([facility] st Contact Info) Description 12/30/2024 2:30 PM EDT Office Visit [facility] MED & PEDS [address] [place] [address] West Gallegos MD [address] [place] [address] documented as of this encounter Visit Diagnoses Not on filedocumented in this encounter Additional Health Concerns Assessment Noted Time PHQ-9 Depression Total Score: 3 05/23/20 22 1:43 PM EST documented as of this encounter Care Teams Software Development Specialist Relationship Specialty Start Date End Date West Gallegos MD [address] [place] [address] PCP - General Internal Medicine 01/26/18 documented as of this encounter
--- OUTSIDE RECORDS SUMMARY | 2024-10-03 18:30 | XMS_ITS | Encounter Summary ---
Author Organization [employer] Address [address] [place] [address] [place] [address] Care Team Providers Care Chocolate Molder Name Role Phone West Gallegos MD Primary Care Provider [phone] Reason for Visit * Reason Onset Date Comments Med Refill 01/15/2023 Encounter Details Date Type Department Care Team ([facility] st Contact Info) Description 01/15/2023 Telephone [facility] MED & PEDS [address] [place], [place] [phone] West Gallegos MD [address] [place] [address] Med Refill Social History Tobacco Use Types [...] 100 UNIT/ML injection to be sent to [facility] - [place], [place] - [address] [place] [address]. States instructions have to be change from 18 units to 26 units due to PCP ordering her to take more. documented in this encounter Plan of Treatment Upcoming Encounters Date Type Department Care Team (Late st Contact Info) Description 12/30/2024 2:30 PM EDT Office Visit [facility] MED & PEDS [address] [place] [address] West Gallegos MD [address] [place] [address] documented as of this encounter Visit Diagnoses Diagnosis Type 2 diabetes mellitus with other neurologic complication, with long-term current use of insulin ([facility] Primary documented in this encounter Additional Health Concerns Assessment Noted Time PHQ-9 Depression Total Score: 3 05/23/20 22 1:43 PM EST documented as of this encounter Care Teams Chocolate Molder Relationship Specialty Start Date End Date West Gallegos MD [address] [place] [address] PCP - General Internal Medicine 01/26/18 documented as of this encounter
--- OUTSIDE RECORDS SUMMARY | 2024-10-03 18:30 | XMS_ITS | Encounter Summary ---
Author Organization [employer] [facility] Address [address] [facility] 7t [place] [address] Care Team Providers Care Real Estate Investment Analyst Name Role Phone West Gallegos MD Primary Care Provider [phone] Reason for Referral * Consultation (Routine) - Authorized Specialty Diagnoses / Procedures Referred By Daniel nascimento Referred To Contact Gastroenterology Diagnoses Positive colorectal cancer screening using Cologuard test West Gallegos MD [address] [place] [address] Phone: tel: fax: [facility] Gastroenterology [address] [place], [place] Phone: tel: fax: Referral ID Status Reason Start Date Expiration Date Visits Requested Visits Authorized [id number] Authorized Specialty Services Required 4 04/22/2025 1 1 Encounter Details Date Type Department Care Team (Late st Contact Info) Description 04/22/2024 Orders Only [facility] MED & PEDS [address] [place] [address] West Gallegos MD [address] [place] [address] Positive colorectal cancer screening using Cologuard test [...] ([facility] st Contact Info) Description 12/30/2024 2:30 PM EDT Office Visit [facility] MED & PEDS [address] [place] [address] West Gallegos MD [address] [place] [address] Scheduled Referrals Name Type Priority Associated Diagnoses [...] documented as of this encounter Care Teams Real Estate Investment Analyst Relationship Specialty Start Date End Date West Gallegos MD [address] [facility] [place] [address] PCP - General Internal Medicine 01/26/18 documented as of this encounter
--- OUTSIDE RECORDS SUMMARY | 2024-10-03 18:30 | XMS_ITS | Encounter Summary ---
Author Organization [employer] [facility] Address [address] [place] [address] 7 [place] [address] Care Team Providers Care Agricultural Education Professor Name Role Phone West Gallegos MD Primary Care Provider [phone] Reason for Visit * Reason Comments Med Refill Encounter Details Date Type Department Care Team ([facility] Contact Info) Description 07/10/2022 Refill [facility] MED & PEDS [address] [place], [place] [phone] West Gallegos MD [address] [place] [address] Subacute cough Social History Tobacco Use Types [...] [facility] [address] [place] [address] West Gallegos MD [address] [place] [address] documented as of this encounter Visit Diagnoses Diagnosis Subacute cough documented in this encounter Additional Health Concerns Assessment Noted Time PHQ-9 Depression Total Score: 3 05/23/20 22 1:43 PM EST documented as of this encounter Care Teams Agricultural Education Professor Relationship Specialty Start Date End Date West Gallegos MD [address] [place] [address] PCP - General Internal Medicine 01/26/18 documented as of this encounter
--- OUTSIDE RECORDS SUMMARY | 2024-10-03 18:30 | XMS_ITS | Clinical Summary ---
Author Organization [employer] Address [address] [facility] [address] [place] [address] Care Team Providers Care Sharepoint Web Developer Name Role Phone West Gallegos MD Primary Care Provider [phone] Allergies No known active allergies Medications * This document contains information received from the source organization and may not represent a complete record from that organization. cetirizine (ZyrTEC) 10 MG tablet Take 1 tablet by mouth. Every day 021 Active cholecalciferol (Vitamin D-3) 25 MCG (1000 UT) capsule take 1 Capsule by Oral route once a day 021 Active Continuous Blood Gluc [facility] (StripeStyle Parris 2 [place]) device Use daily Act jessica Misc. Devices (Wrist Brace) misc Wear daily at bedtime Active Nirmatrelvir&Rit onavir 300/100 (Paxlovid, 300/100,) 20 x 150 MG & 10 x 100MG tablet therapy packIndications: COVID-19 Take 300 mg by mouth 2 times daily. 30 each 022 Active mirtazapine (Remeron) 15 MG tabletIndication s:Mood disorder (CMS/HCC) Take 1 tablet (15 mg) by mouth at bedtime. 30 tablet 5 022 Active medroxyPROGESTER one (Depo-Provera) 150 MG/ML injectionIndicat ions:Encounter for other contraceptive management inject 1 milliliter by intramuscular route every 3 months. Bring to office for injection 1 mL 11 023 Active insulin glargine (Lantus SoloStar) 100 UNIT/ML pen inject 65 Unit by Subcutaneous route every bedtime 3 mL 11 023 Active glucose 4 g chewable tablet Chew 4 tablets (16 g) if needed for low blood sugar. 50 tablet 12 023 Active Salicylic Acid 10 % creamIndications :Keratosis pilaris 2 times a day after shower. 227 g 2 023 Active amitriptyline (Elavil) 10 MG tabletIndication s:Other insomnia TAKE 1 TO 2 TABLETS BY MOUTH AT BEDTIME 60 tablet 023 Active famotidine (Pepcid) 40 MG tablet TAKE ONE TABLET TWICE DAILY 180 tablet 023 Active Continuous Blood Gluc Sensor (FreeStyle Parris 2 Sensor) misc Use daily 2 each Active Blood Glucose Monitoring Suppl (FreeStyle Lite) w/Device kit 1 Units 4 times daily. Use daily 1 kit Active FreeStyle lancetsIndicatio ns:Type 2 diabetes mellitus with other neurologic complication, with long-term current use of insulin ([facility]) 1 each by Other route 4 times daily. Use daily 100 each 023 Active Insulin Pen Needle (pen needle 08/21 ) 31G x 5 mm misc Inject 1 each under the skin 4 times daily. Use 4 times daily 120 each Active traMADol (Ultram) 50 MG tabletIndication s:Cervical radiculopathy,Bi lateral carpal tunnel syndrome Take 1 tablet (50 mg) by mouth every 6 (six) hours if needed for severe pain. 15 tablet 023 Active moisturizing mouth (Biotene Oral Dry Mouth) solutionIndicati ons:Canker sores oral Take 1 spray by mouth if needed (for dry mouth). 44.3 mL 1 023 Active Baqsimi Two Pack 3 MG/DOSE nasal powder INSERT ONE SPRAY IN NOSE NEEDED FOR LOW BLOOD SUGAR 2 each 1 024 Active ketotifen (Zaditor) 0.025 % ophthalmic solution One drop to eyes bid prn allergies 5 mL 1 024 Active Insulin Lispro (HumaLOG) 100 UNIT/ML solutionIndicati ons:Type 2 diabetes mellitus with other neurologic complication, with long-term current use of insulin ([facility]) Inject 26 Units as directed 3 times daily. 26 units 15 minutes before meals. 10 mL 11 Active betamethasone, augmented, (Diprolene) 0.05 % gelIndications:C anker sores oral Apply topically 2 times daily. 15 g Active aspirin 81 MG EC tabletIndication s:Dyslipidemia,C erebrovascular accident (CVA) due to other mechanism ([facility]) Take 1 tablet (81 mg) by mouth Once per day. 90 tablet 3 024 2024 Active nicotine polacrilex (Nicorette) 4 MG gumIndications:S moking Chew 1 each (4 mg) if needed for smoking cessation. 100 each Active hydrOXYzine pamoate (Vistaril) 50 MG capsuleIndicatio ns:Anxiety Take 1 capsule (50 mg) by mouth every 6 (six) hours if needed for itching for up to 10 days. 30 capsule Active ammonium lactate (Lac-Hydrin) 12 % lotionIndication s:Type 2 diabetes mellitus with other neurologic complication, with long-term current use of insulin ([facility]),Dry skin Apply topically if needed for dry skin. 400 g 025 2025 Active atorvastatin (Lipitor) 80 MG tabletIndication s:Type 2 diabetes mellitus with other neurologic complication, with long-term current use of insulin ([facility]),Dyslip idemia Take 1 tablet (80 mg) by mouth Once per day. 30 tablet 11 025 2025 Active traZODone (Desyrel) 50 MG tabletIndication s:Primary insomnia Take 2 tablets (100 mg) by mouth at bedtime. 30 tablet 5 Active mirtazapine (Remeron) 15 MG tablet Take 1 tablet (15 mg) by mouth at bedtime. 30 tablet 3 Active glucose blood (FREESTYLE LITE) test stripIndications :Type 2 diabetes mellitus with other neurologic complication, with long-term current use of insulin ([facility]) 1 each by Other route 4 times daily. 100 each Active fluticasone (Flonase) 50 MCG/ACT nasal spray Administer 1-2 sprays into each nostril Once per day. Every day as needed 16 mL 3 Active busPIRone (Buspar) 5 MG tabletIndication s:Anxiety Take 1 tablet (5 mg) by mouth 2 times daily. 60 tablet 2025 Active Alcohol Swabs (Alcohol Prep) padsIndications: Type 2 diabetes mellitus with other neurologic complication, with long-term current use of insulin ([facility]) Use as directed 200 each Active amLODIPine (Norvasc) 10 MG tabletIndication s:Primary hypertension Take 1 tablet (10 mg) by mouth Once per day. 30 tablet 2025 Active ibuprofen 800 MG tabletIndication s:Muscle cramps Take 1 tablet (800 mg) by mouth Once per day. 30 tablet 2024 Active tiZANidine (Zanaflex) 4 MG tabletIndication s:Muscle cramp Take 1 tablet (4 mg) by mouth every 6 (six) hours if needed for muscle spasms for up to 10 days. 30 tablet 2024 Active magnesium 30 MG tabletIndication s:Muscle cramp Take 1 tablet (30 mg) by mouth Once per day. 30 tablet 2 2025 Active econazole nitrate 1 % creamIndications :Angular cheilitis Apply topically Once per day. 15 g 2025 Active amLODIPine (Norvasc) 5 MG tabletIndication s:Primary hypertension Take 1 tablet (5 mg) by mouth Once per day. Pt is to remain on 5 mg once a day. Please cancel the prescription for 10 mg daily. 30 tablet 2025 Active amLODIPine (Norvasc) 5 MG tabletIndication s:Primary hypertension Take 1 tablet (5 mg) by mouth Once per day. 90 tablet 3 024 2024 Discontinued(D ose adjustment) baclofen (Lioresal) 10 MG tabletIndication s:Muscle cramps TAKE 1 TABLET BY MOUTH THREE TIMES DAILY 90 tablet 2 2024 Discontinued(S annabelle effects) ibuprofen 800 MG tabletIndication s:Muscle cramps Take 1 tablet (800 mg) by mouth 3 times daily. 30 tablet 025 2024 Discontinued(R eorder (will not trigger notification to Pharmacy)) Active Problems Problem Noted Date Diagnosed Date [...] Encounters Date Type Department Care Team Description 10/03/2024 3:20 PM EDT Office Visit [facility] [address] [place] [address] West Gallegos MD Muscle cramp (Primary Dx); Primary hypertension; Angular cheilitis; Type 2 diabetes mellitus with other neurologic complication, with long-term current use of insulin ([facility]) 10/03/2024 Travel 10/03/2024 Telephone [facility] [address] [place] [address] West Gallegos MD Nurse Triage 09/16/2024 2:30 PM EDT Office Visit [facility] [address] [place] [address] West Gallegos MD Type 2 diabetes mellitus with other neurologic complication, with long-term current use of insulin ([facility]) (Primary Dx); Primary hypertension; Hemiparesis of left dominant side as late effect of other cerebrovascular disease (CMS/HCC); Muscle cramps 09/16/2024 Travel 09/15/2024 Orders Only [facility] [address] [place] [address] Lala Arcos MD 09/09/2024 Patient Outreach [facility] [address] [place] [phone] West Gallegos MD Pre-visit Planning (SDOH screening negative and Tobacco screening negative) 09/08/2024 Orders Only [facility] [address] [place] [address] West Gallegos MD Muscle cramps (Primary Dx) 09/07/2024 Telephone [facility] [address] [place] [phone] West Gallegos MD Med Refill 09/02/[address] [address] West Gallegos MD Type 2 diabetes mellitus with other neurologic complication, with long-term current use of insulin (CMS/HCC); Dyslipidemia; Primary insomnia; Type 2 diabetes mellitus with other neurologic complication, with long-term current use of insulin ([facility]); Anxiety; Muscle cramps 08/19/2024 Population Health Risk Score [facility] ([facility]) Department [address] [place] [phone] Provider, Population Health Generic 07/28/2024 Orders Only GENERIC EXTERNAL DATA DEPARTMENT Provider, Generic External Data from Last 3 Months Immunizations Name Administration [...] Mass Index 27.79 10/03/2024 3:12 PM EDT Plan of Treatment Upcoming Encounters Date Type Department Care Team (Late st Contact Info) Description 12/30/2024 2:30 PM EDT Office Visit [facility] [address] [place] [address] West Gallegos MD [address] [place] [address] Health Maintenance Due Date Last Done Comments CT Colonography 1976 Colonoscopy 1976 FIT 1976 FOBT 1976 Sigmoidoscopy 1976 Alcohol/Substance Use Screening 1988 Family Planning (PISQ) 02/12/1991 Hepatitis B Vaccines (1 of 3 - 19+ 3-dose series) 02/12/1995 Diabetes: Urine Protein Screening 08/16/2021 08/16/2020, 05/19/2019 Mammogram 08/15/2023 08/14/2021 COVID-19 Vaccine ( season) 2024 06/26/2021, 10/17/2020, 09/19/2020 Influenza Vaccine (#1) 2024 3, 04/01/2022, 03/19/2021, Additional history exists DTaP/Tdap/Td Vaccines (2 - Td or Tdap) 04/28/2024 04/28/2014 Pap Smear 05/28/2024 05/28/2021, 05/28/2021 Diabetes: Hemoglobin A1C 12/16/2024 025, 06/17/2024, 11/04/2023, Additional history exists Depression Screening 02/09/2025 02/10/2024, 02/10/20 Diabetes: Foot Exam 07/04/2025 07/04/2024 Lipid Panel 07/04/2025 07/04/2024, 04/10, 08/16/2020 Tobacco Screening 07/04/2025 07/04/2024 SDOH Screening 09/09/2025 09/09/2024 Eye Exam 09/14/2025 09/14/2024 Zoster Vaccines (1 of 2) 02/12/2026 Cervical [...] use of insulin (CMS/HCC) POCT GLUCOSE Routine 09/16/2024 3:08 PM EDT Type 2 diabetes mellitus with other neurologic complication, with long-term current use of insulin (CMS/HCC) POCT GLYCATED HEMOGLOBIN, TOTAL Routine 09/16/2024 3:07 PM EDT Type 2 diabetes mellitus with other neurologic complication, with long-term current use of insulin (CMS/HCC) DIABETES EYE EXAM Routine 09/14/2024 12:07 PM EDT GLUCOSE, WHOLE BLOOD Routine 07/28/2024 3:47 PM EST HEPATITIS C AB W/REFL TO HCV RNA, QN, PCR Routine 07/04/2024 3:57 PM EST Screen for STD (sexually transmitted disease) HIV 1/2 ANTIGEN/ANTIBODY, FOURTH GENERATION W/RFL Routine 07/04/2024 3:57 PM EST Screen for STD (sexually transmitted disease) LIPID PANEL, STANDARD Routine 07/04/2024 3:57 PM EST Dyslipidemia LAB COLOGUARD?? COLON CANCER SCREEN Routine 04/15/2024 10:00 AM EST Screening for colon cancer MAMMOGRAPHY Routine 08/14/2021 THINPREP IMAGING PAP AND HPV MRNA E6/E7, WITH CT/NG, TRICHOMONAS Routine 05/28/2021 2:52 PM EST HM PAP/HPV Routine 05/28/2021 ALBUMIN, RANDOM URINE W/CREATININE Routine 08/16/2020 2:08 PM EST from Last 3 Months or Most Recently Relevant to Health Maintenance Results * Magnesium (10/03/2024 3:43 PM EDT) Magnesium 1.8 1.6 - 2.6 mg/dL [facility] Blood Venous blood specimen / Unknown 10/03/2024 3:43 PM EDT 10/03/2024 5:23 PM EDT us West Gallegos MD LAB BLOOD ORDERABLES Final Result [facility] [address] [place] [phone] * Basic Metabolic Panel (10/03/2024 3:43 PM EDT) Sodium 139 135 - 145 mmol/L [facility] Potassium 3.5 3.3 - 5.1 mmol/L [facility] Chloride 107 96 - 108 mmol/L [facility] Carbon Dioxide 24 22 - 29 mmol/L [facility] Anion Gap 12 12 - 20 [facility] Urea Nitrogen (BUN) 10 9 - 16 mg/dL [facility] Creatinine, Serum 0.66 0.5 - 1.4 mg/dL [facility] Estimated Glomerular Filt Rate >60 [facility] Comment:Chronic Kidney Disea se: Estimated GFR < 60 mL/min/1.48p3Rvuvwp Kidney Disease: Estimated GFR < 15 mL/min/1.73m2 Glucose 111 60 - 115 mg/dL [facility] Calcium 9.4 8.4 - 10.2 mg/dL [facility] Blood Venous blood specimen / Unknown 10/03/2024 3:43 PM EDT 10/03/2024 5:23 PM EDT West Gallegos MD LAB BLOOD ORDERABLES Final Result [facility] [address] [place] [address] [phone] * POCT Glucose (10/03/2024 3:40 PM EDT) Only the most recent of2 resultswithin the time period is included. Glucose Blood, POC 125 60 - 200 mg/dL QC Media Lot # [id number] Lot# Expiration Date Comment:random Blood Capillary blood specimen / Unknown 10/03/2024 3:40 PM EDT West Gallegos MD POINT OF CARE TEST ENTER/ED IT ORDERABLES Final Result * (ABNORMAL) POCT HGB A1C (09/16/2024 3:07 PM EDT) Hemoglobin A1C 8.8(A) 4.0 - 6.0 % QC Media Lot # [id number] Lot# Expiration Date Blood 09/16/2024 3:07 PM EDT West Gallegos MD POINT OF CARE TEST ENTER/ED IT ORDERABLES Final Result * Hm Diabetes Eye Exam (09/14/2024 12:07 PM EDT) Historical Provider HEALTH MAINTENANCE Final Result * (ABNORMAL) Glucose, Whole Blood (07/28/2024 3:47 PM EST) Glucose, Whole Blood 176(H) 60 - 115 mg/dL [facility] Comment:METER #: [id number] Testing performed in the Endocrinology Department [address] , [address], [facility]. 07/28/2024 3:47 PM EST 07/28/2024 3:51 PM EST us Generic External Data Provider LAB BLOOD ORDERAB LES Final Result Performing Organization Address [facility] Co de Phone Number [facility] [address] [place] [phone] * Hepatitis C Antibody with Reflex to HCV, RNA, Quantitative, Real-Time PCR (07/04/2024 3:57 PM EST) Hepatitis C Antibody Nonreactive Nonreactive [facility] Comment:Antibodies to HCV no t detected; does not exclude early acuteHCV infection. Blood Venous blood specimen / Unknown 07/04/2024 3:57 PM EST 07/04/2024 5:46 PM EST us West Gallegos MD LAB BLOOD ORDERABLES Final Result Performing Organization Address [facility] Co de Phone Number [facility] [address] [place] [phone] * HIV-1/2 Antigen and Antibodies, Fourth Generation, with Reflexes (07/04/2024 3:57 PM EST) HIV AB/AG Nonreactive Nonreactive [facility] Comment:HIV-1 p24 Ag and/or HIV-1/HIV-2 Ab not detected.A test result that is nonreactive does not exclude thepossibility of exposure to or infection with HIV-1 and/orHIV-2. Nonreactive results in this assay for individualswith prior exposure to HIV-1 and/or HIV-2 may be due toantigen and antibody levels that are below the limit ofdetection of this assay.The [employer] HIV Ag/Ab Combo assay result andsupplemental assay results should be interpreted inconjunction with the patient's clinical presentation,history and other laboratory results. If the results areinconsistent with clinical evidence, additional testing issuggested to confirm the result. Blood Venous blood specimen / Unknown 07/04/2024 3:57 PM EST 07/04/2024 5:46 PM EST us West Gallegos MD LAB BLOOD ORDERABLES Final Result Performing Organization Address [facility] Co de Phone Number [facility] [address] [place] [phone] [phone] * (ABNORMAL) Lipid Panel, Standard (07/04/2024 3:57 PM EST) Triglycerides 191(H) <150 mg/dL [facility] Comment:Desirable Triglyceri de: less than 150 mg/dLBorderline High Triglyceride 150-199 mg/dLHigh Triglyceride: 200-499 mg/dLVery High Triglyceride: greater than or equal to 5OO mg/dL Cholesterol 142 <200 mg/dL [facility] Comment:Desirable Cholestero l: less than 200 mg/dLBorderline High Cholesterol: 200-239 mg/dLHigh Cholesterol: greater than 239 mg/dL LDL Cholesterol Calculated 68 <100 mg/dL [facility] Comment:Desirable LDL: less than 100 mg/dLNear Optimal/Above Optimal LDL: 110- 129 mg/dLBorderline High LDL: 130-159 mg/dLHigh LDL: 160-189 mg/dLVery High LDL: greater than or equal to 190 mg/dL HDL Cholesterol 36(L) >40 mg/dL [facility] Comment:Desirable HDL: great er than 40 mg/dL Note: This HDL assay may give artificially low results in patients with liver disease. Blood Venous blood specimen / Unknown 07/04/2024 3:57 PM EST 07/04/2024 5:46 PM EST us West Gallegos MD LAB BLOOD ORDERABLES Final Result Performing Organization Address [facility]/ZIP Co de Phone Number [facility] [address] [place] [phone] * (ABNORMAL) Cologuard?? colon cancer screening (04/15/2024 10:00 AM EST) Cologuard Result Positive( A) Negative 04/22/2024 11:16 AM EST [facility] (CLIA #:[id number]) Comment: POSITIVE TEST RESULT. A positive Cologuard [...] (Zeyad Pierre al, N Engl J Med 2014;370(14):6523-3764.) Cologuard may produce a false negative or false positive result (no colorectal cancer or precancerous polyp present at colonoscopy follow up). A negative Cologuard test result does not guarantee the absence of CRC or advanced adenoma (pre-cancer). The current Cologuard screening interval is every 3 years. ([place] Society and U.S. Multi-Society Task Force). Cologuard performance data in a 10,000 patient pivotal study using colonoscopy as the reference method can be accessed at the following location: [email or web address].[email or web address]/results. Additional description of the Cologuard test process, warnings and precautions can be found at www.ArcSoft.com. Stool specimen (specimen) 04/15/2024 10:00 AM EST 04/16/2024 7:27 AM EST West Gallegos MD LAB MOLECULAR DIAGNOSTICS O RDERABLES Final Result [facility]time (CLIA #:[id number]) [place] [address], * Hm Mammography (08/14/2021) Mammogram Performed Anatomical Region Laterality Modality Other Historical Provider HEALTH MAINTENANCE Final Result * THINPREP TIS PAP AND HPV mRNA E6/E7, CT/NG, TRICH (05/28/2021 2:52 PM EST) Chlamydia trachomatis RNA, TMA, Urogenital NOT DETECTED NOT DETECTED [facility] Clinical Information: None given [facility] COMMENT SEE COMMENT [facility] Comment: The analytical performance characteristics of this assay, when used to test SurePath(TM) specimens have been determined by [employer]. The modifications have not been cleared or approved by the FDA. This assay has been validated pursuant to the CLIA regulations and is used for clinical purposes. ?? For additional information, please refer to https://education.Kerecis/faq/XMX954 (This link is being provided for information/ [...] has been evaluated with computer assisted technology. [facility] Center Machine Operator: SEE COMMENT [facility] Comment: WAC, CT(ASCP) CT screening location: [address] ??[id number] HPV nRNA E6/E7 Not Detected Not Detected [facility] Comment: Methodology: Polisher Dial-Mediated Amplification This assay detects E6/E7 viral messenger RNA (mRNA) from 14 high-risk HPV types (16,18,31,33,35,39,45,51,52,56,58,59,66,68). ? The analytical performance characteristics of this assay have been determined by [employer]. The modifications have not been cleared or approved by the FDA. This assay has been validated pursuant to the CLIA regulations and is used for clinical purposes. ?? For additional information, please refer to http://ShoutOmatic.Kerecis/faq/MLF175s6 (This link if provided for information/ educational purposes only.) Infection Shift in vaginal nubia suggestive of bacterial vaginosis. [facility] Interpretation/Re sult: Negative for intraepithelial lesion or malignancy. [facility] LMP: NONE GIVEN [facility] N [...] of this assay have been determined by [employer]. The modifications have not been cleared or approved by the FDA. This assay has been validated pursuant to the CLIA regulations and is used for clinical purposes. ?? For additional information, please refer to [email or web address].[email or web address]/ faq/Trichomonastma (This link is being provided for information/ educational purposes only.) ?? 05/28/2021 2:52 PM EST Berta Simpson CNM LAB PATHOLOGY ORDERABLES Final Result [facility] [address] * Pap Smear (05/28/2021) Pap smear Performed us Historical Provider HEALTH MAINTENANCE Final Result * [...] Gallegos MD LAB URINE ORDERABLES Final Result [facility] [address] from Last 3 Months or Most Recently Relevant to Health Maintenance Insurance C3 Care Teams Sharepoint Web Developer Relationship Specialty Start Date End Date West Gallegos MD [address] [place] [phone] PCP - General Internal Medicine 01/26/18
--- OUTSIDE RECORDS SUMMARY | 2024-10-03 18:30 | XMS_ITS | Encounter Summary ---
Author Organization [employer] Address [address] [place] [address] [address] [place] [address] Care Team Providers Care [employer] [employer] [facility] Name Role Phone West Gallegos MD Primary Care Provider [phone] Encounter Details Date Type Department Care Team ([facility] st Contact Info) Description 05/13/2022 Telephone [facility] [address] [place], [place] [phone] West Gallegos MD [address] [place] [address] Social History Tobacco Use Types Packs/Day Years [...] 05/15/2022 9:34 AM EST Referral Authorization # [id number] given to Rehan from [facility]. * Telephone Encounter - Kimberli Evans - 05/13/2022 2:05 PM EST TC from [facility] with [facility] requesting a updated referral for : [address] [facility] [address] Tel: [phone] Fax: [phone] Referral was done on 08/27/21 but endocrinology office stated they never received referral. Pcp dr. Gallegos documented in this encounter Plan of Treatment Upcoming Encounters Date Type Department Care Team ([facility] st Contact Info) Description 12/30/2024 2:30 PM EDT Office Visit [facility] [address] [place] [address] West Gallegos MD [address] [place] [address] documented as of this encounter Visit Diagnoses Not on filedocumented in this encounter Care Teams [employer] [employer] [facility] Relationship Specialty Start Date End Date West Gallegos MD [address] [place] [address] PCP - General Internal Medicine 01/26/18 documented as of this encounter
--- OUTSIDE RECORDS SUMMARY | 2024-10-03 18:30 | XMS_ITS | Data Portability ---
Author Organization [place] [facility] Maria R Morales [facility] [place] Address [address] [place] [address] Care Team Providers Care Psychologist Military Personnel Name Role Phone IVETTE LIRIANO Referring Provider [phone] Assessment Encounter Date Assessment Date Assessment LastModified [...] mg/mL (1 %) injection solution 2022 0[address] [place] [address], [address], [address], [place], [place], [phone], 14:53:42 Kenalog 10 mg/mL suspension for injection 2022 023 [place] [place] [address], [address], [address], [place], [place], [id number], 14:53:39 lidocaine (PF) 10 mg/mL (1 %) injection solution 2022 023 [place] [address], [address], [address], [place], [place], [id number], 14:53:42 Kenalog 10 mg/mL suspension for injection 2022 023 [place] [address], [address], [address], [place], [place], [phone], 14:53:39 Patient TargetsNo targets recorded. Patient Instructions Encounter Date Encounter Id Patient Instructions Last Modified By Organization Details Last Modified Time 04/23/2023 [id number] An electrodiagno stic study from 07/16/2021 done at [facility] was available for review, this demonstrates [...] An electrodiagnostic study from 02/23/2023 done at [facility] was available for review, this demonstrates [...] Time Carpal tunnel syndrome of right wrist 1722819821826 08 Active 2022 Mel lao MD [address], [place], [address], [place] [facility] [place], [facility] 3 18:41:21 Carpal tunnel syndrome of left wrist 6975863425729 02 Active 2022 Mel lao MD [address], [place], [address], [place] [facility] [place], [facility] 3 18:41:24 Acquired trigger finger of left index finger 7001791371776 04 Active 2023 Mel lao MD [address], [place], [address], [place] [facility] [place], [facility] 4 16:51:27 Triggering of digit 490529167 Active 2024 Mel lao MD [address], [place], [address], [place] [facility] [place], [facility] 5 12:25:26 Problem Notes None recorded. Procedures Surgical History Date Name Laterality Status Provider Name and Address Organization Details Recorded Time 5 TRIGGER FINGER RELEASE (SURG) completed Adriane Arias [facility] [place], [facility] 06/24/2024 10:24:43 3 LES carpal tunnel injection completed Mel Bennett MD [address], [place], [address], [place] [facility] [place] 04/23/2023 18:34:11 3 LES trigger finger/De Quervain's injection completed Mel Bennett MD [address] [facility],[address], [place], [address], [place] [facility] [place], [facility] 04/23/2023 18:33:58 Imaging Results None recorded. [...] Updated DateTime 04/23/2023 165.1 cm 25.5 kg/m2 24583.63 g [facility] 04/23/2023 13:55:27 Date Recorded Body height Body mass index (BMI) Body weight Provider Name and Address Organization Details Last Updated DateTime 07/08/2024 165.1 cm 25.5 kg/m2 47880.63 g Shawna Quijano [facility], P 07/08/2024 14:53:17 Social History Question Answer Notes LastModified by Organizat ion Details LastModified Time Tobacco Smoking Status Current Every Day Smoker Shawna Quijano [facility], [facility], P 04/23/2023 14:16:08 What Is Your Level [...] Anemia N Brain Injury N Heart Attack (DC) N Osteopenia N Diabetes Y Bleeding Disorder [...] SNOMED-CT Code Diagnosis ICD10 Code Diagnosis Note [id number] MD SANJEEV Knapp [facility] [address] [address] 04/23/2023 13:45:40 04/23/2023 15:06:40 Acquired trigger finger of right index finger 6974217885 86483 M65.321 Pain of right wrist 3169 552054 67994 M25.531 Carpal wilberto rebecca syndrome of right wrist 8833588672 79105 G56.01 Carpal wilberto rebecca syndrome of left wrist 5360455848 49176 G56.02 [id number] MD SANJEEV Knapp [facility] [address] [address] 06/10/2023 15:23:26 06/10/2023 16:43:05 Carpal tunnel syndrome of left wrist 6191565818 15133 G56.02 Carpal wilberto rebecca syndrome of right wrist 1884691738 05212 G56.01 Acquired t care management assistant finger of left index finger 9660050483 60506 M65.322 [id number] MD SANJEEV Knapp [facility] [address] [address] 06/09/2024 15:05:04 06/09/2024 15:39:01 Acquired trigger finger of left index finger 1981722927 18483 M65.322 Carpal wilberto rebecca syndrome of right wrist 4688496263 86469 G56.01 Carpal wilberto rebecca syndrome of left wrist 9327185769 83020 G56.02 [id number] Mel Bennett MD [address] [place] [address] 07/08/2024 14:44:47 07/08/2024 15:15:11 Acquired trigger finger of left index finger 4999489589 23173 M65.322 Health Concerns Section Related Observation LastModified by Organization Detai ls LastModified Time None Recorded Concern Status LastModified by Organization Details LastModified Time None Recorded Advance Directives Directive None Recorded Payers Encounter Date Sequence Insurance Name Policy Number Policy Jiménez Covered Member ID Jiménez Member ID Guarantor Name 04/23/2023 1 [place] Miladys Shane [id number] Aliza Shane 06/10/2023 1 [place] Miladys Shane [id number] Aliza Shane 06/09/2024 1 [place] Miladys Shane [id number] Aliza Shane 07/08/2024 1 [place] Miladys Acosta [id number] Aliza Shane Notes Date Note Type Note Provider Name and Address Organization Details Recorded Time 04/23/2023 text/html This is a 48-yea r-old zcpam-miej-tdskueev female who is presenting with bilateral, right [...] and long finger. Mel Bennett MD [address] [address], [place], [address], [facility] [place], [facility] 04/23/2023 18:45:28 06/10/2023 text/html She returns to [facility] for right hand numbness and tingling status [...] bother her much. Mel Bennett MD [address] [address], [place], [address], [facility] - [facility] [place], [facility] 06/10/2023 16:51:39 06/09/2024 text/html She presents [...] in the eights. She does see an tractor driver for this. She also tells me she [...] not drink alcohol. Mel Bennett MD [address] [facility],[address], [place], [address], [place] [facility] [place], [facility] 06/24/2024 13:37:41 07/08/2024 text/html She presents [...] Mel Bennett MD [address], [place], [address], [place] [facility] [place], [facility] 07/10/2024 10:44:40 OBGyn Episode No OBEpisode recorded.
--- OUTSIDE RECORDS SUMMARY | 2024-10-03 18:30 | XMS_ITS | Data Portability ---
Author Organization [place] [facility], [facility] Address [address] [place] [address] Care Team Providers Care Director Data Name Role Phone [facility] Primary Care Provider Assessment No assessment recorded. Plan of Treatment Reminders Order Date Submit Date Provider Last Modified By Organization Details Last Modified Time Details Appointments None recorded. Lab None recorded. Referral physical therapist referral - L knee instability eval & txstrengthe nick program 2024 025 Not available 5 16:20:47 Procedures None recorded. Surgeries None recorded. Imaging XR, knee, 4 or more view - 4v L knee. room 218 2024 025 modesto zuniga [facility] Office, [address] [place] [address], [place], [address], 5 15:55:28 Medication Orders None recorded. Patient [...] a4ajBk vP9nXo QUaueC m3YtLR FvZlgJ JJ8mAn HZtai3 [id number] AC0Kqb HyBWKa hKiQtr MwF INTERFACE [facility] [address], [place], [address], 07/06/2024 15:16:36 07/06/19 25 07/06/2024 XR, knee, 4 or more view http:/ [email or web address] ?Encry pted=s hAaTro YD8dLq bEUv6g %2BXZw aYqtaq 0bqfl% 2Fg9IQ a4ajBk vP9nXo QUaueC m3YtLR FvZlgJ JJ8mAn HZtai3 0r3581 AC0Kqb HyBWKa hKiQtr MwF INTERFACE [facility] [address] [facility] [address], [address], 07/06/2024 15:16:38 Result Notes None recorded. Problems Name Problem SNOMED Code Status Onset Date Resolution Date Notes Provider Name and Address Organization Details Recorded Time No complaints [id number] Active Status : 'A'; Not Available [facility] 09:11:58 Problem Notes None recorded. Procedures Surgical History None recorded. Imaging Results Imaging Date Name Status LastModified by Organiz ation Details LastModified Time 07/06/2024 XR, knee, 4 or more view completed INTERFACE [employer] [address], [address], 07/06/2024 15:16:36 07/06/2024 XR, knee, 4 or more view completed INTERFACE [employer] [address], [place], [address], 07/06/2024 15:16:38 Procedure Notes None recorded. Medical [...] Address Organization Details Last Updated DateTime 07/06/2024 48921.96 g 30.1 kg/m2 156.21 cm Monserrat Chaudhari [place] [facility] 07/06/2024 15:06:25 Social History None recorded. Functional Status None recorded. Mental Status None recorded. Family History Nothing Reported. Medical History Condition Response Allergies/Hayfever N Coronary Artery Disease N Anxiety/Depression N Breathing or lung disorders N Emphysema N Nerve Disorders N Thyroid Problems N COPD N Pacemaker N Anemia N Kidney/Bladder Problems N Vascular Disease N Heart Trouble N Heart Attack ([place]) N Gastrointestinal Disease N Cholesterol N Diabetes [...] SNOMED-CT Code Diagnosis ICD10 Code Diagnosis Note [id number] JENELLE Méndez [address] [place] [address] 07/06/2024 14:36:51 07/15/2024 15:37:39 Pain of left knee joint 4723919715 67819 M25.562 Instabilit y of joint of left knee 3571306253 128087 M25.362 Health Concerns Section Related Observation LastModified [...] 5/5 strength. X-rays were obtained today at [facility] and independently reviewed with the patient. 4 [...] our office immediately. Sourav Vazquez PA-C [address] [facility] [address], [place], [address], [facility] 07/06/2024 15:54:43 OBGyn Episode No OBEpisode recorded.
--- OUTSIDE RECORDS SUMMARY | 2024-10-03 18:30 | XMS_ITS | Encounter Summary ---
Author Organization [employer] Address [address] [facility] 7 [place] [address] Care Team Providers Care Fretted Instrument Inspector Name Role Phone West Gallegos MD Primary Care Provider [phone] Reason for Visit * Reason Onset Date Comments Appointment Request 03/25/2024 Encounter Details Date Type Department Care Team ([facility] st Contact Info) Description 03/25/2024 Telephone [facility] [address] [place] [address] West Gallegos MD [address] [place] [address] Appointment Request Social History Tobacco Use Types [...] Description 12/30/2024 2:30 PM EDT Office Visit [facility] [address] [place] [address] West Gallegos MD [address] [place] [address] documented as of this encounter Visit Diagnoses Not on filedocumented in this encounter Additional Health Concerns Assessment Noted Time PHQ-9 Depression Total Score: 21 024 10:02 AM EDT documented as of this encounter Care Teams Fretted Instrument Inspector Relationship Specialty Start Date End Date West Gallegos MD [address] [place] [address] PCP - General Internal Medicine 01/26/18 documented as of this encounter
== END 2024-10-03 15:43 | disposition home or self-care (01) ==
LOC: HO.CHCLDS 15:42
PROVIDERS: Visit Provider Internal Medicine
DX: R25.2 Cramp and spasm (principal); E11.49 Type 2 diabetes mellitus with other diabetic neurological complication; Z79.4 Long term (current) use of insulin
CPT/HCPCS: 36415; 80048; 83735

== ENCOUNTER 2025-01-24 14:43 | Outpatient (AMB) | payer MEDICAID, SELFPAY ==
--- NOTE | 2025-01-24 14:48 | MHC.OFFVIS ---
Vital Signs 01/24/25 14:52 Height 5 ft 4 in Weight 174 lb 2.643 oz BMI 29.9 BP 136/74 Blood Pressure Location Rt brachial Position Sitting Pulse 84 Pulse Source Pulse Oximeter Pulse Oximetry (%) 96 Oxygen Delivery Method Room Air Intake Visit Reasons: T2DM Intake Note: Patient present today to follow up on Type 2 Diabetes Mellitus. Last Diabetic Eye exam: 03/2024 Last Podiatry Visit: Does not see a Grain Cleaner And Transfer Operator Random Glucose: 296 mg/dl HgA1C: 8.5% 01/24/2025 Hospice Registered Nurse Required: No Accompanied by: Self / Same As Patient Allergies acetaminophen (From TYLENOL-CODEINE) Allergy (Intermediate, Verified 01/24/25 14:52) VOMITING, ITCHING From TYLENOL-CODEINE Allergy (Intermediate, Uncoded 01/24/25 14:52) VOMITING, ITCHING Codeine Phosphate Allergy (Unknown, Uncoded 01/24/25 14:52) hives, itchy HPI Comments Details: 49 YO F who is seen in f/u for T2DM. She is on an islet insulin pump. Her last visit was 07/28/24 with Vilma Yi NP Initially diagnosed with T2DM in 2013 . Was initially started on treatment with insulin and metformin Has been under alot of stress since stroke 12/18/23 Has PT at home, OT at the clinic Current regimene Jardiance 10 mg Mounjaro 5 mg Qwkly ilet pump Time in ranges: Unable to access pump or sensory data because was disconnected. Backup insulin plan Toujeo 41 units Short-acting mealtime 14 units breakfast 12 units lunch 10 units supper D Treats lows with 3 glucose tabs, Checks sugar after to ensure it is rising Used nasal spray once in the past Family history of T2DM in mother Type 2 DM and aunts and uncle . Has eyes checked yearly , last eye exam 6 mos ago . Has appt at [facility] 05/01 denies retinopathy. Denies neuropathy, [facility] Denies nephropathy, Not on ALEX/ARB Due for urine microalbumin Has HLD,On low dose statin Due for lipid profile Denies CAD. Had diabetes education when first diagnosed and has recently [facility] Medical History Uncontrolled type 2 diabetes mellitus with hyperglycemia Surgical History Hx of cholecystectomy Hx of section Hx of hand surgery Hx of elbow surgery Family History Mother Diabetes Maternal Uncle Diabetes Maternal Aunt Diabetes Social History Household Members: Other Alcohol intake: current Alcohol intake frequency: does not drink Patient Tobacco Use Status: Current everyday Tobacco user Cigarettes Per Day: 4 Physical Exam Vital Signs: Last Vital Signs Pulse 84 01/24/25 14:52 BP 136/74 01/24/25 14:52 Pulse Ox 96 01/24/25 14:52 Oxygen Delivery Method Room Air 01/24/25 14:52 BMI result Body Mass Index 29.9 Absence of Cushingoid features. Absence of acromegalic features. Neck exam reveals nl size thyroid about 15 gms. No thyroid nodules palpable. No carotid bruits present. Lungs CTA. Heart S1 S2, Reg R/R. No M/R/ G. Skin exam reveals absence of vitiligo or acanthosis nigricans. Abdominal exam reveals Soft NT/ND with NA BS. No organomegaly present. Neck Other: . Extrem Other: Visual exam of foot performed. No ulcerations or open lesions. No onchomycosis, no callouses.Pulses 2 + distally Sensation intact to monofilament exam. Vibratory sensation sensed is intact with 128 Hz tuning fork Results AMB Hemoglobin A1c AMB Hemoglobin A1c 8.5 % Last Edit by ANÍBAL Lozada on 01/24/25 15:10 Results Reviewed Results Reviewed: Laboratory Last Values Glucose (Clinic) 296 mg/dL (60-115) H 01/24/25 14:58 Assessment & Plan Assessment & Plan (1) Uncontrolled type 2 diabetes mellitus with hyperglycemia: Code(s): E11.65 - Type 2 diabetes mellitus with hyperglycemia Category: Medical Plan: This is a 49-year-old female with history of diabetes being treated with iLet insulin pump and Mounjaro and Jardiance with poor glycemic control and no known microvascular or macrovascular complications Plan is to have the patient follow up with the certified lactation educator to view iLet download . Can not adjust insulin pump settings due to lack of data today. Once I have more data, might increase the Mounjaro dose as well. Orders: Orders Microalbumin, Random (w Creat) Today E11.65 - Type 2 diabetes mellitus with hyperglycemia AMB Hemoglobin A1c Today E11.65 - Type 2 diabetes mellitus with hyperglycemia Lipid Panel Today E11.65 - Type 2 diabetes mellitus with hyperglycemia Medications: New blood-glucose sensor (Dexcom G7 Sensor device) As directed change every 10 days 3 ea 5RF Coding Level of Care Code Est Pt Level 4 ([address]6595) Diagnoses Uncontrolled type 2 diabetes mellitus with hyperglycemia E11.65
[2025-01-24 14:52] VITALS: BP 136/74; PULSE 84; O2SAT 96; BMI 29.9
[2025-01-24 15:04] LABS: Glucose, Whole Blood 296 mg/dL (60-115)
--- OUTSIDE RECORDS SUMMARY | 2025-01-24 16:06 | XMS_ITS | Encounter Summary ---
Author Organization [employer] Address [address] [place] [address] 7 [place] [address] Care Team Providers Care Sustainable Communities Designer Name Role Phone West Gallegos MD Primary Care Provider [phone] Encounter Details Date Type Department Care Team ([facility] Contact Info) Description 08/03/2023 Orders Only [facility] [address] [place], [place] [id number] West Gallegos MD [address] [place] [address] Bilateral carpal tunnel syndrome (Primary Dx) Social [...] Upcoming Encounters Date Type Department Care Team ([facility] Contact Info) Description 02/21/2025 2:45 PM EDT Office Visit [facility] [address] [place] [address] West Gallegos MD [address] [place] [address] documented as of this encounter Visit Diagnoses Diagnosis Bilateral carpal tunnel syndrome- Primary Carpal tunnel syndrome documented in this encounter Additional Health Concerns Assessment Noted Time PHQ-9 Depression Total Score: 3 05/23/20 22 1:43 PM EST documented as of this encounter Care Teams Sustainable Communities Designer Relationship Specialty Start Date End Date West Gallegos MD [address] [place] [address] PCP - General Internal Medicine 01/26/18 documented as of this encounter
--- OUTSIDE RECORDS SUMMARY | 2025-01-24 16:06 | XMS_ITS ---
Author Name [facility] Organization Unknown History of Medication Use Medication Directions Dispensed Refills Start Date End Date Status oxycodone 5 mg tablet Take 1 tablet every 4-6 hours by oral route. 5 07/08/19 25 completed oxycodone 5 mg tablet Take 1 tablet every 4-6 hours by oral route. 5 active Kenalog 10 mg/mL suspension for injection Take 1 mL by injection route. 3 07/08/19 25 completed lidocaine (PF) 10 mg/mL (1 %) injection solution Take 1 mL by injection route. 3 07/08/19 25 completed Kenalog 10 mg/mL suspension for injection Take 1 mL by injection route. 3 active amoxicillin 875 mg-potassium clavulanate 125 mg tablet TAKE 1 TABLET BY MOUTH TWICE A DAY FOR 5 DAYS 07/08/19 25 completed fluconazole 150 mg tablet TAKE ONE TABLET ONCE A WEEK 07/08/19 25 completed fluticasone propionate 50 mcg/actuation nasal spray,suspension ADMINISTER 1-2 SPRAYS INTO EACH NOSTRIL IN THE MORNING. EVERY DAY NEEDED 07/08/19 25 completed hydroxyzine pamoate 50 mg capsule TAKE ONE CAPSULE EVERY 6 HOURS NEEDED FOR ITCHING 07/08/19 25 completed ketotifen 0.025 % (0.035 %) eye drops USE ONE DROP TO EYES TWICE A DAY NEEDED FOR ALLERGIES 07/08/19 25 completed medroxyprogesterone 150 mg/mL intramuscular suspension inject 1 milliliter by intramuscular route every 3 months. Bring to office for injection 07/08/19 25 completed penicillin V potassium 500 mg tablet TAKE TWO TABLETS BY MOUTH FIRST TIME ONLY THEN TAKE 1 TABLET EVERY SIX HOURS TILL GONE 07/08/19 25 completed acetaminophen 500 mg tablet TAKE 1 TABLET BY MOUTH EVERY 6-8 HOURS NEEDED FOR PAIN 04/23/20 23 completed amitriptyline 10 mg tablet TAKE 1 TO 2 TABLETS AT BEDTIME 04/23/20 completed azithromycin 250 mg tablet TAKE 2 TABLETS BY MOUTH ON DAY 1, THEN TAKE 1 TABLET DAILY ON DAYS 2-5 04/23/20 completed Betasept Surgical Scrub 4 % topical liquid Apply topically if needed each day for wound care. 04/23/20 completed Betasept Surgical Scrub 4 % topical liquid Apply topically if needed each day for wound care. 04/23/20 completed dextromethorphan-guaife nesin 10 mg-100 mg/5 mL oral syrup TAKE FIVE ML BY MOUTH EVERY FOUR HOURS NEEDED FOR COUGH 04/23/20 completed dextromethorphan-guaife nesin 10 mg-100 mg/5 mL oral syrup TAKE FIVE ML BY MOUTH EVERY FOUR HOURS NEEDED FOR COUGH 04/23/20 completed dicyclomine 10 mg capsule TAKE ONE CAPSULE FOUR TIMES DAILY 04/23/20 completed famotidine 40 mg tablet TAKE ONE TABLET TWICE DAILY 04/23/20 completed ibuprofen 800 mg tablet TAKE 1 TABLET BY MOUTH THREE TIMES A DAY NEEDED 04/23/20 completed ibuprofen 800 mg tablet TAKE 1 TABLET BY MOUTH THREE TIMES A DAY NEEDED 04/23/20 completed mirtazapine 15 mg tablet TAKE ONE TABLET BY MOUTH AT BEDTIME 04/23/20 completed mirtazapine 15 mg tablet TAKE ONE TABLET BY MOUTH AT BEDTIME 04/23/20 completed Paxlovid 300 mg (150 mg x 2)-100 mg tablets in a dose pack TAKE 3 TABLETS BY MOUTH TWICE A DAY FOR 5 DAYS 04/23/20 completed tramadol 50 mg tablet TAKE ONE TABLET EVERY 6 HOURS NEEDED FOR SEVERE PAIN 04/23/20 completed tramadol 50 mg tablet TAKE ONE TABLET EVERY 6 HOURS NEEDED FOR SEVERE PAIN 04/23/20 completed trazodone 50 mg tablet TAKE TWO TABLETS AT BEDTIME WITH FOOD 04/23/20 completed amlodipine 5 mg tablet TAKE ONE TABLET ONCE DAILY active fluconazole 150 mg tablet TAKE ONE TABLET ONCE A WEEK active fluticasone propionate 50 mcg/actuation nasal spray,suspension ADMINISTER 1-2 SPRAYS INTO EACH NOSTRIL IN THE MORNING. EVERY DAY NEEDED active GlucaGen HypoKit 1 mg Injection Inject 1 mL (1 mg) under the skin 1 (one) time if needed for low blood sugar for up to 1 dose. Once in thigh, upper arm or buttocks active hydroxyzine pamoate 50 mg capsule TAKE ONE CAPSULE EVERY 6 HOURS NEEDED FOR ITCHING active ketotifen 0.025 % (0.035 %) eye drops USE ONE DROP TO EYES TWICE A DAY NEEDED FOR ALLERGIES active Problems Problem Status Onset Date Problem Type Date of Resoluti on Source Triggering of digit active 2024-06-24 ProblemAct [facility] Carpal tunnel syndrome of right wrist active 2023-04-23 ProblemAct [facility] Carpal tunnel syndrome of left wrist active 2023-04-23 ProblemAct [facility] Acquired trigger finger of left index finger active 2023-06-10 ProblemAct [facility] ECT Encounters Encounter Type Encounter Reason Primary Diagnosis Location Date Ambulatory [facility] 07/11/2024 [facility] 07/08/2024 [facility] 07/08/2024 [facility] 04/24/2023 [facility] 04/23/2023 [facility] 04/23/2023 [facility]ulatory [facility] 03/31/2023
--- OUTSIDE RECORDS SUMMARY | 2025-01-24 16:06 | XMS_ITS | Clinical Summary ---
Author Organization 175 [facility] Address 175 [place] [address] Phone Care Team Providers Care Phlebotomy Director Name Role Phone West Gallegos MD Primary Care Provider [phone] [phone] Allergies No known active allergies Medications CONCENTRATED insulin regular (HumuLIN R) 500 UNIT/ML patient supplied pump 1 EA by continuous sub-Q infusn (via wearable injector) route continuously. Active Encounters Date Type Department Care Team Description 12/27/2024 2:45 PM EDT Office Visit Orthopedic [facility] [address] [phone] Gabino Ritchie DPM Controlled type 2 diabetes with neuropathy ([facility] V24, CMS/[facility] V28) (Primary Dx); Lumbosacral radiculopathy; Localized edema; Arthritis of both feet; Pain in toes of both feet; Dermatophytosis, nail 10/25/2024 3:00 PM EDT Office Visit Orthopedic [facility] [address] [phone] Gabino Ritchie DPM Controlled type 2 diabetes with neuropathy ([facility]/HCC V24, CMS/HCC V28) (Primary Dx); Localized edema; Arthritis of both feet; Pain in toes of both feet; Cramps of left lower extremity; Dermatophytosis, nail from Last 3 Months Surgical History Surgery Date Site/Laterality Comments [facility] Medical History Medical History Date Comments Diabetes mellitus (CMS/HCC V24, CMS/[facility] V28) Stroke (CMS/[facility] V24, [facility] V28) 2023 Social History Tobacco Use Types [...] 76 06/23/2024 1:36 PM EST Temperature 36.5 C (97.7 F) 06/23/2024 1:18 PM EST Respiratory Rate 16 06/23/2024 1:18 PM EST Oxygen Saturation 99% 06/23/2024 1:36 PM EST Inhaled Oxygen Concentration - - Weight 73.9 kg (163 lb) 10/25/2024 2:56 PM EDT Height 162.6 cm (5' 4 ) 06/15/2024 3:00 PM EST Body Mass Index 27.98 06/15/2024 3:00 PM EST Plan of Treatment Upcoming Encounters Date Type Department Care Team (Late st Contact Info) Description 03/01/2025 2:30 PM EDT Office Visit Orthopedic Surgery - [place] [address] [phone] Gabino Ritchie, ROBYN [address] [address] Health Maintenance Due Date Last Done Comments Breast Cancer Screening 1975 Diabetes: Annual Foot Exam 02/12/1986 Diabetes: Annual Retina Eye Exam 02/12/1986 Hepatitis B Vaccines (1 of 3 - 19+ 3-dose series) 02/12/1995 Cervical Cancer Screening: Pap Smear 02/12/1997 Social Influencers of Health Screening 05/11/2022 COVID-19 Vaccine ( season) 2024 06/26/2021, 10/17/2020, 09/19/2020 DTaP,Tdap,and Td Vaccines (2 - Td or Tdap) 04/28/2024 04/28/2014 Depression Screening 06/08/2024 Diabetes: Annual Urine Albumin-Creatinine Ratio (uACR) 06/15/2024 Influenza Vaccine (#1) 2025 , 04/01/2022, 03/19/2021, Additional history exists Diabetes: Blood Sugar Control Test (HGBA1C) 03/18/2025 09/16/2024, 06/17/2024, 11/04/2023 Diabetes: Annual GFR (Glomerular Filtration Rate) 10/03/2025 10/03/2024 Hypertension/CHF/CAD Annual BMP Blood Test 10/03/2025 10/03/2024 Colorectal Cancer Screening: FIT-DNA (Cologuard) 04/15/2027 04/15/2024 Cholesterol Screening (Lipid Panel) 07/04/2029 07/04/2024, 05/07/2022 Pneumococcal Vaccine: Pediatrics (0 to 5 Years) and At-Risk Patients (6 to 49 Years) Completed 02/10/2024, 01/22/2015 HIV Screening Completed 07/04/2024, 06/03/2021 Hepatitis C Screening Completed 07/04/2024 HIB Vaccines Aged Out No longer eligi [...] Documents on File Type Date Recorded 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
== END 2025-01-24 15:17 | disposition home or self-care (01) ==
LOC: HO.ENCR 14:44
PROVIDERS: PCP Internal Medicine; Visit Provider Internal Medicine Endocrinology, Diabetes & Metabolism
DX: E11.65 Type 2 diabetes mellitus with hyperglycemia (principal)
CPT/HCPCS: 99214

== ENCOUNTER → 2025-01-24 14:43 | Outpatient (BNVA) | payer MEDICAID, SELFPAY | PROVIDERS: PCP Internal Medicine; Visit Provider Internal Medicine Endocrinology, Diabetes & Metabolism | DX: E11.65 Type 2 diabetes mellitus with hyperglycemia (principal); Z79.4 Long term (current) use of insulin | CPT/HCPCS: 82947; 83036; 99212 ==

== ENCOUNTER 2025-04-12 15:02 | Outpatient (REF) | payer MEDICAID, SELFPAY ==
--- OUTSIDE RECORDS SUMMARY | 2025-04-12 18:04 | XMS_ITS | Clinical Summary ---
Author Organization 175 [facility] Address 175 [place] [address] Phone Care Team Providers Care Length Control Tester Name Role Phone West Gallegos MD Primary Care Provider [phone] Allergies No known active allergies Medications CONCENTRATED insulin regular (HumuLIN R) 500 UNIT/ML patient supplied pump 1 EA by continuous sub-Q infusn (via wearable injector) route continuously. Active Encounters Date Type Department Care Team Description 03/01/2025 2:30 PM EDT Office Visit Orthopedic Surgery - [place] 250 175 [facility] [address] [place] [phone] Gabino Ritchie, ROBYN Controlled type 2 diabetes with neuropathy (CMS/HCC V24, CMS/[facility] V28) (Primary Dx); Lumbosacral radiculopathy; Localized edema; Cramps of left lower extremity; Dermatophytosis, nail from Last 3 Months Surgical History Surgery Date Site/Laterality Comments [facility] Medical History Medical History Date Comments Diabetes mellitus (CMS/HCC V24, CMS/HCC V28) Stroke (CMS/HCC V24, CMS/HCC V28) 2023 Social History Tobacco Use Types [...] Care Team (Late st Contact Info) Description 05/02/2025 3:00 PM EST Office Visit Orthopedic Surgery - [place] [address] [phone] Gabino Ritchie, DPMik [address] [address] Health Maintenance Due Date Last Done Comments Breast Cancer Screening 1976 Diabetes: Annual Foot Exam 02/12/1986 Diabetes: Annual Retina Eye Exam 02/12/1986 Hepatitis B Vaccines (1 of 3 - 19+ 3-dose series) 02/12/1995 Cervical Cancer Screening: Pap Smear 02/12/1997 Social Influencers of Health Screening 05/11/2022 DTaP,Tdap,and Td Vaccines (2 - Td or Tdap) 04/28/2024 04/28/2014 Depression Screening 06/08/2024 Diabetes: Annual Urine Albumin-Creatinine Ratio (uACR) 06/15/2024 COVID-19 Vaccine ( season) 2025 06/26/2021, 10/17/2020, 09/19/2020 Influenza Vaccine (#1) 2025 3, 04/01/2022, 03/19/2021, Additional history exists Diabetes: Blood Sugar Control Test (HGBA1C) 08/21/2025 02/21/2025, 09/16/2024, 06/17/2024, Additional history exists Diabetes: Annual GFR (Glomerular Filtration Rate) 10/03/2025 10/03/2024 Hypertension/CHF/CAD Annual BMP Blood Test 10/03/2025 10/03/2024 Colorectal Cancer Screening: FIT-DNA (Cologuard) 04/15/2027 04/15/2024 Cholesterol Screening (Lipid Panel) 07/04/2029 07/04/2024, 05/07/2022 RSV Immunization Adult Patients (1 - 1-dose 75+ series) 02/12/2051 Pneumococcal [...] Documents on File Type Date Recorded 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
--- OUTSIDE RECORDS SUMMARY | 2025-04-12 18:04 | XMS_ITS | Encounter Summary ---
Author Organization [employer] Address [address] [place] [address] [place] [address] Care Team Providers Care Densitometer Reader Name Role Phone West Gallegos MD Primary Care Provider [phone] Reason for Visit * Reason Comments Med Refill Encounter Details Date Type Department Care Team ([facility] Contact Info) Description 05/20/2023 Refill [facility] CHC MED & PEDS [address] [place] [address] West Gallegos MD [address] [place] [address] Cervical radiculopathy; Bilateral carpal tunnel syndrome Social [...] Upcoming Encounters Date Type Department Care Team ([facility] Contact Info) Description 05/29/2025 3:15 PM EST Office Visit [facility] CHC MED & PEDS [address] [place] [address] West Gallegos MD [address] [place] [address] documented as of this encounter Visit Diagnoses Diagnosis Cervical radiculopathy Brachial neuritis or radiculitis nos Bilateral carpal tunnel syndrome Carpal tunnel syndrome documented in this encounter Additional Health Concerns Assessment Noted Time PHQ-9 Depression Total Score: 3 05/23/20 22 1:43 PM EST documented as of this encounter Care Teams Densitometer Reader Relationship Specialty Start Date End Date West Gallegos MD [address] [place] [address] PCP - General Internal Medicine 01/26/18 documented as of this encounter
--- OUTSIDE RECORDS SUMMARY | 2025-04-12 18:04 | XMS_ITS | Encounter Summary ---
Author Organization [employer] Address [address] [place] [address] [place] [address] Care Team Providers Care Terminal Block Assembler Name Role Phone West Gallegos MD Primary Care Provider [phone] Reason for Visit * Reason Onset Date Comments PA 11/20/2022 Encounter Details Date Type Department Care Team ([facility] Contact Info) Description 11/20/[address] [facility] CHC MED & PEDS [address] [place], [place] [phone] West Gallegos MD [address] [place] [address] PA Social History Tobacco Use Types Packs/Day [...] information for Insurance. Please contact pt at [phone] documented in this encounter Plan of Treatment Upcoming Encounters Date Type Department Care Team ([facility] st Contact Info) Description 05/29/2025 3:15 PM EST Office Visit [facility] MED & PEDS [address] [place] [address] West Gallegos MD [address] [place] [address] documented as of this encounter Visit Diagnoses Not on filedocumented in this encounter Additional Health Concerns Assessment Noted Time PHQ-9 Depression Total Score: 3 05/23/20 22 1:43 PM EST documented as of this encounter Care Teams Terminal Block Assembler Relationship Specialty Start Date End Date West Gallegos MD [address] [place] [address] PCP - General Internal Medicine 01/26/18 documented as of this encounter
--- OUTSIDE RECORDS SUMMARY | 2025-04-12 18:04 | XMS_ITS | Encounter Summary ---
Author Organization [email or web address] Address [address] [facility] 7t [place] [address] Care Team Providers Care Dump Attendant Name Role Phone West Gallegos MD Primary Care Provider [phone] Encounter Details Date Type Department Care Team ([facility] st Contact Info) Description 09/15/2024 Orders Only [facility] CHC MED & PEDS [address] [place] [address] Provider, MD Lala Social History Tobacco Use Types Packs/Day Years [...] Care Team (Late st Contact Info) Description 05/29/2025 3:15 PM EST Office Visit [facility] MED & PEDS [address] [place] [address] West Gallegos MD [address] [place] [address] documented as of this encounter Procedures Procedure [...] documented as of this encounter Care Teams Dump Attendant Relationship Specialty Start Date End Date West Gallegos MD [address] [place] [address] PCP - General Internal Medicine 01/26/18 documented as of this encounter
--- OUTSIDE RECORDS SUMMARY | 2025-04-12 18:04 | XMS_ITS | Encounter Summary ---
Author Organization [employer] Address [address] [place] [address] [place] [address] Care Team Providers Care Community Health Nurse Supervisor Name Role Phone West Gallegos MD Primary Care Provider [phone] Reason for Visit * Reason Onset Date Comments Med Refill 01/15/2023 Encounter Details Date Type Department Care Team ([facility] st Contact Info) Description 01/15/2023 Telephone [facility] CHC MED & PEDS [address] [place] [address] West Gallegos MD [address] [place] [address] Med Refill Social History Tobacco Use Types [...] in medication. * Telephone Encounter - Stacy Persaud - 01/15/2023 9:00 AM EDT Tc from pt requesting refill on insulin lispro (HumaLOG) 100 UNIT/ML injection to be sent to [facility] [place], [place] - [address] [place] [address]. States instructions have to be change from 18 units to 26 units due to PCP ordering her to take more. documented in this encounter Plan of Treatment Upcoming Encounters Date Type Department Care Team (Late st Contact Info) Description 05/29/2025 3:15 PM EST Office Visit [facility] MED & PEDS [address] [place] [address] West Gallegos MD [address] [place] [address] documented as of this encounter Visit Diagnoses Diagnosis Type 2 diabetes mellitus with other neurologic complication, with long-term current use of insulin (HCC)- Primary documented in this encounter Additional Health Concerns Assessment Noted Time PHQ-9 Depression Total Score: 3 05/23/20 22 1:43 PM EST documented as of this encounter Care Teams Community Health Nurse Supervisor Relationship Specialty Start Date End Date West Gallegos MD [address] [place] [address] PCP - General Internal Medicine 01/26/18 documented as of this encounter
--- OUTSIDE RECORDS SUMMARY | 2025-04-12 18:04 | XMS_ITS | Encounter Summary ---
Author Organization [employer] Address [address] [place] [address] 7 [place] [address] Care Team Providers Care Purchasing Manager Name Role Phone West Gallegos MD Primary Care Provider [phone] Encounter Details Date Type Department Care Team ([facility] Contact Info) Description 10/28/2023 Orders Only [facility] CHC MED & PEDS 505 [place], [place] [phone] West Gallegos MD [address] [place] [address] Type 2 diabetes mellitus with other neurologic complication, with long-term current use of insulin ([facility]) (Primary Dx) Social History Tobacco [...] Department Care Team (Late Contact Info) Description 05/29/2025 3:15 PM EST Office Visit [facility] CHC MED & PEDS [address] [place] [address] West Gallegos MD [address] [place] [address] documented as of this encounter Visit Diagnoses Diagnosis Type 2 diabetes mellitus with other neurologic complication, with long-term current use of insulin (HCC)- Primary documented in this encounter Additional Health Concerns Assessment Noted Time PHQ-9 Depression Total Score: 3 05/23/20 22 1:43 PM EST documented as of this encounter Care Teams Purchasing Manager Relationship Specialty Start Date End Date West Gallegos MD [address] [place] [address] PCP - General Internal Medicine 01/26/18 documented as of this encounter
--- OUTSIDE RECORDS SUMMARY | 2025-04-12 18:04 | XMS_ITS | Encounter Summary ---
Author Organization [employer] Address [address] [place] [address] [place] [address] Care Team Providers Care Recruiting Specialist Name Role Phone West Gallegos MD Primary Care Provider [phone] Reason for Visit * Reason Onset Date Comments Other 10/01/2022 Encounter Details Date Type Department Care Team ([facility] Contact Info) Description 10/01/2022 Telephone [facility] CHC MED & PEDS 505 [place], [place] [phone] West Gallegos MD [address] [place] [address] Other Social History Tobacco Use Types Packs/Day [...] have EMG. * Telephone Encounter - Blanca Starksnez - 10/01/2022 10:16 AM EDT Tc from Laura at [facility] calling in regards to nerve conduction order for 12/22/22. Laura would like to know if PCP would like to include EMG. Patient did get the EMG last year on 07/16/21. Any further questions please call [phone] fax number [phone]. Planning Engineer was unable to see order. documented in this encounter Plan of Treatment Upcoming Encounters Date Type Department Care Team (Late st Contact Info) Description 05/29/2025 3:15 PM EST Office Visit [facility] MED & PEDS [address] [place] [address] West Gallegos MD [address] [place] [address] documented as of this encounter Visit Diagnoses Not on filedocumented in this encounter Additional Health Concerns Assessment Noted Time PHQ-9 Depression Total Score: 3 05/23/20 22 1:43 PM EST documented as of this encounter Care Teams Recruiting Specialist Relationship Specialty Start Date End Date West Gallegos MD [address] [place] [address] PCP - General Internal Medicine 01/26/18 documented as of this encounter
--- OUTSIDE RECORDS SUMMARY | 2025-04-12 18:04 | XMS_ITS | Encounter Summary ---
Author Organization [employer] Address [address] [place] [address] Care Team Providers Care Paralegals Name Role Phone West Gallegos MD Primary Care Provider [phone] Reason for Visit * Reason Onset Date Comments Med Refill 09/07/2024 Encounter Details Date Type Department Care Team ([facility] st Contact Info) Description 09/07/2024 Telephone [facility] [address] [place] [address] West Gallegos MD [address] [place] [address] Med Refill Social History Tobacco Use Types [...] encounter Miscellaneous Notes * Telephone Encounter - Christine Levin - 09/07/2024 1:32 PM EDT TC from pt requesting medication refill. Medications needing refill : ibuprofen 800 MG tablet To be sent to: [facility] [place], [place] - [address] [place] [address] documented in this encounter Plan of Treatment Upcoming Encounters Date Type Department Care Team (Late st Contact Info) Description 05/29/2025 3:15 PM EST Office Visit [facility] CHC MED & PEDS [address] [place], [place] [phone] West Gallegos MD [address] [place], [place] [phone] documented as of this encounter Visit Diagnoses Not on filedocumented in this encounter Additional Health Concerns Assessment Noted Time PHQ-9 Depression Total Score: 21 024 10:02 AM EDT documented as of this encounter Care Teams Paralegals Relationship Specialty Start Date End Date West Gallegos MD [address] [place] [address] PCP - General Internal Medicine 01/26/18 documented as of this encounter
--- OUTSIDE RECORDS SUMMARY | 2025-04-12 18:04 | XMS_ITS | Encounter Summary ---
Author Organization [employer] Address [address] [place] [address] 7 [place] [address] Care Team Providers Care Jtac Name Role Phone West Gallegos MD Primary Care Provider +1 [phone] Encounter Details Date Type Department Care Team ([facility] Contact Info) Description 08/03/2023 Orders Only [facility] CHC MED & PEDS [address] [place], [place] [phone] West Gallegos MD [address] [place] [address] Bilateral carpal tunnel syndrome (Primary Dx) Social [...] Upcoming Encounters Date Type Department Care Team ([facility] Contact Info) Description 05/29/2025 3:15 PM EST Office Visit [facility] MED & PEDS [address] [place] [address] West Gallegos MD [address] [place] [address] documented as of this encounter Visit Diagnoses Diagnosis Bilateral carpal tunnel syndrome- Primary Carpal tunnel syndrome documented in this encounter Additional Health Concerns Assessment Noted Time PHQ-9 Depression Total Score: 3 05/23/20 22 1:43 PM EST documented as of this encounter Care Teams Jtac Relationship Specialty Start Date End Date West Gallegos MD [address] [place] [address] PCP - General Internal Medicine 01/26/18 documented as of this encounter
--- OUTSIDE RECORDS SUMMARY | 2025-04-12 18:04 | XMS_ITS | Encounter Summary ---
Author Organization [employer] Address [address] [facility] 7 [place] [address] Care Team Providers Care Curing Machine Operator Name Role Phone West Gallegos MD Primary Care Provider [phone] Encounter Details Date Type Department Care Team ([facility] Contact Info) Description 09/08/2024 Orders Only [facility] CHC MED & PEDS [address] [place], [place] [phone] West Gallegos MD [address] [place] [address] Muscle cramps (Primary Dx) Social History Tobacco [...] Description 05/29/2025 3:15 PM EST Office Visit [facility] MED & PEDS [address] [place] [address] West Gallegos MD [address] [place] [address] documented as of this encounter Visit Diagnoses Diagnosis Muscle cramps- Primary documented in this encounter Additional Health Concerns Assessment Noted Time PHQ-9 Depression Total Score: 21 024 10:02 AM EDT documented as of this encounter Care Teams Curing Machine Operator Relationship Specialty Start Date End Date West Gallegos MD [address] [place] [address] PCP - General Internal Medicine 01/26/18 documented as of this encounter
--- OUTSIDE RECORDS SUMMARY | 2025-04-12 18:04 | XMS_ITS | Encounter Summary ---
Author Organization [employer] Address [address] [place] [address] 7 [place] [address] Care Team Providers Care Material Lister Name Role Phone West Gallegos MD Primary Care Provider [phone] Encounter Details Date Type Department Care Team ([facility] Contact Info) Description 04/03/2023 Orders Only [facility] CHC MED & PEDS [address] [place], [place] [phone] West Gallegos MD [address] [place] [address] Type 2 diabetes mellitus with other neurologic complication, with long-term current use of insulin ([facility]) (Primary Dx) Social History Tobacco Use Types [...] Description 05/29/2025 3:15 PM EST Office Visit [facility] CHC MED & PEDS [address] [place] [address] West Gallegos MD [address] [place] [address] documented as of this encounter Procedures Procedure [...] PM EDT Narrative 04/07/2023 7:11 AM EDT [address] [address] XRay Report Signed Patient: Aliza Shane MR#: [id number] : 1975 Acct:[id number] Age/Sex: 48 / F ADM Date: 04/02/23 Loc: HO.LAB Attending Dr: Tomas Lewis MD Ordering Physician: Tomas Lewis MD Date of Service: 04/02/23 Procedure(s): XR wrist LT min 3V Accession Number(s): [id number] cc: West Gallegos MD; Tomas Lewis MD [...] XR/XR wrist LT min 3V IMPRESSION: 1. Hvwh-zf-zvldxbkb degenerative changes as detailed above. 2. No displaced fracture. Recommend followup imaging in 10-14 days if fracture is suspected. Dictated By: Leticia Bo MD Signed By: <Electronically signed by Leticia Bo MD in OV> 04/07/23 0708 DD/ 1520 TD/TT: Candlemaker: Procedure Note Donotuseinterpreter, Image - 04/07/[address] [address] XRay Report Signed Patient: Lakeshia Shane#: [id number] : 1975Acct:[id number] Age/Sex: 48 / FADM Date: 04/02/23 Loc: HO.LAB Attending Dr: Tomas Lewis MD Ordering Physician: Tomas Lewis MD Date of Service: 04/02/23 Procedure(s): XR wrist LT min 3V Accession Number(s): [id number] cc: West Gallegos MD; Tomas Lewis MD [...] XR/XR wrist LT min 3V IMPRESSION: 1. Hwnc-ir-ydedbdzj degenerative changes as detailed above. 2. No displaced fracture. Recommend followup imaging in 10-14 days if fracture is suspected. Dictated By: Leticia Bo MD Signed By: <Electronically signed by Leticia Bo MD in OV> 04/07/23 0708 DD/ 1520 TD/TT: Candlemaker: us [facility] External Provider IMG XR PROCEDURES Final Result * XR Wrist 3+ Views Right (04/02/2023 3:20 PM EDT) Anatomical Region Laterality Modality Upper Extremities, Wrist Right Radiogr aphic Imaging 04/02/2023 3:20 PM EDT Narrative 04/07/2023 7:11 AM EDT [address] [address] XRay Report Signed Patient: Aliza Shane MR#: [id number] : 1975 Acct:[id number] Age/Sex: 48 / F ADM Date: 04/02/23 Loc: HO.LAB Attending Dr: Tomas Lewis MD Ordering Physician: Tomas Lewis MD Date of Service: 04/02/23 Procedure(s): XR wrist RT min 3V Accession Number(s): [id number] cc: West Gallegos MD; Tomas Lewis MD [...] XR/XR wrist RT min 3V IMPRESSION: 1. Bhue-io-tothvgju degenerative changes as detailed above. 2. No displaced fracture. Recommend followup imaging in 10-14 days if fracture is suspected. Dictated By: Leticia Bo MD Signed By: <Electronically signed by Leticia Bo MD in OV> 04/07/23 0708 DD/ 1520 TD/TT: Candlemaker: Procedure Note Donotuseinterpreter, Image - 04/07/[address] [address] XRay Report Signed Patient: Lakeshia Shane#: [id number] : 1975Acct:[id number] Age/Sex: 48 / FADM Date: 04/02/23 Loc: HO.LAB Attending Dr: Tomas Lewis MD Ordering Physician: Tomas Lewis MD Date of Service: 04/02/23 Procedure(s): XR wrist RT min 3V Accession Number(s): [id number] cc: West Gallegos MD; Tomas Lewis MD [...] XR/XR wrist RT min 3V IMPRESSION: 1. Jsuj-ev-cfynlapn degenerative changes as detailed above. 2. No displaced fracture. Recommend followup imaging in 10-14 days if fracture is suspected. Dictated By: Leticia Bo MD Signed By: <Electronically signed by Leticia Bo MD in OV> 04/07/23 0708 DD/ 1520 TD/TT: Candlemaker: [facility] External Provider IMG XR PROCEDURES Final Result documented in this encounter Visit Diagnoses Diagnosis Type 2 diabetes mellitus with other neurologic complication, with long-term current use of insulin (HCC)- Primary documented in this encounter Additional Health Concerns Assessment Noted Time PHQ-9 Depression Total Score: 3 05/23/20 22 1:43 PM EST documented as of this encounter Care Teams Material Lister Relationship Specialty Start Date End Date West Gallegos MD [address] [place] [address] PCP - General Internal Medicine 01/26/18 documented as of this encounter
--- OUTSIDE RECORDS SUMMARY | 2025-04-12 18:04 | XMS_ITS | Encounter Summary ---
Author Organization [employer] Address [address] [place] [address] 7 [place] [address] Care Team Providers Care Luster Repairer Name Role Phone West Gallegos MD Primary Care Provider [phone] Encounter Details Date Type Department Care Team ([facility] st Contact Info) Description 09/25/2022 Orders Only [facility] CHC MED & PEDS [address] [place], [place] [phone] West Gallegos MD 505 [place] [address] Bilateral carpal tunnel syndrome (Primary Dx) Social [...] Description 05/29/2025 3:15 PM EST Office Visit [facility] MED & PEDS [address] [place] [address] West Gallegos MD [address] [place] [address] documented as of this encounter Visit Diagnoses Diagnosis Bilateral carpal tunnel syndrome- Primary Carpal tunnel syndrome documented in this encounter Additional Health Concerns Assessment Noted Time PHQ-9 Depression Total Score: 3 05/23/20 22 1:43 PM EST documented as of this encounter Care Teams Luster Repairer Relationship Specialty Start Date End Date West Gallegos MD [address] [place] [address] PCP - General Internal Medicine 01/26/18 documented as of this encounter
--- OUTSIDE RECORDS SUMMARY | 2025-04-12 18:04 | XMS_ITS | Encounter Summary ---
Author Organization [employer] Address [address] [place] [address] Care Team Providers Care Electrical High Tension Tester Name Role Phone West Gallegos MD Primary Care Provider [phone] Reason for Visit * Reason Onset Date Comments Referral 08/06/2023 Encounter Details Date Type Department Care Team ([facility] st Contact Info) Description 08/06/2023 Telephone [facility] MEDICINE [address] [place] [address] West Gallegos MD [address] [place] [address] Referral Social History Tobacco Use Types Packs/Day [...] faxed * Telephone Encounter - J Carlos Daniel - 08/06/2023 10:23 AM EST TC from pt requesting renewal of referral : DATE: N/A TIME: N/A Address: [address] [place] [address] Visits: Every 2 months Facility Name: Dr. Martínez [place] [facility] Type of Specialist: Exhibit Cleaner Phone #: [phone] Pt requested call back with referral number if possible. Please contact pt at [phone]. documented in this encounter Plan of Treatment Upcoming Encounters Date Type Department Care Team ([facility] st Contact Info) Description 05/29/2025 3:15 PM EST Office Visit [facility] CHC MED & PEDS [address] [place] [address] West Gallegos MD 505 [place] [address] documented as of this encounter Visit Diagnoses Not on filedocumented in this encounter Additional Health Concerns Assessment Noted Time PHQ-9 Depression Total Score: 3 05/23/20 22 1:43 PM EST documented as of this encounter Care Teams Electrical High Tension Tester Relationship Specialty Start Date End Date West Gallegos MD [address] [place] [address] PCP - General Internal Medicine 01/26/18 documented as of this encounter
--- OUTSIDE RECORDS SUMMARY | 2025-04-12 18:04 | XMS_ITS | Encounter Summary ---
Author Organization [employer] Address [address] [place] [address] Care Team Providers Care Supply Chain Consultant Name Role Phone West Gallegos MD Primary Care Provider [phone] Reason for Visit * Reason Onset Date Comments request 07/10/2023 Encounter Details Date Type Department Care Team ([facility] st Contact Info) Description 07/10/2023 Telephone [facility] MEDICINE [address] [place] [address] West Gallegos MD [address] [place] [address] request Social History Tobacco Use Types Packs/Day [...] from pt requesting authorization to see orthopedic, grant writer ask pt if need a referral and pt stated again authorization, please contact pt for clarifications. documented in this encounter Plan of Treatment Upcoming Encounters Date Type Department Care Team ([facility] st Contact Info) Description 05/29/2025 3:15 PM EST Office Visit [facility] MED & PEDS [address] [place] [address] West Gallegos MD [address] [place] [address] documented as of this encounter Visit Diagnoses Not on filedocumented in this encounter Additional Health Concerns Assessment Noted Time PHQ-9 Depression Total Score: 3 05/23/20 22 1:43 PM EST documented as of this encounter Care Teams Supply Chain Consultant Relationship Specialty Start Date End Date West Gallegos MD [address] [place] [address] PCP - General Internal Medicine 01/26/18 documented as of this encounter
--- OUTSIDE RECORDS SUMMARY | 2025-04-12 18:04 | XMS_ITS | Encounter Summary ---
Author Organization [employer] Address [address] [place] [address] [place] [address] Care Team Providers Care Middle School Counselor Name Role Phone West Gallegos MD Primary Care Provider [phone] Reason for Visit * Reason Comments Med Refill Encounter Details Date Type Department Care Team ([facility] Contact Info) Description 04/17/2023 Refill [facility] CHC MED & PEDS [address] [place] [address] West Gallegos MD [address] [place] [address] Cervical radiculopathy; Bilateral carpal tunnel syndrome Social [...] Encounters Date Type Department Care Team ([facility] Contact Info) Description 05/29/2025 3:15 PM EST Office Visit [facility] CHC MED & PEDS [address] [place] [address] West Gallegos MD [address] [place] [address] documented as of this encounter Visit Diagnoses Diagnosis Cervical radiculopathy Brachial neuritis or radiculitis nos Bilateral carpal tunnel syndrome Carpal tunnel syndrome documented in this encounter Additional Health Concerns Assessment Noted Time PHQ-9 Depression Total Score: 3 05/23/20 22 1:43 PM EST documented as of this encounter Care Teams Middle School Counselor Relationship Specialty Start Date End Date West Gallegos MD [address] [place] [address] PCP - General Internal Medicine 01/26/18 documented as of this encounter
--- OUTSIDE RECORDS SUMMARY | 2025-04-12 18:05 | XMS_ITS | Encounter Summary ---
Author Organization [employer] Address [address] [place] [address] 7 [place] [address] Care Team Providers Care Director Of Public Relations Name Role Phone West Gallegos MD Primary Care Provider [phone] Reason for Visit * Reason Comments Med Refill Encounter Details Date Type Department Care Team ([facility] Contact Info) Description 07/10/2022 Refill [facility] CHC MED & PEDS [address] [place], [place] [phone] West Gallegos MD [address] [place] [address] Subacute cough Social History Tobacco Use Types [...] Description 05/29/2025 3:15 PM EST Office Visit [facility] MED & PEDS [address] [place] [address] West Gallegos MD [address] [place] [address] documented as of this encounter Visit Diagnoses Diagnosis Subacute cough documented in this encounter Additional Health Concerns Assessment Noted Time PHQ-9 Depression Total Score: 3 05/23/20 1:43 PM EST documented as of this encounter Care Teams Director Of Public Relations Relationship Specialty Start Date End Date West Gallegos MD [address] [place] [address] PCP - General Internal Medicine 01/26/18 documented as of this encounter
--- OUTSIDE RECORDS SUMMARY | 2025-04-12 18:05 | XMS_ITS | Encounter Summary ---
Author Organization [employer] Address [address] [place] [address] [place] [address] Care Team Providers Care Bus Or Truck Garage Mechanic Name Role Phone West Gallegos MD Primary Care Provider [phone] Encounter Details Date Type Department Care Team ([facility] st Contact Info) Description 05/13/2022 Telephone [facility] CHC MED & PEDS [address] [place], [place] [phone] West Gallegos MD [address] [place] [address] Social History Tobacco Use Types Packs/Day Years [...] 05/15/2022 9:34 AM EST Referral Authorization # [id number] given to Rehan from [facility] End[facility]. * Telephone Encounter - Kimberli Evans - 05/13/2022 2:05 PM EST TC from [place] with [facility] Endocrinology requesting a updated referral for : [address] [facility] [address] Tel: [phone] Fax: [phone] Referral was done on 08/27/21 but endocrinology office stated they never received referral. Pcp dr. Gallegos documented in this encounter Plan of Treatment Upcoming Encounters Date Type Department Care Team ([facility] st Contact Info) Description 05/29/2025 3:15 PM EST Office Visit [facility] [place] MED & PEDS [address] [place] [address] West Gallegos MD [address] [place] [address] documented as of this encounter Visit Diagnoses Not on filedocumented in this encounter Care Teams Bus Or Truck Garage Mechanic Relationship Specialty Start Date End Date West Gallegos MD [address] [place] [address] PCP - General Internal Medicine 01/26/18 documented as of this encounter
--- OUTSIDE RECORDS SUMMARY | 2025-04-12 18:05 | XMS_ITS | Encounter Summary ---
Author Organization [employer] Address [address] [facility] 7t [place] [address] Care Team Providers Care Managing Consultant Clinical Professor Name Role Phone West Gallegos MD Primary Care Provider [phone] Reason for Referral * Consultation (Routine) - Closed Specialty Diagnoses / Procedures Referred By Contjamal t Referred To Contact Gastroenterology Diagnoses Positive colorectal cancer screening using Cologuard test West Gallegos MD [address] [place] [address] Phone: tel: fax: [facility] Gastroenterology [address] [place] [address] [place], [place] Phone: tel: fax: Referral ID Status Reason Start Date Expiration Date V isits Requested Visits Authorized [id number] Closed Specialty Services Required 04/22/2024 04/22/2025 1 1 Encounter Details Date Type Department Care Team (Late st Contact Info) Description 04/22/2024 Orders Only [facility] CHC MED & PEDS [address] [place] [address] West Gallegos MD [address] [place] [address] Positive colorectal cancer screening using Cologuard test [...] Upcoming Encounters Date Type Department Care Team ([facility] st Contact Info) Description 05/29/2025 3:15 PM EST Office Visit [facility] MED & PEDS [address] [place], [place] [phone] West Gallegos MD [address] [place] [address] Scheduled Referrals Name Type Priority Associated Diagnoses [...] documented as of this encounter Care Teams Managing Consultant Clinical Professor Relationship Specialty Start Date End Date West Gallegos MD 505 [place] [address] PCP - General Internal Medicine 01/26/18 documented as of this encounter
--- OUTSIDE RECORDS SUMMARY | 2025-04-12 18:05 | XMS_ITS | Data Portability ---
Author Organization [facility] [employer] Address [address] [place] [address] Care Team Providers Care Food Service Utility Worker Name Role Phone IVETTE LIRIANO Referring Provider [...] Organization Details Last Modified Time Details Appointments FOLLOW UP 2024 03:00P M Mel lao MD Not available Not available Not available Lab None recorded. Referral orthopedi c spine surgeon referral - evaluate for bilateral cervical radiculop athy, s/p carpal tunnel release with return of symptoms 2022 023 [email or web address] Not available 05/22/2023 09:05:50 Procedures None recorded. Surgeries trigger finger release (SURG) 2024 025 RENATO Not available 06/24/2024 10:24:37 Imaging None recorded. Medication Orders lidocaine (PF) 10 mg/mL (1 %) injection solution 2022 023 [place] [address], [address], [place] [address] [place] [address], [id number], 07/08/2024 14:53:42 Kenalog 10 mg/mL suspensio n for injection 2022 023 [place] [address], [address], [address], [place], [place], [id number], 07/08/2024 14:53:39 lidocaine (PF) 10 mg/mL (1 %) injection solution 2022 023 [place] [address], [address], [address], [place], [place], [id number], 07/08/2024 14:53:42 Kenalog 10 mg/mL suspensio n for injection 2022 023 [place] [address], [address], [place] [address] [place] [address], [id number], 07/08/2024 14:53:39 Patient TargetsNo targets recorded. Patient Instructions Encounter Date Encounter Id Patient Instructions Last Modified By Organization Details Last Modified Time 04/23/2023 [id number] An electrodiagno stic study from 07/16/2021 done at [facility] was available for review, this demonstrates [...] An electrodiagnostic study from 02/23/2023 done at [facility] was available for review, this demonstrates [...] Time Carpal tunnel syndrome of right wrist 3068452090014 08 Active 2022 Mel lao MD [address], [place], [address], [place] [facility], [facility] 3 18:41:21 Carpal tunnel syndrome of left wrist 9492821688406 02 Active 2022 Mel lao MD [address], [place], [address], [place] [facility], P 3 18:41:24 Acquired trigger finger of left index finger 2960430511966 04 Active 2023 Mel lao MD [address], [facility] [place], [address], [place] [facility], P 4 16:51:27 Triggering of digit 634773533 Active 2024 Mel lao MD 299 [facility] [address], [facility] [place], [address], [place] [facility], P 5 12:25:26 Problem Notes None recorded. Procedures Surgical History Date Name Laterality Status Provider Name and Address Organization Details Recorded Time 5 TRIGGER FINGER RELEASE (SURG) completed Adriane Arias [facility], [facility] 06/24/2024 10:24:43 3 LES carpal tunnel injection completed Mel Bennett MD [address] [facility],[place] [address], [place], [address], [place] [facility] 04/23/2023 18:34:11 3 LES trigger finger/De Quervain's injection completed Mel Bennett MD [address] [facility],[place] [address], [place], [address], [place] [facility] 04/23/2023 18:33:58 Imaging Results None recorded. [...] Updated DateTime 07/08/2024 165.1 cm 25.5 kg/m2 26551.63 g Shawna Quijano [facility] 07/08/2024 14:53:17 Date Recorded Body height Body mass index (BMI) Body weight Provider Name and Address Organization Details Last Updated DateTime 04/23/2023 165.1 cm 25.5 kg/m2 57958.63 g Shawna Quijano [facility], P 04/23/2023 13:55:27 Social History Question Answer Notes LastModified by [employer] [facility] Details LastModified Time Tobacco Smoking Status Current Every Day Smoker Shawna tripp, [facility], P 04/23/2023 14:16:08 How Much Tobacco Do You Smoke? 1 PPW 5-6 Cigs/ Day Information not available 04/23/2023 Sex: Unknown Functional Status Question Answer Note LastModified by Tr[employer] Details LastModified Time Do you use any illicit or recreational drugs? No Information not available 04/23/2023 Do you or have you ever used any other forms of tobacco or nicotine? No Information not available 04/23/2023 What is your level of alcohol consumption? None Information not available 04/23/2023 Mental Status None recorded. Family History Relationship [...] Anemia N Brain Injury N Heart Attack ([place]) N Osteopenia N Diabetes Y Bleeding Disorder [...] Diagnosis SNOMED-CT Code Diagnosis ICD10 Code Diagnosis IMO Codes Diagnosis Note 69601 MD SANJEEV Knapp [facility] 299 [facility] [address] [place] [address] 04/23/2023 13:45:40 04/23/2023 15:06:40 Acquired trigger finger of right index finger 5653217761 53390 M65.321 Pain of right wrist 3169 026171 [address] M25.531 Carpal wilberto rebecca syndrome of right wrist 1601179131 01507 G56.01 Carpal wilberto rebecca syndrome of left wrist 2529348007 74683 G56.02 87455 MD SANJEEV Knapp [facility] [address] [facility] [address] [place] [address] 06/10/2023 15:23:26 06/10/2023 16:43:05 Carpal tunnel syndrome of left wrist 3952152296 49159 G56.02 Carpal wilberto rebecca syndrome of right wrist 0939071214 95051 G56.01 Acquired t forestry hunter finger of left index finger 9577466180 21080 M65.322 09991 [facility] [address] [facility] [address] [place] [address] 06/09/2024 15:05:04 06/09/2024 15:39:01 Acquired trigger finger of left index finger 1077067428 55889 M65.322 Carpal wilberto rebecca syndrome of right wrist 7925305510 69612 G56.01 Carpal wilberto rebecca syndrome of left wrist 5689867656 7[address]20 G56.02 [id number] Mel Bennett MD [address] [place] [address] 07/08/2024 14:44:47 07/08/2024 15:15:11 Acquired trigger finger of left index finger 9649198752 92172 M65.322 Health Concerns Section Related Observation LastModified by Organization Detai ls LastModified Time None Recorded Concern Status LastModified by Organization Details LastModified Time None Recorded Advance Directives Directive None Recorded Payers Insurance Date Sequence Insurance Name Policy Number Policy Jiménez Covered Member ID Jiménez Member ID Guarantor Name 06/08/2024 1 MEDICAID-ID: [facility] Miladys Shane [id number] Aliza Shane Notes Date Note Type Note Provider Name and Address Organization Details Recorded Time 04/23/2023 text/html ROS as noted in the HPI This is a 48-year-old kfwus-ujiq-ekykcsvi female who is presenting with bilateral, right [...] and long finger. Mel Bennett MD [address] [place] [address] [address], [place], [address], [facility] - [facility], P 04/23/2023 18:45:28 06/10/2023 text/html ROS as noted in the HPI She returns to see me for right hand numbness and tingling status [...] bother her much. Mel Bennett MD [address] [address], [place], [address], [facility] - [facility], P 06/10/2023 16:51:39 06/09/2024 text/html ROS as noted in the HPI She presents for follow-up of her right [...] in the eights. She does see an airport duty manager for this. She also tells me she [...] not drink alcohol. Mel Bennett MD [address] [facility] [address], [place], [address], [place] [facility], [facility] 06/24/2024 13:37:41 07/08/2024 text/html ROS as noted in the HPI She presents for postop follow-up status post [...] Mel Bennett MD [address], [place], [address], [place] [facility], [facility] 07/10/2024 10:44:40 OBGyn Episode No OBEpisode recorded.
--- OUTSIDE RECORDS SUMMARY | 2025-04-12 18:05 | XMS_ITS | Clinical Summary ---
Author Organization [employer] Address [address] [facility] [address] [place] [address] Care Team Providers Care Electrical Prospecting Observer Name Role Phone West Gallegos MD Primary Care Provider [phone] Allergies No known active allergies Medications * This document contains information received from the source organization and may not represent a complete record from that organization. cetirizine (ZyrTEC) 10 MG tablet Take 1 tablet by mouth. Every day 021 Active cholecalciferol (Vitamin D-3) 25 MCG (1000 UT) capsule take 1 Capsule by Oral route once a day 021 Active Continuous Blood Gluc Laundry Tub Maker (FreeStyle Parris 2 [place]) device Use daily Active Misc. Devices (Wrist Brace) misc Wear daily at bedtime Active insulin glargine (Lantus SoloStar) 100 UNIT/ML pen inject 65 Unit by Subcutaneous route every bedtime 3 mL 11 023 Active famotidine (Pepcid) 40 MG tablet TAKE ONE TABLET TWICE DAILY 180 tablet 023 Active Continuous Blood Gluc Sensor (FreeStyle Parris 2 Sensor) misc Use daily 2 each 023 Active Blood Glucose Monitoring Suppl (FreeStyle Lite) w/Device kit 1 Units 4 times daily. Use daily 1 kit 023 Active FreeStyle lancetsIndicati ons:Type 2 diabetes mellitus with other neurologic complication, with long-term current use of insulin (HCC) 1 each by Other route 4 times daily. Use daily 100 each 023 Active Insulin Pen Needle (pen needle 08/21 ) 31G x 5 mm misc Inject 1 each under the skin 4 times daily. Use 4 times daily 120 each 11 023 Active moisturizing mouth (Biotene Oral Dry Mouth) solutionIndicat ions:Canker sores oral Take 1 spray by mouth if needed (for dry mouth). 44.3 mL 1 023 Active Baqsimi Two Pack 3 MG/DOSE nasal powder INSERT ONE SPRAY IN NOSE NEEDED FOR LOW BLOOD SUGAR 2 each 1 024 Active ketotifen (Zaditor) 0.025 % ophthalmic solution One drop to eyes bid prn allergies 5 mL 1 024 Active ammonium lactate (Lac-Hydrin) 12 % lotionIndicatio ns:Type 2 diabetes mellitus with other neurologic complication, with long-term current use of insulin ([facility]),Dry skin Apply topically if needed for dry skin. 400 g 3 025 2025 Active atorvastatin (Lipitor) 80 MG tabletIndicatio ns:Type 2 diabetes mellitus with other neurologic complication, with long-term current use of insulin ([facility]),Dyslipide nereida Take 1 tablet (80 mg) by mouth Once per day. 30 tablet 025 2025 Active traZODone (Desyrel) 50 MG tabletIndicatio ns:Primary insomnia Take 2 tablets (100 mg) by mouth at bedtime. 30 tablet 5 Active glucose blood (FREESTYLE LITE) test stripIndication s:Type 2 diabetes mellitus with other neurologic complication, with long-term current use of insulin ([facility]) 1 each by Other route 4 times daily. 100 each Active busPIRone (Buspar) 5 MG tabletIndicatio ns:Anxiety Take 1 tablet (5 mg) by mouth 2 times daily. 60 tablet 025 2025 Active Alcohol Swabs (Alcohol Prep) padsIndications :Type 2 diabetes mellitus with other neurologic complication, with long-term current use of insulin (HCC) Use as directed 200 each Active amLODIPine (Norvasc) 10 MG tabletIndicatio ns:Primary hypertension Take 1 tablet (10 mg) by mouth Once per day. 30 tablet 025 2025 Active magnesium 30 MG tabletIndicatio ns:Muscle cramp Take 1 tablet (30 mg) by mouth Once per day. 30 tablet 2 025 2025 Active pen needle 32G x 5 mm miscIndications :Type 2 diabetes mellitus with other neurologic complication, with long-term current use of insulin (HCC) USE FOUR TIMES DAILY DIRECTED 100 each 3 Active mirtazapine (Remeron) 15 MG tablet TAKE 1 TABLET BY MOUTH AT BEDTIME 30 tablet 3 Active Magnesium Citrate 67 MG chewable tabletIndicatio ns:Primary insomnia Chew 67 mg in the morning. 30 tablet 2 Active glucose 4 g chewable tabletIndicatio ns:Type 2 diabetes mellitus with other neurologic complication, with long-term current use of insulin (HCC) Chew 4 tablets (16 g) if needed for low blood sugar. 50 tablet 12 025 2025 Active Insulin Lispro (HumaLOG) 100 UNIT/ML solutionIndicat ions:Type 2 diabetes mellitus with other neurologic complication, with long-term current use of insulin (HCC) Inject 0.26 mL (26 Units) under the skin before breakfast, before lunch, and before evening meal. INJECT 26 UNITS THREE TIMES DAILY DIRECTED 15 MINUTES BEFORE MEALS 10 mL 11 025 2025 Active Insulin Lispro (HumaLOG) 100 UNIT/ML solutionIndicat ions:Type 2 diabetes mellitus with other neurologic complication, with long-term current use of insulin (HCC) Inject 26 Units as directed 3 times daily. 26 units 15 minutes before meals. 10 mL 11 024 2024 Discontinued(R eorder (will not trigger notification [...] Encounters Date Type Department Care Team Description 03/27/2025 Telephone [facility] [address] [place] [address] West Gallegos MD Call Back Request 03/24/2025 Refill [facility] [address] [place] [address] West Gallegos MD Type 2 diabetes mellitus with other neurologic complication, with long-term current use of insulin ([facility]) 03/14/2025 Telephone [facility] [address] [place] [address] West Gallegos MD No Show 02/21/2025 2:45 PM EDT Office Visit [facility] [address] [place] [address] West Gallegos MD Dyslipidemia (Primary Dx); Annual physical exam; Type 2 diabetes mellitus with other neurologic complication, with long-term current use of insulin ([facility]); Dietary counseling; Exercise counseling; Overweight; Type 2 diabetes mellitus with other neurologic complication, with long-term current use of insulin ([facility]); Primary insomnia; Muscle cramp; Encounter for screening mammogram for malignant neoplasm of breast; Cerebrovascular accident (CVA) due to other mechanism (CMS/HCC) 02/21/2025 Travel 02/20/2025 Telephone [facility] [address] [place] [address] West Gallegos MD Chart Prep 02/14/2025 Travel 2025 Patient Outreach [facility] [address] [place] [address] West Gallegos MD Pre-visit Planning (Pre visit planning LVM ) 01/24/2025 Orders Only GENERIC EXTERNAL DATA DEPARTMENT Provider, Generic External Data 01/23/2025 Refill [facility] [address] [place] [address] West Gallegos MD from Last 3 Months Immunizations Immunization Administration Dates Next Due Influenza injectable quadriv alent IIV4 with preservative 05/19/2019 Influenza injectable quadriv alent preservative free 03/26/2023,04/01/2022,03/19/2021 Influenza, IIV3, injectable 04/15/2016, 4 Moderna Covid-19 Vaccine 12+ 06/26/2021,10/18/19 21,09/19/2020 Pneumococcal Conjugate PCV 20 02/10/2024 Pneumococcal Polysaccharide PPSV23 01/22/2015 Tdap 04/28/2014 Family History Medical History Relation Name Comments Asthma Mother COPD Mother Diabetes Mother Kidney cancer Mother Relation Name Status Comments Mother Social History Tobacco Use Types Packs/Day Years Used Date Smoking Tobacco: Every Day Cigarettes Passive Smoke Exposure: Current Smokeless Tobacco: Never Tobacco Cessation:Ready to Q uit: No; Counseling Given: Yes Alcohol Use Standard Drinks/Week Comments Never 0 [...] Sign Reading Time Taken Comments Blood Pressure 138/74 02/21/2025 2:56 PM EDT Pulse 76 02/21/2025 2:56 PM EDT Temperature 37.1 C (98.7 F) 02/21/2025 2:56 PM EDT Respiratory Rate 16 02/21/2025 2:56 PM EDT Oxygen Saturation 97% 10/03/2024 3:12 PM EDT Inhaled Oxygen Concentration - - Weight 79.4 kg (175 lb) 02/21/2025 2:56 PM EDT Height 165.1 cm (5' 5 ) 02/21/2025 2:56 PM EDT Body Mass Index 29.12 02/21/2025 2:56 PM EDT Plan of Treatment Upcoming Encounters Date Type Department Care Team (Late st Contact Info) Description 05/29/2025 3:15 PM EST Office Visit [facility] [address] [place] [address] West Gallegos MD [address] [facility] [place] [address] Health Maintenance Due Date Last Done Comments CT Colonography 1976 Colonoscopy 1976 FIT 1976 Sigmoidoscopy 1976 Disability Screening 1976 Alcohol/Substance Use Screening 1988 Family Planning (PISQ) 02/12/1991 Hepatitis B Vaccines (1 of 3 - 19+ 3-dose series) 02/12/1995 Diabetes: Urine Protein Screening 08/16/2021 08/16/2020, 05/19/2019 Mammogram 08/15/2023 08/14/2021 DTaP/Tdap/Td Vaccines (2 - Td or Tdap) 04/28/2024 04/28/2014 Depression Monitoring 08/09/2024 02/10/2024, 024 COVID-19 Vaccine ( season) 2025 06/26/2021, 10/17/2020, 09/19/2020 Influenza Vaccine (#1) 2025 , 04/01/2022, 03/19/2021, Additional history exists FOBT 04/15/2025 04/15/2024 Diabetes: Hemoglobin A1C 05/23/2025 025, 09/16/2024, 06/17/2024, Additional history exists Diabetes: Foot Exam 07/04/2025 07/04/2024 Lipid Panel 07/04/2025 07/04/2024, 04/10, 08/16/2020 SDOH Screening 09/09/2025 09/09/2024 Eye Exam 09/14/2025 09/14/2024 Zoster Vaccines (1 of 2) 02/12/2026 Tobacco Screening 02/21/2026 02/21/2025 Cervical Cancer Screening 05/28/2026 HPV/Cotest 05/28/2026 05/28/2021 Pap Smear 05/28/2026 05/28/2021, 05/28/2021 Colorectal Cancer Screening 04/15/2027 FIT DNA/Cologuard 04/15/2027 04/15/2024 RSV Patients and Patients Aged 60 years or older (1 - 1-dose 75+ series) 02/12/2051 Pneumococcal Vaccine: Pediatrics (0 to 5 Years) and At-Risk Patients (6 to 49) Years Completed 02/10/2024, 01/22/2015 HIV Screening Completed 07/04/2024, [...] Procedure Name Priority Date/Time Associated Diagnosis Comments POCT GLYCATED HEMOGLOBIN, TOTAL Routine 02/21/2025 2:58 PM EDT Type 2 diabetes mellitus with other neurologic complication, with long-term current use of insulin ([facility]) POCT GLUCOSE Routine 02/21/2025 2:57 PM EDT Type 2 diabetes mellitus with other neurologic complication, with long-term current use of insulin ([facility]) GLUCOSE, WHOLE BLOOD Routine 01/24/2025 2:58 PM EDT HM DIABETES EYE EXAM Routine 09/14/2024 12:07 PM EDT HEPATITIS C AB W/REFL TO HCV RNA, QN, PCR Routine 07/04/2024 3:57 PM EST Screen for STD (sexually transmitted disease) HIV 1/2 ANTIGEN/ANTIBODY, FOURTH GENERATION W/RFL Routine 07/04/2024 3:57 PM EST Screen for STD (sexually transmitted disease) LIPID PANEL, STANDARD Routine 07/04/2024 3:57 PM EST Dyslipidemia LAB COLOGUARD COLON CANCER SCREEN Routine 04/15/2024 10:00 AM EST Screening for colon cancer HM MAMMOGRAPHY Routine 08/14/2021 THINPREP IMAGING PAP AND HPV MRNA E6/E7, WITH CT/NG, TRICHOMONAS Routine 05/28/2021 2:52 PM EST HM PAP/HPV Routine 05/28/2021 ALBUMIN, RANDOM URINE W/CREATININE Routine 08/16/2020 2:08 PM EST from Last 3 Months or Most Recently Relevant to Health Maintenance Results * (ABNORMAL) POCT Hgb A1c (02/21/2025 2:58 PM EDT) Pathologist [facility] Hemoglobin A1C 9.0(A) 4.0 - 5.7 % QC Media Lot # [id number] Lot# Expiration Date Blood 02/21/2025 2:58 PM EDT West Gallegos MD POINT OF CARE TEST ENTER/ED IT ORDERABLES Final Result * (ABNORMAL) POCT Glucose (02/21/2025 2:57 PM EDT) Pathologist [facility] Glucose Blood, POC 214(A) 60 - 200 mg/dL QC Media Lot # [id number] Lot# Expiration Date Blood Capillary blood specimen / Unknown 02/21/2025 2:57 PM EDT West Gallegos MD POINT OF CARE TEST ENTER/ED IT ORDERABLES Final Result * (ABNORMAL) Glucose, Whole Blood (01/24/2025 2:58 PM EDT) Glucose, Whole Blood 296(H) 60 - 115 mg/dL [facility] Comment:METER #: [id number] Testing performed in the Endocrinology Department [address] , [address], [facility]. 01/24/2025 2:58 PM EDT 01/24/2025 3:03 PM EDT Generic External Data Provider LAB BLOOD ORDERAB LES Final Result Performing Organization Address [facility] Co de Phone Number [facility] [address] [place] [address] [phone] * Diabetes Eye Exam (09/14/2024 12:07 PM EDT) us Historical Provider HEALTH MAINTENANCE Final Result * Hepatitis C Antibody with Reflex to HCV, RNA, Quantitative, Real-Time PCR (07/04/2024 3:57 PM EST) Hepatitis C Antibody Nonreactive Nonreactive [facility] Comment:Antibodies to HCV no t detected; does not exclude early acuteHCV infection. Blood Venous blood specimen / Unknown 07/04/2024 3:57 PM EST 07/04/2024 5:46 PM EST West Gallegos MD LAB BLOOD ORDERABLES Final Result Performing Organization Address [facility] Co de Phone Number [facility] [address] [place] [address] [phone] * HIV-1/2 Antigen and Antibodies, Fourth Generation, with Reflexes (07/04/2024 3:57 PM EST) HIV AB/AG Nonreactive Nonreactive [facility] Comment:HIV-1 p24 Ag and/or HIV-1/HIV-2 Ab not detected.A test result that is nonreactive does not exclude thepossibility of exposure to or infection with HIV-1 and/orHIV-2. Nonreactive results in this assay for individualswith prior exposure to HIV-1 and/or HIV-2 may be due toantigen and antibody levels that are below the limit ofdetection of this assay.The Qubit HIV Ag/Ab Combo assay result andsupplemental assay results should be interpreted inconjunction with the patient's clinical presentation,history and other laboratory results. If the results areinconsistent with clinical evidence, additional testing issuggested to confirm the result. Blood Venous blood specimen / Unknown 07/04/2024 3:57 PM EST 07/04/2024 5:46 PM EST us West Gallegos MD LAB BLOOD ORDERABLES Final Result [facility] [address] [place] [phone] * (ABNORMAL) Lipid Panel, Standard (07/04/2024 3:57 PM EST) Triglycerides 191(H) <150 mg/dL [facility] Comment:Desirable Triglyceri de: less than 150 mg/dLBorderline High Triglyceride 150-199 mg/dLHigh Triglyceride: 200-499 mg/dLVery High Triglyceride: greater than or equal to 5OO mg/dL Cholesterol 142 <200 mg/dL [facility] Comment:Desirable Cholestero l: less than 200 mg/dLBorderline High Cholesterol: 200-239 mg/dLHigh Cholesterol: greater than 239 mg/dL LDL Cholesterol Calculated 68 <100 mg/dL [facility] Comment:Desirable LDL: less than 100 mg/dLNear Optimal/Above Optimal LDL: 110- 129 mg/dLBorderline High LDL: 130-159 mg/dLHigh LDL: 160-189 mg/dLVery High LDL: greater than or equal to 190 mg/dL HDL Cholesterol 36(L) >40 mg/dL [facility] Comment:Desirable HDL: great er than 40 mg/dL Note: This HDL assay may give artificially low results in patients with liver disease. Blood Venous blood specimen / Unknown 07/04/2024 3:57 PM EST 07/04/2024 5:46 PM EST us West Gallegos MD LAB BLOOD ORDERABLES Final Result [facility] [address] [place], [place] [phone] * (ABNORMAL) Cologuard?? colon cancer screening (04/15/2024 10:00 AM EST) Cologuard Result Positive( A) Negative 04/22/2024 11:16 AM EST [facility] (CLIA #:[id number]) Comment: POSITIVE TEST RESULT. A positive Cologuard result should be followed with a colonoscopy or visual examination of the colon. The normal value (reference range) for this assay is negative. TEST DESCRIPTION: Composite algorithmic analysis of stool DNA-biomarkers with hemoglobin immunoassay. Quantitative values of individual biomarkers are not [...] (Zeyad Pierre al, N Engl J Med 2014;370(14):8300-6570.) Cologuard may produce a false negative or false positive result (no colorectal cancer or precancerous polyp present at colonoscopy follow up). A negative Cologuard test result does not guarantee the absence of CRC or advanced adenoma (pre-cancer). The current Cologuard screening interval is every 3 years. ([employer] Society and U.S. Multi-Society Task Force). Cologuard performance data in a 10,000 patient pivotal study using colonoscopy as the reference method can be accessed at the following location: www.[employer]/results. Additional description of the Cologuard test process, warnings and precautions can be found at www.cologM.A. Transportation Servicesrd.com. Stool specimen (specimen) 04/15/2024 10:00 AM EST 04/16/2024 7:27 AM EST West Gallegos MD LAB MOLECULAR DIAGNOSTICS O RDERABLES Final Result [facility] (CLIA #:[id number]) [address] [place] [address], [place] [phone] * Mammography (08/14/2021) Mammogram Performed Anatomical Region Laterality Modality Other Historical Provider HEALTH MAINTENANCE Final Result * THINPREP TIS PAP AND HPV mRNA E6/E7, CT/NG, TRICH (05/28/2021 2:52 PM EST) Chlamydia trachomatis RNA, TMA, Urogenital NOT DETECTED NOT DETECTED [facility] Clinical Information: None given [facility] COMMENT SEE COMMENT [facility] Comment: The analytical performance characteristics of this assay, when used to test SurePath(TM) specimens have been determined by [facility]. The modifications have not been cleared or approved by the FDA. This assay has been validated pursuant to the CLIA regulations and is used for clinical purposes. For additional information, please refer to https://education.[employer]/faq/UOV208 (This link is being provided for information/ educational purposes only.) COMMENT SEE COMMENT [facility] Comment: EXPLANATORY NOTE: The Pap is a screening test for cervical cancer. It is not a diagnostic test and is subject to false negative and false positive results. It is most reliable when a satisfactory sample, regularly obtained, is submitted with relevant clinical findings and history, and when the Pap result is evaluated along with historic and current clinical information. COMMENT: This Pap test has been evaluated with computer assisted technology. [facility] Motor Adjuster: SEE COMMENT [facility] Comment: WAC, CT(ASCP) CT screening location: [address] [address] HPV nRNA E6/E7 Not Detected Not Detected [facility] Comment: Methodology: Patient Care Associate-Mediated Amplification This assay detects E6/E7 viral messenger RNA (mRNA) from 14 high-risk HPV types (16,18,31,33,35,39,45,51,52,56,58,59,66,68). The analytical performance characteristics of this assay have been determined by [facility]. The modifications have not been cleared or approved by the FDA. This assay has been validated pursuant to the CLIA regulations and is used for clinical purposes. For additional information, please refer to http://[employer].MailMag/faq/XUX896y6 (This link if provided for information/ educational [...] of this assay have been determined by [facility]. The modifications have not been cleared or approved by the FDA. This assay has been validated pursuant to the CLIA regulations and is used for clinical purposes. For additional information, please refer to http://education.MailMag/ faq/Trichomonastma (This link is being provided for information/ educational purposes only.) 05/28/2021 2:52 PM EST Berta Simpson CNM LAB PATHOLOGY ORDERABLES Final Result Performing Organization Address [facility] Co de Phone Number [facility] [address] * Hm Pap Smear (05/28/2021) Pap smear Performed Historical Provider HEALTH MAINTENANCE Final Result * ALBUMIN, RANDOM URINE W/CREATININE (08/16/2020 2:08 PM EST) Microalbumin Urine 0.7 See Note: mg/dL [facility] Comment: Reference Range: Reference Range Not established Microalb/Creat Ratio 7 <30 mcg/mg creat [facility] Comment: The ADA defines abnormalities in albumin excretion as follows: Category Result (mcg/mg creatinine) Normal <30 Microalbuminuria 30-299 Clinical albuminuria > OR = 300 The ADA recommends that at least two of three specimens collected within a 3-6 month period be abnormal before considering a patient to be within a diagnostic category. Creatinine, Urine 104 20 - 275 mg/dL [facility] 08/16/2020 2:08 PM EST West Gallegos MD LAB URINE ORDERABLES Final Result Performing Organization Address [facility] de Phone Number [facility] [address] from Last 3 Months or Most Recently Relevant to Health Maintenance [place] [address] [place] [address] C3 Care Teams Electrical Prospecting Observer Relationship Specialty Start Date End Date West Gallegos MD [address] [place] [phone] PCP - General Internal Medicine 01/26/18
[2025-04-12 18:12] LABS: MANUAL DIFF FLAG NO
[2025-04-12 18:38] LABS: Hematocrit 42.8 % (37.0-47.0); Hemoglobin 14.0 g/dl (12.0-16.0); Imm Gran Abs Auto 0.02 X10*3/uL (0.00-0.03); Imm Gran Pct Auto 0.2 % (0.0-0.4); Lymphocytes Absolute Auto 2.9 X10*3/uL (1.2-4.9); Mean Corpuscular HGB Conc 32.7 g/dl (31.0-35.0); Mean Corpuscular Hemoglobin 28.2 pg (27.0-33.0); Mean Corpuscular Volume 86.3 fL (80.0-98.0); NRBC Abs Auto 0.000 X10*3/uL (0.0-0.012); NRBC Pct Auto 0.0 /100WBC (0.0-0.2); Platelet Count 368 X10*3/uL (160-400); Red Blood Count 4.96 X10*6/uL (4.20-5.50); White Blood Count 8.2 X10*3/uL (4.8-10.8)
[2025-04-12 18:45] LABS: Alanine Aminotransferase 42 U/L (0-31); Albumin Level 4.1 g/dL (3.5-5.0); Alkaline Phosphatase 107 U/L (39-117); Anion Gap 11 (12-20); Aspartate Amino Transferase 32 U/L (5-31); Blood Urea Nitrogen 8 mg/dL (9-16); Calcium 9.0 mg/dL (8.4-10.2); Carbon Dioxide 26 mmol/L (22-29); Chloride 109 mmol/L (96-108); Cholesterol 202 mg/dL (<200); Estimated Glomerular Filt Rate > 60; HDL Cholesterol 35 mg/dL (>40); Potassium 3.4 mmol/L (3.3-5.1); Sodium 143 mmol/L (135-145); Total Protein 6.9 g/dL (6.5-8.0); Triglycerides 174 mg/dL (<150)
[2025-04-12 18:51] LABS: Microalbum/Creatinine Ratio Ur 7.0 ug/mg cr (<30)
== END 2025-04-12 15:03 | disposition home or self-care (01) ==
LOC: HO.CHCLDS 15:02
PROVIDERS: Visit Provider Internal Medicine
DX: E11.49 Type 2 diabetes mellitus with other diabetic neurological complication (principal); E78.5 Hyperlipidemia, unspecified; Z79.4 Long term (current) use of insulin
CPT/HCPCS: 36415; 80053; 80061; 82043; 82570; 84443; 85025

== ENCOUNTER 2025-05-02 15:57 | Outpatient (AMB) | payer MEDICAID, SELFPAY ==
--- OUTSIDE RECORDS SUMMARY | 2025-05-02 15:00 | XMS_ITS | Encounter Summary ---
Author Organization [facility] Address [address] [place] [address] Care Team Providers Care Wind Field Manager Name Role Phone West Gallegos MD Primary Care Provider [phone] Reason for Visit * Reason Comments DM Foot Care Controlled type 2 di abetes with neuropathy (CMS/HCC V24, CMS/HCC V28)Lumbosacral radiculopathyLocalized edemaCramps of left lower extremityDermatophytosis, nail Encounter Details Date Type Department Care Team (Late st Contact Info) Description 05/02/2025 3:00 PM EST Office Visit Orthopedic Surgery - [place] [address] [phone] Gabino Ritchie DPM [address] [address] Controlled type 2 diabetes with neuropathy (CMS/HCC V24, CMS/HCC V28) (Primary Dx); Lumbosacral radiculopathy; Localized edema; Cramps of left lower extremity; Dermatophytosis, nail Social History Tobacco Use Types Packs/Day Years Used Date Smoking Tobacco: Every Day Cigarettes Smokeless Tobacco: Never Comments No Sex and Gender Information Value Date Recorded Sex Assigned at Female 06/23/2024 8:01 AM EST Legal Sex Female 11:35 PM EST Gender Identity Female 06/23/2024 8:01 AM EST Sexual Orientation Straight 06/23/2024 8: 01 AM EST documented as of this encounter Progress Notes * Gabino Ritchie DPM - 05/02/2025 3:00 PM EST Referring MD: nasreen Last PCP visit: 12/30/2024 IDENTIFIER: Acosta is a 50 y.o. year old female who presents for consultation. CC: Bilateral foot pain HPI: Patient returns office for multiple forefoot deformities Patient states that they have been diabetic for the past few years and once again notes that she has been having some increased radiating pain in the past and flareups during the day. Patient relates she has not had any recent infections of the feet. Patient notes her nails continuebe thickened misshapened to the feet bilaterally Patient notes that she has been getting some swelling and some pain to the lateral aspect of the left leg Patient reports mild calluses that are becoming bothersome. Patient with minimal other pedal complaints at this time. Patient's FBS this AM was 141 Recent A1C is %. 7.5 ROS: GENERAL: Pt denies nausea, fever, vomiting, [...] HISTORY: Social History Tobacco Use Smoking status: Every Day Current packs/day: 0.25 Types: Cigarettes Smokeless tobacco: Never Substance Use Topics Alcohol use: Not on file ACTIVE MEDICATIONS: No outpatient medications have been marked as taking for the 05/02/25 encounter (Office Visit) Esau Ritchie DPM. ALLERGIES: @ALL@ PHYSICAL EXAM: There were no vitals taken for this visit. PODIATRIC EXAMINATION: GENERAL: Patient appears well nourished, with NAD. VASCULAR: Dorsalis pedis pulses are 2/4 bilaterally and Posterior tibial pulses are 2/4 bilaterally. Capillary filling time within normal limits the digits. No pallor on elevation or rubor on dependency. Positive hair growth. No varicosities. +1 pitting edema bilaterally. Denies rest pain or claudication pain. NEUROLOGICAL: Sharp/dull sensation intact, protective sensation diminished on [place]. Multiple peripheral neuropathies bilaterally ORTHOPEDIC: Good muscle strength 5/5 of all flexors and extensors. Dorsi flexion of ankle ,10 degrees, plantar flexion WNL. No muscle atrophy. Arthritic changes to the midfoot. Reducibly contracted digits 2 through 5. Flexible flatfoot deformity bilaterally with greater than 5 degrees eversion of the hindfoot her last calcaneal stance position. Some pain along the lateral aspect of the left leg radiating up when flexing at the hip with the leg straightened DERMATOLOGICAL: Normal skin temperature, normal skin turgor. Nails are elongated dystrophic discolored x 10 with subungual debris BIOMECHANICS: STJ ROM wnl, MTJ ROM wnl, 1st MPJ ROM wnl. IMPRESSION: 1. Controlled type 2 diabetes with neuropathy ([facility] V24, [facility] V28) 2. Lumbosacral radiculopathy 3. Localized edema 4. Cramps of left lower extremity 5. Dermatophytosis, nail PLAN: Pt was seen and examined, history reviewed. Patient encouraged to continue with a glucose control and limit chances for complications associatewith the diabetic condition Patient was once again instructed to use a topical analgesics and to use supplements as a way to combat the cramping in the legs bilaterally. Patient continues to have swelling to bilateral legs. Patient encouraged to use compression stockings during the day in order to limit fluid overload Nail debridement performed to nails 1-5 bilateral [...] documented in this encounter Plan of Treatment Not on file documented as of this encounter Visit Diagnoses Diagnosis Controlled type 2 diabetes with neuropathy ([facility] V24, [facility] V28)- Primary Type II or unspecified type diabetes mellitus with neurological manifestations, not stated as uncontrolled Lumbosacral radiculopathy Thoracic or lumbosacral neuritis or radiculitis, unspecified Localized edema Edema Cramps of left lower extremity Dermatophytosis, nail Dermatophytosis of nail documented in this encounter Care Teams Wind Field Manager Relationship Specialty Start Date End Date West Gallegos MD [address] [place], [place] PCP - General 04/01/23 documented as of this encounter
--- NOTE | 2025-05-02 16:22 | MHC.AMDMED ---
Intake Intake Visit Reasons: 60 min Automotive Parts Specialist Required: No Accompanied by: Self / Same As Patient Allergies acetaminophen (From TYLENOL-CODEINE) Allergy (Intermediate, Verified 01/24/25 14:52) VOMITING, ITCHING From TYLENOL-CODEINE Allergy (Intermediate, Uncoded 01/24/25 14:52) VOMITING, ITCHING Codeine Phosphate Allergy (Unknown, Uncoded 01/24/25 14:52) hives, itchy HPI Comprehensive Diabetes Asmnt Most Recent Diabetes Results: Microalb/Creat Ratio, (<30) 7.0 ug/mg cr 04/12/25 Cholesterol, (<200) 202 mg/dL H 04/12/25 HDL Cholesterol, (>40) 35 mg/dL L 04/12/25 Triglycerides, (<150) 174 mg/dL H 04/12/25 Creatinine, (0.5-1.4) 0.57 mg/dL 04/12/25 BUN, (9-16) 8 mg/dL L 04/12/25 Sodium, (135-145) 143 mmol/L 04/12/25 Potassium, (3.3-5.1) 3.4 mmol/L 04/12/25 Chloride, (96-108) 109 mmol/L H 04/12/25 Carbon Dioxide, (22-29) 26 mmol/L 04/12/25 Calcium, (8.4-10.2) 9.0 mg/dL 04/12/25 AST, (5-31) 32 U/L H 04/12/25 ALT, (0-31) 42 U/L H 04/12/25 Total Protein, (6.5-8.0) 6.9 g/dL 04/12/25 Albumin, (3.5-5.0) 4.1 g/dL 04/12/25 PFSH Medical History Uncontrolled type 2 diabetes mellitus with hyperglycemia Surgical History Hx of cholecystectomy Hx of section Hx of hand surgery Hx of elbow surgery Family History Mother Diabetes Maternal Uncle Diabetes Maternal Aunt Diabetes Social History Household Members: Other Alcohol intake: current Alcohol intake frequency: does not drink Patient Tobacco Use Status: Current everyday Tobacco user Cigarettes Per Day: 4 Assessment & Plan Assessment & Plan (1) Uncontrolled type 2 diabetes mellitus with hyperglycemia: Code(s): E11.65 - Type 2 diabetes mellitus with hyperglycemia Plan: Patient presents for pump training for iLet pump and CGM training today. The following topics were reviewed today: -target range -Baqsimi - Off pump backup insulin plan iLet Alerts: ??? High Alert: 300 mg/dl ??? Low Alert: 75 mg/dl Patient's last A1c in January 2025 8.5% Patient has upcoming appointment Dr. Lewis on 06/07/25, she will be due for next A1c At today's visit we reviewed how to use T connect infusion set verses inset infusion set In addition we discussed changing target from usual target to lower target which equals 110 mg/dL Reviewed with patient when and how to use Baqsimi nasal spray Patient had been using to treat episodes of hypoglycemia, did not understand that this was in emergency treatment if she was unable to take anything by mouth. Patient is working on straightening out insurance issues. At today's visit patient was given sample Dexcom G6 and 7 sensors, and infusion sets, cartridges, syringes, and connecter pieces 2 month supply Instructed patient to only use room temperature insulin, how to load cartridge or fill pod, with insulin. Fill tubing and cannula (if applicable) Reviewed Safety information: Importance of a backup plan, for manual injections, proper prescriptions and emergency supplies ketone strips, and rules for testing for ketones Patient understands the basic concepts of pump therapy, how to give insulin for meals and snacks, how to troubleshoot for hyper and hypoglycemia. Patient will follow up with [facility] as instructed Patient will contact [facility] with questions or concerns, patient given IT number to support in any technical issues related to insulin pump Portions of this note were created using voice recognition software, please excuse any words or phrases that may have been misinterpreted. Patient Instructions: Follow-up with diabetes education nurse in 3 months Coding Level of Care Code Est Pt Level 1 (33767) Diagnoses Uncontrolled type 2 diabetes mellitus with hyperglycemia E11.65
--- OUTSIDE RECORDS SUMMARY | 2025-05-02 19:22 | XMS_ITS | Encounter Summary ---
Author Organization [employer] Address [address] [place] [address] 7 [place] [address] Care Team Providers Care Timber Hewer Name Role Phone West Gallegos MD Primary Care Provider [phone] Encounter Details Date Type Department Care Team ([facility] Contact Info) Description 04/03/2023 Orders Only [facility] CHC MED & PEDS [address] [place], [place] [phone] West Gallegos MD [address] [place] [address] Type 2 diabetes mellitus with other neurologic complication, with long-term current use of insulin ([facility]) (Primary Dx) Social History Tobacco Use [...] Description 05/29/2025 3:15 PM EST Office Visit [facility] CHC MED & PEDS [address] [place] [address] West Gallegos MD [address] [place] [address] documented as of this encounter Procedures Procedure [...] PM EDT Narrative 04/07/2023 7:11 AM EDT [address] [address] XRay Report Signed Patient: Aliza Shane MR#: [id number] : 1975 Acct:[id number] Age/Sex: 48 / F ADM Date: 04/02/23 Loc: HO.LAB Attending Dr: Tomas Lewis MD Ordering Physician: Tomas Lewis MD Date of Service: 04/02/23 Procedure(s): XR wrist LT min 3V Accession Number(s): [id number] cc: West Gallegos MD; Tomas Lewis MD [...] XR/XR wrist LT min 3V IMPRESSION: 1. Nizw-ca-gtmhqgea degenerative changes as detailed above. 2. No displaced fracture. Recommend followup imaging in 10-14 days if fracture is suspected. Dictated By: Leticia Bo MD Signed By: <Electronically signed by Leticia Bo MD in OV> 04/07/23 0708 DD/ 1520 TD/TT: Pattern Duplicator: Procedure Note Donotuseinterpreter, Image - 04/07/[address] [address] XRay Report Signed Patient: Lakeshia Shane#: [id number] : 1975Acct:[id number] Age/Sex: 48 / FADM Date: 04/02/23 Loc: HO.LAB Attending Dr: Tomas Lewis MD Ordering Physician: Tomas Lewis MD Date of Service: 04/02/23 Procedure(s): XR wrist LT min 3V Accession Number(s): [id number] cc: West Gallegos MD; Tomas Lewis MD [...] XR/XR wrist LT min 3V IMPRESSION: 1. Iipu-fq-udofosbv degenerative changes as detailed above. 2. No displaced fracture. Recommend followup imaging in 10-14 days if fracture is suspected. Dictated By: Leticia Bo MD Signed By: <Electronically signed by Leticia Bo MD in OV> 04/07/23 0708 DD/ 1520 TD/TT: Pattern Duplicator: us [facility] External Provider IMG XR PROCEDURES Final Result * XR Wrist 3+ Views Right (04/02/2023 3:20 PM EDT) Anatomical Region Laterality Modality Upper Extremities, Wrist Right Radiogr aphic Imaging 04/02/2023 3:20 PM EDT Narrative 04/07/2023 7:11 AM EDT [address] [address] XRay Report Signed Patient: Aliza Shane MR#: [id number] : 1975 Acct:[id number] Age/Sex: 48 / F ADM Date: 04/02/23 Loc: HO.LAB Attending Dr: Tomas Lewis MD Ordering Physician: Tomas Lewis MD Date of Service: 04/02/23 Procedure(s): XR wrist RT min 3V Accession Number(s): [id number] cc: West Gallegos MD; Tomas Lewis MD [...] XR/XR wrist RT min 3V IMPRESSION: 1. Hpsp-nl-eqojosdz degenerative changes as detailed above. 2. No displaced fracture. Recommend followup imaging in 10-14 days if fracture is suspected. Dictated By: Leticia Bo MD Signed By: <Electronically signed by Leticia Bo MD in OV> 04/07/23 0708 DD/ 1520 TD/TT: Pattern Duplicator: Procedure Note Donotuseinterpreter, Image - 04/07/[address] [address] XRay Report Signed Patient: Lakeshia Shane#: [id number] : 1975Acct:[id number] Age/Sex: 48 / FADM Date: 04/02/23 Loc: HO.LAB Attending Dr: Tomas Lewis MD Ordering Physician: Tomas Lewis MD Date of Service: 04/02/23 Procedure(s): XR wrist RT min 3V Accession Number(s): [id number] cc: West Gallegos MD; Tomas Lewis MD [...] XR/XR wrist RT min 3V IMPRESSION: 1. Tchk-jm-wsgwwljr degenerative changes as detailed above. 2. No displaced fracture. Recommend followup imaging in 10-14 days if fracture is suspected. Dictated By: Leticia Bo MD Signed By: <Electronically signed by Leticia Bo MD in OV> 04/07/23 0708 DD/ 1520 TD/TT: Pattern Duplicator: [facility] External Provider IMG XR PROCEDURES Final Result documented in this encounter Visit Diagnoses Diagnosis Type 2 diabetes mellitus with other neurologic complication, with long-term current use of insulin (HCC)- Primary documented in this encounter Additional Health Concerns Assessment Noted Time PHQ-9 Depression Total Score: 3 05/23/20 22 1:43 PM EST documented as of this encounter Care Teams Timber Hewer Relationship Specialty Start Date End Date West Gallegos MD [address] [place] [address] PCP - General Internal Medicine 01/26/18 documented as of this encounter
--- OUTSIDE RECORDS SUMMARY | 2025-05-02 19:22 | XMS_ITS | Encounter Summary ---
Author Organization [employer] Address [address] [place] [address] [place] [address] Care Team Providers Care Industrial Renderer Name Role Phone West Gallegos MD Primary Care Provider [phone] Reason for Visit * Reason Comments Med Refill Encounter Details Date Type Department Care Team ([facility] Contact Info) Description 04/17/2023 Refill [facility] CHC MED & PEDS [address] [place] [address] West Gallegos MD [address] [place] [address] Cervical radiculopathy; Bilateral carpal tunnel syndrome Social [...] Upcoming Encounters Date Type Department Care Team ([facility] Contact Info) Description 05/29/2025 3:15 PM EST Office Visit [facility] CHC MED & PEDS [address] [place] [address] West Gallegos MD [address] [place] [address] documented as of this encounter Visit Diagnoses Diagnosis Cervical radiculopathy Brachial neuritis or radiculitis nos Bilateral carpal tunnel syndrome Carpal tunnel syndrome documented in this encounter Additional Health Concerns Assessment Noted Time PHQ-9 Depression Total Score: 3 05/23/20 22 1:43 PM EST documented as of this encounter Care Teams Industrial Renderer Relationship Specialty Start Date End Date West Gallegos MD [address] [place] [address] PCP - General Internal Medicine 01/26/18 documented as of this encounter
--- OUTSIDE RECORDS SUMMARY | 2025-05-02 19:22 | XMS_ITS | Encounter Summary ---
Author Organization [employer] Address [address] [place] [address] Care Team Providers Care Rfid Manager Name Role Phone West Gallegos MD Primary Care Provider [phone] Reason for Visit * Reason Onset Date Comments Referral 08/06/2023 Encounter Details Date Type Department Care Team ([facility] st Contact Info) Description 08/06/2023 Telephone [facility] MEDICINE [address] [place] [address] West Gallegos MD [address] [place] [phone] Referral Social History Tobacco Use Types Packs/Day [...] : DATE: N/A TIME: N/A Address: [address] [place] [address] Visits: Every 2 months Facility Name: Dr. Martínez Mitchell II Type of Specialist: Manager Critical Care Phone #: [phone] Pt requested call back with referral number if possible. Please contact pt at [phone]. documented in this encounter Plan of Treatment Upcoming Encounters Date Type Department Care Team ([facility] st Contact Info) Description 05/29/2025 3:15 PM EST Office Visit [facility] CHC MED & PEDS [address] [place] [address] West Gallegos MD [address] [place] [address] documented as of this encounter Visit Diagnoses Not on filedocumented in this encounter Additional Health Concerns Assessment Noted Time PHQ-9 Depression Total Score: 3 05/23/20 22 1:43 PM EST documented as of this encounter Care Teams Rfid Manager Relationship Specialty Start Date End Date West Gallegos MD [address] [place] [address] PCP - General Internal Medicine 01/26/18 documented as of this encounter
--- OUTSIDE RECORDS SUMMARY | 2025-05-02 19:22 | XMS_ITS | Encounter Summary ---
Author Organization [employer] Address [address] [place] [address] Care Team Providers Care Angiographer Name Role Phone West Gallegos MD Primary Care Provider [phone] Reason for Visit * Reason Onset Date Comments Med Refill 09/07/2024 Encounter Details Date Type Department Care Team ([facility] st Contact Info) Description 09/07/2024 Telephone [facility] MEDICINE [address] [place] [address] West Gallegos MD [address] [place] [address] Med Refill Social History Tobacco Use Types [...] 800 MG tablet To be sent to: [facility] [place], [place] - [address] [place] [address] documented in this encounter Plan of Treatment Upcoming Encounters Date Type Department Care Team (Late st Contact Info) Description 05/29/2025 3:15 PM EST Office Visit [facility] CHC MED & PEDS [address] [place], [place] [phone] West Gallegos MD [address] [place], [place] [phone] documented as of this encounter Visit Diagnoses Not on filedocumented in this encounter Additional Health Concerns Assessment Noted Time PHQ-9 Depression Total Score: 21 024 10:02 AM EDT documented as of this encounter Care Teams Angiographer Relationship Specialty Start Date End Date West Gallegos MD [address] [place] [address] PCP - General Internal Medicine 01/26/18 documented as of this encounter
--- OUTSIDE RECORDS SUMMARY | 2025-05-02 19:22 | XMS_ITS | Encounter Summary ---
Author Organization [employer] Address [address] [place] [address] Care Team Providers Care Rabbit Breeder Name Role Phone West Gallegos MD Primary Care Provider [phone] Reason for Visit * Reason Onset Date Comments request 07/10/2023 Encounter Details Date Type Department Care Team ([facility] st Contact Info) Description 07/10/2023 Telephone [facility] MEDICINE [address] [place] [address] West Gallegos MD [address] [place] [phone] request Social History Tobacco Use Types Packs/Day [...] Upcoming Encounters Date Type Department Care Team ([facility] st Contact Info) Description 05/29/2025 3:15 PM EST Office Visit [facility] MED & PEDS [address] [place] [address] West Gallegos MD [address] [place] [address] documented as of this encounter Visit Diagnoses Not on filedocumented in this encounter Additional Health Concerns Assessment Noted Time PHQ-9 Depression Total Score: 3 05/23/20 22 1:43 PM EST documented as of this encounter Care Teams Rabbit Breeder Relationship Specialty Start Date End Date West Gallegos MD [address] [place] [address] PCP - General Internal Medicine 01/26/18 documented as of this encounter
--- OUTSIDE RECORDS SUMMARY | 2025-05-02 19:22 | XMS_ITS | Encounter Summary ---
Author Organization [employer] Address [address] [place] [address] [place] [address] Care Team Providers Care Passenger Solicitor Name Role Phone West Gallegos MD Primary Care Provider [phone] Reason for Visit * Reason Comments Med Refill Encounter Details Date Type Department Care Team ([facility] Contact Info) Description 05/20/2023 Refill [facility] CHC MED & PEDS [address] [place] [address] West Gallegos MD [address] [place] [address] Cervical radiculopathy; Bilateral carpal tunnel syndrome Social [...] Encounters Date Type Department Care Team ([facility] Contact Info) Description 05/29/2025 3:15 PM EST Office Visit [facility] CHC MED & PEDS [address] [place] [address] West Gallegos MD [address] [place] [address] documented as of this encounter Visit Diagnoses Diagnosis Cervical radiculopathy Brachial neuritis or radiculitis nos Bilateral carpal tunnel syndrome Carpal tunnel syndrome documented in this encounter Additional Health Concerns Assessment Noted Time PHQ-9 Depression Total Score: 3 05/23/20 22 1:43 PM EST documented as of this encounter Care Teams Passenger Solicitor Relationship Specialty Start Date End Date West Gallegos MD [address] [place] [address] PCP - General Internal Medicine 01/26/18 documented as of this encounter
--- OUTSIDE RECORDS SUMMARY | 2025-05-02 19:22 | XMS_ITS | Encounter Summary ---
Author Organization [employer] Address [address] [place] [address] 7 [place] [address] Care Team Providers Care Property Officer Name Role Phone West Gallegos MD Primary Care Provider [phone] [phone] Encounter Details Date Type Department Care Team ([facility] Contact Info) Description 08/03/2023 Orders Only [facility] CHC MED & PEDS [address] [place], [place] [phone] West Gallegos MD [address] [place] [address] Bilateral carpal tunnel syndrome (Primary Dx) Social [...] Upcoming Encounters Date Type Department Care Team ([facility] Contact Info) Description 05/29/2025 3:15 PM EST Office Visit [facility] MED & PEDS [address] [place] [address] West Gallegos MD [address] [place] [address] documented as of this encounter Visit Diagnoses Diagnosis Bilateral carpal tunnel syndrome- Primary Carpal tunnel syndrome documented in this encounter Additional Health Concerns Assessment Noted Time PHQ-9 Depression Total Score: 3 05/23/20 22 1:43 PM EST documented as of this encounter Care Teams Property Officer Relationship Specialty Start Date End Date West Gallegos MD [address] [place] [address] PCP - General Internal Medicine 01/26/18 documented as of this encounter
--- OUTSIDE RECORDS SUMMARY | 2025-05-02 19:22 | XMS_ITS | Encounter Summary ---
Author Organization [employer] Address [address] [facility] 7 [place] [address] Care Team Providers Care Silver Miner Blasting Name Role Phone West Gallegos MD Primary Care Provider [phone] Encounter Details Date Type Department Care Team ([facility] Contact Info) Description 09/08/2024 Orders Only [facility] CHC MED & PEDS [address] [place], [place] [phone] West Gallegos MD [address] [place] [address] Muscle cramps (Primary Dx) Social History Tobacco [...] 3:15 PM EST Office Visit [facility] MED & PEDS [address] [place] [address] West Gallegos MD [address] [place] [address] documented as of this encounter Visit Diagnoses Diagnosis Muscle cramps- Primary documented in this encounter Additional Health Concerns Assessment Noted Time PHQ-9 Depression Total Score: 21 024 10:02 AM EDT documented as of this encounter Care Teams Silver Miner Blasting Relationship Specialty Start Date End Date West Gallegos MD [address] [place] [address] PCP - General Internal Medicine 01/26/18 documented as of this encounter
--- OUTSIDE RECORDS SUMMARY | 2025-05-02 19:22 | XMS_ITS | Encounter Summary ---
Author Organization [employer] Address [address] [place] [address] 7 [place] [address] Care Team Providers Care Splitting Machine Operator Helper Name Role Phone West Gallegos MD Primary Care Provider [phone] Encounter Details Date Type Department Care Team ([facility] Contact Info) Description 10/28/2023 Orders Only [facility] PEDS [address] [place], [place] [phone] West Gallegos MD [address] [place] [address] Type 2 diabetes mellitus with other neurologic complication, with long-term current use of insulin ([facility]) (Primary Dx) Social History Tobacco [...] Description 05/29/2025 3:15 PM EST Office Visit [facility] [address] [place] [address] West Gallegos MD [address] [place] [address] documented as of this encounter Visit Diagnoses Diagnosis Type 2 diabetes mellitus with other neurologic complication, with long-term current use of insulin (HCC)- Primary documented in this encounter Additional Health Concerns Assessment Noted Time PHQ-9 Depression Total Score: 3 05/23/20 22 1:43 PM EST documented as of this encounter Care Teams Splitting Machine Operator Helper Relationship Specialty Start Date End Date West Gallegos MD [address] [place] [address] PCP - General Internal Medicine 01/26/18 documented as of this encounter
--- OUTSIDE RECORDS SUMMARY | 2025-05-02 19:23 | XMS_ITS | Clinical Summary ---
Author Organization [facility] Address [address] [place] [address] Phone Care Team Providers Care Program Developer Name Role Phone West Gallegos MD Primary Care Provider [phone] Allergies No known active allergies Medications CONCENTRATED insulin regular (HumuLIN R) 500 UNIT/ML patient supplied pump 1 EA by continuous sub-Q infusn (via wearable injector) route continuously. Active Encounters Date Type Department Care Team Description 05/02/2025 3:00 PM EST Office Visit [facility] [address] [phone] Gabino Ritchie DPM Controlled type 2 diabetes with neuropathy ([facility] V24, CMS/[facility] V28) (Primary Dx); Lumbosacral radiculopathy; Localized edema; Cramps of left lower extremity; Dermatophytosis, nail 03/01/2025 2:30 PM EDT Office Visit [facility] [address] [phone] Gabino Ritchie DPM Controlled type 2 diabetes with neuropathy ([facility]/HCC V24, CMS/HCC V28) (Primary Dx); Lumbosacral radiculopathy; [...] 06/15/2024 3:00 PM EST Plan of Treatment Health Maintenance Due Date Last Done Comments [...] exists Diabetes: Annual GFR (Glomerular Filtration Rate) 04/12/2026 04/12/2025, 10/03/2024 Hypertension/CHF/CAD Annual BMP Blood Test 04/12/2026 04/12/2025, 10/03/2024 Colorectal Cancer Screening: FIT-DNA (Cologuard) 04/15/2027 04/15/2024 Cholesterol Screening (Lipid Panel) 04/12/2030 04/12/2025, 07/04/2024, 05/07/2022 RSV Immunization Adult Patients (1 [...] Documents on File Type Date Recorded Patient Hourly Sign Language Interpreter Expl [facility] Care Decision (hx) 12/28/2023 [facility] PROXY Care Teams Program Developer Relationship Specialty Start Date End Date West Gallegos MD [address] [place] [address] PCP - General 04/01/23
--- OUTSIDE RECORDS SUMMARY | 2025-05-02 19:23 | XMS_ITS | Encounter Summary ---
Author Organization [employer] Address [address] [place] [address] 7 [place] [address] Care Team Providers Care Wind Operations Supervisor Name Role Phone West Gallegos MD Primary Care Provider [phone] Encounter Details Date Type Department Care Team ([facility] st Contact Info) Description 09/25/2022 Orders Only [facility] MED & PEDS [address] [place], [place] [phone] West Gallegos MD [address] [place] [address] Bilateral carpal tunnel syndrome (Primary Dx) Social [...] 3:15 PM EST Office Visit [facility] MED [facility]EDS [address] [place] [address] West Gallegos MD [address] [place] [address] documented as of this encounter Visit Diagnoses Diagnosis Bilateral carpal tunnel syndrome- Primary Carpal tunnel syndrome documented in this encounter Additional Health Concerns Assessment Noted Time PHQ-9 Depression Total Score: 3 05/23/20 22 1:43 PM EST documented as of this encounter Care Teams Wind Operations Supervisor Relationship Specialty Start Date End Date West Gallegos MD [address] [place] [address] PCP - General Internal Medicine 01/26/18 documented as of this encounter
--- OUTSIDE RECORDS SUMMARY | 2025-05-02 19:23 | XMS_ITS | Data Portability ---
Author Organization [facility] [place] Address [address] [place] [address] Care Team Providers Care Site Leader Name Role Phone IVETTE LIRIANO Referring Provider [...] Modified Time Details Appointments FOLLOW UP 2024 01:15P M Mel lao MD Not available Not [...] mg/mL (1 %) injection solution [address] [place] [address], [address], [address] [place] [address], [id number], 07/08/2024 14:53:42 Kenalog 10 mg/mL suspensio n for injection [address] [place] [address], [address], [address], [place], [place], [id number], 07/08/2024 14:53:39 lidocaine (PF) 10 mg/mL (1 %) injection solution 2022 [address] [place] [address], [address], [address], [place], [place], [id number], 07/08/2024 14:53:42 Kenalog 10 mg/mL suspensio n for injection [address]22 [address] [place] [address], [address], [address] [place] [address], [id number], 07/08/2024 14:53:39 Patient TargetsNo targets recorded. Patient Instructions Encounter Date Encounter Id Patient Instructions Last Modified By Organization Details Last Modified Time 04/23/2023 [id number] An electrodiagno stic study from 07/16/2021 done at [facility] was available for review, this demonstrates a [...] An electrodiagnostic study from 02/23/2023 done at [facility] was available for review, this demonstrates right [...] Time Carpal tunnel syndrome of right wrist [id number] 08 Active 2022 Mel lao MD [address], [place], [address], [facility] [place], P 3 18:41:21 Carpal tunnel syndrome of left wrist 7818534853136 02 Active 2022 Mel lao MD [address], [place], [address], [place] [facility] [place] [facility], P 3 18:41:24 Acquired trigger finger of left index finger 8314543808759 04 Active 2023 Mel lao MD [address], [facility] [place], [address], [place] [facility] [place] [facility], P 4 16:51:27 Triggering of digit 383017669 Active 2024 Mel lao MD [address] [facility] [place],[address], [facility] [place], [address], [place] [facility] [place], P 5 12:25:26 Problem Notes None recorded. Procedures Surgical History Date Name Laterality Status Provider Name and Address Organization Details Recorded Time 5 TRIGGER FINGER RELEASE (SURG) completed Adriane Arias [facility] [place], P 06/24/2024 10:24:43 3 LES carpal tunnel injection completed Mel Benntet MD [address] [facility] [place] [address], [place], [address], [place] [facility], P 04/23/2023 18:34:11 3 LES trigger finger/De Quervain's injection completed Mel Bennett MD [address] [facility] [place] [address], [place], [address], [place] [facility] [place] [facility], [facility] 04/23/2023 18:33:58 Imaging Results None recorded. [...] Updated DateTime 07/08/2024 165.1 cm 25.5 kg/m2 45457.63 g Shawna Quijano [facility] 07/08/2024 14:53:17 Date Recorded Body height Body mass index (BMI) Body weight Provider Name and Address Organization Details Last Updated DateTime 04/23/2023 165.1 cm 25.5 kg/m2 85266.63 g Shawna Quijano [facility] [place], P 04/23/2023 13:55:27 Social History Question Answer Notes LastModified by [employer] Details LastModified Time Tobacco Smoking Status Current Every Day Smoker Shawna tripp, [facility], P 04/23/2023 14:16:08 How Much Tobacco Do You Smoke? 1 PPW 5-6 Cigs/ Day Information not available 04/23/2023 Sex: Unknown Functional Status Question Answer Note LastModified by [employer] Details LastModified Time Do you use any [...] Anemia N Brain Injury N Heart Attack (CT) N Osteopenia N Diabetes Y Bleeding Disorder [...] ICD10 Code Diagnosis IMO Codes Diagnosis Note [id number] MD SANJEEV Knapp [facility] [address] [facility] [address] [place] [address] 04/23/2023 13:45:40 04/23/2023 15:06:40 Acquired trigger finger of right index finger [id number] 11755 M65.321 Pain of right wrist 3169 265315 13782 M25.531 Carpal wilberto rebecca syndrome of right wrist 0535779396 89014 G56.01 Carpal wilberto rebecca syndrome of left wrist 4538457552 14816 G56.02 [id number] MD SANJEEV Knapp [facility] [address] [facility] [address] [place] [address] 06/10/2023 15:23:26 06/10/2023 16:43:05 Carpal tunnel syndrome of left wrist 4109753085 66114 G56.02 Carpal wilberto rebecca syndrome of right wrist 6153928607 02619 G56.01 Acquired t master rigger finger of left index finger 5633796823 06090 M65.322 [id number] MD [facility] [address] [facility] [address] [place] [address] 06/09/2024 15:05:04 06/09/2024 15:39:01 Acquired trigger finger of left index finger 1454098781 24253 M65.322 Carpal wilberto rebecca syndrome of right wrist 2072362504 65838 G56.01 Carpal wilberto rebecca syndrome of left wrist 2304186837 24810 G56.02 [id number] Mel Bennett MD [address] [place] [address] 07/08/2024 14:44:47 07/08/2024 15:15:11 Acquired trigger finger of left index finger 0741308692 63100 M65.322 Health Concerns Section Related Observation LastModified by Organization Detai ls LastModified Time None Recorded Concern Status LastModified by Organization Details LastModified Time None Recorded Advance Directives Directive None Recorded Payers Insurance Date Sequence Insurance Name Policy Number Policy Jiménez Covered Member ID Jiménez Member ID Guarantor Name 06/08/2024 1 [place] [facility] Miladys Shane [id number] Aliza Shane Notes Date Note Type Note Provider Name and Address Organization Details Recorded Time 04/23/2023 text/html ROS as noted in the HPI This is a 48-year-old [id number] female who is presenting with bilateral, right [...] and long finger. Mel Bennett MD [address] [address], [place], [address], [facility] - [facility] [place], P 04/23/2023 18:45:28 06/10/2023 text/html ROS as [...] bother her much. Mel Bennett MD [address] [address], [place], [address], [facility] - [facility] [place], P 06/10/2023 16:51:39 06/09/2024 text/html ROS as [...] in the eights. She does see an heavy equipment service manager for this. She also tells me [...] not drink alcohol. Mel Bennett MD [address] [facility] [place],[facility] [address], [place], [address], [place] [facility] [place], P 06/24/2024 13:37:41 07/08/2024 text/html ROS as [...] Mel Bennett MD [address], [place], [address], [place] [facility], P 07/10/2024 10:44:40 OBGyn Episode No OBEpisode recorded.
--- OUTSIDE RECORDS SUMMARY | 2025-05-02 19:23 | XMS_ITS | Clinical Summary ---
Author Organization [employer] Address [address] [facility] [address] [place] [address] Care Team Providers Care Supervisor Putty And Caluking Name Role Phone West Gallegos MD Primary Care Provider [phone] Allergies No known active allergies Medications * This document contains information received from the source organization and may not represent a complete record from that organization. cetirizine (ZyrTEC) 10 MG tablet Take 1 tablet by mouth. Every day 1 Active cholecalciferol (Vitamin D-3) 25 MCG (1000 UT) capsule take 1 Capsule by Oral route once a day 1 Active Continuous Blood Gluc Health Technical Writer (FreeStyle Parris 2 [place]) device Use daily Act jessica Misc. Devices (Wrist Brace) misc Wear daily at bedtime Active insulin glargine (Lantus SoloStar) 100 UNIT/ML pen inject 65 Unit by Subcutaneous route every bedtime 3 mL 11 3 Active famotidine (Pepcid) 40 MG tablet TAKE ONE TABLET TWICE DAILY 180 tablet 3 Active Continuous Blood Gluc Sensor (FreeStyle Parris 2 Sensor) misc Use daily 2 each 3 Active Blood Glucose Monitoring Suppl (FreeStyle Lite) w/Device kit 1 Units 4 times daily. Use daily 1 kit 3 Active FreeStyle lancetsIndicatio ns:Type 2 diabetes mellitus with other neurologic complication, with long-term current use of insulin (HCC) 1 each by Other route 4 times daily. Use daily 100 each 3 Active Insulin Pen Needle (pen needle 08/21 ) 31G x 5 mm misc Inject 1 each under the skin 4 times daily. Use 4 times daily 120 each 11 3 Active moisturizing mouth (Biotene Oral Dry Mouth) solutionIndicati ons:Canker sores oral Take 1 spray by mouth if needed (for dry mouth). 44.3 mL 1 3 Active Baqsimi Two Pack 3 MG/DOSE nasal powder INSERT ONE SPRAY IN NOSE NEEDED FOR LOW BLOOD SUGAR 2 each 1 4 Active ketotifen (Zaditor) 0.025 % ophthalmic solution One drop to eyes bid prn allergies 5 mL 1 4 Active ammonium lactate (Lac-Hydrin) 12 % lotionIndication s:Type 2 diabetes mellitus with other neurologic complication, with long-term current use of insulin ([facility]),Dry skin Apply topically if needed for dry skin. 400 g 3 5 026 Active atorvastatin (Lipitor) 80 MG tabletIndication s:Type 2 diabetes mellitus with other neurologic complication, with long-term current use of insulin ([facility]),Dyslipidem ia Take 1 tablet (80 mg) by mouth Once per day. 30 tablet 5 026 Active traZODone (Desyrel) 50 MG tabletIndication s:Primary insomnia Take 2 tablets (100 mg) by mouth at bedtime. 30 tablet 5 5 Active glucose blood (FREESTYLE LITE) test stripIndications :Type 2 diabetes mellitus with other neurologic complication, with long-term current use of insulin ([facility]) 1 each by Other route 4 times daily. 100 each 5 Active busPIRone (Buspar) 5 MG tabletIndication s:Anxiety Take 1 tablet (5 mg) by mouth 2 times daily. 60 tablet 11 5 026 Active Alcohol Swabs (Alcohol Prep) padsIndications: Type 2 diabetes mellitus with other neurologic complication, with long-term current use of insulin ([facility]) Use as directed 200 each 5 Active amLODIPine (Norvasc) 10 MG tabletIndication s:Primary hypertension Take 1 tablet (10 mg) by mouth Once per day. 30 tablet 11 5 026 Active magnesium 30 MG tabletIndication s:Muscle cramp Take 1 tablet (30 mg) by mouth Once per day. 30 tablet 2 5 Active pen needle 32G x 5 mm miscIndications: Type 2 diabetes mellitus with other neurologic complication, with long-term current use of insulin ([facility]) USE FOUR TIMES DAILY DIRECTED 100 each 3 5 Active mirtazapine (Remeron) 15 MG tablet TAKE 1 TABLET BY MOUTH AT BEDTIME 30 tablet 3 5 Active Magnesium Citrate 67 MG chewable tabletIndication s:Primary insomnia Chew 67 mg in the morning. 30 tablet 2 5 Active glucose 4 g chewable tabletIndication s:Type 2 diabetes mellitus with other neurologic complication, with long-term current use of insulin ([facility]) Chew 4 tablets (16 g) if needed for low blood sugar. 50 tablet 12 5 Active Insulin Lispro (HumaLOG) 100 UNIT/ML solutionIndicati ons:Type 2 diabetes mellitus with other neurologic complication, with long-term current use of insulin ([facility]) Inject 0.26 mL (26 Units) under the skin before breakfast, before lunch, and before evening meal. INJECT 26 UNITS THREE TIMES DAILY DIRECTED 15 MINUTES BEFORE MEALS 10 mL 11 5 Active Active Problems Problem Noted Date Diagnosed [...] Encounters Date Type Department Care Team Description 04/14/2025 Telephone [facility] [address], [place] [phone] Alba Jorge, BEA 04/13/2025 Orders Only [facility] [address] [place] [address] West Gallegos MD Transaminitis (Primary Dx) 03/27/2025 Telephone [facility] [address] [place] [address] West Gallegos MD Call Back Request 03/24/2025 Refill [facility] [address] [place] [address] West Gallegos MD Type 2 diabetes mellitus with other neurologic complication, with long-term current use of insulin ([facility]) 03/14/2025 Telephone [facility] [address] [place] [address] West Gallegos MD No Show 02/21/2025 2:45 PM EDT Office Visit [facility] [address] [place] [address] West Gallegos MD Dyslipidemia (Primary Dx); Annual physical exam; Type 2 diabetes mellitus with other neurologic complication, with long-term current use of insulin ([facility]); Dietary counseling; Exercise counseling; Overweight; Type 2 diabetes mellitus with other neurologic complication, with long-term current use of insulin ([facility]); Primary insomnia; Muscle cramp; Encounter for screening mammogram for malignant neoplasm of breast; Cerebrovascular accident (CVA) due to other mechanism (CMS/HCC) 02/21/2025 Travel 02/20/2025 Telephone [facility] [address] [place] [address] West Gallegos MD Chart Prep 02/14/2025 Travel 2025 Patient Outreach [facility] [address] [place] [address] West Gallegos MD Pre-visit Planning (Pre visit planning LVM ) from Last 3 Months Immunizations Immunization Administration [...] Description 05/29/2025 3:15 PM EST Office Visit [facility] [address], [place] [phone] West Gallegos MD [address] [place] [address] Health Maintenance Due Date Last Done Comments CT Colonography 1976 Colonoscopy 1976 FIT 1976 Sigmoidoscopy 1976 Disability Screening 1976 Alcohol/Substance Use Screening 1988 Family Planning (PISQ) 02/12/1991 Hepatitis B Vaccines (1 of 3 - 19+ 3-dose series) 02/12/1995 Mammogram 08/15/2023 08/14/2021 DTaP/Tdap/Td Vaccines (2 - Td or Tdap) 04/28/2024 04/28/2014 Depression Monitoring 08/09/2024 02/10/2024, 024 COVID-19 Vaccine ( season) 2025 06/26/2021, 10/17/2020, 09/19/2020 Influenza Vaccine (#1) 2025 , 04/01/2022, 03/19/2021, Additional history exists FOBT 04/15/2025 04/15/2024 Diabetes: Hemoglobin A1C 05/23/2025 025, 09/16/2024, 06/17/2024, Additional history exists Diabetes: Foot Exam 07/04/2025 07/04/2024 SDOH Screening 09/09/2025 09/09/2024 Eye Exam 09/14/2025 09/14/2024 Zoster Vaccines (1 of 2) 02/12/2026 Tobacco Screening 02/21/2026 02/21/2025 Diabetes: Urine Protein Screening 04/12/2026 04/12/2025, 06/13/2024, 10/15/2022, Additional history exists Lipid Panel 04/12/2026 04/12/2025, 06/09, 05/07/2022, Additional history exists Cervical Cancer Screening 05/28/2026 HPV/Cotest 05/28/2026 05/28/2021 [...] Procedure Name Priority Date/Time Associated Diagnosis Comments ALBUMIN, RANDOM URINE W/CREATININE Routine 04/12/2025 3:10 PM EST Type 2 diabetes mellitus with other neurologic complication, with long-term current use of insulin (HCC) CBC WITH AUTO DIFFERENTIAL Routine 04/12/2025 3:09 PM EST Type 2 diabetes mellitus with other neurologic complication, with long-term current use of insulin ([facility]) LIPID PANEL, STANDARD Routine 04/12/2025 3:04 PM EST Dyslipidemia TSH W/REFLEX TO FT4 Routine 04/12/2025 3 :04 PM EST Type 2 diabetes mellitus with other neurologic complication, with long-term current use of insulin (HCC) COMPREHENSIVE METABOLIC PANEL Routine 04/12/2025 3:04 PM EST Type 2 diabetes mellitus with other neurologic complication, with long-term current use of insulin ([facility]) POCT GLYCATED HEMOGLOBIN, TOTAL Routine 02/21/2025 2:58 PM EDT Type 2 diabetes mellitus with other neurologic complication, with long-term current use of insulin (CMS/HCC) POCT GLUCOSE Routine 02/21/2025 2:57 PM EDT [...] EST Screen for STD (sexually transmitted disease) LAB COLOGUARD COLON CANCER SCREEN Routine 04/15/2024 10:00 AM EST Screening for colon cancer MAMMOGRAPHY Routine 08/14/2021 THINPREP IMAGING PAP AND HPV MRNA E6/E7, WITH CT/NG, TRICHOMONAS Routine 05/28/2021 2:52 PM EST PAP/HPV Routine 05/28/2021 from Last 3 Months or Most Recently Relevant to Health Maintenance Results * Albumin, Random Urine W/Creatinine (04/12/2025 3:10 PM EST) Creatinine, Urine 184.40 mg/dL [facility] Microalbumin Urine 13.0 mg/L [facility] Microalbum Creatinine Ratio Ur 7.0 <30 ug/mg cr [facility] Comment:Albumin/Creatinine R atio Reference Ranges: Normal: < 30 ug/mg creatinine Microalbuminuria: 30 - 300 ug/mg creatinineClinical Albuminuria: > 300 ug/mg creatinine Urine (Urine, Random) 04/12/2025 3:10 PM EST 04/12/2025 6:30 PM EST us West Gallegos MD LAB URINE ORDERABLES Final Result [facility] [address] [place] [phone] * CBC auto differential (04/12/2025 3:09 PM EST) White Blood Count 8.2 4.8 - 10.8 X10*3/uL [facility] Red Blood Count 4.96 4.20 - 5.50 X10*6/uL [facility] Hemoglobin 14.0 12.0 - 16.0 g/dl [facility] Hematocrit 42.8 37.0 - 47.0 % [facility] Mean Corpuscular Volume 86.3 80.0 - 98.0 fL [facility] Mean Corpuscular Hemoglobin 28.2 27.0 - 33.0 pg [facility] Mean Corpuscular HGB Conc 32.7 31.0 - 35.0 g/dl [facility] Red Cell Distribution Width 13.7 11.0 - 16.0 % [facility] Platelet Count 368 160 - 400 X10*3/uL [facility] Mean Platelet Volume 9.6 9.4 - 12.3 fL [facility] Neutrophils Percent Auto 52.3 45 - 73 % [facility] Imm Gran Pct Auto 0.2 0.0 - 0.4 % [facility] Lymphocytes Percent Auto 35.1 20 - 40 % [facility] Monocytes Percent Auto 8.8 2 - 11 % [facility] Eosinophils Percent Auto 3.0 0 - 4 % [facility] Basophils Percent Auto 0.6 0 - 2 % [facility] NRBC Pct Auto 0.0 0.0 - 0.2 /100WBC [facility] Neutrophils Absolute Auto 4.3 2.0 - 8.3 x10*3/uL [facility] Imm Gran Abs Auto 0.02 0.00 - 0.03 X10*3/uL [facility] Lymphocytes Absolute Auto 2.9 1.2 - 4.9 X10*3/uL [facility] Monocytes Absolute Auto 0.7 0.1 - 1.2 X10*3/uL [facility] Eosinophils Absolute Auto 0.3 0.0 - 0.4 X10*3/uL [facility] Basophils Absolute Auto 0.1 0.0 - 0.2 X10*3/uL [facility] NRBC Abs Auto 0.000 0.0 - 0.012 X10*3/uL [facility] Blood Venous blood specimen / Unknown 04/12/2025 3:09 PM EST 04/12/2025 6:09 PM EST us West Gallegos MD LAB BLOOD ORDERABLES Final Result Performing Organization Address City/[facility]/ZIP Co de Phone Number [facility] [address] [place] [phone] * TSH W/Reflex to FT4 (04/12/2025 3:04 PM EST) TSH reflex Free T4 1.75 0.32 - 4.0 uIU/mL [facility] Blood Venous blood specimen / Unknown 04/12/2025 3:04 PM EST 04/12/2025 6:09 PM EST us West Gallegos MD LAB BLOOD ORDERABLES Final Result Performing Organization Address [facility] Co de Phone Number [facility] [address] [place] [phone] * (ABNORMAL) Lipid Panel, Standard (04/12/2025 3:04 PM EST) Triglycerides 174(H) <150 mg/dL [facility] Comment:Desirable Triglyceri de: less than 150 mg/dLBorderline High Triglyceride 150-199 mg/dLHigh Triglyceride: 200-499 mg/dLVery High Triglyceride: greater than or equal to 5OO mg/dL Cholesterol 202(H) <200 mg/dL [facility] Comment:Desirable Cholestero l: less than 200 mg/dLBorderline High Cholesterol: 200-239 mg/dLHigh Cholesterol: greater than 239 mg/dL LDL Cholesterol Calculated 133(H) <100 mg/dL [facility] Comment:Desirable LDL: less than 100 mg/dLNear Optimal/Above Optimal LDL: 110- 129 mg/dLBorderline High LDL: 130-159 mg/dLHigh LDL: 160-189 mg/dLVery High LDL: greater than or equal to 190 mg/dL HDL Cholesterol 35(L) >40 mg/dL [facility] Comment:Desirable HDL: great er than 40 mg/dL Note: This HDL assay may give artificially low results in patients with liver disease. Blood Venous blood specimen / Unknown 04/12/2025 3:04 PM EST 04/12/2025 6:09 PM EST us West Gallegos MD LAB BLOOD ORDERABLES Final Result [facility] [address] [place] [phone] * (ABNORMAL) Comprehensive Metabolic Panel (04/12/2025 3:04 PM EST) Sodium 143 135 - 145 mmol/L [facility] Potassium 3.4 3.3 - 5.1 mmol/L [facility] Chloride 109(H) 96 - 108 mmol/L [facility] Carbon Dioxide 26 22 - 29 mmol/L [facility] Anion Gap 11(L) 12 - 20 [facility] Urea Nitrogen (BUN) 8(L) 9 - 16 mg/dL [facility] Creatinine, Serum 0.57 0.5 - 1.4 mg/dL [facility] Estimated Glomerular Filt Rate >60 [facility] Comment:Chronic Kidney Disea se: Estimated GFR < 60 mL/min/1.84e2Oyigpt Kidney Disease: Estimated GFR < 15 mL/min/1.73m2 Glucose 141(H) 60 - 115 mg/dL [facility] Calcium 9.0 8.4 - 10.2 mg/dL [facility] Bilirubin, Total 0.2 0.0 - 1.0 mg/dL [facility] Aspartate Amino Transferase 32(H) 5 - 31 U/L [facility] Alanine Aminotransferase 42(H) 0 - 31 U/L [facility] Total Protein 6.9 6.5 - 8.0 g/dL [facility] Albumin Level 4.1 3.5 - 5.0 g/dL [facility] Alkaline Phosphatase 107 39 - 117 U/L [facility] Blood Venous blood specimen / Unknown 04/12/2025 3:04 PM EST 04/12/2025 6:09 PM EST West Gallegos MD LAB BLOOD ORDERABLES Final Result [facility] [address] [place] [phone] * (ABNORMAL) POCT Hgb A1c (02/21/2025 2:58 PM EDT) Hemoglobin A1C 9.0(A) 4.0 - 5.7 % QC Media Lot # [id number] Lot# Expiration Date Blood 02/21/2025 2:58 PM EDT West Gallegos MD POINT OF CARE TEST ENTER/ED IT ORDERABLES Final Result * (ABNORMAL) POCT Glucose (02/21/2025 2:57 PM EDT) Glucose Blood, POC 214(A) 60 - 200 [...] PM EST) Hepatitis C Antibody Nonreactive Nonreactive [facility] Comment:Antibodies to HCV no t detected; does not exclude early acuteHCV infection. Blood Venous blood specimen / Unknown 07/04/2024 3:57 PM EST 07/04/2024 5:46 PM EST us West Gallegos MD LAB BLOOD ORDERABLES Final Result Performing Organization Address City/[facility]/ZIP Co de Phone Number [facility] [address] [place] [phone] * HIV-1/2 Antigen and Antibodies, Fourth Generation, with Reflexes (07/04/2024 3:57 PM EST) HIV AB/AG Nonreactive Nonreactive [facility] Comment:HIV-1 p24 Ag and/or HIV-1/HIV-2 Ab not detected.A test result that is nonreactive does not exclude thepossibility of exposure to or infection with HIV-1 and/orHIV-2. Nonreactive results in this assay for individualswith prior exposure to HIV-1 and/or HIV-2 may be due toantigen and antibody levels that are below the limit ofdetection of this assay.The [email or web address] HIV Ag/Ab Combo assay result andsupplemental assay results should be interpreted inconjunction with the patient's clinical presentation,history and other laboratory results. If the results areinconsistent with clinical evidence, additional testing issuggested to confirm the result. Blood Venous blood specimen / Unknown 07/04/2024 3:57 PM EST 07/04/2024 5:46 PM EST us West Gallegos MD LAB BLOOD ORDERABLES Final Result Performing Organization Address City/[facility]/ZIP Co de Phone Number [facility] [address] [place] [address] [phone] * (ABNORMAL) Cologuard?? colon cancer screening (04/15/2024 10:00 AM EST) Cologuard Result Positive( A) Negative 04/22/2024 11:16 AM EST [facility] (CLIA #:[id number]) Comment: POSITIVE TEST RESULT. A positive Cologuard [...] screened with both Cologuard and colonoscopy. (Zeyad Betancourt et al, N Engl J Med 2014;370(14):5669-0176.) Cologuard may produce a false negative or false positive result (no colorectal cancer or precancerous polyp present at colonoscopy follow up). A negative Cologuard test result does not guarantee the absence of CRC or advanced adenoma (pre-cancer). The current Cologuard screening interval is every 3 years. ([employer] and U.S. Multi-Society Task Force). Cologuard performance data in a 10,000 patient pivotal study using colonoscopy as the reference method can be accessed at the following location: www.[employer]/results. Additional description of the Cologuard test process, warnings and precautions can be found at www.cologuard.Standard Media Index. Stool specimen (specimen) 04/15/2024 10:00 AM EST 04/16/2024 7:27 AM EST West Gallegos MD LAB MOLECULAR DIAGNOSTICS O RDERABLES Final Result [facility] (CLIA #:[id number]) [place] [address], * Mammography (08/14/2021) Mammogram Performed Anatomical Region Laterality Modality Other Historical Provider HEALTH MAINTENANCE Final Result * THINPREP TIS PAP AND HPV mRNA E6/E7, CT/NG, TRICH (05/28/2021 2:52 PM EST) Chlamydia trachomatis RNA, TMA, Urogenital NOT DETECTED NOT DETECTED [facility] Clinical Information: None given [facility] COMMENT SEE COMMENT [facility] Comment: The analytical performance characteristics of this assay, when used to test SurePath(TM) specimens have been determined by [facility]. The modifications have not been cleared or approved by the FDA. This assay has been validated pursuant to the CLIA regulations and is used for clinical purposes. For additional information, please refer to https://education.[employer].Standard Media Index/faq/ZYM523 (This link is being provided for information/ [...] has been evaluated with computer assisted technology. [facility] Coremaker: SEE COMMENT [facility] Comment: WAC, CT(ASCP) CT screening location: [place] [address] HPV nRNA E6/E7 Not Detected Not Detected [facility] Comment: Methodology: Hardwood Floor Refinisher-Mediated Amplification This assay detects E6/E7 viral messenger RNA (mRNA) from 14 high-risk HPV types (16,18,31,33,35,39,45,51,52,56,58,59,66,68). The analytical performance characteristics of this assay have been determined by [facility]. The modifications have not been cleared or approved by the FDA. This assay has been validated pursuant to the CLIA regulations and is used for clinical purposes. For additional information, please refer to http://[employer].Emergent Discovery/faq/ONB984i0 (This link if provided for information/ educational [...] of this assay have been determined by [facility]. The modifications have not been cleared or approved by the FDA. This assay has been validated pursuant to the CLIA regulations and is used for clinical purposes. For additional information, please refer to http://[employer].Standard Media Index/ faq/Trichomonastma (This link is being provided for information/ educational purposes only.) 05/28/2021 2:52 PM EST us Berta Simpson CNM LAB PATHOLOGY ORDERABLES Final Result [facility] [address] * Pap Smear (05/28/2021) Pap smear Performed Historical Provider HEALTH MAINTENANCE Final Result from Last 3 Months or Most Recently Relevant to Health Maintenance Insurance C3 Care Teams Supervisor Putty And Caluking Relationship Specialty Start Date End Date West Gallegos MD [address] [place] [phone] PCP - General Internal Medicine 01/26/18
--- OUTSIDE RECORDS SUMMARY | 2025-05-02 19:23 | XMS_ITS | Encounter Summary ---
Author Organization [employer] Address [address] [facility] [address] [place] [address] Care Team Providers Care Paleontological Helper Name Role Phone West Gallegos MD Primary Care Provider [phone] Reason for Referral * Consultation (Routine) - Closed Specialty Diagnoses / Procedures Referred By Contjamal t Referred To Contact Gastroenterology Diagnoses Positive colorectal cancer screening using Cologuard test West Gallegos MD [address] [place] [phone] Phone: tel: fax: [facility] [address] [place], [place] Phone: tel: fax: Referral ID Status Reason Start Date Expiration Date V isits Requested Visits Authorized [id number] Closed Specialty Services Required 04/22/2024 04/22/2025 1 1 Encounter Details Date Type Department Care Team (Late st Contact Info) Description 04/22/2024 Orders Only [facility] [address] [place] [address] West Gallegos MD [address] [place] [phone] Positive colorectal cancer screening using Cologuard test [...] Upcoming Encounters Date Type Department Care Team ([facility] st Contact Info) Description 05/29/2025 3:15 PM EST Office Visit [facility] [address] [place], [place] [phone] West Gallegos MD [address] [place] [address] Scheduled Referrals Name Type Priority Associated Diagnoses [...] documented as of this encounter Care Teams Paleontological Helper Relationship Specialty Start Date End Date West Gallegos MD [address] [facility] [place] [address] PCP - General Internal Medicine 01/26/18 documented as of this encounter
--- OUTSIDE RECORDS SUMMARY | 2025-05-02 19:23 | XMS_ITS | Encounter Summary ---
Author Organization [employer] Address [address] [facility] 7[address] [place] [address] Care Team Providers Care Animal Husbandry Manager Name Role Phone West Gallegos MD Primary Care Provider [phone] Encounter Details Date Type Department Care Team ([facility] st Contact Info) Description 09/15/2024 Orders Only [facility] CHC MED & PEDS [address] [place] [address] Provider, MD Lala Social History Tobacco Use [...] 05/29/2025 3:15 PM EST Office Visit [facility] MED & PEDS [address] [place] [address] West Gallegos MD [address] [place] [address] documented as of this encounter Procedures Procedure [...] documented as of this encounter Care Teams Animal Husbandry Manager Relationship Specialty Start Date End Date West Gallegos MD [address] [place] [address] PCP - General Internal Medicine 01/26/18 documented as of this encounter
--- OUTSIDE RECORDS SUMMARY | 2025-05-02 19:23 | XMS_ITS | Encounter Summary ---
Author Organization [employer] Address [address] [place] [address] [place] [address] Care Team Providers Care Mining Machinery Assembler Name Role Phone West Gallegos MD Primary Care Provider [phone] Reason for Visit * Reason Onset Date Comments Med Refill 01/15/2023 Encounter Details Date Type Department Care Team ([facility] st Contact Info) Description 01/15/2023 Telephone [facility] CHC MED & PEDS [address] [place] [address] West Gallegos MD [address] [place] [address] Med Refill Social History Tobacco Use Types [...] 100 UNIT/ML injection to be sent to [facility] [place], [place] - [address] [place] [address]. States instructions have to be change from 18 units to 26 units due to PCP ordering her to take more. documented in this encounter Plan of Treatment Upcoming Encounters Date Type Department Care Team (Late st Contact Info) Description 05/29/2025 3:15 PM EST Office Visit [facility] MED & PEDS [address] [place] [address] West Gallegos MD [address] [place] [address] documented as of this encounter Visit Diagnoses Diagnosis Type 2 diabetes mellitus with other neurologic complication, with long-term current use of insulin (HCC)- Primary documented in this encounter Additional Health Concerns Assessment Noted Time PHQ-9 Depression Total Score: 3 05/23/20 22 1:43 PM EST documented as of this encounter Care Teams Mining Machinery Assembler Relationship Specialty Start Date End Date West Gallegos MD [address] [place] [address] PCP - General Internal Medicine 01/26/18 documented as of this encounter
--- OUTSIDE RECORDS SUMMARY | 2025-05-02 19:23 | XMS_ITS | Encounter Summary ---
Author Organization [employer] Address [address] [place] [address] [place] [address] Care Team Providers Care Nuclear Technician Name Role Phone West Gallegos MD Primary Care Provider [phone] Encounter Details Date Type Department Care Team ([facility] st Contact Info) Description 05/13/2022 Telephone [facility] CHC MED & PEDS [address] [place], [place] [phone] West Gallegos MD [address] [place] [address] Social History Tobacco Use Types Packs/Day Years [...] 05/15/2022 9:34 AM EST Referral Authorization # [id number] given to Rehan from [facility] Endo. * Telephone Encounter - Kimberli Evans - 05/13/2022 2:05 PM EST TC from [place] with [facility] Endocrinology requesting a updated referral for : [address] [facility] [address] Tel: [phone] Fax: [phone] Referral was done on 08/27/21 but endocrinology office stated they never received referral. Pcp dr. Gallegos documented in this encounter Plan of Treatment Upcoming Encounters Date Type Department Care Team ([facility] st Contact Info) Description 05/29/2025 3:15 PM EST Office Visit [facility] MED & PEDS [address] [place] [address] West Gallegos MD [address] [place] [address] documented as of this encounter Visit Diagnoses Not on filedocumented in this encounter Care Teams Nuclear Technician Relationship Specialty Start Date End Date West Gallegos MD [address] [place] [address] PCP - General Internal Medicine 01/26/18 documented as of this encounter
--- OUTSIDE RECORDS SUMMARY | 2025-05-02 19:23 | XMS_ITS | Encounter Summary ---
Author Organization [employer] Address [address] [place] [address] [place] [address] Care Team Providers Care Core Dropper Name Role Phone West Gallegos MD Primary Care Provider [phone] Reason for Visit * Reason Onset Date Comments Other 10/01/2022 Encounter Details Date Type Department Care Team ([facility] Contact Info) Description 10/01/2022 Telephone [facility] CHC MED & PEDS [address] [place], [place] [phone] West Gallegos MD [address] [place] [address] Other Social History Tobacco Use Types Packs/Day [...] 10:16 AM EDT Tc from Laura at [facility] [place] [facility] calling in regards to nerve conduction order for 12/22/22. Laura would like to know if PCP would like to include EMG. Patient did get the EMG last year on 07/16/21. Any further questions please call [phone] fax number [phone]. Dynamic Balancer was unable to see order. documented in this encounter Plan of Treatment Upcoming Encounters Date Type Department Care Team (Late st Contact Info) Description 05/29/2025 3:15 PM EST Office Visit [facility] MED & PEDS [address] [place] [address] West Gallegos MD [address] [place] [address] documented as of this encounter Visit Diagnoses Not on filedocumented in this encounter Additional Health Concerns Assessment Noted Time PHQ-9 Depression Total Score: 3 05/23/20 22 1:43 PM EST documented as of this encounter Care Teams Core Dropper Relationship Specialty Start Date End Date West Gallegos MD [address] [place] [address] PCP - General Internal Medicine 01/26/18 documented as of this encounter
--- OUTSIDE RECORDS SUMMARY | 2025-05-02 19:23 | XMS_ITS | Encounter Summary ---
Author Organization [employer] Address [address] [place] [address] 7 [place] [address] Care Team Providers Care Education Officer Name Role Phone West Gallegos MD Primary Care Provider [phone] Reason for Visit * Reason Comments Med Refill Encounter Details Date Type Department Care Team ([facility] Contact Info) Description 07/10/[address] [facility] CHC MED & PEDS [address] [place] [address] West Gallegos MD [address] [place] [address] Subacute cough Social History Tobacco Use Types [...] PM EST Office Visit [facility] MED & PEDS [address] [place] [address] West Gallegos MD [address] [place] [address] documented as of this encounter Visit Diagnoses Diagnosis Subacute cough documented in this encounter Additional Health Concerns Assessment Noted Time PHQ-9 Depression Total Score: 3 05/23/20 1:43 PM EST documented as of this encounter Care Teams Education Officer Relationship Specialty Start Date End Date West Galleogs MD [address] [place] [address] PCP - General Internal Medicine 01/26/18 documented as of this encounter
--- OUTSIDE RECORDS SUMMARY | 2025-05-02 19:23 | XMS_ITS | Encounter Summary ---
Author Organization [employer] Address [address] [place] [address] [place] [address] Care Team Providers Care Geological Technical Officer Name Role Phone West Gallegos MD Primary Care Provider [phone] Reason for Referral * Imaging (Routine) - Authorized Specialty Diagnoses / Procedures Referred By Contac t Referred To Contact Radiology Diagnoses Transaminitis Procedures US Abdomen Comp w elastography West Gallegos MD [address] [place] [address] Phone: tel: fax: [address] [phone] Phone: tel: fax: Referral ID Status Reason Start Date Expiration Date V isits Requested Visits Authorized [id number] Authorized 04/13/2025 04/13/2026 1 1 Encounter Details Date Type Department Care Team (Late st Contact Info) Description 04/13/2025 Orders Only [facility] CHC MED & PEDS [address] [place], [place] [phone] West Gallegos MD [address] [place] [phone] Transaminitis (Primary Dx) Social History Tobacco Use Types [...] 05/29/2025 3:15 PM EST Office Visit [facility] MED & PEDS [address] [place] [address] West Gallegos MD [address] [place] [address] Scheduled Orders Name Type Priority Associated Diagnoses Orde r Schedule Hepatitis B Surface Antibody, Qualitative Lab Routine Transaminitis Expected: 04/13/2025 (Approximate), Expires: 04/13/2026 US Abdomen Comp w elastography Imaging Routine Transaminitis Expected: 04/13/2025, Expires: 04/13/2026 Smooth Muscle Antibody with Reflex to Titer Lab Routine Transaminitis Expected: 04/13/2025 (Approximate), Expires: 04/13/2026 Immunoglobulins, Quantitative, IgA, IgG, IgM Lab Routine Transaminitis Expected: 04/13/2025 (Approximate), Expires: 04/13/2026 Prothrombin Time-INR Lab Routine Transaminitis Expected: 04/13/2025, Expires: 04/13/2026 Ferritin Lab Routine Transaminitis Expected: 04/13/2025, Expires: 04/13/2026 Iron And Total Iron Binding Capacity Lab Routine Transaminitis Expected: 04/13/2025, Expires: 04/13/2026 Alpha 1 Antitrypsin Lab Routine Transaminitis Expected: 04/13/2025 (Approximate), Expires: 04/13/2026 documented as of this encounter Visit Diagnoses Diagnosis Transaminitis- Primary Nonspecific elevation of levels of transaminase or lactic acid dehydrogenase (LDH) documented in this encounter Additional Health Concerns Assessment Noted Time PHQ-9 Depression Total Score: 21 02/09/ 024 10:02 AM EDT documented as of this encounter Care Teams Geological Technical Officer Relationship Specialty Start Date End Date West Gallegos MD [address] [place] [address] PCP - General Internal Medicine 01/26/18 documented as of this encounter
--- OUTSIDE RECORDS SUMMARY | 2025-05-02 19:23 | XMS_ITS | Encounter Summary ---
Author Organization [employer] Address [address] [place] [address] [place] [address] Care Team Providers Care Tactical Air Control Party Manager Name Role Phone West Gallegos MD Primary Care Provider [phone] Reason for Visit * Reason Onset Date Comments PA 11/20/2022 Encounter Details Date Type Department Care Team ([facility] Contact Info) Description 11/20/2022 Telephone [facility] CHC MED & PEDS [address] [place], [place] [phone] West Gallegos MD [address] [place] [address] [place] Social History Tobacco Use Types Packs/Day [...] information for Insurance. Please contact pt at [phone] documented in this encounter Plan of Treatment Upcoming Encounters Date Type Department Care Team ([facility] st Contact Info) Description 05/29/2025 3:15 PM EST Office Visit [facility] MED & PEDS [address] [place] [address] West Gallegos MD [address] [place] [address] documented as of this encounter Visit Diagnoses Not on filedocumented in this encounter Additional Health Concerns Assessment Noted Time PHQ-9 Depression Total Score: 3 05/23/20 22 1:43 PM EST documented as of this encounter Care Teams Tactical Air Control Party Manager Relationship Specialty Start Date End Date West Gallegos MD [address] [place] [address] PCP - General Internal Medicine 01/26/18 documented as of this encounter
== END 2025-05-02 16:24 | disposition home or self-care (01) ==
LOC: HO.ENCR 15:58
PROVIDERS: PCP Internal Medicine; Visit Provider Registered Nurse Diabetes Educator
DX: E11.65 Type 2 diabetes mellitus with hyperglycemia (principal)

== ENCOUNTER → 2025-05-02 15:57 | Outpatient (BNVA) | payer MEDICAID, SELFPAY | PROVIDERS: PCP Internal Medicine; Visit Provider Registered Nurse Diabetes Educator | DX: E11.65 Type 2 diabetes mellitus with hyperglycemia (principal) | CPT/HCPCS: 99211 ==